=== PATIENT | female | born 1955 | race Caucasian/White ===

== ENCOUNTER → 2017-03-16 | Outpatient (CLI) | payer BC, OTHER ==
[~2017-03-16] MED LIST: ASPCH81 PO; BENADRYL; CALCTAB5 PO; CITRACEL; CLBCR15 EXT; CRG625 PO; EFFSR150 PO; ENOX40IN SQ; ESTCR PV; GLC500 PO; HMLI SC; HYDC25 PO; INSDGI SC; LISI40TA PO; MRLP17 PO; MULT-506 PO; NRN600 PO; NTRGSL/4 UT; OXYC-57 PO; OXYSR10 PO; PRLSR20 PO; SITA100T3 PO; STLS PO; SYN100 PO
== END | disposition home or self-care (01) ==
LOC: C.RDSM 14:37
PROVIDERS: ATTEND Physical Medicine & Rehabilitation Sports Medicine
DX: M70.72 Other bursitis of hip, left hip (principal)

== ENCOUNTER → 2017-03-30 | Outpatient (CLI) | payer OTHER ==
--- NOTE | 2017-03-31 13:20 | MAMMOGRAPHY REPORT ---
BILATERAL DIGITAL SCREENING MAMMOGRAM 3D/2D WITH CAD: 03/30/2017 CLINICAL HISTORY: Routine screening. Patient has no complaints. TECHNIQUE: Breast tomosynthesis in addition to standard 2D mammography was performed. Current study was also evaluated with a Computer Aided Detection (CAD) system. COMPARISON: Comparison is made to exams dated: 03/26/2015 mammogram, 03/23/2014 mammogram, 03/28/2016 m ammogram, 03/21/2013 mammogram, 03/18/2012 mammogram, and 03/17/2011 mammogram - [facility]. BREAST COMPOSITION: There are scattered areas of fibroglandular density in both breasts. FINDINGS: There is a stable safia-shaped metallic biopsy marker in the left upper outer quadrant. Scat tered benign-appearing punctate microcalcifications in the breasts. No new suspicious mass, architec tural distortion or cluster of microcalcifications is seen. ACR BI-RADS CATEGORY 1: NEGATIVE There is no mammographic evidence of malignancy. A 1 year screening mammogram is recommended. The pa tient will receive written notification of the results. Approximately 10% of breast cancers are not detected with mammography. A negative mammographic report should not delay biopsy if a clinically suggestive mass is present. Annie Tejeda M.D. ay/:03/30/2017 16:18:38 Operations And Maintenance Supervisor: Monserrat ENCARNACION(Danelle)(M), [facility] letter sent: Normal 1/2 BI-RADS Code: ACR BI-RADS Category 1: Negative
== END | disposition home or self-care (01) ==
LOC: C.MAMM 11:25
PROVIDERS: ATTEND Internal Medicine
DX: Z12.31 Encounter for screening mammogram for malignant neoplasm of breast (principal)

== ENCOUNTER → 2017-09-03 | Outpatient (CLI) | payer OTHER ==
[~2017-09-03] MED LIST changes: +GADAVIST IV PRN
--- NOTE | 2017-09-03 13:09 | DIAGNOSTIC IMAGING REPORT ---
MRI OF THE BRAIN WITHOUT AND WITH IV CONTRAST CLINICAL HISTORY: VERTIGO,HEADACHES COMPARISON STUDY: Noncontrast head CT dated 03/18/2010 TECHNIQUE: MRI of the brain was performed from the vertex to the skull base utilizing various T1 and T2 weighted sequences. Following the IV administration of 7.4 mL of Gadavist contrast, additional enhanced images were obtained. FINDINGS: Sagittal T1, axial diffusion, proton density and T2 weighted axial, coronal FLAIR, and pre and post axial T1-weighted images were acquired. These were supplemented with post gadolinium coronal T1 weighted images. No intra or extra-axial mass lesions are visualized. Axial diffusion-weighted images reveal no evidence of acute or subacute infarction. There is no evidence of ventricular dilatation. Proton density T2-weighted and FLAIR images reveal scattered foci of increased T2 signal within the white matter, likely on a small vessel basis. There are no abnormal flow voids. There is no evidence of pathologic enhancement. IMPRESSION: 1. No acute intracranial findings 2. No evidence of intracranial mass 3. No evidence of acute or subacute infarction Electronically signed by: [place] M.D. 09/03/2017 1:07 PM Dictated Date/Time: 09/03/2017 1:06 PM
== END | disposition home or self-care (01) ==
LOC: C.MRIBC 11:54
PROVIDERS: ATTEND Nurse Practitioner
DX: R51 Headache (principal)

== ENCOUNTER 2018-12-25 11:22 | Inpatient (IN) ==
--- OUTSIDE RECORDS SUMMARY | 2018-12-25 11:26 | External Medical Summary | Continuity of Care Document ---
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 Refills: 0 Venlafaxine HCl ER 75 MG Oral Tablet Ext ended Release 24 Hour; Take 1 tablet twice daily , M.D. Refills: 0 Synthroid 88 MCG Oral Tablet; TAKE 1 TABLET DAILY. , M.D. Refills: 0 Gabapentin 600 MG Oral Tablet , M.D. Refills: 0 traMADol HCl - 50 MG Oral Tablet; TAKE 1 TABLET 3 TIMES FINN Y NEEDED. , M.D. Refills: 0 Perphenazine-Amitriptyline 2-25 MG Oral Tablet; TAKE 2 TABLE T , M.D. Refills: 0 raNITIdine HCl - 150 MG Oral Tablet , M.D. Refills: 0 Clobetasol Propionate 0.05 % External Cream , M.D. Refills: 0 Estrace 0.1 MG/GM Vaginal Cream; USE DIRECTED. , M.D. Refills: 0 metFORMIN HCl - 500 MG Oral Tablet; TAKE 1 TABLET DAILY WITH FOOD. , M.D. Start: 14-Jun-2015 Refills: 0 Procedures Procedures not documented Immunizations Immunizations not documented Family History Mother Family history of diabetes mellitus (V18.0) (Z83.3) Status: Active Family history of hypertension (V17.49) (Z82.49) Status: Act joe Family history of Parkinson's disease (V17.2) (Z82.0) Status : Active Father Family history of diabetes mellitus (V18.0) (Z83.3) Status: Active Family history of hypertension (V17.49) (Z82.49) Status: Act joe Family history of prostate cancer (V16.42) (Z80.42) Status: Active Social History - Smoking Status Former smoker Plan of Treatment Planned Observations Planned Goals not documented Results No Known Results Results not documented
--- NOTE | 2018-12-25 12:15 | Emergency Department Note ---
Entered by Fina Lucas acting as a scribe for Greg Pfeiffer DO History of Present Illness General Chief complaint: Hyperglycemia Stated complaint: NO RESPONDING, HYPERGLYCEMIA +400 Source: patient History of Present Illness Onset (ago): day(s) 1 Location: head (Hyperglycemia) Severity: similar to prior episodes Pain Consistency: + intermittent Quality: + other (Hyperglycemia) Relieved By: not by medication (Insulin) Associated symptoms: no chest pain, no fever/chills, no headaches and no shortness of breath Treatments prior to arrival: other (Increase of insulin dosage) The patient is a 63-year-old female who presented to the emergency department for altered mental status. The patient presented to the emergency department with her significant other. The significant other gives most of the history. The patient has a history of cirrhosis caused by diabetes. The patient has had a TIPS procedure in the past. She is been on no new medications. She has had no falls. She has noticed intermittent epistaxis but the patient and her significant other did not know her current platelet count. The patient has also been noticing elevation in her blood sugar. She is been experiencing worsening hyperglycemia despite her primary care physician increasing her insulin. The patient denies having any chest pain or shortness of breath. She does complain of lower extremity edema but no abdominal pain or abdominal distention according to her or her significant other. She has not had any fevers. She has no headaches. She has had no dark or black stools. She has not seen her primary care physician for this complaint and her significant other feels that this started yesterday. Home Medications Home Medications Medication Instructions Recorded Confirmed Type Systane Ultra 4 drp OPB DAILY PRN 07/11/18 12/25/18 History calcium carbonate-vitamin D3 2 tab PO BID 07/11/18 12/25/18 History [Calcium 600 + D(3)] diphenhydramine HCl [Benadryl] 25 - 50 mg PO QID PRN 07/11/18 12/25/18 History levothyroxine 100 mcg PO QAM 07/11/18 12/25/18 History pantoprazole 40 mg PO QAM 07/11/18 12/25/18 History spironolactone 25 mg PO QAM 07/11/18 12/25/18 History ursodiol 500 mg PO BID 07/11/18 12/25/18 History venlafaxine 75 mg PO BIDM 07/11/18 12/25/18 History Magic Swizzle 30 ml PO QID 11/02/18 12/25/18 History acetaminophen [Tylenol Extra 500 mg PO Q4H PRN 11/02/18 12/25/18 History Strength] pedi multivitamin no.79-iron 1 tab PO BID 11/02/18 12/25/18 History [Flintstones with Iron] polyethylene glycol 3350 [Miralax] 17 g PO QAM 11/02/18 12/25/18 History potassium chloride 10 meq PO BID 11/02/18 12/25/18 History zinc sulfate [Zinc-220] 220 mg PO BID 11/02/18 12/25/18 History furosemide 40 mg PO PM 12/25/18 12/25/18 History furosemide 80 mg PO QAM 12/25/18 12/25/18 History insulin glargine [Lantus Solostar 19 unit SUBCUT QAM 12/25/18 12/25/18 History U-100 Insulin] lactulose 60 ml PO Q4H 12/25/18 12/25/18 History magnesium oxide 400 mg PO QAM 12/25/18 12/25/18 History sitagliptin [Januvia] 100 mg PO QAM 12/25/18 12/25/18 History vitamin K93-lilep acid 1 tab PO QAM 12/25/18 12/25/18 History Allergies Allergy/AdvReac Type Severity Reaction Status Date / Time Sulfa (Sulfonamide Allergy Mild RED RASH Verified 12/25/18 12:36 Antibiotics) adhesive Allergy Unknown RASH AND Verified 12/25/18 12:36 BRUISING Estrogens Allergy Unknown SORE AND Verified 12/25/18 12:36 ITCHY repaglinide Allergy Unknown RASH Verified 12/25/18 12:36 NSAIDS (Non-Steroidal AdvReac Unknown STRICTLY Verified 12/25/18 12:36 Anti-Inflamma NO NSAIDS FOR ADMISSION OF 03/18/[address] GIVENS Past Med/Surg History Medical History Depression (Chronic) Diabetes mellitus, type II (Chronic) Hypothyroidism (Chronic) Factor V Leiden (Chronic) SAMANTHA (obstructive sleep apnea) (Chronic) Portal hypertension (Chronic) Esophageal varices (Chronic) Liver cirrhosis secondary to MARIA (Chronic) Thrombocytopenia (Chronic) Hepatic encephalopathy (Resolved) Hyperammonemia (Resolved) Acute UTI (urinary tract infection) (Resolved) Cirrhosis (Chronic) Hyperammonemia (Chronic) Surgical History S/P gastric bypass (Chronic) S/P TIPS (transjugular intrahepatic portosystemic shunt) (Chronic) Family History Other Cancer Diabetes Factor V Leiden Social History Preferred Language: Croatian Communication Ability: Effective [employer] Required: No Beliefs That Will Affect Care: None Current Living Situation: Spouse Other Information That Helps Us Care for You: No Feels Safe at Home: Yes Safety Concerns: Feels Safe At This Time Smoking Status: Never smoker Do You Dip or Chew Tobacco: No Second Hand Exposure: No Tobacco Cessation Education Requested by Patient: No Hx Alcohol Use: No Hx Substance Use: No Review of Systems See HPI for pertinent positives & negatives. and A total of 10 systems reviewed and were otherwise negative Physical Exam Vital Signs Vital Signs - 24 hr 12/25/18 11:28 12/25/18 11:47 12/25/18 12:18 Temperature 36.5 C Temperature Source Oral Sepsis Recent Fever Within 48 Hours No Sepsis New/Unexplained Change in Mental Status No Sepsis Action Taken by Nursing No Action Required Pulse Rate 101 H 94 H Pulse Rate [Right Finger] 92 H 97 H Pulse Rhythm [Right Finger] Regular Pulse Strength [Right Finger] Normal Respiratory Rate 18 22 16 Respiratory Effort / Characteristics Non-Labored Spontaneous Non-Labored Spontaneous Non-Labored Respiratory Depth Normal Normal Respiratory Pattern Regular Regular Regular Blood Pressure 163/76 H Blood Pressure [Left Arm] 168/77 H 170/79 H Blood Pressure Mean 105 Blood Pressure Mean [Left Arm] 107 109 Blood Pressure Position Sitting Blood Pressure Position [Left Arm] Lying Lying Pulse Oximetry 100 99 99 Oxygen Delivery Method Room Air Room Air Room Air 12/25/18 13:45 Temperature Temperature Source Sepsis Recent Fever Within 48 Hours Sepsis New/Unexplained Change in Mental Status Sepsis Action Taken by Nursing Pulse Rate Pulse Rate [Right Finger] 99 H Pulse Rhythm [Right Finger] Regular Pulse Strength [Right Finger] Respiratory Rate 16 Respiratory Effort / Characteristics Non-Labored Respiratory Depth Normal Respiratory Pattern Blood Pressure Blood Pressure [Left Arm] 164/80 H Blood Pressure Mean Blood Pressure Mean [Left Arm] 108 Blood Pressure Position Blood Pressure Position [Left Arm] Lying Pulse Oximetry 98 Oxygen Delivery Method Room Air GENERAL: The patient is listless but responds to verbal commands. She is slow to respond but responds appropriately. EYES: The conjunctivae are clear. The pupils are round and reactive. EARS, NOSE, MOUTH AND THROAT: The nose is without any evidence of any deformity. Mucous membranes are dry. There was clotted blood in both nares. NECK: The neck is nontender and supple. RESPIRATORY: Normal respiratory effort is noted there is no evidence of wheezing rhonchi or rales CARDIOVASCULAR: Tachycardic rate with regular rhythm was noted. There is no definite murmur. GASTROINTESTINAL: The abdomen is soft. Bowel sounds are present in all quadrants. Abdomen is nontender MUSCULOSKELETAL/EXTREMITIES: There is no evidence of gross deformity full range of motion is noted in the hips and shoulders SKIN: There is no obvious evidence of any rash. Pedal edema was noted bilaterally. NEUROLOGIC: Patient is awake to verbal commands. She is oriented to person place and situation. Strength was diminished but symmetric. Patient is tremulous in both upper and lower extremities. Course 1145: The patient was evaluated in room A11B, and a complete history and physical examination were performed. 1315: I discussed the patients case with Radha Jang PA-C. Dr. Kris Smith hospitalist will evaluate the patient for further management. Consultations Consultation #1: I discussed the patients case with Radha Jang PA-C. Dr. Kris Smith hospitalist will evaluate the patient for further management. Time: 13:15 Administered Medications Insulin Human Regular 250 (units/ Sodium Chloride) 250 mls @ 2.7 mls/hr IV .Q24H [facility]; Protocol Stop: 01/24/19 17:44 Last Titration: 12/25/18 20:31 Dose: 2.7 units/hr, 2.7 mls/hr Documented by: [id number] Cosigned by: [id number] Admin: 12/25/18 19:22 Dose: 1.9 units/hr, 1.9 mls/hr Documented by: [id number] Cosigned by: [id number] Titration: 12/25/18 19:22 Dose: 1.6 units/hr, 1.6 mls/hr Documented by: [id number] Cosigned by: [id number] Admin: 12/25/18 18:12 Dose: 1.6 units/hr, 1.6 mls/hr Documented by: [id number] Cosigned by: [id number] Sodium Chloride (Nss 1000ml) 1,000 mls @ 125 mls/hr IV .Q8H [facility] Stop: 01/24/19 17:01 Last Admin: 12/25/18 17:50 Dose: 125 mls/hr Documented by: [id number] Insulin Aspart (Novolog Flexpen) 0 units SC [facility] Stop: 01/24/19 17:59 Last Admin: 12/25/18 20:31 Dose: Not Given Documented by: [id number] Cosigned by: [id number] Admin: 12/25/18 18:10 Dose: 1 units Documented by: [id number] Cosigned by: [id number] Ioversol (Optiray 320 100ml) 94 ml IV ONCE PRN PRN Reason: Interaction Checking Stop: 12/29/18 15:36 Last Admin: 12/25/18 15:37 Dose: 94 ml Documented by: [id number] Lactulose (Chronulac) 30 gm PO QID [facility] Stop: 01/24/19 17:01 Last Admin: 12/25/18 20:30 Dose: 30 gm Documented by: [id number] Admin: 12/25/18 18:02 Dose: 30 gm Documented by: [id number] Rifaximin (Xifaxan) 550 mg PO BID [facility] Stop: 01/24/19 17:29 Last Admin: 12/25/18 18:02 Dose: 550 mg Documented by: [id number] Discontinued Medications Sodium Chloride (Nss 1000ml) 1,000 mls @ 999 mls/hr IV .Q1H1M ONE Stop: 12/25/18 13:26 Last Infusion: 12/25/18 15:33 Dose: 0 mls/hr Documented by: [id number] Admin: 12/25/18 12:46 Dose: 999 mls/hr Documented by: [id number] Sodium Chloride (Nss 1000ml) 1,000 mls @ 999 mls/hr IV .Q1H1M ONE Stop: 12/25/18 14:11 Last Admin: 12/25/18 16:45 Dose: Not Given Documented by: [id number] Insulin Human Regular (Novolin R U-100 Per Unit) 6 units IV NOW STA Stop: 12/25/18 13:12 Last Admin: 12/25/18 13:48 Dose: 6 units Documented by: [id number] Cosigned by: [id number] Lactulose (Chronulac) 30 gm PO NOW STA Stop: 12/25/18 13:12 Last Admin: 12/25/18 13:49 Dose: 30 gm Documented by: [id number] Miscellaneous (Insulin Protocol Moderate Stress Level) 1 ea N/A ONE ONE Stop: 12/25/18 17:03 Last Admin: 12/25/18 18:00 Dose: 1 ea Documented by: [id number] Medical Decision Making Differential Diagnosis Etiologies such as metabolic, infection, hypo/hyperglycemia, electrolyte abnormalities, cardiac sources, intracerebral event, toxicologic, neurologic, as well as others were entertained. Medical Records Attestation: I reviewed the patient's medical records. Home Medications Current Medication List: was personally reviewed by me Laboratory Data Attestation: I reviewed the patient's lab results. Result diagrams: 12/25/18 12:04 12/25/18 17:16 Lab Results 12/25/18 12/25/18 12/25/18 Range/Units 11:33 12:04 12:04 WBC 4.68 L (4.8-10.8) K/uL RBC 3.73 L (4.2-5.4) M/uL Hgb 12.2 (12.0-16.0) g/dL Hct 34.0 L (37-47) % MCV 91.2 (80-100) fL MCH 32.7 (25-34) pg MCHC 35.9 (32-36) g/dL RDW Std Deviation 56.9 H (36.4-46.3) fL RDW Coeff of Loco 17.0 H (11.5-14.5) % Plt Count 174 (130-400) K/uL MPV 10.7 H (7.4-10.4) fL Immature Gran % (Auto) 0.2 % Neut % (Auto) 63.9 % Lymph % (Auto) 19.0 % Garland % (Auto) 14.3 % Eos % (Auto) 0.9 % Baso % (Auto) 1.7 % Immature Gran # (Auto) 0.01 (0.00-0.02) K/uL Neut # (Auto) 2.99 (1.4-6.5) K/uL Lymph # (Auto) 0.89 L (1.2-3.4) K/uL Garland # (Auto) 0.67 H (0.11-0.59) K/uL Eos # (Auto) 0.04 (0-0.5) K/uL Baso # (Auto) 0.08 (0-0.2) K/uL ESR (0-21) mm/hr PT 12.5 H (9.0-12.0) Seconds INR 1.2 H (0.9-1.1) APTT 30.2 (21.0-31.0) Seconds PTT Ratio 1.1 VBG pH (7.36-7.41) VBG pCO2 (38-50) mmHg VBG pO2 mmHg VBG HCO3 mmol/L VBG O2 Saturation % VBG Base Excess mEq/L Barometric Pressure mm/Hg Sodium (136-145) mmol/L Potassium (3.5-5.1) mmol/L Chloride (98-107) mmol/L Carbon Dioxide (21-32) mmol/L Anion Gap (3-11) BUN (7-18) mg/dl Creatinine (0.6-1.2) mg/dl Est Cr Clr Drug Dosing ml/min Est GFR ( Amer) Est GFR (Non-Af Amer) BUN/Creatinine Ratio (10-20) Glucose (70-99) mg/dl POC Glucose 367 H* (70-99) Lactate (0.4-2.0) mmol/L Calcium (8.5-10.1) mg/dl Phosphorus (2.5-4.9) mg/dl Magnesium (1.8-2.4) mg/dl Total Bilirubin (0.2-1) mg/dl Direct Bilirubin (0-0.2) mg/dl AST (15-37) U/L ALT (12-78) U/L Alkaline Phosphatase (45-117) U/L Ammonia (11-32) umol/L Troponin I (0-0.045) ng/ml C-Reactive Protein (0-0.29) mg/dl Total Protein (6.4-8.2) gm/dl Albumin (3.4-5.0) gm/dl Globulin (2.5-4.0) gm/dl Albumin/Globulin Ratio (0.9-2) Beta-Hydroxybutyric Acd (0.2-2.81) mg/dl Procalcitonin (0-0.5) ng/ml TSH (0.300-4.500) uIu/ml Free T4 (0.8-1.6) ng/dl 12/25/18 12/25/18 12/25/18 Range/Units 12:04 12:04 12:04 WBC (4.8-10.8) K/uL RBC (4.2-5.4) M/uL Hgb (12.0-16.0) g/dL Hct (37-47) % MCV (80-100) fL MCH (25-34) pg MCHC (32-36) g/dL RDW Std Deviation (36.4-46.3) fL RDW Coeff of Loco (11.5-14.5) % Plt Count (130-400) K/uL MPV (7.4-10.4) fL Immature Gran % (Auto) % Neut % (Auto) % Lymph % (Auto) % Garland % (Auto) % Eos % (Auto) % Baso % (Auto) % Immature Gran # (Auto) (0.00-0.02) K/uL Neut # (Auto) (1.4-6.5) K/uL Lymph # (Auto) (1.2-3.4) K/uL Garland # (Auto) (0.11-0.59) K/uL Eos # (Auto) (0-0.5) K/uL Baso # (Auto) (0-0.2) K/uL ESR (0-21) mm/hr PT (9.0-12.0) Seconds INR (0.9-1.1) APTT (21.0-31.0) Seconds PTT Ratio VBG pH (7.36-7.41) VBG pCO2 (38-50) mmHg VBG pO2 mmHg VBG HCO3 mmol/L VBG O2 Saturation % VBG Base Excess mEq/L Barometric Pressure mm/Hg Sodium 134 L (136-145) mmol/L Potassium 3.8 (3.5-5.1) mmol/L Chloride 97 L (98-107) mmol/L Carbon Dioxide 33 H (21-32) mmol/L Anion Gap 4.0 (3-11) BUN 8 (7-18) mg/dl Creatinine 0.87 (0.6-1.2) mg/dl Est Cr Clr Drug Dosing 58.0 ml/min Est GFR ( Amer) 81.0 Est GFR (Non-Af Amer) 69.9 BUN/Creatinine Ratio 9.4 L (10-20) Glucose 347 H* (70-99) mg/dl POC Glucose (70-99) Lactate (0.4-2.0) mmol/L Calcium 8.8 (8.5-10.1) mg/dl Phosphorus 3.3 (2.5-4.9) mg/dl Magnesium 1.8 (1.8-2.4) mg/dl Total Bilirubin 2.8 H (0.2-1) mg/dl Direct Bilirubin 1.7 H (0-0.2) mg/dl AST 78 H (15-37) U/L ALT 43 (12-78) U/L Alkaline Phosphatase 266 H (45-117) U/L Ammonia (11-32) umol/L Troponin I 0.016 (0-0.045) ng/ml C-Reactive Protein 0.57 H (0-0.29) mg/dl Total Protein 6.8 (6.4-8.2) gm/dl Albumin 2.3 L (3.4-5.0) gm/dl Globulin 4.5 H (2.5-4.0) gm/dl Albumin/Globulin Ratio 0.5 L (0.9-2) Beta-Hydroxybutyric Acd 2.45 (0.2-2.81) mg/dl Procalcitonin 0.05 (0-0.5) ng/ml TSH 12.000 H (0.300-4.500) uIu/ml Free T4 1.72 H (0.8-1.6) ng/dl 12/25/18 12/25/18 12/25/18 Range/Units 12:04 12:06 12:06 WBC (4.8-10.8) K/uL RBC (4.2-5.4) M/uL Hgb (12.0-16.0) g/dL Hct (37-47) % MCV (80-100) fL MCH (25-34) pg MCHC (32-36) g/dL RDW Std Deviation (36.4-46.3) fL RDW Coeff of Loco (11.5-14.5) % Plt Count (130-400) K/uL MPV (7.4-10.4) fL Immature Gran % (Auto) % Neut % (Auto) % Lymph % (Auto) % Garland % (Auto) % Eos % (Auto) % Baso % (Auto) % Immature Gran # (Auto) (0.00-0.02) K/uL Neut # (Auto) (1.4-6.5) K/uL Lymph # (Auto) (1.2-3.4) K/uL Garland # (Auto) (0.11-0.59) K/uL Eos # (Auto) (0-0.5) K/uL Baso # (Auto) (0-0.2) K/uL ESR 51 H (0-21) mm/hr PT (9.0-12.0) Seconds INR (0.9-1.1) APTT (21.0-31.0) Seconds PTT Ratio VBG pH (7.36-7.41) VBG pCO2 (38-50) mmHg VBG pO2 mmHg VBG HCO3 mmol/L VBG O2 Saturation % VBG Base Excess mEq/L Barometric Pressure mm/Hg Sodium (136-145) mmol/L Potassium (3.5-5.1) mmol/L Chloride (98-107) mmol/L Carbon Dioxide (21-32) mmol/L Anion Gap (3-11) BUN (7-18) mg/dl Creatinine (0.6-1.2) mg/dl Est Cr Clr Drug Dosing ml/min Est GFR ( Amer) Est GFR (Non-Af Amer) BUN/Creatinine Ratio (10-20) Glucose (70-99) mg/dl POC Glucose (70-99) Lactate 2.8 H* (0.4-2.0) mmol/L Calcium (8.5-10.1) mg/dl Phosphorus (2.5-4.9) mg/dl Magnesium (1.8-2.4) mg/dl Total Bilirubin (0.2-1) mg/dl Direct Bilirubin (0-0.2) mg/dl AST (15-37) U/L ALT (12-78) U/L Alkaline Phosphatase (45-117) U/L Ammonia (11-32) umol/L Troponin I (0-0.045) ng/ml C-Reactive Protein (0-0.29) mg/dl Total Protein (6.4-8.2) gm/dl Albumin (3.4-5.0) gm/dl Globulin (2.5-4.0) gm/dl Albumin/Globulin Ratio (0.9-2) Beta-Hydroxybutyric Acd (0.2-2.81) mg/dl Procalcitonin (0-0.5) ng/ml TSH Cancelled (0.300-4.500) uIu/ml Free T4 (0.8-1.6) ng/dl 12/25/18 12/25/18 Range/Units 12:06 12:06 WBC (4.8-10.8) K/uL RBC (4.2-5.4) M/uL Hgb (12.0-16.0) g/dL Hct (37-47) % MCV (80-100) fL MCH (25-34) pg MCHC (32-36) g/dL RDW Std Deviation (36.4-46.3) fL RDW Coeff of Lcoo (11.5-14.5) % Plt Count (130-400) K/uL MPV (7.4-10.4) fL Immature Gran % (Auto) % Neut % (Auto) % Lymph % (Auto) % Garland % (Auto) % Eos % (Auto) % Baso % (Auto) % Immature Gran # (Auto) (0.00-0.02) K/uL Neut # (Auto) (1.4-6.5) K/uL Lymph # (Auto) (1.2-3.4) K/uL Garland # (Auto) (0.11-0.59) K/uL Eos # (Auto) (0-0.5) K/uL Baso # (Auto) (0-0.2) K/uL ESR (0-21) mm/hr PT (9.0-12.0) Seconds INR (0.9-1.1) APTT (21.0-31.0) Seconds PTT Ratio VBG pH 7.45 H (7.36-7.41) VBG pCO2 41 (38-50) mmHg VBG pO2 51 mmHg VBG HCO3 28 mmol/L VBG O2 Saturation 86.5 % VBG Base Excess 3.9 mEq/L Barometric Pressure 734.6 mm/Hg Sodium (136-145) mmol/L Potassium (3.5-5.1) mmol/L Chloride (98-107) mmol/L Carbon Dioxide (21-32) mmol/L Anion Gap (3-11) BUN (7-18) mg/dl Creatinine (0.6-1.2) mg/dl Est Cr Clr Drug Dosing ml/min Est GFR ( Amer) Est GFR (Non-Af Amer) BUN/Creatinine Ratio (10-20) Glucose (70-99) mg/dl POC Glucose (70-99) Lactate (0.4-2.0) mmol/L Calcium (8.5-10.1) mg/dl Phosphorus (2.5-4.9) mg/dl Magnesium (1.8-2.4) mg/dl Total Bilirubin (0.2-1) mg/dl Direct Bilirubin (0-0.2) mg/dl AST (15-37) U/L ALT (12-78) U/L Alkaline Phosphatase (45-117) U/L Ammonia 68.0 H (11-32) umol/L Troponin I (0-0.045) ng/ml C-Reactive Protein (0-0.29) mg/dl Total Protein (6.4-8.2) gm/dl Albumin (3.4-5.0) gm/dl Globulin (2.5-4.0) gm/dl Albumin/Globulin Ratio (0.9-2) Beta-Hydroxybutyric Acd (0.2-2.81) mg/dl Procalcitonin (0-0.5) ng/ml TSH (0.300-4.500) uIu/ml Free T4 (0.8-1.6) ng/dl Imaging Data Radiologist's Impression: Radiology results as stated below per my review and the radiologist's interpretation: CT head/brain wo con CT DOSE: 537.48 mGy.cm HISTORY: Mental status change altered TECHNIQUE: Multiaxial CT images of the head were performed without the use of intravenous contrast. A dose lowering technique was utilized adhering to the principles of ALARA. Comparison: None. Findings: The paranasal sinuses and mastoid air cells are clear. The calvarium and skull base are intact. The ventricles and sulci are within normal limits. There is no mass, hematoma, midline shift, or acute infarct. Impression: No acute intracranial abnormality. The above report was generated using voice recognition software. It may contain grammatical, syntax or spelling errors. Electronically signed by: William Mariscal M.D. 12/25/2018 12:14 PM XR chest 1V portable CLINICAL HISTORY: Sepsis dyspnea COMPARISON STUDY: 11/02/2018 FINDINGS: The bones soft tissues and hemidiaphragms are normal. The cardiomediastinal silhouette is normal. The lungs are clear. The pulmonary vascu lature is normal. IMPRESSION: Negative chest. The above report was generated using voice recognition software. It may contain grammatical, syntax or spelling errors. Electronically signed by: William Mariscal M.D. 12/25/2018 1:07 PM ECG Data Attestation: I personally reviewed and interpreted this ECG as follows: Indication: altered mental status Rate (beats per minute): 84 Rhythm: normal sinus Findings: no ST depression, no ST elevation and no ectopy Comparison ECG Date: from (07/11/18) Change: no significant change Blood Pressure Blood Pressure Findings: Elevated blood pressure Blood Pressure Disposition: further management by hospitalist MDM Narrative The patient is a 63-year-old female who presented to the emergency department with her significant other for an evaluation of altered mental status. The patient does have a history of hepatic encephalopathy. She had a TIPS procedure done. The patient has had a problem with elevated ammonia in the past. Her significant other states that she has been compliant with her medications. The patient was listless. She does appear to have a physical exam consistent with an encephalopathy. I discussed the patient's laboratory and radiographic studies with her and her significant other. I also discussed this case with the on-call [facility] hospitalist group. They have agreed to evaluate patient in the emergency department for further management and disposition. Impression & Plan Hepatic encephalopathy, Hyperglycemia, Altered mental status Discharge Plan Visit Data *Final* Discharge Date/Time: 12/25/18 15:29 Chief Complaint: Hyperglycemia Stated Complaint: NO RESPONDING, HYPERGLYCEMIA +400 ED Provider: Greg Pfeiffer Discharge Problem: Hepatic encephalopathy, Hyperglycemia, Altered mental status Patient Disposition: Admitted As Inpatient Discharge Instructions Interventions: ED Discharge Assessment Last Done: 12/25/18 15:29 Discharge Problem: Altered mental status Qualifiers: Altered mental status type: unspecified Qualified Code(s): R41.82 - Altered mental status, unspecified The scribe's documentation has been prepared under my direction and personally reviewed by me in its entirety. I confirm that the note above accurately reflec ts all work, treatment, procedures, and medical decision making performed by me.
[2018-12-25 12:16] LABS: Basophils # (auto) 0.08 K/uL (0-0.2); Basophils % (auto) 1.7 %; Eosinophils # (auto) 0.04 K/uL (0-0.5); Eosinophils % (auto) 0.9 %; Hemoglobin 12.2 g/dL (12.0-16.0); Immature Granulocytes # (auto) 0.01 K/uL (0.00-0.02); Immature Granulocytes % (auto) 0.2 %; Lymphocytes # (auto) 0.89 K/uL (1.2-3.4); Mean Corpuscular Hgb Conc 35.9 g/dL (32-36); Mean Corpuscular Volume 91.2 fL (80-100); Mean Platelet Volume 10.7 fL (7.4-10.4); Monocytes # (auto) 0.67 K/uL (0.11-0.59); Monocytes % (auto) 14.3 %; Neutrophils # (auto) 2.99 K/uL (1.4-6.5); Neutrophils % (auto) 63.9 %; Platelet Count 174 K/uL (130-400); RDW Standard Deviation 56.9 fL (36.4-46.3); Red Blood Count 3.73 M/uL (4.2-5.4); White Blood Count 4.68 K/uL (4.8-10.8)
[2018-12-25 12:20] LABS: Base Excess VBG 3.9 mEq/L; Oxygen Saturation VBG 86.5 %; pH VBG 7.45 (7.36-7.41)
[2018-12-25] MEDS ORDERED: SODIUM CHLORIDE 0.9% 1000ML 1,000 ML IV ONE ×2 (12:26→13:11)
[2018-12-25 12:30] LABS: INR 1.2 (0.9-1.1); Partial Thromboplastin Ratio 1.1; Partial Thromboplastin Time 30.2 Seconds (21.0-31.0); Prothrombin Time 12.5 Seconds (9.0-12.0)
[2018-12-25 12:43] LABS: Albumin Globulin Ratio 0.5 (0.9-2); Albumin Level 2.3 gm/dl (3.4-5.0); BUN Creatinine Ratio 9.4 (10-20); Bilirubin,Total 2.8 mg/dl (0.2-1); C Reactive Protein 0.57 mg/dl (0-0.29); Calcium 8.8 mg/dl (8.5-10.1); Est GFR (Non-African American) 69.9; Globulin 4.5 gm/dl (2.5-4.0); Magnesium 1.8 mg/dl (1.8-2.4); Phosphorus 3.3 mg/dl (2.5-4.9); Potassium 3.8 mmol/L (3.5-5.1); Total Protein 6.8 gm/dl (6.4-8.2); Troponin I 0.016 ng/ml (0-0.045)
--- NOTE | 2018-12-25 13:08 | XRay Report ---
XR chest 1V portable CLINICAL HISTORY: Sepsis dyspnea COMPARISON STUDY: 11/02/2018 FINDINGS: The bones soft tissues and hemidiaphragms are normal. The cardiomediastinal silhouette is n ormal. The lungs are clear. The pulmonary vasculature is normal. IMPRESSION: Negative chest. The above report was generated using voice recognition software. It may contain grammatical, syntax or spelling errors. Electronically signed by: William Mariscal M.D. 12/25/2018 1:07 PM
[2018-12-25] MEDS ORDERED: LACTULOSE SYRUP 20 GM/30 ML UDC PO STA (13:11)
[2018-12-25] MEDS ORDERED: NovoLIN-R INSULIN PER UNIT CHARGE IV STA (13:11)
[2018-12-25] MEDS ORDERED: INSULIN REGULAR 250 UNITS in SODIUM CHLORIDE 0.9% 247.5 ML IV SCH (14:00)
--- NOTE | 2018-12-25 14:32 | History & Physical Report ---
Date of Service December 25, 2018 Assessment & Plan (1) Metabolic encephalopathy: (2) Altered mental status: Pt presented with increased lethargy and confusion since 12/24/18. In ER pt afebrile, P: 101, R: 18, BP: 163/76, 100% on RA. WBC: 4.68, H/H: 12/34, Plt: 174, INR: 1.2 (baseline: 1.4), Total bili: 2.8 (baseline ~3.3), Direct bili: 1.7, AST: 78 (baseline 69-99), ALT: 43 (baseline 34-56), Alk Phos: 266 (baseline 190-220), Ammonia: 68 (baseline 36). DDX: hepatic encephalopathy, hyperglycemia, R/O UTI -pending UA -obtain CT abd/pelvis and US portal vein to assess TIPS catheter -continue lactulose, add rifaxamine -monitor labs (3) Elevated lactic acid level: Afebrile. P: 101, R: 18, BP: 163/76 Lactic acid: 2.8 No signs of sepsis -Repeat lactic acid -IVF for dehydration (4) Liver cirrhosis secondary to ANDREWS: Hx esophageal varices, portal HTN. S/P [place] [facility] [place] abd/pelvis and US portal vein to assess TIPS catheter -continue lactulose -add rifaximin -lasix, spironolactone on hold currently as appears dry with hyperglycemia, monitor volume status closely -consider GI consult if no improvement or worsening (5) Hyperglycemia: (6) Diabetes mellitus, type II: A1c: 6.0 on 11/16/18 BSGs have been 300's-500 at home over past month and has been gradually increasing Lantus In ER BS. normal beta hydroxybutyric acid, no anion gap. -In ER pt given Insulin R 6units IV -IVF -Glycemic pharmacy consult to assist in glycemic management (7) Hypothyroidism: -obtain TSH -continue levothyroxine (8) SAMANTHA (obstructive sleep apnea): -CPAP HS per home settings (9) Factor V Leiden: Not on anticoagulation (10) Depression: -continue venlafaxine DVT Prophylaxis -SCDs DNR/DNI as per discussion with pt and pt's Follows with Dr Crockett for routine care Pt was seen with Dr Ponce. See addendum for further assessment and plan. History of Present Illness Chief Complaint: Pt is 63 y/o F with PMH Andrews cirrhosis, esophageal varices, portal hypertension s/p TIPS 08/2017, and obesity s/p bypass, hypothyroidism presented to ER with c/o increased fatigue and confusion started yesterday. Most of the history obtained from secondary to patient's fatigue, however pt is able to participate and answer questions appropriately. reports patient typically sleeps in recliner with her CPAP however last night she laid on the floor because she was too fatigued to get up. Patient is taking lactulose 4 times a day. states that she had one BM yesterday and today has not had any BMs yet despite taking lactulose. Reports increased lower extremity edema the past 2 days. Has not noticed any increased abdominal girth. Has not been weighing self past couple days. Reports blood sugars have been running high for over a month. Has been following with outpatient glycemic pharmacist for assistance with control and patient was started on Lantus daily. Patient has been increasing Lantus by 1 unit every 2 days for fasting blood sugars greater than 200. Patient is currently up to 19 units. brings home BSG readings which have ranged from 300s to 500s. She with history of hospitalizations at [facility] and [facility] [place] in [place] for hepatic encephalopathy. states since July patient has been doing well and has been able to participate in ADLs. Reports daily epistaxis that resolves on its own after a few minutes, last episode was yesterday. Denies fever/chills, diaphoresis, N/V/D, melena, hematochezia, BOYD, dizziness, syncope, vision changes, neck pain, CP, SOB, orthopnea, palpitations, cough, sore throat, choking, otalgia, rhinorrhea, abdominal pain, paresthesias, rashes, urinary symptoms. Primary Care Provider: Jong Crockett, Allergies Allergy/AdvReac Type Severity Reaction Status Date / Time Sulfa (Sulfonamide Allergy Mild RED RASH Verified 12/25/18 12:36 Antibiotics) adhesive Allergy Unknown RASH AND Verified 12/25/18 12:36 BRUISING Estrogens Allergy Unknown SORE AND Verified 12/25/18 12:36 ITCHY repaglinide Allergy Unknown RASH Verified 12/25/18 12:36 NSAIDS (Non-Steroidal AdvReac Unknown STRICTLY Verified 12/25/18 12:36 Anti-Inflamma NO NSAIDS FOR ADMISSION OF 03/18/[address] GIVENS Home Medications Home Medications Medication Instructions Recorded Confirmed Type Systane Ultra 4 drp OPB DAILY PRN 07/11/18 12/25/18 History calcium carbonate-vitamin D3 2 tab PO BID 07/11/18 12/25/18 History [Calcium 600 + D(3)] diphenhydramine HCl [Benadryl] 25 - 50 mg PO QID PRN 07/11/18 12/25/18 History levothyroxine 100 mcg PO QAM 07/11/18 12/25/18 History pantoprazole 40 mg PO QAM 07/11/18 12/25/18 History spironolactone 25 mg PO QAM 07/11/18 12/25/18 History ursodiol 500 mg PO BID 07/11/18 12/25/18 History venlafaxine 75 mg PO BIDM 07/11/18 12/25/18 History Magic Swizzle 30 ml PO QID 11/02/18 12/25/18 History acetaminophen [Tylenol Extra 500 mg PO Q4H PRN 11/02/18 12/25/18 History Strength] pedi multivitamin no.79-iron 1 tab PO BID 11/02/18 12/25/18 History [Flintstones with Iron] polyethylene glycol 3350 [Miralax] 17 g PO QAM 11/02/18 12/25/18 History potassium chloride 10 meq PO BID 11/02/18 12/25/18 History zinc sulfate [Zinc-220] 220 mg PO BID 11/02/18 12/25/18 History furosemide 40 mg PO PM 12/25/18 12/25/18 History furosemide 80 mg PO QAM 12/25/18 12/25/18 History insulin glargine [Lantus Solostar 19 unit SUBCUT QAM 12/25/18 12/25/18 History U-100 Insulin] lactulose 60 ml PO Q4H 12/25/18 12/25/18 History magnesium oxide 400 mg PO QAM 12/25/18 12/25/18 History sitagliptin [Januvia] 100 mg PO QAM 12/25/18 12/25/18 History vitamin X95-lcred acid 1 tab PO QAM 12/25/18 12/25/18 History Past Med/Surg History Medical History Depression (Chronic) Diabetes mellitus, type II (Chronic) Hypothyroidism (Chronic) Factor V Leiden (Chronic) SAMANTHA (obstructive sleep apnea) (Chronic) Portal hypertension (Chronic) Esophageal varices (Chronic) Liver cirrhosis secondary to ANDREWS (Chronic) Thrombocytopenia (Chronic) Hepatic encephalopathy (Resolved) Hyperammonemia (Resolved) Acute UTI (urinary tract infection) (Resolved) Cirrhosis (Chronic) Hyperammonemia (Chronic) Surgical History S/P gastric bypass (Chronic) S/P TIPS (transjugular intrahepatic portosystemic shunt) (Chronic) Family History Other Cancer Diabetes Factor V Leiden Social History Preferred Language: Sinhala Communication Ability: Effective [employer] Machine Operator Required: No Beliefs That Will Affect Care: None Current Living Situation: Spouse Other Information That Helps Us Care for You: No Feels Safe at Home: Yes Safety Concerns: Feels Safe At This Time Smoking Status: Never smoker Do You Dip or Chew Tobacco: No Second Hand Exposure: No Tobacco Cessation Education Requested by Patient: No Hx Alcohol Use: No Hx Substance Use: No Review of Systems Review of Systems: All systems reviewed & are unremarkable except as noted in HPI & below Physical Exam Physical Exam: General: Chronic ill appearing, lethargic appearing, WDWN Head: normocephalic, atraumatic Eyes: PERRL, EOM's intact, conjunctiva non-injected, anicteric ENT: normal inspection external ears, nares with dried blood bilaterally, mucous membranes dry Neck: supple, trachea midline Lungs: clear, no respiratory distress, no wheezing/rhonchi/rales CV: RRR, systolic murmur, no JVD, 2+ pretibial edema Abd: normal BS, no significant distension, soft, non-tender Ext: no cyanosis, no calf tenderness Neuro: lethargic but arouses with voice. oriented to person, place, month and year, no focal deficits noted, normal affect Skin: warm, dry Results & Data Vital Signs (Past 12 Hours) Vital Signs Temp Pulse Pulse Resp BP BP Pulse Ox 12/25/18 13:45 99 H 16 164/80 H 98 12/25/18 12:18 97 H 16 170/79 H 99 12/25/18 11:47 94 H 92 H 22 168/77 H 99 12/25/18 11:28 36.5 C 101 H 18 163/76 H 100 Laboratory Results Short CBC 12/25/18 Range/Units 12:04 WBC 4.68 L (4.8-10.8) K/uL Hgb 12.2 (12.0-16.0) g/dL Hct 34.0 L (37-47) % Plt Count 174 (130-400) K/uL BMP 12/25/18 12:04 Sodium 134 L Potassium 3.8 Chloride 97 L Carbon Dioxide 33 H BUN 8 Creatinine 0.87 Glucose 347 H* Calcium 8.8 Cardiac Enzymes 12/25/18 Range/Units 12:04 Troponin I 0.016 (0-0.045) ng/ml Liver Function 12/25/18 12/25/18 Range/Units 12:04 12:04 Total Bilirubin 2.8 H (0.2-1) mg/dl Direct Bilirubin 1.7 H (0-0.2) mg/dl AST 78 H (15-37) U/L ALT 43 (12-78) U/L Alkaline Phosphatase 266 H (45-117) U/L Albumin 2.3 L (3.4-5.0) gm/dl Diagnostic Findings CT HEAD: Impression: No acute intracranial abnormality CXR: IMPRESSION: Negative chest. Supervising Physician Co-Signing Physician Notes Attending Addendum: Patient seen and examined, care coordinated with Tri Santos PA-C This is 63-year-old female with history of Andrews cirrhosis status post TIPS procedure Presents with worsening of confusion, blood sugar elevated more than 400, without any anion gap or metabolic acidosis Most of the information obtained from her present at bedside, as patient was too lethargic to answer questions Per , patient was tired and weak for the past few days, this morning was hard to wake up more confused, lethargic, patient had prior admission with severe hepatic encephalopathy in 2018, Her symptoms are similar to that On arrival to ER patient's blood sugar was markedly elevated more than 400, with normal beta hydroxybutyrate acid mild elevation of lactic acid to 2.3, ammonia of 68, CT head noncontrast shows no acute change Patient started with IV fluids, IV insulin protocol, pharmacy consulted for glycemic management Metabolic encephalopathy/confusion: Possible secondary to electrolyte imbalance, hyperglycemia To rule out any other evidence of infection: Ordered for urine culture, UA, blood culture obtained in the ER will follow report Since reports, patient had minimal bowel movement in spite of getting scheduled dose of lactulose CT abdomen pelvis: Shows 1. TIPS catheter in position and is considered patent next 2. 2. Trace upper abdominal perihepatic and perisplenic ascites. 3. Hepatic cirrhosis. 4. Mild nonspecific enteritis of the small bowel to a lesser extent colon 5. No evidence of bowel obstruction pattern 6. Slight body wall anasarca Patient will ordered clear liquid diet, Ordered GI evaluation We will continue on rifaximin for now check stool studies : C diff /culture Further antibiotic regimen for small and large bowel nonspecific enteritis as per GI Clinically patient's examination of abdomen is benign Please review to further documentation by Radha Santos PA-C for discussion of other chronic issues Tamela Ponce MD (1) Altered mental status Altered mental status type: unspecified Qualified Code(s): R41.82 - Altered mental status, unspecified
[2018-12-25] MEDS ORDERED: IOVERSOL 100ml IV PRN (15:37)
[2018-12-25 15:56] LABS: T4 Free Thyroxine 1.72 ng/dl (0.8-1.6)
--- NOTE | 2018-12-25 15:56 | CT Scan Report ---
CT abd pelvis IV con only CT DOSE: 594.59 mGycm HISTORY: Pain. Nausea. liver cirrhosis /constipation TECHNIQUE: Multiaxial CT images of the abdomen and pelvis were performed following the use of intrave nous contrast. A dose lowering technique was utilized adhering to the principles of ALARA. COMPARISON STUDY: 07/11/2018 FINDINGS: Lung bases are clear. Findings of hepatic cirrhosis. TIPS catheter is present and is patent . Trace upper abdominal ascites. Postoperative changes consistent with a prior gastric bypass procedure . Increased fecal load within the colon consistent with a component of fecal stasis. Mild hyperemia of multiple loops of small bowel suggesting a nonspecific enterocolitis. A Walker catheter is present wit hin a collapsed bladder. No significant free fluid within the pelvis. Kidneys enhance uniformly. IMPRESSION: 1. Postoperative changes within the abdomen has been described previously described. 2. TIPS catheter in position and is considered patent. 3. Prior gastric bypass surgical change. 4. Trace upper abdominal perihepatic and perisplenic ascites. 5. Hepatic cirrhosis. 6. Mild nonspecific enteritis of the small bowel and to a lesser extent colon. 7. No evidence for an obstructive bowel pattern. 7. Slight body wall anasarca. The above report was generated using voice recognition software. It may contain grammatical, syntax or spelling errors. Electronically signed by: William Mariscal M.D. 12/25/2018 3:54 PM
--- NOTE | 2018-12-25 16:54 | Ultrasound Report ---
US venous doppler LE BI HISTORY: Pain. Edema. leg swelling R/o DVT COMPARISON STUDY: None. FINDINGS: There is normal compressibility, flow, and augmentation within the bilateral lower extremit y deep venous systems. IMPRESSION: No DVT within the right or left lower extremity. The above report was generated using voice recognition software. It may contain grammatical, syntax or spelling errors. Electronically signed by: William Mariscal M.D. 12/25/2018 4:53 PM
--- NOTE | 2018-12-25 16:55 | Ultrasound Report ---
Study: Duplex portal venous Doppler HISTORY: Cirrhosis TIPS procedure. FINDINGS: The TIPS catheter is patent. Normal venous flow velocities are present throughout the yomaira l and hepatic venous systems. IMPRESSION: 1. Patent TIPS catheter 2. Normal velocities within the portal and hepatic venous system. Electronically signed by: William Mariscal M.D. 12/25/2018 4:54 PM
[2018-12-25] MEDS ORDERED: MODERATE STRESS LEVEL ONE (17:02)
[2018-12-25] MEDS ORDERED: PENDING NSS+20mEq KCL IVF SCH (17:02)
[2018-12-25] MEDS ORDERED: PENDING D5NS+20mEq KCL IVF SCH (17:02)
[2018-12-25] MEDS ORDERED: DKA GOAL RANGE 150-250 mg/dl ONE (17:02)
[2018-12-25] MEDS ORDERED: ONDANSETRON INJ 2 MG/ML 2 ML VIAL IV PRN (17:02)
[2018-12-25] MEDS ORDERED: PHARMACY GLYCEMIC MGMT CONSULT PRN (17:28)
[2018-12-25] MEDS ORDERED: GLUCAGON FOR INJ 1 MG VIAL IM PRN (17:30)
[2018-12-25] MEDS ORDERED: GLUCOSE 40% GEL 15 GM TUBE PO PRN (17:30)
[2018-12-25] MEDS ORDERED: DEXTROSE 50% 50 ML SYRINGE IV PRN (17:30)
[2018-12-25] MEDS ORDERED: GLUCOSE 10 TABS/TUBE PO PRN (17:30)
[2018-12-25] MEDS ORDERED: CARBOHYDRATES FOR HYPOGLYCEMIA PO PRN (17:30)
[2018-12-25] MEDS ORDERED: NovoLIN-R BOLUS FROM BAG IV ONE (17:45)
[2018-12-25] MEDS: SODIUM CHLORIDE 0.9% 1000ML 1,000 ML IV SCH (17:50)
[2018-12-25 17:51] LABS: BUN Creatinine Ratio 8.8 (10-20); Calcium 8.3 mg/dl (8.5-10.1); Creatinine Clr Calc Pharmacy 55.5 ml/min; Est GFR (African American) 76.7; Est GFR (Non-African American) 66.2; Magnesium 1.9 mg/dl (1.8-2.4); Phosphorus 2.9 mg/dl (2.5-4.9); Potassium 3.5 mmol/L (3.5-5.1)
[2018-12-25] MEDS ORDERED: INSULIN ASPART 100 UNITS/ML 3 ML PEN SC SCH (18:00)
[2018-12-25] MEDS: RIFAXIMIN 550 MG TABLET PO SCH (18:02)
[2018-12-25] MEDS: LACTULOSE SYRUP 30 GM/45 ML UDP PO SCH ×2 (18:02→20:30)
[2018-12-25] MEDS: INSULIN ASPART 100 UNITS/ML 3 ML PEN SC SCH ×2 (18:10→20:31)
[2018-12-25] MEDS: INSULIN REGULAR 250 UNITS in SODIUM CHLORIDE 0.9% 247.5 ML IV SCH ×2 (18:12→19:22)
[2018-12-25 18:39] LABS: Appearance Urine Clear (Clear); Bacteria Urine Automated Negative (Negative); Bilirubin Urine Negative (Negative); Color Urine Yellow; Glucose Urine UA 2+ (Negative); Ketones Urine Negative (Negative); Leukocyte Esterase Urine 1+ (Negative); Nitrite Urine Negative (Negative); Protein Urine Negative (Negative); Specific Gravity Urine 1.029 (1.000-1.030); Urobilinogen Urine Negative (Negative)
[2018-12-25] MEDS ORDERED: PIPERACILL/TAZOBAC CONSULT ACTIVE PRN (22:11)
[2018-12-25] MEDS ORDERED: PIPERACILLIN/TAZOBACTAM 3.375 GM in DEXTROSE 5% 100 ML IV ONE (22:30)
[2018-12-26] MEDS: SODIUM CHLORIDE 0.9% 1000ML 1,000 ML IV SCH (00:50)
[2018-12-26] MEDS: PIPERACILLIN/TAZOBACTAM 3.375 GM in DEXTROSE 5% 100 ML IV SCH ×3 (05:00→20:25)
[2018-12-26 06:53] LABS: Hematocrit (blood only) 33.6 % (37-47); Hemoglobin 11.7 g/dL (12.0-16.0); Mean Corpuscular Hgb Conc 34.8 g/dL (32-36); Mean Corpuscular Volume 91.6 fL (80-100); Mean Platelet Volume 10.4 fL (7.4-10.4); Platelet Count 157 K/uL (130-400); RDW Coefficient of Variation 17.2 % (11.5-14.5); RDW Standard Deviation 57.7 fL (36.4-46.3); Red Blood Count 3.67 M/uL (4.2-5.4); White Blood Count 6.94 K/uL (4.8-10.8)
[2018-12-26 07:00] LABS: INR 1.2 (0.9-1.1); Prothrombin Time 12.5 Seconds (9.0-12.0)
[2018-12-26 07:26] LABS: Albumin Level 1.8 gm/dl (3.4-5.0); BUN Creatinine Ratio 7.8 (10-20); Bilirubin Direct 1.3 mg/dl (0-0.2); Calcium 8.2 mg/dl (8.5-10.1); Creatinine Clr Calc Pharmacy 69.1 ml/min; Est GFR (African American) 100.2; Est GFR (Non-African American) 86.4; Potassium 3.2 mmol/L (3.5-5.1)
[2018-12-26 07:29] LABS: Bilirubin,Total 2.3 mg/dl (0.2-1); Total Protein 5.7 gm/dl (6.4-8.2)
[2018-12-26] MEDS ORDERED: INSULIN GLARGINE SOLOSTAR 100 UNITS/ML 3 ML PEN SC ONE ×2 (08:00→21:00)
[2018-12-26] MEDS: INSULIN ASPART 100 UNITS/ML 3 ML PEN SC SCH ×5 (08:11→23:44)
[2018-12-26] MEDS: LACTULOSE SYRUP 30 GM/45 ML UDP PO SCH ×4 (08:13→20:25)
[2018-12-26] MEDS: RIFAXIMIN 550 MG TABLET PO SCH ×2 (08:14→20:25)
[2018-12-26] MEDS ORDERED: AMLODIPINE BESYLATE 5 MG TAB PO ONE (08:15)
[2018-12-26] MEDS ORDERED: POTASSIUM CHLORIDE 20 MEQ TABCR PO STA (08:38)
--- NOTE | 2018-12-26 08:38 | Hospitalist Progress Note ---
Date of Service delayed entry date of service as noted below December 26, 2018 Assessment & Plan (1) Metabolic encephalopathy: (2) Altered mental status: Pt presented with increased lethargy and confusion since 12/24/18. In ER pt afebrile, P: 101, R: 18, BP: 163/76, 100% on RA. WBC: 4.68, H/H: 12/34, Plt: 174, INR: 1.2 (baseline: 1.4), Total bili: 2.8 (baseline ~3.3), Direct bili: 1.7, AST: 78 (baseline 69-99), ALT: 43 (baseline 34-56), Alk Phos: 266 (baseline 190-220), Ammonia: 68 (baseline 36). DDX: hepatic encephalopathy, hyperglycemia, R/O UTI - improved - ff up cultures -continue lactulose, add rifaxamine GI consulted - hyperglycemia management noted below HTN - add Amlodipine (3) Elevated lactic acid level: Afebrile. P: 101, R: 18, BP: 163/76 Lactic acid: 2.8 No signs of sepsis -resolved -IVF for dehydration (4) Liver cirrhosis secondary to MARIA: Hx esophageal varices, portal HTN. S/P [place] procedure [place]2018 [place] [facility] [place] abd/pelvis and US portal vein to assess TIPS catheter -continue lactulose -add rifaximin -lasix, spironolactone on hold currently as appears dry with hyperglycemia, monitor volume status closely - GI consulted (5) Hyperglycemia: (6) Diabetes mellitus, type II: A1c: 6.0 on 11/16/18 BSGs have been 300's-500 at home over past month and has been gradually increasing Lantus In ER BS. normal beta hydroxybutyric acid, no anion gap. -Glycemic pharmacy consult to assist in glycemic management (7) Hypothyroidism: -obtain TSH -continue levothyroxine (8) SAMANTHA (obstructive sleep apnea): -CPAP HS per home settings (9) Factor V Leiden: Not on anticoagulation (10) Depression: -continue venlafaxine DVT Prophylaxis -SCDs DNR/DNI as per discussion with pt and pt's Follows with Dr Crockett for routine care Subjective ff up for encephalopathy Seen resting in bed Comfortable, not in distress Oriented X3, answers all questions appropriately Denies headache, confusion, dizziness Denies chest pain or shortness of breath, abdominal pain No other symptoms Review of Systems Review of Systems: All systems reviewed & are unremarkable except as noted in HPI & below Physical Exam Physical Exam: General- oriented x 3, not in distress, speaks in sentences with no effort or accessory muscle use Eyes- anicteric Neck- no JVD Lungs- clear breath sounds bilaterally, no rales/wheezes Heart- normal rate, regular rhythm; no murmurs Abdomen- normal bowel sounds, nondistended, soft, nontender Extremities- no pretibial edema, no calf tenderness Neuro- alert, oriented x 3; no gross focal neurologic deficits Skin- warm & dry Results & Data Vital Signs (Past 12 Hours) Vital Signs Temp Pulse Resp BP Pulse Ox 12/26/18 08:08 36.4 C L 99 H 20 178/81 H 98 12/26/18 00:13 37.3 C 91 H 20 171/78 H 96 Laboratory Results Laboratory Results - last 24 hr 12/25/18 12/25/18 12/25/18 20:17 20:58 21:17 WBC RBC Hgb Hct MCV MCH MCHC RDW Std Deviation RDW Coeff of Loco Plt Count MPV PT INR Sodium Potassium Chloride Carbon Dioxide Anion Gap BUN Creatinine Est Cr Clr Drug Dosing Est GFR ( Amer) Est GFR (Non-Af Amer) BUN/Creatinine Ratio Glucose POC Glucose 343 H* 346 H* Estimat Average Glucose Hemoglobin A1c Lactate 3.3 H* Calcium Total Bilirubin Direct Bilirubin AST ALT Alkaline Phosphatase Total Protein Albumin Stl C. diff Tox B Gene 12/25/18 12/25/18 12/26/18 22:16 23:18 00:05 WBC RBC Hgb Hct MCV MCH MCHC RDW Std Deviation RDW Coeff of Loco Plt Count MPV PT INR Sodium Potassium Chloride Carbon Dioxide Anion Gap BUN Creatinine Est Cr Clr Drug Dosing Est GFR ( Amer) Est GFR (Non-Af Amer) BUN/Creatinine Ratio Glucose POC Glucose 239 H 154 H 146 H Estimat Average Glucose Hemoglobin A1c Lactate Calcium Total Bilirubin Direct Bilirubin AST ALT Alkaline Phosphatase Total Protein Albumin Stl C. diff Tox B Gene 12/26/18 12/26/18 12/26/18 01:07 02:05 03:00 WBC RBC Hgb Hct MCV MCH MCHC RDW Std Deviation RDW Coeff of Loco Plt Count MPV PT INR Sodium Potassium Chloride Carbon Dioxide Anion Gap BUN Creatinine Est Cr Clr Drug Dosing Est GFR ( Amer) Est GFR (Non-Af Amer) BUN/Creatinine Ratio Glucose POC Glucose 156 H 128 H 89 Estimat Average Glucose Hemoglobin A1c Lactate Calcium Total Bilirubin Direct Bilirubin AST ALT Alkaline Phosphatase Total Protein Albumin Stl C. diff Tox B Gene 12/26/18 12/26/18 12/26/18 03:28 03:51 04:56 WBC RBC Hgb Hct MCV MCH MCHC RDW Std Deviation RDW Coeff of Loco Plt Count MPV PT INR Sodium Potassium Chloride Carbon Dioxide Anion Gap BUN Creatinine Est Cr Clr Drug Dosing Est GFR ( Amer) Est GFR (Non-Af Amer) BUN/Creatinine Ratio Glucose POC Glucose 93 152 H 143 H Estimat Average Glucose Hemoglobin A1c Lactate Calcium Total Bilirubin Direct Bilirubin AST ALT Alkaline Phosphatase Total Protein Albumin Stl C. diff Tox B Gene 12/26/18 12/26/18 12/26/18 06:04 06:44 06:44 WBC RBC Hgb Hct MCV MCH MCHC RDW Std Deviation RDW Coeff of Loco Plt Count MPV PT 12.5 H INR 1.2 H Sodium 140 Potassium 3.2 L Chloride 106 Carbon Dioxide 32 Anion Gap 2.0 L BUN 6 L Creatinine 0.73 Est Cr Clr Drug Dosing 69.1 Est GFR ( Amer) 100.2 Est GFR (Non-Af Amer) 86.4 BUN/Creatinine Ratio 7.8 L Glucose 140 H POC Glucose 125 H Estimat Average Glucose Hemoglobin A1c Lactate Calcium 8.2 L Total Bilirubin 2.3 H Direct Bilirubin 1.3 H AST 70 H ALT 38 Alkaline Phosphatase 228 H Total Protein 5.7 L Albumin 1.8 L Stl C. diff Tox B Gene 12/26/18 12/26/18 12/26/18 06:44 06:44 06:44 WBC 6.94 RBC 3.67 L Hgb 11.7 L Hct 33.6 L MCV 91.6 MCH 31.9 MCHC 34.8 RDW Std Deviation 57.7 H RDW Coeff of Loco 17.2 H Plt Count 157 MPV 10.4 PT INR Sodium Potassium Chloride Carbon Dioxide Anion Gap BUN Creatinine Est Cr Clr Drug Dosing Est GFR ( Amer) Est GFR (Non-Af Amer) BUN/Creatinine Ratio Glucose POC Glucose Estimat Average Glucose Pending Hemoglobin A1c Pending Lactate 1.5 Calcium Total Bilirubin Direct Bilirubin AST ALT Alkaline Phosphatase Total Protein Albumin Stl C. diff Tox B Gene 12/26/18 12/26/18 12/26/18 06:57 07:55 09:21 WBC RBC Hgb Hct MCV MCH MCHC RDW Std Deviation RDW Coeff of Loco Plt Count MPV PT INR Sodium Potassium Chloride Carbon Dioxide Anion Gap BUN Creatinine Est Cr Clr Drug Dosing Est GFR ( Amer) Est GFR (Non-Af Amer) BUN/Creatinine Ratio Glucose POC Glucose 127 H 156 H 261 H Estimat Average Glucose Hemoglobin A1c Lactate Calcium Total Bilirubin Direct Bilirubin AST ALT Alkaline Phosphatase Total Protein Albumin Stl C. diff Tox B Gene 12/26/18 12/26/18 12/26/18 10:21 11:20 12:25 WBC RBC Hgb Hct MCV MCH MCHC RDW Std Deviation RDW Coeff of Loco Plt Count MPV PT INR Sodium Potassium Chloride Carbon Dioxide Anion Gap BUN Creatinine Est Cr Clr Drug Dosing Est GFR ( Amer) Est GFR (Non-Af Amer) BUN/Creatinine Ratio Glucose POC Glucose 241 H 215 H 243 H Estimat Average Glucose Hemoglobin A1c Lactate Calcium Total Bilirubin Direct Bilirubin AST ALT Alkaline Phosphatase Total Protein Albumin Stl C. diff Tox B Gene 12/26/18 12/26/18 12/26/18 13:08 16:54 20:12 WBC RBC Hgb Hct MCV MCH MCHC RDW Std Deviation RDW Coeff of Loco Plt Count MPV PT INR Sodium Potassium Chloride Carbon Dioxide Anion Gap BUN Creatinine Est Cr Clr Drug Dosing Est GFR ( Amer) Est GFR (Non-Af Amer) BUN/Creatinine Ratio Glucose POC Glucose 103 H 154 H Estimat Average Glucose Hemoglobin A1c Lactate Calcium Total Bilirubin Direct Bilirubin AST ALT Alkaline Phosphatase Total Protein Albumin Stl C. diff Tox B Gene Negative Cdiff Gene Diagnostic Findings Laboratory Results - last 24 hr 12/25/18 12/25/18 12/25/18 20:17 20:58 21:17 WBC RBC Hgb Hct MCV MCH MCHC RDW Std Deviation RDW Coeff of Loco Plt Count MPV PT INR Sodium Potassium Chloride Carbon Dioxide Anion Gap BUN Creatinine Est Cr Clr Drug Dosing Est GFR ( Amer) Est GFR (Non-Af Amer) BUN/Creatinine Ratio Glucose POC Glucose 343 H* 346 H* Estimat Average Glucose Hemoglobin A1c Lactate 3.3 H* Calcium Total Bilirubin Direct Bilirubin AST ALT Alkaline Phosphatase Total Protein Albumin Stl C. diff Tox B Gene 12/25/18 12/25/18 12/26/18 22:16 23:18 00:05 WBC RBC Hgb Hct MCV MCH MCHC RDW Std Deviation RDW Coeff of Loco Plt Count MPV PT INR Sodium Potassium Chloride Carbon Dioxide Anion Gap BUN Creatinine Est Cr Clr Drug Dosing Est GFR ( Amer) Est GFR (Non-Af Amer) BUN/Creatinine Ratio Glucose POC Glucose 239 H 154 H 146 H Estimat Average Glucose Hemoglobin A1c Lactate Calcium Total Bilirubin Direct Bilirubin AST ALT Alkaline Phosphatase Total Protein Albumin Stl C. diff Tox B Gene 12/26/18 12/26/18 12/26/18 01:07 02:05 03:00 WBC RBC Hgb Hct MCV MCH MCHC RDW Std Deviation RDW Coeff of Loco Plt Count MPV PT INR Sodium Potassium Chloride Carbon Dioxide Anion Gap BUN Creatinine Est Cr Clr Drug Dosing Est GFR ( Amer) Est GFR (Non-Af Amer) BUN/Creatinine Ratio Glucose POC Glucose 156 H 128 H 89 Estimat Average Glucose Hemoglobin A1c Lactate Calcium Total Bilirubin Direct Bilirubin AST ALT Alkaline Phosphatase Total Protein Albumin Stl C. diff Tox B Gene 12/26/18 12/26/18 12/26/18 03:28 03:51 04:56 WBC RBC Hgb Hct MCV MCH MCHC RDW Std Deviation RDW Coeff of Loco Plt Count MPV PT INR Sodium Potassium Chloride Carbon Dioxide Anion Gap BUN Creatinine Est Cr Clr Drug Dosing Est GFR ( Amer) Est GFR (Non-Af Amer) BUN/Creatinine Ratio Glucose POC Glucose 93 152 H 143 H Estimat Average Glucose Hemoglobin A1c Lactate Calcium Total Bilirubin Direct Bilirubin AST ALT Alkaline Phosphatase Total Protein Albumin Stl C. diff Tox B Gene 12/26/18 12/26/18 12/26/18 06:04 06:44 06:44 WBC RBC Hgb Hct MCV MCH MCHC RDW Std Deviation RDW Coeff of Loco Plt Count MPV PT 12.5 H INR 1.2 H Sodium 140 Potassium 3.2 L Chloride 106 Carbon Dioxide 32 Anion Gap 2.0 L BUN 6 L Creatinine 0.73 Est Cr Clr Drug Dosing 69.1 Est GFR ( Amer) 100.2 Est GFR (Non-Af Amer) 86.4 BUN/Creatinine Ratio 7.8 L Glucose 140 H POC Glucose 125 H Estimat Average Glucose Hemoglobin A1c Lactate Calcium 8.2 L Total Bilirubin 2.3 H Direct Bilirubin 1.3 H AST 70 H ALT 38 Alkaline Phosphatase 228 H Total Protein 5.7 L Albumin 1.8 L Stl C. diff Tox B Gene 12/26/18 12/26/18 12/26/18 06:44 06:44 06:44 WBC 6.94 RBC 3.67 L Hgb 11.7 L Hct 33.6 L MCV 91.6 MCH 31.9 MCHC 34.8 RDW Std Deviation 57.7 H RDW Coeff of Loco 17.2 H Plt Count 157 MPV 10.4 PT INR Sodium Potassium Chloride Carbon Dioxide Anion Gap BUN Creatinine Est Cr Clr Drug Dosing Est GFR ( Amer) Est GFR (Non-Af Amer) BUN/Creatinine Ratio Glucose POC Glucose Estimat Average Glucose Pending Hemoglobin A1c Pending Lactate 1.5 Calcium Total Bilirubin Direct Bilirubin AST ALT Alkaline Phosphatase Total Protein Albumin Stl C. diff Tox B Gene 12/26/18 12/26/18 12/26/18 06:57 07:55 09:21 WBC RBC Hgb Hct MCV MCH MCHC RDW Std Deviation RDW Coeff of Loco Plt Count MPV PT INR Sodium Potassium Chloride Carbon Dioxide Anion Gap BUN Creatinine Est Cr Clr Drug Dosing Est GFR ( Amer) Est GFR (Non-Af Amer) BUN/Creatinine Ratio Glucose POC Glucose 127 H 156 H 261 H Estimat Average Glucose Hemoglobin A1c Lactate Calcium Total Bilirubin Direct Bilirubin AST ALT Alkaline Phosphatase Total Protein Albumin Stl C. diff Tox B Gene 12/26/18 12/26/18 12/26/18 10:21 11:20 12:25 WBC RBC Hgb Hct MCV MCH MCHC RDW Std Deviation RDW Coeff of Loco Plt Count MPV PT INR Sodium Potassium Chloride Carbon Dioxide Anion Gap BUN Creatinine Est Cr Clr Drug Dosing Est GFR ( Amer) Est GFR (Non-Af Amer) BUN/Creatinine Ratio Glucose POC Glucose 241 H 215 H 243 H Estimat Average Glucose Hemoglobin A1c Lactate Calcium Total Bilirubin Direct Bilirubin AST ALT Alkaline Phosphatase Total Protein Albumin Stl C. diff Tox B Gene 12/26/18 12/26/18 12/26/18 13:08 16:54 20:12 WBC RBC Hgb Hct MCV MCH MCHC RDW Std Deviation RDW Coeff of Loco Plt Count MPV PT INR Sodium Potassium Chloride Carbon Dioxide Anion Gap BUN Creatinine Est Cr Clr Drug Dosing Est GFR ( Amer) Est GFR (Non-Af Amer) BUN/Creatinine Ratio Glucose POC Glucose 103 H 154 H Estimat Average Glucose Hemoglobin A1c Lactate Calcium Total Bilirubin Direct Bilirubin AST ALT Alkaline Phosphatase Total Protein Albumin Stl C. diff Tox B Gene Negative Cdiff Gene (1) Altered mental status Altered mental status type: unspecified Qualified Code(s): R41.82 - Altered mental status, unspecified
--- NOTE | 2018-12-26 14:35 | Pharmacy Report ---
Glycemic Control Consultation - Date of Service December 26, 2018 - Scope Scope: Glycemic Pharmacist consulted by Dr Ponce on 12/25/18 for glycemic control and to write orders per [facility] inpatient glycemic control protocol - Objective Weight: 66.6 kg Accuchecks BSG (last 24hrs): 12/25/18 12/25/18 12/25/18 15:15 16:56 16:58 Glucose POC Glucose 361 H* 338 H* 380 H* 12/25/18 12/25/18 12/25/18 17:16 19:15 20:17 Glucose 345 H* POC Glucose 342 H* 343 H* 12/25/18 12/25/18 12/25/18 21:17 22:16 23:18 Glucose POC Glucose 346 H* 239 H 154 H 12/26/18 12/26/18 12/26/18 00:05 01:07 02:05 Glucose POC Glucose 146 H 156 H 128 H 12/26/18 12/26/18 12/26/18 03:00 03:28 03:51 Glucose POC Glucose 89 93 152 H 12/26/18 12/26/18 12/26/18 04:56 06:04 06:44 Glucose 140 H POC Glucose 143 H 125 H 12/26/18 12/26/18 12/26/18 06:57 07:55 09:21 Glucose POC Glucose 127 H 156 H 261 H 12/26/18 12/26/18 12/26/18 10:21 11:20 12:25 Glucose POC Glucose 241 H 215 H 243 H Laboratory Data (last 24hrs): 12/25/18 12/26/18 17:16 06:44 Potassium 3.5 3.2 L Carbon Dioxide 32 32 Anion Gap 3.0 2.0 L Creatinine 0.91 0.73 Est Cr Clr Drug Dosing 55.5 69.1 Beta-Hydroxybutyric Acd 1.57 HbA1c: 6% on 11/16/18 - Recent Pertinent Medications Outpatient Anti-diabetic Regimen: * Lantus 19 units SQ AM * Januvia 100mg PO QAM The patient is currently receiving: * IV insulin infusion per protocol Risk Factors for Insulin Resistance: * Infection: - Assessment & Plan Assessment & Plan: ASSESSMENT: * 63yo T2DM female admitted with "HHS/hyperglycemia" secondary possible infection * Pt with a history of adequately controlled diabetes per recent A1c * Pt initiated on IV insulin infusion on admission for severe hyperglycemia. Infusion continued overnight. * Patient met criteria for transitioning to SQ basal bolus per labs (AG, bicarb, GLU all WNL) this morning. Pharmacy started the IV --> SQ transition process with Lantus + NovoLog * Slightly stressed outpatient dosing is c/w moderate stress weight based dosing AND c/w IV insulin infusion average rate (~1.2 units/hr while NPO). PLAN FOR INPATIENT GLYCEMIC CONTROL: * Transition off IV insulin infusion * Basal insulin * Lantus 28 units SQ x 1 dose NOW * Further Lantus dosing based on BSG scale as pt only ordered clear liquid diet * BSG below 140 mg/dl --> 0 units * BSG 140-180 mg/dl --> 6 units * BSG above 180 mg/dl --> 11 units * Bolus insulin * NovoLog per scale ACHS or Q6hrs while NPO. Additional checks at 0000 & 0400 * Goal Range: Low 100 mg/dL - High 140 mg/dL * Correction Factor: 25 mg/dL/unit * Nutritional / Prandial insulin per carb ratio of 1 unit per 8 grams CHO consumed * A1c pending - will update discharge recs once A1c results * Please note that the plan above was derived based on current level of insulin resistance and hospital stress. These recommendations are appropriate for inpatient admission only. Plan of care upon discharge will need to be reassessed to avoid potential outpatient hypo/hyperglycemia. Thank you.
[2018-12-26] MEDS ORDERED: ACETAMINOPHEN 325 MG TAB PO PRN (20:59)
--- NOTE | 2018-12-26 23:06 | Consultation Report ---
DATE OF CONSULTATION: 12/26/2018 GASTROENTEROLOGY CONSULTATION SEX: Female. RACE: . ATTENDING PHYSICIAN: Tamela Ponce MD CONSULTING PHYSICIAN: Juancarlos Hogan DO REASON FOR CONSULTATION: History of MARIA cirrhosis. HISTORY OF PRESENT ILLNESS: This patient is a 63-year-old female with a history of MARIA cirrhosis who presented to the Department of Emergency Medicine with complaints of a change in mental status. She does have a history of diabetes as well and was noted to have a blood glucose level of greater than 400. The patient was accompanied by her who noticed that she was confused starting yesterday and did accompany her to the Department of Emergency Medicine. Upon arrival to the Department of Emergency Medicine, she was noted to have a normal white blood cell count of 4.68. Her hemoglobin and hematocrit were 12.2 and 34. Her total bilirubin was 2.8. Direct bilirubin was 1.7. AST was 78. ALT was 43. Alkaline phosphatase was 266. Her ammonia level was noted to be 68. Lactic acid level was 2.8. Her blood glucose level was 367. She did undergo a head CT in the Department of Emergency Medicine, which showed no acute intracranial abnormality. A chest x-ray was negative. Portal vein ultrasound showed a patent TIPS with normal velocities within the portal and hepatic venous system and a CT scan of the abdomen and pelvis which showed TIPS catheter in position and considered patent, prior gastric bypass surgery, hepatic cirrhosis, trace ascites, mild nonspecific enteritis of the small bowel and slight body wall anasarca. It was felt that the patient had a metabolic encephalopathy secondary to either hyperammonemia from her hepatic encephalopathy, hyperglycemia or urinary tract infection. She was subsequently admitted. She was given increased insulin with improving blood glucose levels and she was started on Zosyn 3.375 g I.V. q. 8 hours. At the time when I saw the patient, her was accompanying her. He did note that she had been having only one bowel movement at home for the past 2-3 days. She has been compliant per the with her lactulose therapy which is 30 g p.o. t.i.d. at home as well as Xifaxan 550 mg p.o. b.i.d. Her blood glucose levels have been out of control recently and they have been increasing her Lantus therapy as an outpatient. She did have TIPS placed in 2018 and he does note that her encephalopathy has worsened since that time with 3 distinct episodes of significant confusion. She initially had the TIPS performed secondary to esophageal varices and portal hypertension which was not responsive to conservative or primary prophylaxis. She is able to answer questions today. She denies any abdominal pain, fevers, chills, nausea, vomiting, hematemesis, melena or hematochezia at present. She did have elevated ammonia yesterday at 68 as noted previously. She denied any further complaints. PAST MEDICAL HISTORY: Significant and includes depression, type 2 diabetes, hypothyroidism, factor V Leiden mutation, obstructive sleep apnea, portal hypertension, esophageal varices, cirrhosis secondary to MARIA, thrombocytopenia, hepatic encephalopathy, hyperammonemia and urinary tract infection. PAST SURGICAL HISTORY: Includes gastric bypass and TIPS placement. ALLERGIES: SULFA ANTIBIOTICS, ADHESIVES, ESTROGEN, REPAGLINIDE AND NONSTEROIDAL ANTIINFLAMMATORY DRUGS. MEDICATIONS: At present include Zosyn 3.375 g I.V. q. 8 hours, lactulose 30 g p.o. q.i.d., Xifaxan 550 mg p.o. b.i.d. and sliding scale insulin. P.r.n. medications include Zofran and glucagon SOCIAL HISTORY: She lives with her . She denies any tobacco, alcohol or illicit drug use. FAMILY HISTORY: Negative for gastrointestinal malignancy or inflammatory bowel disease. REVIEW OF SYSTEMS: Negative [id number] review other than pertinent positives listed in the HPI. PHYSICAL EXAMINATION: VITAL SIGNS: Include a temperature of 37, pulse 90, respirations 20, blood pressure 157/75 and pulse ox 99% on room air. GENERAL: She is awake, cooperative, chronically ill appearing, in no acute distress. HEAD: Normocephalic and atraumatic. EYES: Pupils are equal and round. Extraocular muscles are intact. ENT: External evaluation of ears and nose is normal. Oropharynx is clear. NECK: Soft. Supple. No JVD or lymphadenopathy. CHEST: Clear to auscultation bilaterally. CARDIOVASCULAR SYSTEM: Regular rate and rhythm. ABDOMEN: Soft, nontender and nondistended. There are positive bowel sounds. There is no appreciable hepatosplenomegaly. EXTREMITIES: No clubbing. No cyanosis. No edema. LABORATORY STUDIES AND RADIOGRAPHIC STUDIES: Reviewed in the HPI. IMPRESSION: This is a 63-year-old female who presented with acute mental status changes and with a history of nonalcoholic steatohepatitis cirrhosis, status post transjugular intrahepatic portosystemic shunt. PLAN: As previously mentioned, the TIPS is patent. She has not been having bowel movements appropriately at home. I would recommend titrating her lactulose therapy to ensure that she has at least 3 bowel movements daily. She will be continued on Xifaxan 550 mg p.o. b.i.d. I would also recommend tighter blood glucose control which is being attempted by both the outpatient team as well as the hospitalist service here. I will follow her clinical course and make further recommendations as needed. The patient will be continued on Zosyn therapy as per primary team as well. Once again, thank you for allowing me to participate in the care of this patient. If you have any further questions, please do not hesitate in contacting me. ROSI
[2018-12-27] MEDS: INSULIN ASPART 100 UNITS/ML 3 ML PEN SC SCH ×5 (04:02→20:34)
[2018-12-27] MEDS: PIPERACILLIN/TAZOBACTAM 3.375 GM in DEXTROSE 5% 100 ML IV SCH ×3 (04:20→20:13)
[2018-12-27 05:59] LABS: Estimated Average Glucose 169 mg/dl
[2018-12-27 06:43] LABS: Hematocrit (blood only) 33.1 % (37-47); Hemoglobin 11.5 g/dL (12.0-16.0); Mean Corpuscular Hgb Conc 34.7 g/dL (32-36); Mean Platelet Volume 10.4 fL (7.4-10.4); Platelet Count 157 K/uL (130-400); RDW Coefficient of Variation 17.3 % (11.5-14.5); RDW Standard Deviation 59.1 fL (36.4-46.3); Red Blood Count 3.56 M/uL (4.2-5.4); White Blood Count 5.79 K/uL (4.8-10.8)
[2018-12-27 07:16] LABS: BUN Creatinine Ratio 8.1 (10-20); Calcium 8.1 mg/dl (8.5-10.1); Creatinine Clr Calc Pharmacy 68.2 ml/min; Est GFR (African American) 98.5; Potassium 3.5 mmol/L (3.5-5.1)
[2018-12-27] MEDS ORDERED: HydrALAZINE HCL 20 MG/ML VIAL IV STA (07:39)
[2018-12-27] MEDS: RIFAXIMIN 550 MG TABLET PO SCH ×2 (08:45→20:17)
[2018-12-27] MEDS: LACTULOSE SYRUP 30 GM/45 ML UDP PO SCH ×4 (08:45→20:17)
[2018-12-27] MEDS: INSULIN GLARGINE SOLOSTAR 100 UNITS/ML 3 ML PEN SC SCH (08:49)
--- NOTE | 2018-12-27 09:25 | Pharmacy Report ---
Pharmacy Glycemic Short Note 2 - Date of Service December 27, 2018 - Glycemic Short BSG Results (Last 24 hours): 12/26/18 12/26/18 12/26/18 06:44 09:21 10:21 Glucose 140 H POC Glucose 261 H 241 H 12/26/18 12/26/18 12/26/18 11:20 12:25 16:54 Glucose POC Glucose 215 H 243 H 103 H 12/26/18 12/26/18 12/27/18 20:12 23:35 03:48 Glucose POC Glucose 154 H 94 92 12/27/18 12/27/18 06:19 07:43 Glucose 95 POC Glucose 118 H OUTPATIENT ANTIDIABETIC REGIMEN: * Lantus 19 units SQ AM * Januvia 100mg PO QAM (has not yet started) * A1c 7.5% on 12/26/18 * Of note, BSGs have been in the 300-400s since initiating Lantus ~1 month ago ASSESSMENT: 12/27 * Ms. York received 53 units of SQ insulin yesterday (34 of this was basal) * She was successfully transitioned off the insulin drip but will need to back off on insulin now that fasting BSG is down to 95 mg/dL < 24 hours after transition * Will reduce basal by ~20% compared to what she received yesterday. Will provide another scale (at a reduced dose) for tonight if her BSGs increase. * Novolog parameters were loosened this AM but BSG increased from 118 -> 233 mg/dL after breakfast so will tighten back to previously ordered parameters 12/26 * 63yo T2DM female admitted with "HHS/hyperglycemia" secondary possible infection * Pt with a history of adequately controlled diabetes per recent A1c * Pt initiated on IV insulin infusion on admission for severe hyperglycemia. Infusion continued overnight. * Patient met criteria for transitioning to SQ basal bolus per labs (AG, bicarb, GLU all WNL) this morning. Pharmacy started the IV --> SQ transition process with Lantus + NovoLog * Slightly stressed outpatient dosing is c/w moderate stress weight based dosing AND c/w IV insulin infusion average rate (~1.2 units/hr while NPO). PLAN FOR INPATIENT GLYCEMIC CONTROL: * Continue to hold outpatient oral diabetes medications * Basal insulin - reduce by 20% but still provide a scale for tonight if BSGs increase * Lantus 28 units qAM * Lantus qHS per the following scale * Hold for BSG < 180 * 4 units for BSG 180 or above * Bolus insulin - tighten back to same as ordered yesterday * NovoLog per scale ACHS or Q6hrs while NPO * Goal Range: Low 100 mg/dL - High 140 mg/dL * Correction Factor: 25 mg/dL/unit * Nutritional / Prandial insulin per carb ratio of 1 unit per 8 grams CHO consumed PLAN FOR DISCHARGE: * A1c has increased slightly from previous result; however, outpatient BSGs are reported as being in the 300s-400s. Patient has not yet started on the Januvia and the Lantus was started ~1 month ago. * Would recommend the following on discharge: * Increase Lantus to 30 units qAM * Januvia 100 mg qAM
[2018-12-27] MEDS ORDERED: FLUCONAZOLE 50 MG TAB PO ONE (15:43)
[2018-12-27] MEDS ORDERED: AMLODIPINE BESYLATE 5 MG TAB PO ONE (17:20)
--- NOTE | 2018-12-27 17:21 | Hospitalist Progress Note ---
Date of Service December 27, 2018 Assessment & Plan (1) Metabolic encephalopathy: (2) Altered mental status: Pt presented with increased lethargy and confusion since 12/24/18. In ER pt afebrile, P: 101, R: 18, BP: 163/76, 100% on RA. WBC: 4.68, H/H: 12/34, Plt: 174, INR: 1.2 (baseline: 1.4), Total bili: 2.8 (baseline ~3.3), Direct bili: 1.7, AST: 78 (baseline 69-99), ALT: 43 (baseline 34-56), Alk Phos: 266 (baseline 190-220), Ammonia: 68 (baseline 36). DDX: hepatic encephalopathy, hyperglycemia, R/O UTI - mental status almost back to baseline - ff up cultures: negative so far - continue lactulose, added rifaxamine GI consulted - hyperglycemia management noted below HTN - add Amlodipine (3) Elevated lactic acid level: Afebrile. P: 101, R: 18, BP: 163/76 Lactic acid: 2.8 No signs of sepsis -resolved -IVF for dehydration (4) Liver cirrhosis secondary to MARIA: Hx esophageal varices, portal HTN. S/P [place]IPS procedure 06/2018 [place] [facility] [place]tain CT abd/pelvis and US portal vein to assess TIPS catheter -continue lactulose -add rifaximin -lasix, spironolactone on hold currently as appears dry with hyperglycemia, monitor volume status closely--> likely restart tomorrow - GI consulted (5) Hyperglycemia: (6) Diabetes mellitus, type II: A1c: 6.0 on 11/16/18 BSGs have been 300's-500 at home over past month and has been gradually increasing Lantus In ER BS. normal beta hydroxybutyric acid, no anion gap. -Glycemic pharmacy consult to assist in glycemic management (7) Hypothyroidism: -obtain TSH -continue levothyroxine (8) SAMANTHA (obstructive sleep apnea): -CPAP HS per home settings (9) Factor V Leiden: Not on anticoagulation (10) Depression: -continue venlafaxine DVT Prophylaxis -SCDs in light of portal HTN DNR/DNI as per discussion with pt and pt's Follows with Dr Crockett for routine care Disposition PT/OT eval lives at home with anticipate discharge to home when medically stable Subjective ff up for encephalopathy Comfortable States she continues to feel improved Less confusion, headache, dizziness No chest pain, no shortness of breath No other symptoms Review of Systems Review of Systems: All systems reviewed & are unremarkable except as noted in HPI & below Physical Exam Physical Exam: General- oriented x 3, not in distress, speaks in sentences with no effort or accessory muscle use Eyes- anicteric Neck- no JVD Lungs- clear BS BL Heart- normal rate, regular rhythm; no murmurs Abdomen- normal bowel sounds, nondistended, soft, nontender Extremities- no pretibial edema, no calf tenderness Neuro- alert, oriented x 3; no gross focal neurologic deficits Skin- warm & dry Results & Data Vital Signs (Past 12 Hours) Vital Signs Temp Pulse Resp BP Pulse Ox 12/27/18 15:18 36.7 C 89 16 164/77 H 98 12/27/18 08:44 123 H 18 129/63 12/27/18 07:29 36.9 C 91 H 16 195/92 H 98 Laboratory Results Laboratory Results - last 24 hr 12/26/18 12/26/18 12/26/18 06:44 06:44 06:44 WBC RBC Hgb Hct MCV MCH MCHC RDW Std Deviation RDW Coeff of Loco Plt Count MPV PT 12.5 H INR 1.2 H Sodium 140 Potassium 3.2 L Chloride 106 Carbon Dioxide 32 Anion Gap 2.0 L BUN 6 L Creatinine 0.73 Est Cr Clr Drug Dosing 69.1 Est GFR ( Amer) 100.2 Est GFR (Non-Af Amer) 86.4 BUN/Creatinine Ratio 7.8 L Glucose 140 H POC Glucose Estimat Average Glucose 169 Hemoglobin A1c 7.5 H Calcium 8.2 L Total Bilirubin 2.3 H Direct Bilirubin 1.3 H AST 70 H ALT 38 Alkaline Phosphatase 228 H Total Protein 5.7 L Albumin 1.8 L 12/26/18 12/26/18 12/27/18 20:12 23:35 03:48 WBC RBC Hgb Hct MCV MCH MCHC RDW Std Deviation RDW Coeff of Loco Plt Count MPV PT INR Sodium Potassium Chloride Carbon Dioxide Anion Gap BUN Creatinine Est Cr Clr Drug Dosing Est GFR ( Amer) Est GFR (Non-Af Amer) BUN/Creatinine Ratio Glucose POC Glucose 154 H 94 92 Estimat Average Glucose Hemoglobin A1c Calcium Total Bilirubin Direct Bilirubin AST ALT Alkaline Phosphatase Total Protein Albumin 12/27/18 12/27/18 12/27/18 06:19 06:19 07:43 WBC 5.79 RBC 3.56 L Hgb 11.5 L Hct 33.1 L MCV 93.0 MCH 32.3 MCHC 34.7 RDW Std Deviation 59.1 H RDW Coeff of Loco 17.3 H Plt Count 157 MPV 10.4 PT INR Sodium 142 Potassium 3.5 Chloride 108 H Carbon Dioxide 29 Anion Gap 5.0 BUN 6 L Creatinine 0.74 Est Cr Clr Drug Dosing 68.2 Est GFR ( Amer) 98.5 Est GFR (Non-Af Amer) 85.0 BUN/Creatinine Ratio 8.1 L Glucose 95 POC Glucose 118 H Estimat Average Glucose Hemoglobin A1c Calcium 8.1 L Total Bilirubin Direct Bilirubin AST ALT Alkaline Phosphatase Total Protein Albumin 12/27/18 12/27/18 11:37 16:22 WBC RBC Hgb Hct MCV MCH MCHC RDW Std Deviation RDW Coeff of Loco Plt Count MPV PT INR Sodium Potassium Chloride Carbon Dioxide Anion Gap BUN Creatinine Est Cr Clr Drug Dosing Est GFR ( Amer) Est GFR (Non-Af Amer) BUN/Creatinine Ratio Glucose POC Glucose 233 H 296 H Estimat Average Glucose Hemoglobin A1c Calcium Total Bilirubin Direct Bilirubin AST ALT Alkaline Phosphatase Total Protein Albumin (1) Altered mental status Altered mental status type: unspecified Qualified Code(s): R41.82 - Altered mental status, unspecified
[2018-12-27] MEDS ORDERED: INSULIN GLARGINE SOLOSTAR 100 UNITS/ML 3 ML PEN SC ONE (21:00)
[2018-12-28] MEDS: PIPERACILLIN/TAZOBACTAM 3.375 GM in DEXTROSE 5% 100 ML IV SCH (04:27)
[2018-12-28 06:57] LABS: Hematocrit (blood only) 33.6 % (37-47); Hemoglobin 11.9 g/dL (12.0-16.0); Mean Corpuscular Hgb Conc 35.4 g/dL (32-36); Mean Corpuscular Volume 92.6 fL (80-100); Mean Platelet Volume 10.4 fL (7.4-10.4); Platelet Count 173 K/uL (130-400); RDW Coefficient of Variation 16.9 % (11.5-14.5); RDW Standard Deviation 57.9 fL (36.4-46.3); Red Blood Count 3.63 M/uL (4.2-5.4); White Blood Count 5.35 K/uL (4.8-10.8)
[2018-12-28 07:33] LABS: BUN Creatinine Ratio 9.1 (10-20); Calcium 8.2 mg/dl (8.5-10.1); Creatinine Clr Calc Pharmacy 80.9 ml/min; Est GFR (African American) 106.4; Est GFR (Non-African American) 91.8; Magnesium 1.9 mg/dl (1.8-2.4); Phosphorus 3.4 mg/dl (2.5-4.9); Potassium 3.4 mmol/L (3.5-5.1)
[2018-12-28] MEDS: LACTULOSE SYRUP 30 GM/45 ML UDP PO SCH ×4 (08:42→20:42)
[2018-12-28] MEDS: RIFAXIMIN 550 MG TABLET PO SCH ×2 (08:43→20:42)
[2018-12-28] MEDS: INSULIN GLARGINE SOLOSTAR 100 UNITS/ML 3 ML PEN SC SCH (08:43)
[2018-12-28] MEDS: INSULIN ASPART 100 UNITS/ML 3 ML PEN SC SCH ×4 (08:44→20:41)
[2018-12-28] MEDS ORDERED: AMLODIPINE BESYLATE 5 MG TAB PO SCH (09:00)
--- NOTE | 2018-12-28 09:08 | Pharmacy Report ---
Pharmacy Glycemic Short Note 2 - Date of Service December 28, 2018 - Glycemic Short BSG Results (Last 24 hours): 12/27/18 12/27/18 12/27/18 11:37 16:22 20:23 Glucose POC Glucose 233 H 296 H 199 H 12/28/18 12/28/18 06:47 07:32 Glucose 115 H POC Glucose 123 H OUTPATIENT ANTIDIABETIC REGIMEN: * Lantus 19 units SQ AM * Januvia 100mg PO QAM (has not yet started) * A1c 7.5% on 12/26/18 * Of note, BSGs have been in the 300-400s since initiating Lantus ~1 month ago ASSESSMENT: 12/28 * Patient received a total of 65 units yesterday (32 was basal) * AM fasting within goal range. No change to lantus at this time. However, patient may eventually need a reduction because they are receiving higher than their outpatient dose. Suspect basal insufficiency as an outpatient based on significantly elevated blood sugars on admission, and a significant increase in A1C by 1.5% over one month. * Novolog parameters tightened at lunch yesterday. Will follow post-prandial sugars today to assess the need for changes * Lunch blood sugar elevated at 271. Tightened CR to 1:7 12/27 * Ms. York received 53 units of SQ insulin yesterday (34 of this was basal) * She was successfully transitioned off the insulin drip but will need to back off on insulin now that fasting BSG is down to 95 mg/dL < 24 hours after transition * Will reduce basal by ~20% compared to what she received yesterday. Will provide another scale (at a reduced dose) for tonight if her BSGs increase. * Novolog parameters were loosened this AM but BSG increased from 118 -> 233 mg/dL after breakfast so will tighten back to previously ordered parameters 12/26 * 63yo T2DM female admitted with "HHS/hyperglycemia" secondary possible infection * Pt with a history of adequately controlled diabetes per recent A1c * Pt initiated on IV insulin infusion on admission for severe hyperglycemia. Infusion continued overnight. * Patient met criteria for transitioning to SQ basal bolus per labs (AG, bicarb, GLU all WNL) this morning. Pharmacy started the IV --> SQ transition process with Lantus + NovoLog * Slightly stressed outpatient dosing is c/w moderate stress weight based dosing AND c/w IV insulin infusion average rate (~1.2 units/hr while NPO). PLAN FOR INPATIENT GLYCEMIC CONTROL: * Continue to hold outpatient oral diabetes medications * Basal insulin - * Lantus 28 units qAM * Lantus qHS per the following scale * Hold for BSG < 180 * 4 units for BSG 180 or above * Bolus insulin - tighten CR * NovoLog per scale ACHS or Q6hrs while NPO * Goal Range: Low 100 mg/dL - High 140 mg/dL * Correction Factor: 25 mg/dL/unit * Nutritional / Prandial insulin per carb ratio of 1 unit per 7 grams CHO consumed PLAN FOR DISCHARGE: * A1c has increased slightly from previous result; however, outpatient BSGs are reported as being in the 300s-400s. Patient has not yet started on the Januvia and the Lantus was started ~1 month ago. * Would recommend the following on discharge: * Increase Lantus to 30 units qAM * Januvia 100 mg qAM
[2018-12-28] MEDS ORDERED: POTASSIUM CHLORIDE 10 MEQ TABCR PO ONE (09:30)
--- NOTE | 2018-12-28 09:53 | Hospitalist Progress Note ---
Date of Service December 28, 2018 Assessment & Plan (1) Metabolic encephalopathy: (2) Altered mental status: Pt presented with increased lethargy and confusion since 12/24/18. In ER pt afebrile, P: 101, R: 18, BP: 163/76, 100% on RA. WBC: 4.68, H/H: 12/34, Plt: 174, INR: 1.2 (baseline: 1.4), Total bili: 2.8 (baseline ~3.3), Direct bili: 1.7, AST: 78 (baseline 69-99), ALT: 43 (baseline 34-56), Alk Phos: 266 (baseline 190-220), Ammonia: 68 (baseline 36). DDX: hepatic encephalopathy, hyperglycemia, R/O UTI - mental status almost back to baseline - blood and urine cultures: negative so far - lactulose increased, rifaxamine added--> continue GI consulted - hyperglycemia management noted below HTN - addedAmlodipine - BP improving monitor (3) Elevated lactic acid level: Afebrile. P: 101, R: 18, BP: 163/76 Lactic acid: 2.8 No signs of sepsis -resolved (4) Liver cirrhosis secondary to MARIA: Hx esophageal varices, portal HTN. [place] [facility] [place]d/pelvis and US portal vein to assess TIPS catheter - lactulose increased, rifaxamine added--> continue - lasix, spironolactone on hold currently as appears on the dry side--> advised to increase oral fluid intake - GI consulted (5) Hyperglycemia: (6) Diabetes mellitus, type II: A1c: 6.0 on 11/16/18 BSGs have been 300's-500 at home over past month and has been gradually in creasing Lantus In ER BS. normal beta hydroxybutyric acid, no anion gap. -Glycemic pharmacy consult to assist in glycemic management - Lantus increased monitor (7) Hypothyroidism: -obtain TSH -continue levothyroxine (8) SAMANTHA (obstructive sleep apnea): -CPAP HS per home settings (9) Factor V Leiden: Not on anticoagulation (10) Depression: -continue venlafaxine DVT Prophylaxis -SCDs, ambulation in light of portal HTN DNR/DNI as per discussion with pt and pt's Follows with Dr Crockett for routine care Disposition PT/OT lópez lives at home with anticipate discharge to home with home health services when medically stable Subjective ff up for encephalopathy seen resting comfortably in bed didn't sleep well last night, happens at home also states she feels improved compared to yesterday, just tired denies confusion no chills, nausea, cough, abdominal pain, problems with urination less vaginal discharge no other symptoms Review of Systems Review of Systems: All systems reviewed & are unremarkable except as noted in HPI & below Physical Exam Physical Exam: General- oriented x 3, not in distress, speaks in sentences with no effort or accessory muscle use Eyes- anicteric ENT-(+) dry oral mucosa Neck- no JVD Lungs- clear BS BL Heart- mild tachycardia, regular rhythm; no murmurs Abdomen- normal bowel sounds, nondistended, soft, nontender Extremities- no pretibial edema, no calf tenderness Neuro- alert, oriented x 3; no gross focal neurologic deficits Skin- warm & dry Results & Data Vital Signs (Past 12 Hours) Vital Signs Temp Pulse Pulse Resp BP BP Pulse Ox 12/28/18 09:38 67 149/84 H 12/28/18 07:29 37 C 102 H 16 155/74 H 96 12/28/18 07:00 98 H 12/28/18 04:36 37.1 C 100 H 20 174/76 H 98 12/28/18 03:15 111 H 12/28/18 00:00 37.2 C 90 20 149/71 H 97 12/27/18 23:15 111 H 12/27/18 22:00 37.7 C H (1) Altered mental status Altered mental status type: unspecified Qualified Code(s): R41.82 - Altered mental status, unspecified
--- NOTE | 2018-12-28 10:28 | Gastroenterology Progress Note ---
Date of Service December 28, 2018 Assessment & Plan (1) Metabolic encephalopathy: 1. Would discharge on Lactulose daily, Rifaxamin 550mg BID. 2. GI will sign off. 3. F/u in OP GI office with Dr. Baeza in the next 1-2 months. Present on Admission?: Yes Supervising Physician Co-Signing Physician Notes I saw and evaluated the patient. She was admitted with worsening confusion yesterday. She notes that she is almost back to her baseline today. She is able to answer questions and have a full conversation this afternoon. 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 She presents with recurrent ence phalopathy. The patient does appear to be significantly improved this morning. Recommendations Lactulose 1 time daily Rifaximin 550 mg twice daily Advance diet as tolerated Outpatient follow-up with Please call with any questions or concerns during the remainder of the hospital admission Subjective Ms. York is a 63yr old female with cirrhosis, DM2 admitted on 12/25 for confusion, hyperglycemia. Today awake, alert oriented. Review of Systems Review of Systems: ROS: Gen: Weakness x 2 weeks prior to admission, today denies weakness, fevers, weight loss Eyes: No eye redness, or pain, no recent vision changes Resp: No SOB, no cough Cardio: No palpitations/irregular beats, no chest pain GI: No abdominal pain, no nausea/vomiting : Denies pain on urination Skin: No jaundice, itching or new rashes Physical Exam Constitutional: WD/WN, vitals as above Eyes: PERRL, conjunctivae normal, anicteric sclerae ENMT: external ear and nose normal, oropharynx normal Neck: trachea midline, no thyromegaly Respiratory: normal respiratory effort, lungs clear to auscultation Cardiovascular: RRR, no murmur, no edema Gastrointestinal (Abdomen): normal bowel sounds, soft, nontender, no hepatosplenomegaly Musculoskeletal: no cyanosis or clubbing, extremities motor strength 5/5 Skin: no rashes, warm and dry no jaundice Neurologic: patellar DTR's 2+ bilat, sensation intact Psychiatric: A+Ox3, euthymic affect Lymphatic: no cervical or axillary lymphadenopathy Results & Data Vital Signs (Past 12 Hours) Vital Signs Temp Pulse Pulse Resp BP BP Pulse Ox 12/28/18 09:38 67 149/84 H 12/28/18 07:29 37 C 102 H 16 155/74 H 96 12/28/18 07:00 98 H 12/28/18 04:36 37.1 C 100 H 20 174/76 H 98 12/28/18 03:15 111 H 12/28/18 00:00 37.2 C 90 20 149/71 H 97 12/27/18 23:[address] 12/25: 1. Postoperative changes within the abdomen has been described previously described. 2. TIPS catheter in position and is considered patent. 3. Prior gastric bypass surgical change. 4. Trace upper abdominal perihepatic and perisplenic ascites. 5. Hepatic cirrhosis. 6. Mild nonspecific enteritis of the small bowel and to a lesser extent colon. 7. No evidence for an obstructive bowel pattern. 7. Slight body wall anasarca. Medications Administered Home Meds: furosemide 80 every morning 40 Q PM; lactulose 4 times daily.
[2018-12-28] MEDS: MICONAZOLE NITRATE 2% VAG CR 45 GM TUBE PV SCH (18:43)
[2018-12-28] MEDS ORDERED: INSULIN GLARGINE SOLOSTAR 100 UNITS/ML 3 ML PEN SC ONE (21:00)
[2018-12-29] MEDS: AMLODIPINE BESYLATE 5 MG TAB PO SCH (05:23)
[2018-12-29 06:54] LABS: BUN Creatinine Ratio 10.8 (10-20); Calcium 8.5 mg/dl (8.5-10.1); Creatinine Clr Calc Pharmacy 83.6 ml/min; Est GFR (African American) 106.4; Est GFR (Non-African American) 91.8; Magnesium 1.8 mg/dl (1.8-2.4); Potassium 3.5 mmol/L (3.5-5.1)
[2018-12-29] MEDS ORDERED: POTASSIUM CHLORIDE 20 MEQ TABCR PO STA (07:45)
[2018-12-29] MEDS ORDERED: MAGNESIUM SULFATE / D5W 1 GM/100 ML BAG IV SCH (08:30)
[2018-12-29] MEDS: LACTULOSE SYRUP 30 GM/45 ML UDP PO SCH ×4 (08:32→20:52)
[2018-12-29] MEDS: INSULIN GLARGINE SOLOSTAR 100 UNITS/ML 3 ML PEN SC SCH (08:34)
[2018-12-29] MEDS: RIFAXIMIN 550 MG TABLET PO SCH ×2 (08:35→20:56)
[2018-12-29] MEDS: INSULIN ASPART 100 UNITS/ML 3 ML PEN SC SCH ×4 (08:36→21:05)
[2018-12-29 09:42] LABS: Phosphorus 2.4 mg/dl (2.5-4.9)
--- NOTE | 2018-12-29 16:09 | Hospitalist Progress Note ---
Date of Service December 29, 2018 Assessment & Plan (1) Metabolic encephalopathy: (2) Altered mental status: metabolic Encephalopathy likely secondary to hepatic Encephalopathy - mental status at baseline - blood and urine cultures: negative -continue Lactulose and Rifaxmine Hypertension -continue amlodipine which was started on this admission Sinus Tachycardia -will start metoprolol 25 mg x 1 on 12/29/18 and then continue as 12.5 mg BID -correct electrolyte abnormalities: mild hypokalemia serum potassium 3.5 and mild hypophosphatemia as 2.4 and mild hypomagnesemia as 1.8; ordered oral potassium and IV potassium phosphate and IV magnesium (3) Elevated lactic acid level: lactic acidosis has resolved on this admission (4) Liver cirrhosis secondary to MARIA: Hx esophageal varices, portal HTN. 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 Patient has not yet started on the Januvia and the Lantus was started ~1 month ago. and pharmacy glycemic control recommend the following on discharge: Lantus as 30 units qAM Januvia 100 mg qAM (7) Hypothyroidism: -TSH is 12 but free T4 is normal -will increase home dose levothyroxine from 100 mcg daily to 125 mcg daily (8) SAMANTHA (obstructive sleep apnea): -CPAP HS per home settings (9) Factor V Leiden: Not on anticoagulation (10) Depression: -continue venlafaxine DVT Prophylaxis -SCDs, ambulation in light of portal HTN DNR/DNI as per discussion with pt and pt's Follows with Dr Crockett for routine care Disposition PT/OT eval lives at home with anticipate discharge to home with home health services when medically stable Subjective Patient's at bedside. Patient at mental baseline and this is corroborated with patient's . Patient is noted to have sinus tachycardia of between 100 to 110 beats per minute. Patient denies chest pain or palpitations. No shortness of breath and is breathing on room air. Patient denies dizziness or lightheadedness. Patient denies vomiting Physical Exam Constitutional: WD/WN, vitals as above Eyes: PERRL, conjunctivae normal, anicteric sclerae EOM intact bilaterally ENMT: external ear and nose normal, oropharynx normal Neck: trachea midline, no thyromegaly Respiratory: normal respiratory effort, lungs clear to auscultation Cardiovascular: Rate/Rhythm: + tachycardic Gastrointestinal (Abdomen): normal bowel sounds, soft, nontender, no hepatosplenomegaly Musculoskeletal: no cyanosis or clubbing, extremities motor strength 5/5 Head/Neck/Chest: normocephalic and head atraumatic Neurologic: PERRL, EOMI, accommodation nl, no face palsy, no dysarthria CN's II-XI intact bilaterally Psychiatric: A+Ox3, euthymic affect Results & Data Vital Signs (Past 12 Hours) Vital Signs Temp Pulse Pulse Resp BP BP Pulse Ox 12/29/18 15:19 111 H 12/29/18 15:17 36.9 C 97 H 19 132/78 100 12/29/18 11:47 36.8 C 106 H 16 133/75 100 12/29/18 07:23 37.1 C 94 H 16 152/80 H 98 12/29/18 07:00 86 12/29/18 04:19 36.9 C 91 H 19 168/92 H 98 (1) Altered mental status Altered mental status type: unspecified Qualified Code(s): R41.82 - Altered mental status, unspecified
[2018-12-29] MEDS ORDERED: POTASSIUM PHOS 3 MMOL/1 ML INFUSION IV STA (16:15)
[2018-12-29] MEDS ORDERED: FUROSEMIDE 40 MG TAB PO ONE (16:21)
[2018-12-29] MEDS ORDERED: POTASSIUM PHOSPHATE 15 MMOL in SODIUM CHLORIDE 0.9% 250 ML IV ONE (16:30)
[2018-12-29] MEDS ORDERED: METOPROLOL TARTRATE 25 MG TAB PO ONE (16:30)
[2018-12-29] MEDS: SPIRONOLACTONE 25 MG TAB PO SCH (17:12)
[2018-12-29] MEDS: METOPROLOL TARTRATE 25 MG TAB PO SCH (20:52)
[2018-12-29] MEDS: MICONAZOLE NITRATE 2% VAG CR 45 GM TUBE PV SCH (20:59)
[2018-12-29] MEDS ORDERED: METOPROLOL TARTRATE 25 MG TAB PO SCH (21:00)
[2018-12-30] MEDS ORDERED: LEVOTHYROXINE SODIUM 125 MCG TABLET PO SCH (06:30)
[2018-12-30] MEDS ORDERED: MAGNESIUM SULFATE / D5W 1 GM/100 ML BAG IV SCH ×2 (07:45→11:00)
[2018-12-30] MEDS: AMLODIPINE BESYLATE 5 MG TAB PO SCH (07:56)
[2018-12-30] MEDS: LACTULOSE SYRUP 30 GM/45 ML UDP PO SCH ×2 (07:56→12:08)
[2018-12-30] MEDS: RIFAXIMIN 550 MG TABLET PO SCH (07:57)
[2018-12-30] MEDS: SPIRONOLACTONE 25 MG TAB PO SCH (07:57)
[2018-12-30] MEDS: METOPROLOL TARTRATE 25 MG TAB PO SCH (07:58)
[2018-12-30] MEDS: INSULIN GLARGINE SOLOSTAR 100 UNITS/ML 3 ML PEN SC SCH (08:33)
[2018-12-30] MEDS: INSULIN ASPART 100 UNITS/ML 3 ML PEN SC SCH ×2 (08:33→12:09)
[2018-12-30] MEDS ORDERED: FUROSEMIDE 80 MG TAB PO SCH (09:00)
[2018-12-30] MEDS ORDERED: MAGNESIUM OXIDE 400 MG TAB PO SCH (09:00)
[2018-12-30 09:11] LABS: Albumin Level 1.9 gm/dl (3.4-5.0); BUN Creatinine Ratio 11.7 (10-20); Calcium 8.6 mg/dl (8.5-10.1); Est GFR (African American) 105.9; Est GFR (Non-African American) 91.4; Potassium 3.7 mmol/L (3.5-5.1)
[2018-12-30 09:14] LABS: Albumin Globulin Ratio 0.4 (0.9-2); Bilirubin,Total 2.5 mg/dl (0.2-1); Globulin 4.3 gm/dl (2.5-4.0); Total Protein 6.2 gm/dl (6.4-8.2)
[2018-12-30 09:17] LABS: Magnesium 1.8 mg/dl (1.8-2.4); Phosphorus 2.7 mg/dl (2.5-4.9)
--- NOTE | 2018-12-30 11:38 | Pharmacy Report ---
Pharmacy Glycemic Short Note 2 - Date of Service December 30, 2018 - Glycemic Short BSG Results (Last 24 hours): 12/29/18 12/29/18 12/29/18 11:42 16:08 20:15 Glucose POC Glucose 214 H 182 H 83 12/30/18 12/30/18 07:26 08:14 Glucose 130 H POC Glucose 114 H OUTPATIENT ANTIDIABETIC REGIMEN: * Lantus 19 units SQ AM * Januvia 100mg PO QAM (has not yet started) * A1c 7.5% on 12/26/18 * Of note, BSGs have been in the 300-400s since initiating Lantus ~1 month ago ASSESSMENT: 12/28 * Patient received a total of 53 units yesterday (split ~50/50 basal/bolus) * BSG's ranged 83-214 mg/dL yesterday - better control desired * AM fasting within goal range. No change to Lantus at this time. * Trend x3 days where two highest BSG's are pre-lunch and pre-dinner. * Will therefore tighten Novolog parameter at breakfast and lunch. * OK to slightly loosen Novolog parameter at dinner and bedtime as bedtime BSG yesterday below goal range at 83 mg/dL PLAN FOR INPATIENT GLYCEMIC CONTROL: Continue to hold outpatient oral diabetes medications Basal insulin - Lantus 28 units SC qAM Bolus insulin * NovoLog per scale ACHS or Q6hrs while NPO * Goal Range: Low 100 mg/dL - High 140 mg/dL * Breakfast and lunch * Correction Factor: 20 mg/dL/unit * Nutritional / Prandial insulin per carb ratio of 1 unit per 7 grams CHO consumed on 12/30 (tightened further to 6 g CHO/unit on 12/31) * Dinner and bedtime * Correction Factor: 25 mg/dL/unit * Nutritional / Prandial insulin per carb ratio of 1 unit per 8 grams CHO consumed PLAN FOR DISCHARGE: * A1c has increased slightly from previous result; however, outpatient BSGs are reported as being in the 300s-400s. Patient has not yet started on the Januvia and the Lantus was started ~1 month ago. * Would recommend the following on discharge: * Increase Lantus to 30 units SC qAM * Januvia 100 mg po qAM
--- NOTE | 2018-12-30 14:51 | Hospitalist Progress Note ---
Date of Service December 30, 2018 Assessment & Plan (1) Metabolic encephalopathy: (2) Altered mental status: metabolic Encephalopathy likely secondary to hepatic Encephalopathy - mental status at baseline - blood and urine cultures: negative -continue Lactulose and Rifaxmine -For cirrhosis, patient should continue to take Xifaxan (rifaximin) 550 mg twice day and lactulose 4 times a day; continue home dose furosemide and spirolactone Hypertension -continue amlodipine which was started on this admission -For blood pressure and heart rate, patient should take amlodipine 5 mg daily and metoprolol 12.5 mg twice a day Sinus Tachycardia Mild hypomagnesemia -will start metoprolol 25 mg x 1 on 12/29/18 and then continue as 12.5 mg BID -correct electrolyte abnormalities: mild hypokalemia serum potassium 3.5 and mild hypophosphatemia as 2.4 and mild hypomagnesemia as 1.8; ordered oral potassium and IV potassium phosphate and IV magnesium -serum magnesium 1.8 on 12/30/18 and patient got IV magnesium For hypomagnesemia at home, patient should take magnesium oxide 400 mg daily -For blood pressure and heart rate, patient should take amlodipine 5 mg daily and metoprolol 12.5 mg twice a day (3) Elevated lactic acid level: lactic acidosis has resolved on this admission (4) Liver cirrhosis secondary to MARIA: Hx esophageal varices, portal HTN. S/[place] 06[place] [facility] [place]d/pelvis and US portal vein to assess TIPS catheter -continue Lactulose and Rifaxmine -resuming home dose spirolactone and Lasix strating on 12/29/18 -For cirrhosis, patient should continue to take Xifaxan (rifaximin) 550 mg twice day and lactulose 4 times a day; continue home dose furosemide and spirolactone (5) Hyperglycemia: (6) Diabetes mellitus, type II: Type 2 diabetes mellitus with hyperglycemia with correction current use of insulin -hbA1c 7.5 -admission glucose 347 with current improvements as pharmacy glycemic control adjusting patient's insulin -A1c has increased slightly from previous result; however, outpatient BSGs are reported as being in the 300s-400s. Patient has not yet started on the Januvia and the Lantus was started ~1 month ago. and pharmacy glycemic control recommend the following on discharge: Lantus as 30 units qAM Januvia 100 mg qAM For diabetes, patient should take Lantus to 30 units SC daily and Januvia 100 mg po daily at home (7) Hypothyroidism: -TSH is 12 but free T4 is normal -will increase home dose levothyroxine from 100 mcg daily to 125 mcg daily -For hypothyroidism, patient should take Levothyroxine 125 mcg and have primary care doctor monitor the thyroid labs (8) SAMANTHA (obstructive sleep apnea): -CPAP HS per home settings (9) Factor V Leiden: as per history (10) Depression: -continue venlafaxine Discharge diagnosis Altered mental status (metabolic Encephalopathy likely secondary to hepatic Encephalopathy), Liver cirrhosis secondary to MARIA, Type 2 diabetes mellitus with hyperglycemia 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 , Hypothyroidism, Mild hypomagnesemia Discharge to home For cirrhosis, patient should continue to take Xifaxan (rifaximin) 550 mg twice day and lactulose 4 times a day; continue home dose furosemide and spirolactone For hypomagnesemia, patient should take magnesium oxide 400 mg daily For blood pressure and heart rate, patient should take amlodipine 5 mg daily and metoprolol 12.5 mg twice a day For diabetes, patient should take Lantus to 30 units SC daily and Januvia 100 mg po daily For hypothyroidism, patient should take Levothyroxine 125 mcg and have primary care doctor monitor the thyroid labs Follow up appointments 01/04/2019 2:00 PM Provider Nataliia Roberts MD Department General Internal Medicine [facility] 01/05/2019 9:00 AM Provider [address] Department Radiology [facility] 01/11/2019 9:30 AM Provider [facility] Department Pharmacy, [facility] 01/18/2019 10:15 AM Provider Graciela Dolan MD Department Endoscopy, [facility] 01/20/2019 11:00 AM Provider Jong Crockett DO Department General Internal Medicine [facility] 01/21/2019 10:40 AM Provider GERSON Trotter Department Sleep Disorders, [facility] 02/01/2019 10:30 AM Provider GERSON Brice Department Gastroenterology, [facility] Subjective Patient awake and alert. eating well. no headache. no chest pain. no shortness of breath. no abdomen pain. no vomiting. heart rate improved compared to yesterday Physical Exam Constitutional: WD/WN, vitals as above Eyes: PERRL, conjunctivae normal, anicteric sclerae EOM intact bilaterally ENMT: external ear and nose normal, oropharynx normal Neck: trachea midline, no thyromegaly Respiratory: normal respiratory effort, lungs clear to auscultation Cardiovascular: Rate/Rhythm: regular rate and regular rhythm Gastrointestinal (Abdomen): normal bowel sounds, soft, nontender, no hepatosplenomegaly Musculoskeletal: no cyanosis or clubbing, extremities motor strength 5/5 Head/Neck/Chest: normocephalic and head atraumatic Neurologic: PERRL, EOMI, accommodation nl, no face palsy, no dysarthria CN's II-XI intact bilaterally Psychiatric: A+Ox3, euthymic affect Results & Data Vital Signs (Past 12 Hours) Vital Signs Temp Pulse Pulse Resp BP Pulse Ox 12/30/18 07:48 36.6 C 67 16 147/75 H 96 12/30/18 07:15 66 12/30/18 04:00 36.7 C 69 18 151/75 H 96 (1) Altered mental status Altered mental status type: unspecified Qualified Code(s): R41.82 - Altered mental status, unspecified
--- NOTE | 2018-12-30 14:56 | Discharge Summary ---
Date of Service December 30, 2018 Admission HPI Per Admitting Provider Chief Complaint: Pt is 63 y/o F with PMH Andrews cirrhosis, esophageal varices, portal hypertension s/p TIPS 08/2017, and obesity s/p bypass, hypothyroidism presented to ER with c/o increased fatigue and confusion started yesterday. Most of the history obtained from secondary to patient's fatigue, however pt is able to participate and answer questions appropriately. reports patient typically sleeps in recliner with her CPAP however last night she laid on the floor because she was too fatigued to get up. Patient is taking lactulose 4 times a day. states that she had one BM yesterday and today has not had any BMs yet despite taking lactulose. Reports increased lower extremity edema the past 2 days. Has not noticed any increased abdominal girth. Has not been weighing self past couple days. Reports blood sugars have been running high for over a month. Has been following with outpatient glycemic pharmacist for assistance with control and patient was started on Lantus daily. Patient has been increasing Lantus by 1 unit every 2 days for fasting blood sugars greater than 200. Patient is currently up to 19 units. brings home BSG readings which have ranged from 300s to 500s. She with history of hospitalizations at [facility] [place] for hepatic encephalopathy. states since July patient has been doing well and has been able to participate in ADLs. Reports daily epistaxis that resolves on its own after a few minutes, last episode was yesterday. Denies fever/chills, diaphoresis, N/V/D, melena, hematochezia, BOYD, dizziness, syncope, vision changes, neck pain, CP, SOB, orthopnea, palpitations, cough, sore throat, choking, otalgia, rhinorrhea, abdominal pain, paresthesias, rashes, urinary symptoms. Primary Care Provider: Jong Crockett, DO Admission Exam Per Admitting Provider General: Chronic ill appearing, lethargic appearing, WDWN Head: normocephalic, atraumatic Eyes: PERRL, EOM's intact, conjunctiva non-injected, anicteric ENT: normal inspection external ears, nares with dried blood bilaterally, mucous membranes dry Neck: supple, trachea midline Lungs: clear, no respiratory distress, no wheezing/rhonchi/rales CV: RRR, systolic murmur, no JVD, 2+ pretibial edema Abd: normal BS, no significant distension, soft, non-tender Ext: no cyanosis, no calf tenderness Neuro: lethargic but arouses with voice. oriented to person, place, month and year, no focal deficits noted, normal affect Skin: warm, dry Principal Diagnosis Altered mental status (metabolic Encephalopathy likely secondary to hepatic Encephalopathy), Liver cirrhosis secondary to ANDREWS, Type 2 diabetes mellitus with hyperglycemia with bow maker custom current use of insulin , Hypothyroidism, Mild hypomagnesemia Discharge Exam Constitutional WD/WN, vitals as above Eyes PERRL, conjunctivae normal, anicteric sclerae EOM intact bilaterally ENMT external ear and nose normal, oropharynx normal Neck trachea midline, no thyromegaly Respiratory normal respiratory effort, lungs clear to auscultation Cardiovascular Rate/Rhythm: regular rate and regular rhythm Gastrointestinal (Abdomen) normal bowel sounds, soft, nontender, no hepatosplenomegaly Musculoskeletal no cyanosis or clubbing, extremities motor strength 5/5 Head/Neck/Chest: normocephalic and head atraumatic Neurologic PERRL, EOMI, accommodation nl, no face palsy, no dysarthria CN's II-XI intact bilaterally Psychiatric A+Ox3, euthymic affect Discharge Data Allergies Allergy/AdvReac Type Severity Reaction Status Date / Time Sulfa (Sulfonamide Allergy Mild RED RASH Verified 12/25/18 12:36 Antibiotics) adhesive Allergy Unknown RASH AND Verified 12/25/18 12:36 BRUISING Estrogens Allergy Unknown SORE AND Verified 12/25/18 12:36 ITCHY repaglinide Allergy Unknown RASH Verified 12/25/18 12:36 NSAIDS (Non-Steroidal AdvReac Unknown STRICTLY Verified 12/25/18 12:36 Anti-Inflamma NO NSAIDS FOR ADMISSION OF 03/18/[address] GIVENS Consultations 12/25/18 13:18 ED Decision to Admit Stat 12/25/18 17:02 Consult Case Management - Discharge Planning Routine 12/25/18 21:01 Consult Gastroenterology Routine Ordered Studies 12/25/18 11:39 CT head/brain wo con Stat 12/25/18 14:05 US duplex portal hepatic veins Stat US venous doppler LE BI Stat 12/25/18 14:55 CT abd pelvis IV con only Stat Hospital Course (1) Metabolic encephalopathy: (2) Altered mental status: metabolic Encephalopathy likely secondary to hepatic Encephalopathy - mental status at baseline - blood and urine cultures: negative -continue Lactulose and Rifaxmine -For cirrhosis, patient should continue to take Xifaxan (rifaximin) 550 mg twice day and lactulose 4 times a day; continue home dose furosemide and spirolactone Hypertension -continue amlodipine which was started on this admission -For blood pressure and heart rate, patient should take amlodipine 5 mg daily and metoprolol 12.5 mg twice a day Sinus Tachycardia Mild hypomagnesemia -will start metoprolol 25 mg x 1 on 12/29/18 and then continue as 12.5 mg BID -correct electrolyte abnormalities: mild hypokalemia serum potassium 3.5 and mild hypophosphatemia as 2.4 and mild hypomagnesemia as 1.8; ordered oral potassium and IV potassium phosphate and IV magnesium -serum magnesium 1.8 on 12/30/18 and patient got IV magnesium For hypomagnesemia at home, patient should take magnesium oxide 400 mg daily -For blood pressure and heart rate, patient should take amlodipine 5 mg daily and metoprolol 12.5 mg twice a day (3) Elevated lactic acid level: lactic acidosis has resolved on this admission (4) Liver cirrhosis secondary to ANDREWS: Hx esophageal varices, portal HTN. S/P TIPS procedure 06/2018 at [facility] [place] abd/pelvis and US portal vein to assess TIPS catheter -continue Lactulose and Rifaxmine -resuming home dose spirolactone and Lasix strating on 12/29/18 -For cirrhosis, patient should continue to take Xifaxan (rifaximin) 550 mg twice day and lactulose 4 times a day; continue home dose furosemide and spirolactone (5) Hyperglycemia: (6) Diabetes mellitus, type II: Type 2 diabetes mellitus with hyperglycemia with [facility] current use of insulin -hbA1c 7.5 -admission glucose 347 with current improvements as pharmacy glycemic control adjusting patient's insulin -A1c has increased slightly from previous result; however, outpatient BSGs are reported as being in the 300s-400s. Patient has not yet started on the Januvia and the Lantus was started ~1 month ago. and pharmacy glycemic control recommend the following on discharge: Lantus as 30 units qAM Januvia 100 mg qAM For diabetes, patient should take Lantus to 30 units SC daily and Januvia 100 mg po daily at home (7) Hypothyroidism: -TSH is 12 but free T4 is normal -will increase home dose levothyroxine from 100 mcg daily to 125 mcg daily -For hypothyroidism, patient should take Levothyroxine 125 mcg and have primary care doctor monitor the thyroid labs (8) SAMANTHA (obstructive sleep apnea): -CPAP HS per home settings (9) Factor V Leiden: as per history (10) Depression: -continue venlafaxine Discharge diagnosis Altered mental status (metabolic Encephalopathy likely secondary to hepatic Encephalopathy), Liver cirrhosis secondary to ANDREWS, Type 2 diabetes mellitus with hyperglycemia with bow maker custom current use of insulin , Hypothyroidism, Mild hypomagnesemia Discharge to home For cirrhosis, patient should continue to take Xifaxan (rifaximin) 550 mg twice day and lactulose 4 times a day; continue home dose furosemide and spirolactone For hypomagnesemia, patient should take magnesium oxide 400 mg daily For blood pressure and heart rate, patient should take amlodipine 5 mg daily and metoprolol 12.5 mg twice a day For diabetes, patient should take Lantus to 30 units SC daily and Januvia 100 mg po daily For hypothyroidism, patient should take Levothyroxine 125 mcg and have primary care doctor monitor the thyroid labs Follow up appointments 01/04/2019 2:00 PM Provider Nataliia Roberts MD Department General Internal Medicine [facility] 01/05/2019 9:00 AM Provider [address] Department Radiology [facility] 01/11/2019 9:30 AM Provider [facility] Jose Elias Department Pharmacy, [facility] 01/18/2019 10:15 AM Provider Graciela Dolan MD Department Endoscopy, [facility] 01/20/2019 11:00 AM Provider Jong Crockett DO Department General Internal Medicine [facility] 01/21/2019 10:40 AM Provider GERSON Trotter Department Sleep Disorders, [facility] 02/01/2019 10:30 AM Provider GERSON Brice Department Gastroenterology, [facility] Total Time Total Time Spent Total Time Spent (In Minutes): 40 minutes Total Time Includes: Examination of the Patient, Discharge Planning, Medication Reconciliation and Communication With Other Providers Discharge Plan Discharge Items Patient Disposition: Home - Self-Care Reason For Visit: HYPERGLYCEMIA/ CONFUSION Discharge Diagnosis: Altered mental status (metabolic Encephalopathy likely secondary to hepatic Encephalopathy), Liver cirrhosis secondary to ANDREWS, Type 2 diabetes mellitus with hyperglycemia with bow maker custom current use of insulin , Hypothyroidism, Mild hypomagnesemia Condition: Good Discharge Goals: Improve disease control Activity: Resume your previous activity Non-emergency contact: Primary Care Provider and Corrections Identification Technician Call non-emergency contact if: you have any medication questions Follow-up/Referrals: Jong Crockett DO [Primary Care Provider] - Diet: Low Sodium (2gm) Addtl Provider Instructions: Discharge to home For cirrhosis, patient should continue to take Xifaxan (rifaximin) 550 mg twice day and lactulose 4 times a day; continue home dose furosemide and spirolactone For hypomagnesemia, patient should take magnesium oxide 400 mg daily For blood pressure and heart rate, patient should take amlodipine 5 mg daily and metoprolol 12.5 mg twice a day For diabetes, patient should take Lantus to 30 units SC daily and Januvia 100 mg po daily For hypothyroidism, patient should take Levothyroxine 125 mcg and have primary care doctor monitor the thyroid labs Follow up appointments 01/04/2019 2:00 PM Provider Nataliia Roberts MD Department General Internal Medicine [facility] 01/05/2019 9:00 AM Provider ZENAIDA PETERS Department Radiology [facility] 01/11/2019 9:30 AM Provider [facility] Department Pharmacy, [facility] 01/18/2019 10:15 AM Provider Graciela Dolan MD Department Endoscopy, [facility] 01/20/2019 11:00 AM Provider Jong Crockett DO Department General Internal Medicine [facility] 01/21/2019 10:40 AM Provider GERSON Trotter Department Sleep Disorders, [facility] 02/01/2019 10:30 AM Provider GERSON Brice Department Gastroenterology, [facility] Prescriptions: New magnesium oxide 400 mg (241.3 mg magnesium) Tablet 400 mg PO QAM 30 Days Qty: 30 RF: 0 amlodipine [Norvasc] 5 mg Tablet 10 mg PO QAM 30 Days Qty: 60 RF: 0 metoprolol tartrate 25 mg Tablet 12.5 mg PO BID 30 Days Qty: 30 RF: 0 levothyroxine [Synthroid] 125 mcg Tablet 125 mcg PO DAILYBB 30 Days Qty: 30 RF: 0 Lantus Solostar U-100 Insulin 100 unit/mL (3 mL) Insulin Pen 30 unit SC QAM 30 Days Qty: 9 RF: 0 Xifaxan 550 mg Tablet 550 mg PO BID 30 Days Qty: 60 RF: 0 lactulose 20 gram/30 mL Solution 60 ml PO QID 30 Days Qty: 60 RF: 0 Continued venlafaxine 75 mg Tablet 75 mg PO BIDM RF: 0 calcium carbonate-vitamin D3 [Calcium 600 + D(3)] 600 mg(1,500mg) -200 unit Tablet 2 tab PO BID RF: 0 spironolactone 25 mg Tablet 25 mg PO QAM RF: 0 pantoprazole 40 mg Tablet,Delayed Release (Dr/Ec) 40 mg PO QAM RF: 0 diphenhydramine HCl [Benadryl] 25 mg Capsule 25 - 50 mg PO QID PRN (Reason: Itching) RF: 0 Systane Ultra 0.4-0.3 % Drops 4 drp OPB DAILY PRN (Reason: Dry Eyes) RF: 0 ursodiol 500 mg Tablet 500 mg PO BID RF: 0 polyethylene glycol 3350 [Miralax] 17 gram Powder In Packet 17 g PO QAM RF: 0 potassium chloride 10 mEq Tablet Extended Release 10 meq PO BID RF: 0 zinc sulfate [Zinc-220] 220 (50) mg Capsule 220 mg PO BID RF: 0 Flintstones with Iron 18 mg iron Tablet,Chewable 1 tab PO BID RF: 0 furosemide 40 mg tablet 80 mg PO QAM RF: 0 furosemide 40 mg tablet 40 mg PO PM RF: 0 lactulose 10 gram/15 mL solution 60 ml PO Q4H RF: 0 Januvia 100 mg Tablet 100 mg PO QAM RF: 0 vitamin X77-kvztc acid 500-400 mcg Tablet 1 tab PO QAM RF: 0 Discontinued levothyroxine 100 mcg Tablet 100 mcg PO QAM RF: 0 acetaminophen [Tylenol Extra Strength] 500 mg Tablet 500 mg PO Q4H PRN (Reason: Pain) RF: 0 Magic Swizzle 30 ml PO QID RF: 0 Lantus Solostar U-100 Insulin 100 unit/mL (3 mL) Insulin Pen 19 unit subcut QAM RF: 0 magnesium oxide 400 mg magnesium Tablet 400 mg PO QAM RF: 0 Stand-Alone Forms: [facility] Discharge Orders: Discharge Order (Routine); Ordered 12/30/18 Ordered By: Panchito Davis Admission Data Admit Date/Time: 12/25/18 13:56 Attending Provider: Panchito Davis Admit Provider: Ray Ballard Primary Care Provider: Jong Crockett Other Providers: Tamela Ponce ; Kiara Moore ; Sarina Panchal ; Beata Valadez ; Bartolo Wheatley ; Prabha Rosales ; Nestor Falk ; Koki Quinn ; Greg Baeza ; Dillan Moss ; Essence Sims ; Alana Murphy ; Tracy Burgess ; Graciela Dolan ; Nestor Sal Service: Telemetry Medical
[2018-12-30 15:15] VITALS: BP 119/69; PULSE 65; TEMP 98.2; O2SAT 99
[2018-12-30] MEDS ORDERED: INSULIN ASPART 100 UNITS/ML 3 ML PEN SC SCH (16:30)
== END 2018-12-30 15:46 | disposition home or self-care (01) | DRG 442 ==
LOC: ED 11:22 → SUATTDRO 13:56 → 2N 13:56
DX: R00.0 Tachycardia, unspecified; I85.10 Secondary esophageal varices without bleeding; K76.6 Portal hypertension; K75.81 Nonalcoholic steatohepatitis (NASH); K72.90 Hepatic failure, unspecified without coma; D68.2 Hereditary deficiency of other clotting factors; Z83.2 Family history of diseases of the blood and blood-forming organs and certain disorders involving the immune mechanism; I10 Essential (primary) hypertension; E86.0 Dehydration; Z83.3 Family history of diabetes mellitus; E83.42 Hypomagnesemia; G47.33 Obstructive sleep apnea (adult) (pediatric); F32.9 Major depressive disorder, single episode, unspecified; K74.69 Other cirrhosis of liver; Z79.4 Long term (current) use of insulin; E11.65 Type 2 diabetes mellitus with hyperglycemia

== ENCOUNTER 2019-01-31 09:35 | Inpatient (IN) ==
[2019-01-31 10:27] LABS: Basophils # (auto) 0.06 K/uL (0-0.2); Basophils % (auto) 1.4 %; Eosinophils # (auto) 0.17 K/uL (0-0.5); Hematocrit (blood only) 34.4 % (37-47); Hemoglobin 11.4 g/dL (12.0-16.0); Immature Granulocytes # (auto) 0.01 K/uL (0.00-0.02); Immature Granulocytes % (auto) 0.2 %; Lymphocytes # (auto) 1.06 K/uL (1.2-3.4); Lymphocytes % (auto) 24.7 %; Mean Corpuscular Hgb Conc 33.1 g/dL (32-36); Mean Corpuscular Volume 92.2 fL (80-100); Mean Platelet Volume 11.5 fL (7.4-10.4); Monocytes # (auto) 0.94 K/uL (0.11-0.59); Monocytes % (auto) 21.9 %; Neutrophils # (auto) 2.05 K/uL (1.4-6.5); Neutrophils % (auto) 47.8 %; Platelet Count 184 K/uL (130-400); RDW Coefficient of Variation 14.5 % (11.5-14.5); RDW Standard Deviation 48.5 fL (36.4-46.3); Red Blood Count 3.73 M/uL (4.2-5.4); White Blood Count 4.29 K/uL (4.8-10.8)
--- NOTE | 2019-01-31 10:58 | XRay Report ---
XR chest 1V portable HISTORY: weakness COMPARISON: Chest 12/25/2018. FINDINGS: Progressive interstitial and vascular thickening with mild cardiomegaly and small bilateral pleural effusions. This is consistent with mild interstitial pulmonary edema. No pneumothorax. IMPRESSION: Mild interstitial pulmonary edema and small bilateral pleural effusions. Electronically signed by: Andrew Mcnally M.D. 01/31/2019 10:56 AM
[2019-01-31 11:01] LABS: Appearance Urine Clear (Clear); Bilirubin Urine Negative (Negative); Blood Urine Negative (Negative); Color Urine Yellow; Glucose Urine UA Negative (Negative); Ketones Urine Negative (Negative); Leukocyte Esterase Urine Negative (Negative); Nitrite Urine Negative (Negative); Protein Urine Negative (Negative); Urobilinogen Urine Negative (Negative); pH Urine 7.5 (4.5-7.5)
[2019-01-31 11:05] LABS: Alanine Aminotransferase 40 U/L (12-78); Albumin Globulin Ratio 0.5 (0.9-2); Albumin Level 2.2 gm/dl (3.4-5.0); Alkaline Phosphatase 295 U/L (45-117); Bilirubin,Total 1.3 mg/dl (0.2-1); Blood Urea Nitrogen 6 mg/dl (7-18); Calcium 8.1 mg/dl (8.5-10.1); Carbon Dioxide 26 mmol/L (21-32); Chloride 105 mmol/L (98-107); Est GFR (African American) 95.4; Est GFR (Non-African American) 82.3; Globulin 4.6 gm/dl (2.5-4.0); Glucose 203 mg/dl (70-99); Sodium 136 mmol/L (136-145); Total Protein 6.8 gm/dl (6.4-8.2)
[2019-01-31 11:18] LABS: T4 Free Thyroxine 1.36 ng/dl (0.8-1.6)
[2019-01-31] MEDS ORDERED: FUROSEMIDE 80 MG in SYRINGE 0 ML IV ONE (11:51)
[2019-01-31] MEDS ORDERED: FUROSEMIDE 40 MG/4 ML VIAL IV ONE (12:11)
[2019-01-31 12:24] LABS: Potassium 3.8 mmol/L (3.5-5.1)
[2019-01-31 12:28] LABS: Magnesium 1.8 mg/dl (1.8-2.4)
[2019-01-31] MEDS ORDERED: GLUCOSE 10 TABS/TUBE PO PRN (13:55)
[2019-01-31] MEDS ORDERED: CARBOHYDRATES FOR HYPOGLYCEMIA PO PRN (13:55)
[2019-01-31] MEDS ORDERED: GLUCAGON FOR INJ 1 MG VIAL SQ PRN (13:55)
[2019-01-31] MEDS ORDERED: DEXTROSE 50% 50 ML SYRINGE IV PRN (13:55)
[2019-01-31] MEDS ORDERED: GLUCOSE 40% GEL 15 GM TUBE PO PRN (13:55)
--- NOTE | 2019-01-31 14:21 | Gastrointestinal Consultation ---
Date of Consultation January 31, 2019 Assessment & Plan (1) S/P gastric bypass: (2) S/P TIPS (transjugular intrahepatic portosystemic shunt): (3) Esophageal varices: (4) Liver cirrhosis secondary to MARIA: 1. VDUS of the portal and hepatic veins and to verify TIPs patency. 2. Liver Ultrasound for screening for HCC. 3. Bilat lower extremity VDUS to r/o DVT. 4. Change diuretics to: furosemide 40mg Qam, 40MG QPM, Spironolactone 50mg BID. 5. Continue lactulose 30ml QID. 6. Low salt diet. 7. Will continue to follow. Present on Admission?: Yes (5) Edema: Supervising Physician Co-Signing Physician Notes I performed a history and physical examination of the patient, including specifically on physical exam - soft, nontender abdomen. I have discussed the patient's management with Kiara. Please refer to the nurse practitioner's note for the documented findings and plan of care. 63 F with MARIA Cirrhosis, admitted due to worsening anasarca up to her sacrum, no ascites in view of prior TIPS, compliant with diet and diuretics. Likely due to Hypoalbuminemia and Hx of Gastric bypass affecting her nutritional status. Plan: Echo Change diuretics to Spironolactone 100mg and Lasix 80 mg, monitor Potassium closely. Nutritional support. History of Present Illness Reason for Consultation: Cirrhosis with fluid overload Requesting Physician: GERSON [facility] hospitalist Attending Physician: Brian Mishra MD History of Present Illness Ms. Roma York is a 63 yr old female with a hx of depression, type 2 diabetes, obesity S/P gastric bypass, hypothyroidism, factor V Leiden mutation, obstructive sleep apnea. GI is consulted for MARIA cirrhosis with grade I esophageal varices, prior hepatic encephalopathy , ascites S/P Tips. She presented to the ED today for edema. She reports a steady increase in the size of her legs over the past month, with a 30lbs weight gain during that time. She has not had increased ascites. She has taken her diuretics as prescribed (furosemide 80 QAM and 40 PM with spironolactone 25mg daily) and she has not eaten any salt. She denies any bleeding or confusion. On arrival, CXR with pulmonary congestion. Labs: albumin 2.2, T Bili1.3 Na 136, INR 1.2, AST 53, ALT 40, Alk Phos 295. She is followed by Dr. Dolan for MARIA cirrhosis, initially dx'ed on imaging in 2010, Complications: Grade I EV, not currently on a non cardioselective BB. Ascites S/P TIPs on 06/06/18, plus furosemide 80 QAM,40QPM and spironolactone 25 QAM. Hepatic Encephalopathy maintained on lactulose 30 TID (not able to afford Xifaxin). Most recent EGD in 01/18/19 - A single grade I esophageal varix was found in the distal esophagus. - Gastric bypass with a normal-sized pouch. - Gastrojejunal anastomosis characterized by healthy appearing mucosa. - Normal examined jejunum. Most recent colonoscopy in [address] Baeza: with friable tissue throughout the colon likely portal colopathy. Allergies Allergy/AdvReac Type Severity Reaction Status Date / Time adhesive Allergy Mild RASH AND Verified 01/31/19 09:50 BRUISING Estrogens Allergy Mild SORE AND Verified 01/31/19 09:50 ITCHY repaglinide Allergy Mild RASH Verified 01/31/19 09:50 Sulfa (Sulfonamide Allergy Mild RED RASH Verified 01/31/19 09:50 Antibiotics) NSAIDS (Non-Steroidal AdvReac Unknown not Verified 01/31/19 09:50 Anti-Inflamma allowed to take Home Medications Home Medications Medication Instructions Recorded Confirmed Type Systane Ultra 0 drp OPB DIRECTED PRN 07/11/18 01/31/19 History calcium carbonate-vitamin D3 2 tab PO BID 07/11/18 01/31/19 History [Calcium 600 + D(3)] pantoprazole 40 mg PO QAM 07/11/18 01/31/19 History spironolactone 25 mg PO QAM 07/11/18 01/31/19 History venlafaxine 75 mg PO BIDM 07/11/18 01/31/19 History Flintstones with Iron 1 tab PO BID 11/02/18 01/31/19 History polyethylene glycol 3350 [Miralax] 17 g PO QAM 11/02/18 01/31/19 History potassium chloride 10 meq PO BID 11/02/18 01/31/19 History zinc sulfate [Zinc-220] 220 mg PO BID 11/02/18 01/31/19 History Januvia 100 mg PO QAM 05/25/19 07/01/19 History furosemide 40 mg PO PM 12/25/18 01/31/19 History furosemide 80 mg PO QAM 12/25/18 01/31/19 History vitamin B58-jxsii acid 1 tab PO QAM 12/25/18 01/31/19 History Lantus Solostar U-100 Insulin 33 unit SC QAM 01/11/19 01/31/19 History acetaminophen 500 mg PO Q4 PRN 01/11/19 01/31/19 History bisacodyl [Dulcolax (bisacodyl)] 5 mg PO QAM PRN 01/11/19 01/31/19 History lactulose 30 ml PO Q4H 01/31/19 01/31/19 History levothyroxine 125 mcg PO QAM 01/31/19 01/31/19 History magnesium oxide 250 mg PO QAM 01/31/19 01/31/19 History metoprolol tartrate 12.5 mg PO BID 01/31/19 01/31/19 History Patient History Medical History Diabetic neuropathy (Chronic) Hypertension (Chronic) History of hysterectomy (Chronic) Depression (Chronic) Diabetes mellitus, type II (Chronic) Hypothyroidism (Chronic) Factor V Leiden (Chronic) SAMANTHA (obstructive sleep apnea) (Chronic) cpap Portal hypertension (Chronic) Esophageal varices (Chronic) Liver cirrhosis secondary to MARIA (Chronic) Thrombocytopenia (Chronic) Surgical History History of appendectomy (Chronic) H/O oophorectomy (Chronic) S/P repair of paraesophageal hernia (Chronic) Hx laparoscopic cholecystectomy (Chronic) S/P left knee arthroscopy (Chronic) History of total right knee replacement (Chronic) S/P gastric bypass (Chronic) with hiatal hernia repair S/P TIPS (transjugular intrahepatic portosystemic shunt) (Chronic) Family History Mother Family history of diabetes mellitus Father Family history of diabetes mellitus Brother Family history of diabetes mellitus 2 Social History Preferred Language: Croatian Communication Ability: Effective Beliefs That Will Affect Care: None Current Living Situation: Spouse Other Information That Helps Us Care for You: No Feels Safe at Home: Yes Safety Concerns: Feels Safe At This Time Smoking Status: Former smoker Second Hand Exposure: Yes ( smoked/sons smoked) Hx Alcohol Use: No Hx Substance Use: No Review of Systems Review of Systems: ROS: Gen: Denies weakness, fevers, weight loss Eyes: No eye redness, or pain, no recent vision changes Resp: No SOB, no cough Cardio: No palpitations/irregular beats, no chest pain GI: No abdominal pain, no nausea/vomiting : Denies pain on urination Skin: No jaundice, itching or new rashes Ext: + bilat lower leg edema Physical Exam Constitutional: WD/WN, vitals as above well developed and well nourished; no acute distress Eyes: PERRL, conjunctivae normal, anicteric sclerae ENMT: external ear and nose normal, oropharynx normal Neck: trachea midline, no thyromegaly Respiratory: normal respiratory effort, lungs clear to auscultation Cardiovascular: Rate/Rhythm: regular rate and regular rhythm Heart Sounds: no murmur Extremities: + pedal edema and + edema (to knees bilaterally) Gastrointestinal (Abdomen): normal bowel sounds, soft, nontender, no hepatosplenomegaly Skin: no rashes, warm and dry no jaundice Neurologic: PERRL, EOMI, accommodation nl, no face palsy, no dysarthria Psychiatric: A+Ox3, euthymic affect Orientation: alert and oriented x 3 Results & Data Vital Signs (Past 12 Hours) Vital Signs Temp Pulse Pulse Resp BP BP Pulse Ox 01/31/19 13:34 36.6 C 82 18 163/77 H 95 01/31/19 12:18 82 20 157/88 H 95 01/31/19 11:36 90 16 158/74 H 98 01/31/19 10:22 96 01/31/19 09:44 36.7 C 70 20 131/72 97 Diagnostic Findings CXR 01/31/19: Mild interstitial pulmonary edema and small bilateral pleural effusions.
[2019-01-31 14:30] LABS: INR 1.2 (0.9-1.1); Prothrombin Time 12.3 Seconds (9.0-12.0)
--- NOTE | 2019-01-31 14:38 | History & Physical Report ---
Date of Service January 31, 2019 Assessment & Plan (1) Decompensated hepatic cirrhosis: (2) ANDREWS (nonalcoholic steatohepatitis): (3) Anasarca: -Admit to [facility] -Patient presenting from home with reports of increasing lower extremity edema weight gain over the past 1 month -History of ANDREWS cirrhosis s/p TIPS procedure 06/2018 -Managed at home on Lasix 80 mg a.m./40 mg p.m., spironolactone 25 mg daily, lactulose; unable to afford Xifaxan -S/P Lasix 80 mg IV in the ED, will continue with 40 mg IV every 8 hours; continue home dose of spironolactone -Strict I's and O's, daily standing weight, low Na+ diet -Abdominal ultrasound pending; consider duplex to evaluate patency of TIPS - defer to GI -Does not appear to be encephalopathic, continue home dose of lactulose -GI consult, case discussed with GERSON Lam -will check echo to evaluate for possible cardiac cause of edema (4) Esophageal varices: -EGD 01/18/2019 showed a single grade 1 esophageal varices -No signs of bleeding -Nadolol discontinued by GI at [facility] 07/2018 (5) Hypertension: -BP elevated, likely secondary to significant volume overload -Continue home dose of metoprolol, aggressive diuresis should improve BP (6) Diabetes mellitus, type II: -Hgb A1c 7.5 12/2018 -Hold Januvia, utilize Lantus and NovoLog per protocol while hospitalized (7) Hypothyroidism: -Continue levothyroxine -TSH noted to be elevated however with normal T4 (8) SAMANTHA (obstructive sleep apnea): -CPAP as per home settings (9) Depression: -Continue venlafaxine (10) DVT prophylaxis: -SQ heparin History of Present Illness Chief Complaint: Lower extremity edema, weight gain Primary Care Provider: Jong Crockett DO 63-year-old female who was sent to the ED by referral of PCP for evaluation of lower extremity edema and weight gain. Patient has history of ANDREWS cirrhosis. Currently taking Lasix 120 mg daily and spironolactone 25 mg daily. Patient reports increasing lower extremity edema over the past 1 month. She reports a total of a 30 pound weight gain. Patient was seen by her PCP a few weeks ago who had her take an additional 40 mg of Lasix for 3 days. Patient reports no improvement in her symptoms by doing this. Patient denies chest pain or shortness of breath however reports that she has been having difficulty completing her regular ADLs secondary to the severity of lower extremity edema. No lightheadedness, dizziness, diaphoresis, syncopal events. She denies abdominal pain, nausea, vomiting. Patient is on lactulose and has about 3 bowel movements per day. No other recent illnesses, fevers, chills. She denies any urinary symptoms. In the ED, labs are unremarkable/at baseline.CXR shows small bilateral pleural effusions and mild pulmonary edema. Patient is hemodynamically stable and saturating well on room air. She was given Lasix 80 mg IV. Allergies Allergy/AdvReac Type Severity Reaction Status Date / Time adhesive Allergy Mild RASH AND Verified 01/31/19 09:50 BRUISING Estrogens Allergy Mild SORE AND Verified 01/31/19 09:50 ITCHY repaglinide Allergy Mild RASH Verified 01/31/19 09:50 Sulfa (Sulfonamide Allergy Mild RED RASH Verified 01/31/19 09:50 Antibiotics) NSAIDS (Non-Steroidal AdvReac Unknown not Verified 01/31/19 09:50 Anti-Inflamma allowed to take Home Medications Home Medications Medication Instructions Recorded Confirmed Type Systane Ultra 0 drp OPB DIRECTED PRN 07/11/18 01/31/19 History calcium carbonate-vitamin D3 2 tab PO BID 07/11/18 01/31/19 History [Calcium 600 + D(3)] pantoprazole 40 mg PO QAM 07/11/18 01/31/19 History spironolactone 25 mg PO QAM 07/11/18 01/31/19 History venlafaxine 75 mg PO BIDM 07/11/18 01/31/19 History Flintstones with Iron 1 tab PO BID 11/02/18 01/31/19 History polyethylene glycol 3350 [Miralax] 17 g PO QAM 11/02/18 01/31/19 History potassium chloride 10 meq PO BID 11/02/18 01/31/19 History zinc sulfate [Zinc-220] 220 mg PO BID 11/02/18 01/31/19 History Januvia 100 mg PO QAM 12/25/18 01/31/19 History furosemide 40 mg PO PM 12/25/18 01/31/19 History furosemide 80 mg PO QAM 12/25/18 01/31/19 History vitamin [id number]-[id number] acid 1 tab PO QAM 12/25/18 01/31/19 History Lantus Solostar U-100 Insulin 33 unit SC QAM 01/11/19 01/31/19 History acetaminophen 500 mg PO Q4 PRN 01/11/19 01/31/19 History bisacodyl [Dulcolax (bisacodyl)] 5 mg PO QAM PRN 01/11/19 01/31/19 History lactulose 30 ml PO Q4H 01/31/19 01/31/19 History levothyroxine 125 mcg PO QAM 01/31/19 01/31/19 History magnesium oxide 250 mg PO QAM 01/31/19 01/31/19 History metoprolol tartrate 12.5 mg PO BID 01/31/19 01/31/19 History Past Med/Surg History Medical History Diabetic neuropathy (Chronic) Hypertension (Chronic) History of hysterectomy (Chronic) Depression (Chronic) Diabetes mellitus, type II (Chronic) Hypothyroidism (Chronic) Factor V Leiden (Chronic) SAMANTHA (obstructive sleep apnea) (Chronic) cpap Portal hypertension (Chronic) Esophageal varices (Chronic) Liver cirrhosis secondary to ANDREWS (Chronic) Thrombocytopenia (Chronic) Surgical History History of appendectomy (Chronic) H/O oophorectomy (Chronic) S/P repair of paraesophageal hernia (Chronic) Hx laparoscopic cholecystectomy (Chronic) S/P left knee arthroscopy (Chronic) History of total right knee replacement (Chronic) S/P gastric bypass (Chronic) with hiatal hernia repair S/P TIPS (transjugular intrahepatic portosystemic shunt) (Chronic) Family History Mother Family history of diabetes mellitus Father Family history of diabetes mellitus Brother Family history of diabetes mellitus 2 Social History Preferred Language: Uruguayan Communication Ability: Effective Beliefs That Will Affect Care: None Current Living Situation: Spouse Other Information That Helps Us Care for You: No Feels Safe at Home: Yes Safety Concerns: Feels Safe At This Time Smoking Status: Former smoker Second Hand Exposure: Yes ( smoked/sons smoked) Hx Alcohol Use: No Hx Substance Use: No Review of Systems Review of Systems: ROS per HPI, all other systems reviewed and negative Physical Exam Constitutional: WD/WN, vitals as above Eyes: PERRL, conjunctivae normal, anicteric sclerae ENMT: external ear and nose normal, oropharynx normal Respiratory: normal respiratory effort; no respiratory distress Auscultation: + diminished lung sounds (Bilateral bases); no crackles and no wheezes Cardiovascular: Rate/Rhythm: regular rate and regular rhythm Vessels: normal peripheral pulses Extremities: + edema (+3-4 pitting edema extending from the feet up to the hips/low back) Gastrointestinal (Abdomen): normal bowel sounds, soft, nontender, no hepatosplenomegaly Musculoskeletal: no cyanosis or clubbing, extremities motor strength 5/5 Skin: + rash (Mild dermatitis noted to right anterior jiang) and + excoriations (Right abdominal fold) Skin warm and dry Neurologic: PERRL, EOMI, accommodation nl, no face palsy, no dysarthria Psychiatric: A+Ox3, euthymic affect Results & Data Vital Signs (Past 12 Hours) Vital Signs Temp Pulse Pulse Resp BP BP Pulse Ox 01/31/19 13:34 36.6 C 82 18 163/77 H 95 01/31/19 12:18 82 20 157/88 H 95 01/31/19 11:36 90 16 158/74 H 98 01/31/19 10:22 96 01/31/19 09:44 36.7 C 70 20 131/72 97 Laboratory Results Short CBC 01/31/19 Range/Units 10:17 WBC 4.29 L (4.8-10.8) K/uL Hgb 11.4 L (12.0-16.0) g/dL Hct 34.4 L (37-47) % Plt Count 184 (130-400) K/uL BMP 01/31/19 01/31/19 10:17 12:00 Sodium 136 Potassium 3.8 Chloride 105 Carbon Dioxide 26 BUN 6 L Creatinine 0.76 Glucose 203 H Calcium 8.1 L Liver Function 01/31/19 01/31/19 Range/Units 10:17 12:00 Total Bilirubin 1.3 H (0.2-1) mg/dl AST 53 H (15-37) U/L ALT 40 (12-78) U/L Alkaline Phosphatase 295 H (45-117) U/L Albumin 2.2 L (3.4-5.0) gm/dl Urine 01/31/19 Range/Units 10:50 Urine Color Yellow Urine Appearance Clear (Clear) Urine pH 7.5 (4.5-7.5) Ur Specific [place] 1.010 (1.000-1.030) Urine Protein Negative (Negative) Urine Glucose (UA) Negative (Negative) Diagnostic Findings CXR IMPRESSION: Mild interstitial pulmonary edema and small bilateral pleural effusions. Code Status & VTE Plan Code Status Patient is a full code as per my discussion with her. VTE Prophylaxis Plan VTE Prophylaxis will be ordered: Yes Supervising Physician Co-Signing Physician Notes Attending addendum: She is a 63-year old female with significant past medical history of Andrews cirrhosis status post TIPS procedure, portal hypertension with esophageal varices, SAMANTHA on CPAP, factor V Leiden, diabetes and hypothyroidism was admitted with bilateral leg swelling and 30 pounds with weight gain associated with exertional shortness of breath. 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 Generally weak Admission labs and imaging studies reviewed Has bilateral leg edema with history of cirrhosis without any evidence of encephalopathy History rule out right-sided heart failure GI consulted and appreciate input And agree with assessment and plan as outlined above by Clary Mishra
[2019-01-31] MEDS ORDERED: PROMETHAZINE HCL 25 MG in SODIUM CHLORIDE 0.9% 50 ML IV PRN (14:44)
--- NOTE | 2019-01-31 15:17 | Ultrasound Report ---
Study: Limited survey abdominal ultrasound HISTORY: Ascites. FINDINGS: No evidence for ascites. There is a TIPS catheter in position which appears patent. IMPRESSION: No evidence for ascites. The TIPS catheter is patent. Electronically signed by: William Mariscal M.D. 01/31/2019 3:16 PM
--- NOTE | 2019-01-31 15:30 | Emergency Department Note ---
Entered by Latoya Tan acting as a scribe for History of Present Illness General Chief complaint: Referred by Doctor Stated complaint: ACCESSIVE WEIGHT - FLUID Source: patient Mode of arrival: ambulatory Limitations: no limitations History of Present Illness Provider complaint: leg swelling Onset (ago): month(s) 1 Location: lower extremity Radiation: abdomen Pain Consistency: + other (worsening) Quality: + other (swelling) Relieved By: not by medication Associated symptoms: + other (abd pain, abd swelling, pelvic pain and swelling); no shortness of breath The patient is a 63 year old female who presents to the ER with complaints of worsening bilateral leg swelling that began about a month ago. The patient reports that she has been following up with her PCP about this and that she was referred here after her visit this morning. She states that she was told that she has had a 30 pound weight gain for the past month. She notes that she has a history of cirrhosis but denies any kidney issues. She explains that she had blood work done 2 weeks ago and was within normal limits. She also reports that this past month she has had several changes in her medications but that it has not been alleviating her symptoms. She states that she is also swollen in her pelvis and abdomen and does have an associated pain. She denies any shortness of breath or history of blood clots. She denies being on any blood thinners. She notes that she has been having difficulty ambulating secondary to her symptoms. Home Medications Home Medications Medication Instructions Recorded Confirmed Type Systane Ultra 0 drp OPB DIRECTED PRN 07/11/18 01/31/19 History calcium carbonate-vitamin D3 2 tab PO BID 07/11/18 01/31/19 History [Calcium 600 + D(3)] pantoprazole 40 mg PO QAM 07/11/18 01/31/19 History venlafaxine 75 mg PO BIDM 07/11/18 01/31/19 History Flintstones with Iron 1 tab PO BID 11/02/18 01/31/19 History polyethylene glycol 3350 [Miralax] 17 g PO QAM 11/02/18 01/31/19 History potassium chloride 10 meq PO BID 11/02/18 01/31/19 History zinc sulfate [Zinc-220] 220 mg PO BID 11/02/18 01/31/19 History Januvia 100 mg PO QAM 12/25/18 01/31/19 History furosemide 40 mg PO PM 12/25/18 01/31/19 History vitamin Z00-ajxud acid 1 tab PO QAM 12/25/18 01/31/19 History Lantus Solostar U-100 Insulin 33 unit SC QAM 01/11/19 01/31/19 History acetaminophen 500 mg PO Q4 PRN 01/11/19 01/31/19 History bisacodyl [Dulcolax (bisacodyl)] 5 mg PO QAM PRN 01/11/19 01/31/19 History levothyroxine 125 mcg PO QAM 01/31/19 01/31/19 History magnesium oxide 250 mg PO QAM 01/31/19 01/31/19 History metoprolol tartrate 12.5 mg PO BID 01/31/19 01/31/19 History furosemide 40 mg PO QAM #0 tab 02/01/19 01/31/19 Rx lactulose 30 ml PO QID #0 ml 02/01/19 01/31/19 Rx spironolactone 50 mg PO BID #0 tab 02/01/19 01/31/19 Rx spironolactone 50 mg PO BID #60 tab 02/01/19 Rx Allergies Allergy/AdvReac Type Severity Reaction Status Date / Time adhesive Allergy Mild RASH AND Verified 01/31/19 09:50 BRUISING Estrogens Allergy Mild SORE AND Verified 01/31/19 09:50 ITCHY repaglinide Allergy Mild RASH Verified 01/31/19 09:50 Sulfa (Sulfonamide Allergy Mild RED RASH Verified 01/31/19 09:50 Antibiotics) NSAIDS (Non-Steroidal AdvReac Unknown not Verified 01/31/19 09:50 Anti-Inflamma allowed to take Past Med/Surg History Medical History Diabetic neuropathy (Chronic) Hypertension (Chronic) History of hysterectomy (Chronic) Depression (Chronic) Diabetes mellitus, type II (Chronic) Hypothyroidism (Chronic) Factor V Leiden (Chronic) SAMANTHA (obstructive sleep apnea) (Chronic) cpap Portal hypertension (Chronic) Esophageal varices (Chronic) Liver cirrhosis secondary to MARIA (Chronic) Thrombocytopenia (Chronic) Surgical History History of appendectomy (Chronic) H/O oophorectomy (Chronic) S/P repair of paraesophageal hernia (Chronic) Hx laparoscopic cholecystectomy (Chronic) S/P left knee arthroscopy (Chronic) History of total right knee replacement (Chronic) S/P gastric bypass (Chronic) with hiatal hernia repair S/P TIPS (transjugular intrahepatic portosystemic shunt) (Chronic) Family History Mother Family history of diabetes mellitus Father Family history of diabetes mellitus Brother Family history of diabetes mellitus 2 Social History Preferred Language: Albanian Communication Ability: Effective Beliefs That Will Affect Care: None Current Living Situation: Spouse Other Information That Helps Us Care for You: No Feels Safe at Home: Yes Safety Concerns: Feels Safe At This Time Smoking Status: Former smoker Second Hand Exposure: Yes ( smoked/sons smoked) Hx Alcohol Use: No Hx Substance Use: No Review of Systems See HPI for pertinent positives & negatives. and A total of 10 systems reviewed and were otherwise negative Physical Exam Vital Signs Vital Signs - 24 hr 01/31/19 09:44 01/31/19 10:22 01/31/19 11:36 Temperature 36.7 C Temperature Source Oral Sepsis Recent Fever Within 48 Hours No Sepsis Action Taken by Nursing No Action Required Pulse Rate 70 Pulse Rate [Apical] 90 Respiratory Rate 20 16 Respiratory Effort / Characteristics Non-Labored Respiratory Depth Normal Respiratory Pattern Blood Pressure 131/72 Blood Pressure [Right Arm] 158/74 H Blood Pressure Mean 91 Blood Pressure Mean [Right Arm] 102 Pulse Oximetry 97 96 98 Oxygen Delivery Method Room Air Room Air Room Air 01/31/19 12:18 Temperature Temperature Source Sepsis Recent Fever Within 48 Hours Sepsis Action Taken by Nursing Pulse Rate Pulse Rate [Apical] 82 Respiratory Rate 20 Respiratory Effort / Characteristics Non-Labored Spontaneous Respiratory Depth Normal Respiratory Pattern Regular Blood Pressure Blood Pressure [Right Arm] 157/88 H Blood Pressure Mean Blood Pressure Mean [Right Arm] 111 Pulse Oximetry 95 Oxygen Delivery Method Room Air Vital signs reviewed. General: Chronically ill-appearing elderly, in no significant distress. HEENT: No scleral icterus, PERRLA, neck supple. Atraumatic. Cardiovascular: Regular rate and rhythm, no extra sounds. Pulmonary: Clear to auscultation bilaterally, normal work of breathing. Abdomen: Soft, nontender, nondistended, positive bowel sounds. Musculoskeletal: Atraumatic. Tense pitting edema to the lower extremities up through the lower abdomen. Neurologic: Patient awake alert and oriented x 3 Skin: Warm, dry, no rash Course 1001: Past medical records reviewed. The patient was evaluated in room A2. A complete history and physical examination was performed. 1154: I discussed the patient's [facility] will evaluate the patient for further management. Administered Medications Heparin Sodium (Porcine) (Heparin Sodium (Porcine)) 5,000 units SQ Q8 JOEY Stop: 03/02/19 21:59 Last Admin: 02/01/19 05:46 Dose: 5,000 units Documented by: [id number] Cosigned by: [id number] Admin: 01/31/19 21:40 Dose: 5,000 units Documented by: [id number] Cosigned by: [id number] Furosemide 40 mg/ Syringe 4 mls @ 4 mls/min IV Q8H JOEY Stop: 03/02/19 18:59 Last Admin: 02/01/19 03:08 Dose: 4 mls/min Documented by: [id number] Admin: 01/31/19 18:55 Dose: 4 mls/min Documented by: [id number] Insulin Aspart (Novolog Flexpen) 0 units SC ACHS [facility] Stop: 03/02/19 16:29 Last Admin: 01/31/19 21:36 Dose: 3 units Documented by: [id number] Cosigned by: [id number] Admin: 01/31/19 17:32 Dose: 7 units Documented by: [id number] Cosigned by: [id number] Insulin Glargine (Lantus Solostar Pen) 15 units SC BID [facility] Stop: 03/02/19 20:59 Last Admin: 01/31/19 21:35 Dose: 15 units Documented by: [id number] Cosigned by: [id number] Lactulose (Chronulac) 20 gm PO Q4H JOEY Stop: 03/02/19 15:59 Last Admin: 02/01/19 03:07 Dose: Not Given Documented by: [id number] Admin: 01/31/19 23:31 Dose: 20 gm Documented by: [id number] Admin: 01/31/19 19:40 Dose: 20 gm Documented by: [id number] Admin: 01/31/19 15:31 Dose: 20 gm Documented by: [id number] Levothyroxine Sodium (Synthroid) 125 mcg PO DAILYBB [facility] Stop: 03/03/19 06:29 Last Admin: 02/01/19 05:46 Dose: 125 mcg Documented by: [id number] Metoprolol Tartrate (Lopressor) 12.5 mg PO BID [facility] Stop: 03/02/19 20:59 Last Admin: 01/31/19 21:38 Dose: 12.5 mg Documented by: [id number] Multivitamins/Folic Acid/Vitamin C (Flintstones Complete Chew Tab) 1 tab PO BID [facility] Stop: 03/02/19 20:59 Last Admin: 01/31/19 21:39 Dose: 1 tab Documented by: [id number] Multivitamins/Minerals (Caltrate Plus) 2 tab PO BID [facility] Stop: 03/02/19 20:59 Last Admin: 01/31/19 21:37 Dose: 2 tab Documented by: [id number] Nystatin (Mycostatin) 1 appln EXT BID [facility] Stop: 03/02/19 20:59 Last Admin: 01/31/19 21:41 Dose: 1 appln Documented by: [id number] Potassium Chloride (Klor-Con M10) 10 meq PO BID [facility] Stop: 03/02/19 20:59 Last Admin: 01/31/19 21:37 Dose: 10 meq Documented by: [id number] Venlafaxine HCl (Effexor) 75 mg PO BIDM [facility] Stop: 03/02/19 16:59 Last Admin: 01/31/19 17:11 Dose: 75 mg Documented by: [id number] Zinc Sulfate (Zinc Sulfate) 220 mg PO BID [facility] Stop: 03/02/19 20:59 Last Admin: 01/31/19 21:40 Dose: 220 mg Documented by: [id number] Discontinued Medications Furosemide (Lasix) Confirm Administered Dose 80 mg IV .STK-MED ONE Stop: 01/31/19 12:12 Last Admin: 01/31/19 12:13 Dose: 80 mg Documented by: [id number] Furosemide 80 mg/ Syringe 8 mls @ 4 mls/min IV ONE ONE Stop: 01/31/19 11:52 Last Admin: 01/31/19 12:13 Dose: Not Given Documented by: [id number] Medical Decision Making Differential Diagnosis Differential diagnosis: DVT, musculoskeletal, infection, joint effusion, trauma, lymphedema, idiopathic, CHF, as well as others were entertained. Medical Records Attestation: I reviewed the patient's medical records. Home Medications Current Medication List: was personally reviewed by me Laboratory Data Attestation: I reviewed the patient's lab results. Result diagrams: 01/31/19 10:17 02/01/19 05:15 Lab Results 01/31/19 01/31/19 01/31/19 Range/Units 10:17 10:17 10:50 WBC 4.29 L (4.8-10.8) K/uL RBC 3.73 L (4.2-5.4) M/uL Hgb 11.4 L (12.0-16.0) g/dL Hct 34.4 L (37-47) % MCV 92.2 (80-100) fL MCH 30.6 (25-34) pg MCHC 33.1 (32-36) g/dL RDW Std Deviation 48.5 H (36.4-46.3) fL RDW Coeff of Loco 14.5 (11.5-14.5) % Plt Count 184 (130-400) K/uL MPV 11.5 H (7.4-10.4) fL Immature Gran % (Auto) 0.2 % Neut % (Auto) 47.8 % Lymph % (Auto) 24.7 % [place] % (Auto) 21.9 % Eos % (Auto) 4.0 % Baso % (Auto) 1.4 % Immature Gran # (Auto) 0.01 (0.00-0.02) K/uL Neut # (Auto) 2.05 (1.4-6.5) K/uL Lymph # (Auto) 1.06 L (1.2-3.4) K/uL [place] # (Auto) 0.94 H (0.11-0.59) K/uL Eos # (Auto) 0.17 (0-0.5) K/uL Baso # (Auto) 0.06 (0-0.2) K/uL PT (9.0-12.0) Seconds INR (0.9-1.1) Sodium 136 (136-145) mmol/L Potassium (3.5-5.1) mmol/L Chloride 105 (98-107) mmol/L Carbon Dioxide 26 (21-32) mmol/L Anion Gap 5.0 (3-11) BUN 6 L (7-18) mg/dl Creatinine 0.76 (0.6-1.2) mg/dl Est Cr Clr Drug Dosing Not Reportable Est GFR ( Amer) 95.4 Est GFR (Non-Af Amer) 82.3 BUN/Creatinine Ratio 8.0 L (10-20) Glucose 203 H (70-99) mg/dl Calcium 8.1 L (8.5-10.1) mg/dl Magnesium (1.8-2.4) mg/dl Total Bilirubin 1.3 H (0.2-1) mg/dl AST (15-37) U/L ALT 40 (12-78) U/L Alkaline Phosphatase 295 H (45-117) U/L Total Protein 6.8 (6.4-8.2) gm/dl Albumin 2.2 L (3.4-5.0) gm/dl Globulin 4.6 H (2.5-4.0) gm/dl Albumin/Globulin Ratio 0.5 L (0.9-2) TSH 12.900 H (0.300-4.500) uIu/ml Free T4 1.36 (0.8-1.6) ng/dl Urine Color Yellow Urine Appearance Clear (Clear) Urine pH 7.5 (4.5-7.5) Ur Specific [place] 1.010 (1.000-1.030) Urine Protein Negative (Negative) Urine Glucose (UA) Negative (Negative) Urine Ketones Negative (Negative) Urine Blood Negative (Negative) Urine Nitrite Negative (Negative) Urine Bilirubin Negative (Negative) Urine Urobilinogen Negative (Negative) Ur Leukocyte Esterase Negative (Negative) 01/31/19 01/31/19 Range/Units 12:00 12:01 WBC (4.8-10.8) K/uL RBC (4.2-5.4) M/uL Hgb (12.0-16.0) g/dL Hct (37-47) % MCV (80-100) fL MCH (25-34) pg MCHC (32-36) g/dL RDW Std Deviation (36.4-46.3) fL RDW Coeff of Loco (11.5-14.5) % Plt Count (130-400) K/uL MPV (7.4-10.4) fL Immature Gran % (Auto) % Neut % (Auto) % Lymph % (Auto) % [place] % (Auto) % Eos % (Auto) % Baso % (Auto) % Immature Gran # (Auto) (0.00-0.02) K/uL Neut # (Auto) (1.4-6.5) K/uL Lymph # (Auto) (1.2-3.4) K/uL [place] # (Auto) (0.11-0.59) K/uL Eos # (Auto) (0-0.5) K/uL Baso # (Auto) (0-0.2) K/uL PT 12.3 H (9.0-12.0) Seconds INR 1.2 H (0.9-1.1) Sodium (136-145) mmol/L Potassium 3.8 (3.5-5.1) mmol/L Chloride (98-107) mmol/L Carbon Dioxide (21-32) mmol/L Anion Gap (3-11) BUN (7-18) mg/dl Creatinine (0.6-1.2) mg/dl Est Cr Clr Drug Dosing Est GFR ( Amer) Est GFR (Non-Af Amer) BUN/Creatinine Ratio (10-20) Glucose (70-99) mg/dl Calcium (8.5-10.1) mg/dl Magnesium 1.8 (1.8-2.4) mg/dl Total Bilirubin (0.2-1) mg/dl AST 53 H (15-37) U/L ALT (12-78) U/L Alkaline Phosphatase (45-117) U/L Total Protein (6.4-8.2) gm/dl Albumin (3.4-5.0) gm/dl Globulin (2.5-4.0) gm/dl Albumin/Globulin Ratio (0.9-2) TSH (0.300-4.500) uIu/ml Free T4 (0.8-1.6) ng/dl Urine Color Urine Appearance (Clear) Urine pH (4.5-7.5) Ur Specific [place] (1.000-1.030) Urine Protein (Negative) Urine Glucose (UA) (Negative) Urine Ketones (Negative) Urine Blood (Negative) Urine Nitrite (Negative) Urine Bilirubin (Negative) Urine Urobilinogen (Negative) Ur Leukocyte Esterase (Negative) Imaging Data Radiologist's Impression: Radiology results as stated below per my review and the radiologist's interpretation: XR chest 1V portable HISTORY: weakness COMPARISON: Chest 12/25/2018. FINDINGS: Progressive interstitial and vascular thickening with mild cardiomegaly and small bilateral pleural effusions. This is consistent with mild interstitial pulmonary edema. No pneumothorax. IMPRESSION: Mild interstitial pulmonary edema and small bilateral pleural effusions. Electronically signed by: Andrew Mcnally M.D. 01/31/2019 10:56 AM ECG Data Attestation: I personally reviewed and interpreted this ECG as follows: Indication: weakness Rate (beats per minute): 69 Rhythm: normal sinus Findings: + other (rightward axis, QTC is 441) Blood Pressure Blood Pressure Findings: Normal blood pressure Blood Pressure Disposition: did not require urgent referral MDM Narrative This patient was evaluated and appeared to be in no significant distress. IV access was obtained and laboratory work was drawn. The patient was placed on the groundwater monitoring technician and found to be in a normal sinus rhythm. Patient's vital signs are stable. She has a apparently had approximately 25 pound weight gain over the last month despite oral Lasix. IV Lasix was administered. Laboratory work is fairly reassuring. Ultrasound of the right upper quadrant was ordered to evaluate the previous TIPS procedure, vessels appear to be patent. Chest x- ray was performed and reveals congestive changes and small bilateral pleural effusion as above. Patient's case was discussed with the hospitalist service to evaluate the patient for further management. Patient is aware of the plan and agrees. Impression & Plan Liver cirrhosis secondary to MARIA, Body fluid retention Discharge Plan Visit Data *Final* Discharge Date/Time: 01/31/19 13:00 Chief Complaint: Referred by Doctor Stated Complaint: ACCESSIVE WEIGHT - FLUID ED Provider: Alaina Escalante Discharge Problem: Liver cirrhosis secondary to MARIA, Body fluid retention Patient Disposition: Admitted As Inpatient Condition: Good Discharge Instructions Interventions: ED Discharge Assessment Last Done: 01/31/19 13:00 The scribe's documentation has been prepared under my direction and personally reviewed by me in its entirety. I confirm that the note above accurately reflects all work, treatment, procedures, and medical decision making performed by me.
[2019-01-31] MEDS: LACTULOSE SYRUP 20 GM/30 ML UDC PO SCH ×3 (15:31→23:31)
[2019-01-31] MEDS ORDERED: VENLAFAXINE HCL 75 MG TAB PO SCH (17:00)
[2019-01-31] MEDS: VENLAFAXINE HCL 50 MG TAB PO SCH (17:11)
[2019-01-31] MEDS: INSULIN ASPART 100 UNITS/ML 3 ML PEN SC SCH ×2 (17:32→21:36)
[2019-01-31] MEDS: FUROSEMIDE 40 MG in SYRINGE 0 ML IV SCH (18:55)
--- NOTE | 2019-01-31 21:26 | Ultrasound Report ---
BILATERAL LOWER EXTREMITY VENOUS DOPPLER CLINICAL HISTORY: edema, r/o DVT COMPARISON STUDY: Bilateral lower extremity venous Doppler Dec 25 2018. TECHNIQUE: Sonography of the deep venous system of the bilateral lower extremities was performed. Co mpression and augmentation were evaluated. FINDINGS: This exam was compromised by suboptimal penetration. The bilateral common femoral, superfic ial femoral and popliteal veins were compressible. Augmentation was normal. Flow was shown within the deep calf vessels. Lower extremity edema was noted. IMPRESSION: Study compromised by suboptimal penetration but no evidence of deep venous thrombus withi n the bilateral lower extremities. Electronically signed by: Ze Gillis M.D. 01/31/2019 9:25 PM
--- NOTE | 2019-01-31 21:28 | Ultrasound Report ---
US duplex portal hepatic veins CLINICAL HISTORY: cirrhosis, r/o PVT, check TIPs patency. COMPARISON STUDY: Doppler ultrasound of the right upper quadrant Dec 25 2018. TECHNIQUE: Color and duplex Doppler sonography of the major hepatic vessels including the TIPS was pe rformed. FINDINGS: The major hepatic vessels are patent with appropriately directed flow. The TIPS is patent. Velocities within the TIPS range up to 156 cm/s which is within normal limits. The liver is cirrhotic . A small amount of perihepatic ascites is noted. IMPRESSION: 1. Patent TIPS. Patent major hepatic vessels. 2. Cirrhosis with ascites. Electronically signed by: Ze Gillis M.D. 01/31/2019 9:27 PM
[2019-01-31] MEDS: INSULIN GLARGINE SOLOSTAR 100 UNITS/ML 3 ML PEN SC SCH (21:35)
[2019-01-31] MEDS: CALCIUM 600MG + VIT D 400 IU TAB PO SCH (21:37)
[2019-01-31] MEDS: POTASSIUM CHLORIDE 10 MEQ TABCR PO SCH (21:37)
[2019-01-31] MEDS: METOPROLOL TARTRATE 25 MG TAB PO SCH (21:38)
[2019-01-31] MEDS: FLINTSTONES COMPLETE CHEWABLE TAB PO SCH (21:39)
[2019-01-31] MEDS: HEPARIN SOD 5,000 UNIT/0.5 ML VIAL SQ SCH (21:40)
[2019-01-31] MEDS: ZINC SULFATE 220 MG CAPSULE PO SCH (21:40)
[2019-01-31] MEDS: NYSTATIN POWDER 15GM BTL EXT SCH (21:41)
[2019-02-01] MEDS: LACTULOSE SYRUP 20 GM/30 ML UDC PO SCH ×3 (03:07→12:34)
[2019-02-01] MEDS: FUROSEMIDE 40 MG in SYRINGE 0 ML IV SCH ×2 (03:08→12:33)
[2019-02-01] MEDS: HEPARIN SOD 5,000 UNIT/0.5 ML VIAL SQ SCH ×2 (05:46→13:44)
[2019-02-01 06:05] LABS: Albumin Level 1.9 gm/dl (3.4-5.0); BUN Creatinine Ratio 11.7 (10-20); Calcium 7.5 mg/dl (8.5-10.1); Creatinine Clr Calc Pharmacy 78.6 ml/min; Est GFR (African American) 100.2; Est GFR (Non-African American) 86.4; Magnesium 1.7 mg/dl (1.8-2.4); Potassium 3.4 mmol/L (3.5-5.1)
[2019-02-01 06:13] LABS: Albumin Globulin Ratio 0.5 (0.9-2); Bilirubin,Total 1.3 mg/dl (0.2-1); Globulin 3.6 gm/dl (2.5-4.0); Total Protein 5.5 gm/dl (6.4-8.2)
[2019-02-01] MEDS ORDERED: LEVOTHYROXINE SODIUM 125 MCG TABLET PO SCH (06:30)
[2019-02-01] MEDS: VENLAFAXINE HCL 50 MG TAB PO SCH (07:42)
[2019-02-01] MEDS ORDERED: POTASSIUM CHLORIDE 20 MEQ TABCR PO STA (08:19)
[2019-02-01] MEDS: INSULIN ASPART 100 UNITS/ML 3 ML PEN SC SCH ×2 (08:23→12:35)
[2019-02-01] MEDS: ZINC SULFATE 220 MG CAPSULE PO SCH (08:25)
[2019-02-01] MEDS: INSULIN GLARGINE SOLOSTAR 100 UNITS/ML 3 ML PEN SC SCH (08:26)
[2019-02-01] MEDS: POTASSIUM CHLORIDE 10 MEQ TABCR PO SCH (08:26)
[2019-02-01] MEDS: CALCIUM 600MG + VIT D 400 IU TAB PO SCH (08:27)
[2019-02-01] MEDS: METOPROLOL TARTRATE 25 MG TAB PO SCH (08:28)
[2019-02-01] MEDS: NYSTATIN POWDER 15GM BTL EXT SCH (08:28)
[2019-02-01] MEDS ORDERED: FOLIC ACID 400 MCG TAB PO SCH (09:00)
[2019-02-01] MEDS ORDERED: PANTOprazole 40 MG TAB PO SCH (09:00)
[2019-02-01] MEDS ORDERED: CYANOCOBALAMIN 500 MCG TABLET (VITAMIN B-12) PO SCH (09:00)
[2019-02-01] MEDS ORDERED: MAGNESIUM OXIDE 400 MG TAB PO SCH (09:00)
[2019-02-01] MEDS ORDERED: POLYETHYLENE (MIRALAX) 17 GM PACK PO SCH (09:00)
[2019-02-01] MEDS ORDERED: SPIRONOLACTONE 25 MG TAB PO SCH (09:00)
--- NOTE | 2019-02-01 10:36 | Gastroenterology Progress Note ---
Date of Service February 01, 2019 Assessment & Plan (1) S/P gastric bypass: (2) S/P TIPS (transjugular intrahepatic portosystemic shunt): (3) Esophageal varices: (4) Liver cirrhosis secondary to MARIA: 1. OK for DC from a GI perspective. 2. Change diuretics to: furosemide 40mg QAM, 40MG QPM, Spironolactone 50mg BID. 3. Continue lactulose 30ml QID. 4. Low salt diet. 5. Continue OP GI f/u for cirrhosis. (5) Edema: Supervising Physician Co-Signing Physician Notes I have discussed the patient's management with Kiara. Please refer to the nurse practitioner's note for the documented findings and plan of care. Management of Liver cirrhosis as OP. BMP in one week. Review of Systems Review of Systems: ROS: Gen: Denies weakness, fevers, weight loss Eyes: No eye redness, or pain, no recent vision changes Resp: No SOB, no cough Cardio: No palpitations/irregular beats, no chest pain GI: No abdominal pain, no nausea/vomiting : Denies pain on urination Skin: No jaundice, itching or new rashes Ext: + bilat lower leg edema - slightly improved today. Physical Exam Constitutional: WD/WN, vitals as above well developed and well nourished; no acute distress Eyes: PERRL, conjunctivae normal, anicteric sclerae ENMT: external ear and nose normal, oropharynx normal Neck: trachea midline, no thyromegaly Respiratory: normal respiratory effort, lungs clear to auscultation Cardiovascular: Rate/Rhythm: regular rate and regular rhythm Heart Sounds: no murmur Extremities: + pedal edema (1+, improved compared to yesterday) Gastrointestinal (Abdomen): normal bowel sounds, soft, nontender, no hepatosplenomegaly Skin: no rashes, warm and dry no jaundice Neurologic: PERRL, EOMI, accommodation nl, no face palsy, no dysarthria Psychiatric: A+Ox3, euthymic affect Orientation: alert and oriented x 3 Results & Data Vital Signs (Past 12 Hours) Vital Signs Temp Pulse Resp BP BP Pulse Ox 02/01/19 08:00 37.1 C 83 18 128/72 92 02/01/19 03:06 113/66 02/01/19 02:43 37.4 C 82 16 115/61 96 02/01/19 00:00 37.1 C 84 16 108/61 94 Laboratory Results Sodium 137, potassium 3.4, BUN 9, creatinine 0.73, glucose 162. Diagnostic Findings Liver US 02/01/19: No evidence for ascites. There is a TIPS catheter in position which appears patent. IMPRESSION: No evidence for ascites. The TIPS catheter is patent. Dopplers 02/01/19: Portal Vein and TIPs: 1. Patent TIPS. Patent major hepatic vessels. 2. Cirrhosis with ascites. Extremities:study compromised by suboptimal penetration but no evidence of deep venous thrombus within the bilateral lower extremities.
--- NOTE | 2019-02-01 10:45 | Hospitalist Progress Note ---
Date of Service February 01, 2019 Assessment & Plan (1) Decompensated hepatic cirrhosis: Presented with bilateral leg swelling No ascites clinically and no encephalopathy Status post tips procedure in 06/2018 (2) MARIA (nonalcoholic steatohepatitis): (3) Anasarca: -Patient presenting from home with reports of increasing lower extremity edema weight gain over the past 1 month -History of MARIA cirrhosis s/p TIPS procedure 06/2018 -No ascites clinically and abdomen is soft without distention -S/P Lasix 80 mg IV in the ED, will continue with 40 mg IV every 8 hours; continue home dose of spironolactone -Strict I's and O's, daily standing weight, low Na+ diet -Abdominal ultrasound pending-no ascites; consider duplex to evaluate patency of TIPS -patent TIPS -GI consulted-appreciate input and recommendation -Echo showed normal EF, grade 2 diastolic dysfunction and normal right ventricular function. No significant valvular heart disease -Bilateral leg edema is thought to be secondary to hypoalbuminemia due to cirrhosis -Continue current dose of diuretics. No renal impairment -She will be discharged home this afternoon (4) Esophageal varices: -EGD 01/18/2019 showed a single grade 1 esophageal varices -No signs of bleeding -Nadolol discontinued by GI at [facility] 07/2018 (5) Hypertension: -BP elevated, likely secondary to significant volume overload -Continue home dose of metoprolol, aggressive diuresis should improve BP -Blood pressure is controlled (6) Diabetes mellitus, type II: -Hgb A1c 7.5 12/2018 -Hold Januvia, utilize Lantus and NovoLog per protocol while hospitalized (7) Hypothyroidism: -Continue levothyroxine -TSH noted to be elevated however with normal T4 (8) SAMANTHA (obstructive sleep apnea): -CPAP as per home settings (9) Depression: -Continue venlafaxine (10) DVT prophylaxis: -SQ heparin She has been feeling a lot better this morning The disease process explained to her in detail She will continue her current dose of diuretics and will be discharged home this afternoon Subjective 02/01 The patient was seen and examined in medical floor She is a 63-year old female with significant past medical history of Maria cirrhosis status post TIPS procedure, portal hypertension with esophageal varices, SAMANTHA on CPAP, factor V Leiden, diabetes and hypothyroidism was admitted with bilateral leg swelling and 30 pounds with weight gain associated with exertional shortness of breath. Her legs swelling are much better today without any discomfort She denies any other symptoms Review of Systems Review of Systems: All systems reviewed and are unremarkable except as noted below Respiratory: no dyspnea Cardiovascular: + edema (Has 1+ bilateral leg edema-improved); no chest pain and no palpitations Musculoskeletal: No acute arthritis in any joint Neurologic: Alert, awake and oriented x3 Physical Exam Physical Exam: No apparent distress at rest,lying in bed comfortably Constitutional: well developed, well nourished and + obese; no acute distress and not ill appearing Eyes: PERRL, conjunctivae normal, anicteric sclerae ENMT: external ear and nose normal, oropharynx normal Neck: trachea midline, no thyromegaly Respiratory: normal respiratory effort Auscultation: lungs clear to auscultation bilaterally Cardiovascular: Rate/Rhythm: regular rate and regular rhythm Heart Sounds: + murmur (2/6 ejection systolic murmur over precordium) Gastrointestinal (Abdomen): Inspection/Auscultation: abdomen normal to inspection and normal bowel sounds; abdomen not distended Percussion/Pal pation: abdomen soft; abdomen nontender Musculoskeletal: No acute arthritis in any joint, has bilateral lower extremities edema about 1+ Neurologic: Alert, awake and oriented x3 Lymphatic: no cervical or axillary lymphadenopathy Results & Data Vital Signs (Past 12 Hours) Vital Signs Temp Pulse Resp BP BP Pulse Ox 02/01/19 08:00 37.1 C 83 18 128/72 92 02/01/19 03:06 113/66 02/01/19 02:43 37.4 C 82 16 115/61 96 02/01/19 00:00 37.1 C 84 16 108/61 94 Laboratory Results [facility] 01/31/19 01/31/19 02/01/19 10:17 12:00 05:15 Sodium 136 137 Potassium 3.8 3.4 L Chloride 105 104 Carbon Dioxide 26 29 BUN 6 L 9 Creatinine 0.76 0.73 Glucose 203 H 162 H Calcium 8.1 L 7.5 L Liver Function 01/31/19 01/31/19 02/01/19 Range/Units 10:17 12:00 05:15 Total Bilirubin 1.3 H 1.3 H (0.2-1) mg/dl AST 53 H 51 H (15-37) U/L ALT 40 30 (12-78) U/L Alkaline Phosphatase 295 H 250 H (45-117) U/L Albumin 2.2 L 1.9 L (3.4-5.0) gm/dl Urine 01/31/19 Range/Units 10:50 Urine Color Yellow Urine Appearance Clear (Clear) Urine pH 7.5 (4.5-7.5) Ur Specific Caruthers 1.010 (1.000-1.030) Urine Protein Negative (Negative) Urine Glucose (UA) Negative (Negative) Medications Administered Current Inpatient Medications Cyanocobalamin (Vitamin B-12) 1 mcg PO QAM [facility] Stop: 03/03/19 08:59 Last Admin: 02/01/19 08:29 Dose: 1 mcg Documented by: Dextrose (Dextrose 50%) 25 - 50 ml IV UD PRN; Protocol PRN Reason: Hypoglycemia Protocol Stop: 03/02/19 13:54 Folic Acid (Folvite) [facility]: 03/03/19 08:59 Last Admin: 02/01/19 08:24 Dose: 400 mcg Documented by: Glucagon (Glucagen) 1 mg SQ UD PRN; Protocol PRN Reason: Hypoglycemia Protocol Stop: 03/02/19 13:54 Glucose (Dex4 Glucose) 4 - 8 tabs PO UD PRN; Protocol PRN Reason: Hypoglycemia Protocol Stop: 03/02/19 13:54 Glucose (Glucose 40%) 15 - 30 gm PO UD PRN; Protocol PRN Reason: Hypoglycemia Protocol Stop: 03/02/19 13:54 Heparin Sodium (Porcine) (Heparin Sodium (Porcine)) 5,000 units SQ Q8 [facility] Stop: 03/02/19 21:59 Last Admin: 02/01/19 05:46 Dose: 5,000 units Documented by: Furosemide 40 mg/ Syringe 4 mls @ 4 mls/min IV Q8H [facility] Stop: 03/02/19 18:59 Last Admin: 02/01/19 03:08 Dose: 4 mls/min Documented by: Promethazine HCl 25 mg/ Sodium (Chloride) 51 mls @ 204 mls/hr IV Q6H PRN PRN Reason: Nausea And Vomiting Stop: 03/02/19 14:43 Insulin Aspart (Novolog Flexpen) 0 units SC ACHS [facility] Stop: 03/02/19 16:29 Last Admin: 02/01/19 08:23 Dose: 5 units Documented by: Insulin Glargine (Lantus Solostar Pen) 15 units SC BID [facility] Stop: 03/02/19 20:59 Last Admin: 02/01/19 08:26 Dose: 15 units Documented by: Lactulose (Chronulac) 20 gm PO Q4H [facility] Stop: 03/02/19 15:59 Last Admin: 02/01/19 07:42 Dose: 20 gm Documented by: Levothyroxine Sodium (Synthroid) 125 mcg PO DAILYBB [facility] Stop: 03/03/19 06:29 Last Admin: 02/01/19 05:46 Dose: 125 mcg Documented by: Magnesium Oxide (Mag-Ox) 200 mg PO QAM [facility] Stop: 03/03/19 08:59 Last Admin: 02/01/19 08:25 Dose: 200 mg Documented by: Metoprolol Tartrate (Lopressor) 12.5 mg PO BID [facility] Stop: 03/02/19 20:59 Last Admin: 02/01/19 08:28 Dose: 12.5 mg Documented by: Miscellaneous (Carbohydrates For Hypoglycemia) 15 - 30 gm PO UD PRN PRN Reason: Hypoglycemia Treatment Stop: 03/02/19 13:54 Multivitamins/Folic Acid/Vitamin C (Flintstones Complete Chew Tab) 1 tab PO BID [facility] Stop: 03/02/19 20:59 Last Admin: 01/31/19 21:39 Dose: 1 tab Documented by: Multivitamins/Minerals (Caltrate Plus) 2 tab PO BID [facility] Stop: 03/02/19 20:59 Last Admin: 02/01/19 08:27 Dose: 2 tab Documented by: Nystatin (Mycostatin) 1 appln EXT BID [facility] Stop: 03/02/19 20:59 Last Admin: 02/01/19 08:28 Dose: 1 appln Documented by: Pantoprazole Sodium (Protonix) 40 mg PO QAM [facility] Stop: 03/03/19 08:59 Last Admin: 02/01/19 08:25 Dose: 40 mg Documented by: Polyethylene Glycol (Miralax Powder Packet) 17 gm PO QAM [facility] Stop: 03/03/19 08:59 Last Admin: 02/01/19 08:27 Dose: 17 gm Documented by: Potassium Chloride (Klor-Con M10) 10 meq PO BID [facility] Stop: 03/02/19 20:59 Last Admin: 02/01/19 08:26 Dose: 10 meq Documented by: Spironolactone (Aldactone) 25 mg PO QAM [facility] Stop: 03/03/19 08:59 Last Admin: 02/01/19 08:24 Dose: 25 mg Documented by: Venlafaxine HCl (Effexor) 75 mg PO BIDM [facility] Stop: 03/02/19 16:59 Last Admin: 02/01/19 07:42 Dose: 75 mg Documented by: Zinc Sulfate (Zinc Sulfate) 220 mg PO BID [facility] Stop: 03/02/19 20:59 Last Admin: 02/01/19 08:25 Dose: 220 mg Documented by:
[2019-02-01] MEDS: FLINTSTONES COMPLETE CHEWABLE TAB PO SCH (13:43)
--- NOTE | 2019-02-01 15:13 | Discharge Summary ---
Date of Service February 01, 2019 Admission HPI Per Admitting Provider 63-year-old female who was sent to the ED by referral of PCP for evaluation of lower extremity edema and weight gain. Patient has history of MARIA cirrhosis. Currently taking Lasix 120 mg daily and spironolactone 25 mg daily. Patient reports increasing lower extremity edema over the past 1 month. She reports a total of a 30 pound weight gain. Patient was seen by her PCP a few weeks ago who had her take an additional 40 mg of Lasix for 3 days. Patient reports no improvement in her symptoms by doing this. Patient denies chest pain or shortness of breath however reports that she has been having difficulty compl eting her regular ADLs secondary to the severity of lower extremity edema. No lightheadedness, dizziness, diaphoresis, syncopal events. She denies abdominal pain, nausea, vomiting. Patient is on lactulose and has about 3 bowel movements per day. No other recent illnesses, fevers, chills. She denies any urinary symptoms. In the ED, labs are unremarkable/at baseline.CXR shows small bilateral pleural effusions and mild pulmonary edema. Patient is hemodynamically stable and saturating well on room air. She was given Lasix 80 mg IV. Admission Exam Per Admitting Provider Constitutional: WD/WN, vitals as above Eyes: PERRL, conjunctivae normal, anicteric sclerae ENMT: external ear and nose normal, oropharynx normal Respiratory: normal respiratory effort; no respiratory distress Auscultation: + diminished lung sounds (Bilateral bases); no crackles and no wheezes Cardiovascular: Rate/Rhythm: regular rate and regular rhythm Vessels: normal peripheral pulses Extremities: + edema (+3-4 pitting edema extending from the feet up to the hips/low back) Gastrointestinal (Abdomen): normal bowel sounds, soft, nontender, no hepatosplenomegaly Musculoskeletal: no cyanosis or clubbing, extremities motor strength 5/5 Skin: + rash (Mild dermatitis noted to right anterior jiang) and + excoriations (Right abdominal fold) Skin warm and dry Neurologic: PERRL, EOMI, accommodation nl, no face palsy, no dysarthria Psychiatric: A+Ox3, euthymic affect Principal Diagnosis Anasarca secondary to cirrhosis, bilateral legs swelling, hypertension, type 2 diabetes Discharge Exam Constitutional well developed, well nourished and + obese; no acute distress and not ill appearing Eyes PERRL, conjunctivae normal, anicteric sclerae ENMT external ear and nose normal, oropharynx normal Neck trachea midline, no thyromegaly Respiratory normal respiratory effort Auscultation: lungs clear to auscultation bilaterally Cardiovascular Rate/Rhythm: regular rate and regular rhythm Heart Sounds: + murmur (2/6 ejection systolic murmur over precordium) Gastrointestinal (Abdomen) Inspection/Auscultation: abdomen normal to inspection and normal bowel sounds; abdomen not distended Percussion/Palpation: abdomen soft; abdomen nontender Lymphatic no cervical or axillary lymphadenopathy Discharge Data Allergies Allergy/AdvReac Type Severity Reaction Status Date / Time adhesive Allergy Mild RASH AND Verified 01/31/19 09:50 BRUISING Estrogens Allergy Mild SORE AND Verified 01/31/19 09:50 ITCHY repaglinide Allergy Mild RASH Verified 01/31/19 09:50 Sulfa (Sulfonamide Allergy Mild RED RASH Verified 01/31/19 09:50 Antibiotics) NSAIDS (Non-Steroidal AdvReac Unknown not Verified 01/31/19 09:50 Anti-Inflamma allowed to take Consultations 01/31/19 12:36 ED Decision to Admit Stat 01/31/19 13:55 Consult Case Management - Discharge Planning Routine Consult Gastroenterology Routine Ordered Studies 01/31/19 12:12 US abdomen ltd ascites Stat 01/31/19 16:50 US duplex portal hepatic veins Routine 01/31/19 16:53 US venous doppler LE Routine Hospital Course (1) Decompensated hepatic cirrhosis: Presented with bilateral leg swelling No ascites clinically and no encephalopathy Status post tips procedure in 06/2018 (2) MARIA (nonalcoholic steatohepatitis): (3) Anasarca: -Patient presenting from home with reports of increasing lower extremity edema weight gain over the past 1 month -History of MARIA cirrhosis s/p TIPS procedure 06/2018 -No ascites clinically and abdomen is soft without distention -S/P Lasix 80 mg IV in the ED, will continue with 40 mg IV every 8 hours; continue home dose of spironolactone -Strict I's and O's, daily standing weight, low Na+ diet -Abdominal ultrasound pending-no ascites; consider duplex to evaluate patency of TIPS -patent TIPS -GI consulted-appreciate input and recommendation -Echo showed normal EF, grade 2 diastolic dysfunction and normal right ventricular function. No significant valvular heart disease -Bilateral leg edema is thought to be secondary to hypoalbuminemia due to cirrhosis -Continue current dose of diuretics. No renal impairment -She will be discharged home this afternoon (4) Esophageal varices: -EGD 01/18/2019 showed a single grade 1 esophageal varices -No signs of bleeding -Nadolol discontinued by GI at [facility] 07/2018 (5) Hypertension: -BP elevated, likely secondary to significant volume overload -Continue home dose of metoprolol, aggressive diuresis should improve BP -Blood pressure is controlled (6) Diabetes mellitus, type II: -Hgb A1c 7.5 12/2018 -Hold Januvia, utilize Lantus and NovoLog per protocol while hospitalized (7) Hypothyroidism: -Continue levothyroxine -TSH noted to be elevated however with normal T4 (8) SAMANTHA (obstructive sleep apnea): -CPAP as per home settings (9) Depression: -Continue venlafaxine (10) DVT prophylaxis: -SQ heparin She has been feeling a lot better this morning The disease process explained to her in detail She will continue her current dose of diuretics and will be discharged home this afternoon Total Time Total Time Spent Total Time Spent (In Minutes): 35 minutes Total Time Includes: Examination of the Patient, Discharge Planning, Medication Reconciliation and Communication With Other Providers Discharge Plan Discharge Items Patient Disposition: Home - Self-Care Reason For Visit: VOLUME OVERLOAD Discharge Diagnosis: Anasarca secondary to cirrhosis, bilateral legs swelling, hypertension, type 2 diabetes Condition: Good Discharge Goals: Decrease discomfort, Improve function and Increase independence Activity: Resume your previous activity Non-emergency contact: Primary Care Provider Call non-emergency contact if: you have any medication questions and your symptoms worsen Follow-up/Referrals: Jong Crockett, [Primary Care Provider] - (Your doctor's office will call with appointment. Please keep regular appointment with the sausage canner) Diet: Carb Consistent or DM2 and Low Sodium (2gm) Fluids: 1500ml (6 cups) Addtl Provider Instructions: Try to keep your legs elevated over a pillow while sleeping. Take precaution to avoid fall. Continue low-sodium diet with fluid restriction as advised. Prescriptions: New spironolactone 50 mg tablet 50 mg PO BID Qty: 60 RF: 0 Continued venlafaxine 75 mg Tablet 75 mg PO BIDM RF: 0 calcium carbonate-vitamin D3 [Calcium 600 + D(3)] 600 mg(1,500mg) -200 unit Tablet 2 tab PO BID RF: 0 pantoprazole 40 mg Tablet,Delayed Release (Dr/Ec) 40 mg PO QAM RF: 0 Systane Ultra 0.4-0.3 % Drops OPB DIRECTED PRN (Reason: Dry Eyes) RF: 0 polyethylene glycol 3350 [Miralax] 17 gram Powder In Packet 17 g PO QAM RF: 0 potassium chloride 10 mEq Tablet Extended Release 10 meq PO BID RF: 0 zinc sulfate [Zinc-220] 220 (50) mg Capsule 220 mg PO BID RF: 0 Flintstones with Iron 18 mg iron Tablet,Chewable 1 tab PO BID RF: 0 furosemide 40 mg tablet 40 mg PO PM RF: 0 Januvia 100 mg Tablet 100 mg PO QAM RF: 0 vitamin V45-hluht acid 500-400 mcg Tablet 1 tab PO QAM RF: 0 acetaminophen 500 mg Tablet 500 mg PO Q4 PRN (Reason: Pain) RF: 0 bisacodyl [Dulcolax (bisacodyl)] 5 mg Tablet,Delayed Release (Dr/Ec) 5 mg PO QAM PRN (Reason: Constipation) RF: 0 Lantus Solostar U-100 Insulin 100 unit/mL (3 mL) insulin pen 33 unit SC QAM RF: 0 levothyroxine 125 mcg tablet 125 mcg PO QAM RF: 0 magnesium oxide 250 mg magnesium Tablet 250 mg PO QAM RF: 0 metoprolol tartrate 25 mg tablet 12.5 mg PO BID RF: 0 Changed furosemide 40 mg tablet 40 mg PO QAM Qty: 0 RF: 0 spironolactone 25 mg Tablet 50 mg PO BID Qty: 0 RF: 0 lactulose 10 gram/15 mL solution 30 ml PO QID Qty: 0 RF: 0 Stand-Alone Forms: [facility] Discharge Orders: Discharge Order (Routine); Ordered 02/01/19 Ordered By: Brian Mishra Admission Data Admit Date/Time: 01/31/19 12:35 Attending Provider: Brian Mishra Admit Provider: Brian Mishra Primary Care Provider: Jong Crockett Other Providers: Brian Mishra ; Nestor Sal Service: Medical Other Interventions: Discharge Summary Assessment (RN) Last Done: 02/01/19 14:01 DC Date/Time DO NOT enter until pt leaves facility: 02/01/19 15:00
== END 2019-02-01 15:00 | disposition home or self-care (01) | DRG 442 ==
LOC: ED 09:35 → 2N 12:35

== ENCOUNTER 2019-02-06 08:58 | Inpatient (IN) ==
[2019-02-06] MEDS ORDERED: SODIUM CHLORIDE 0.9% 1000ML 1,000 ML IV SCH (09:30)
[2019-02-06 09:36] LABS: Basophils # (auto) 0.08 K/uL (0-0.2); Basophils % (auto) 2.5 %; Eosinophils # (auto) 0.05 K/uL (0-0.5); Eosinophils % (auto) 1.6 %; Hematocrit (blood only) 37.3 % (37-47); Hemoglobin 12.6 g/dL (12.0-16.0); Immature Granulocytes # (auto) 0.01 K/uL (0.00-0.02); Immature Granulocytes % (auto) 0.3 %; Lymphocytes % (auto) 34.5 %; Mean Corpuscular Hgb Conc 33.8 g/dL (32-36); Mean Corpuscular Volume 89.7 fL (80-100); Mean Platelet Volume 11.5 fL (7.4-10.4); Monocytes # (auto) 0.58 K/uL (0.11-0.59); Monocytes % (auto) 18.2 %; Neutrophils # (auto) 1.37 K/uL (1.4-6.5); Neutrophils % (auto) 42.9 %; Nucleated RBC # (auto) 0.03 K/uL (0-0); Nucleated RBC % (auto) 0.8 %; Platelet Count 197 K/uL (130-400); RDW Coefficient of Variation 14.2 % (11.5-14.5); RDW Standard Deviation 46.8 fL (36.4-46.3); Red Blood Count 4.16 M/uL (4.2-5.4); White Blood Count 3.19 K/uL (4.8-10.8)
[2019-02-06 09:38] LABS: Appearance Urine Clear (Clear); Bilirubin Urine Negative (Negative); Blood Urine Negative (Negative); Color Urine Yellow; Glucose Urine UA Negative (Negative); Ketones Urine Negative (Negative); Leukocyte Esterase Urine Negative (Negative); Nitrite Urine Negative (Negative); Protein Urine Negative (Negative); Specific Gravity Urine 1.012 (1.000-1.030); Urobilinogen Urine Negative (Negative); pH Urine 8.5 (4.5-7.5)
--- NOTE | 2019-02-06 09:54 | XRay Report ---
XR chest 1V portable HISTORY: 63 years-old Female weakness acute weakness COMPARISON: Chest radiograph 01/31/2019 TECHNIQUE: Portable AP view of the chest FINDINGS: Cardiac silhouette is enlarged, unchanged. Calcification of the thoracic aortic arch. Pulmonary vascu lar congestion with mild interstitial coarsening. Trace pleural effusions with right basilar opacitie s. No pneumothorax. Degenerative changes of the shoulders and spine. Vascular graft noted about the a bdominal right upper quadrant. IMPRESSION: 1. Cardiomegaly with mild pulmonary edema. 2. Small pleural effusions with bibasilar opacities. The above report was generated using voice recognition software. It may contain grammatical, syntax o r spelling errors. Electronically signed by: Buster Dominguez M.D. 02/06/2019 9:52 AM
[2019-02-06 09:55] LABS: Alanine Aminotransferase 31 U/L (12-78); Albumin Level 2.5 gm/dl (3.4-5.0); Aspartate Aminotransferase 47 U/L (15-37); BUN Creatinine Ratio 12.6 (10-20); Blood Urea Nitrogen 10 mg/dl (7-18); Carbon Dioxide 24 mmol/L (21-32); Chloride 107 mmol/L (98-107); Est GFR (African American) 92.5; Est GFR (Non-African American) 79.8; Glucose 163 mg/dl (70-99); Potassium 4.5 mmol/L (3.5-5.1); Sodium 139 mmol/L (136-145)
[2019-02-06 10:05] LABS: Albumin Globulin Ratio 0.5 (0.9-2); Alkaline Phosphatase 297 U/L (45-117); Bilirubin,Total 1.8 mg/dl (0.2-1); Creatine Kinase 37 U/L (26-192); Globulin 4.6 gm/dl (2.5-4.0); Total Protein 7.1 gm/dl (6.4-8.2)
--- NOTE | 2019-02-06 10:06 | CT Scan Report ---
CT head/brain wo con CLINICAL HISTORY: 63 years-old Female with ams. Acutely altered mental status TECHNIQUE: Multiple axial CT images of the head were obtained without contrast. A dose lowering tech nique was utilized adhering to the principles of ALARA. CT DOSE: 537.48 mGy.cm COMPARISON: Head CT 12/25/2018. FINDINGS: No acute intracranial hemorrhage, midline shift, intracranial mass, hydrocephalus, territorial ischem ia or abnormal extra-axial collection. Mild age-related involutional changes. Mild patchy white matte r hypodensities suggest chronic microvascular ischemic disease. Ill-defined hypodensity of the centru m [place] right frontal lobe on image 21 series 2 with intact hu-white or face was not definitive ly seen on prior however is also suggestive of probable chronic microvascular ischemic changes. The calvarium is intact. Metopic suture. The paranasal sinuses, mastoid air cells, and middle ear cav ities are clear. IMPRESSION: No acute intracranial abnormality identified. The above report was generated using voice recognition software. It may contain grammatical, syntax o r spelling errors. Electronically signed by: Buster Dominguez M.D. 02/06/2019 10:05 AM
[2019-02-06 10:16] LABS: INR 1.3 (0.9-1.1); Prothrombin Time 12.7 Seconds (9.0-12.0)
[2019-02-06 10:34] LABS: Allen Test Pos (Pos); HCO3 ABG 22 mmol/L (19-24); Oxygen Saturation ABG 96.6 % (90-95); PCO2 ABG 33 mmHg (35-46); PO2 ABG 81 mm/Hg (80-95); pH ABG 7.45 (7.35-7.45)
--- NOTE | 2019-02-06 11:00 | Emergency Department Note ---
Entered by Alana Merrill acting as a scribe for Lamonte Lee DO History of Present Illness General Chief complaint: Altered Mental Status Stated complaint: ALTERED MENTAL STATUS Time Seen by Provider: 02/06/19 09:03 Source: family () History of Present Illness Onset (ago): hour(s) (last night) Location: head Pain Consistency: + other (episode) Quality: + other (altered mental status) Associated symptoms: + other (lethargic, "zombie-like" behavior, unable to follow commands, urinary incontinence) The patient is a 63 year old female that is presenting to the Emergency Room with complaints of an episode of altered mental status that started around 2400 last night. The patients reports that the patient started acting lethargic and like a zombie around this time. Her notes that the patient is not able to follow commands currently but states that she is able to at her baseline. Her states that the patient is incontinent in her urine currently. Her states that the patient had a stent placed in her liver due to cirrhosis. Her notes that the patient has a history of elevated ammonia levels and that her current symptoms are similar to past episodes. Her reports that the patient was in the Emergency Room for similar symptoms a short while ago, but he does not state the exact date. The patients states that the patient takes lactulose at home. Her states that the patient did not take her medications this morning due to her altered mental status. Her notes that the patient has a history of diabetes. Home Medications Home Medications Medication Instructions Recorded Confirmed Type Systane Ultra 0 drp OPB DIRECTED PRN 07/11/18 02/06/19 History calcium carbonate-vitamin D3 2 tab PO BID 07/11/18 02/06/19 History [Calcium 600 + D(3)] pantoprazole 40 mg PO QAM 07/11/18 02/06/19 History venlafaxine 75 mg PO BIDM 07/11/18 02/06/19 History Flintstones with Iron 1 tab PO BID 11/02/18 02/06/19 History polyethylene glycol 3350 [Miralax] 17 g PO QAM 11/02/18 02/06/19 History potassium chloride 10 meq PO BID 11/02/18 02/06/19 History zinc sulfate [Zinc-220] 220 mg PO BID 11/02/18 02/06/19 History Januvia 100 mg PO QAM 12/25/18 02/06/19 History furosemide 40 mg PO BID 12/25/18 02/06/19 History Lantus Solostar U-100 Insulin 33 unit SC QAM 01/11/19 02/06/19 History acetaminophen 500 mg PO Q4 PRN 01/11/19 02/06/19 History bisacodyl [Dulcolax (bisacodyl)] 5 mg PO QAM PRN 01/11/19 02/06/19 History levothyroxine 125 mcg PO QAM 01/31/19 02/06/19 History metoprolol tartrate 12.5 mg PO BID 01/31/19 02/06/19 History amlodipine 10 mg PO QAM 02/06/19 02/06/19 History lactulose 60 ml PO QID 02/06/19 02/06/19 History magnesium oxide 400 mg PO QAM 02/06/19 02/06/19 History peg 400-propylene glycol [Systane 4 drp OPB DAILY PRN 02/06/19 02/06/19 History Ultra] spironolactone 50 mg PO BID 02/06/19 02/06/19 History vitamin T29-ekivp acid 1 tab PO QAM 02/06/19 02/06/19 History Allergies Allergy/AdvReac Type Severity Reaction Status Date / Time adhesive Allergy Mild RASH AND Verified 01/31/19 09:50 BRUISING Estrogens Allergy Mild SORE AND Verified 01/31/19 09:50 ITCHY repaglinide Allergy Mild RASH Verified 01/31/19 09:50 Sulfa (Sulfonamide Allergy Mild RED RASH Verified 01/31/19 09:50 Antibiotics) NSAIDS (Non-Steroidal AdvReac Unknown not Verified 01/31/19 09:50 Anti-Inflamma allowed to take Past Med/Surg History Medical History Diabetic neuropathy (Chronic) Hypertension (Chronic) History of hysterectomy (Chronic) Depression (Chronic) Diabetes mellitus, type II (Chronic) Hypothyroidism (Chronic) Factor V Leiden (Chronic) SAMANTHA (obstructive sleep apnea) (Chronic) cpap Portal hypertension (Chronic) Esophageal varices (Chronic) Liver cirrhosis secondary to MARIA (Chronic) Thrombocytopenia (Chronic) Surgical History History of appendectomy (Chronic) H/O oophorectomy (Chronic) S/P repair of paraesophageal hernia (Chronic) Hx laparoscopic cholecystectomy (Chronic) S/P left knee arthroscopy (Chronic) History of total right knee replacement (Chronic) S/P gastric bypass (Chronic) with hiatal hernia repair 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 and A total of 10 systems reviewed and were otherwise negative Physical Exam Vital Signs Vital Signs - 24 hr 02/06/19 08:58 02/06/19 09:13 02/06/19 09:30 Temperature 36.9 C Temperature Source Oral Sepsis Recent Fever Within 48 Hours No Sepsis New/Unexplained Change in Mental Status No Sepsis Action Taken by Nursing No Action Required Pulse Rate 89 Pulse Rate [Finger] 78 Pulse Rhythm [Finger] Regular Respiratory Rate 18 16 Respiratory Effort / Characteristics Non-Labored Spontaneous Respiratory Depth Normal Respiratory Pattern Regular Blood Pressure 170/81 H Blood Pressure [Right Arm] 146/63 H Blood Pressure Mean 110 Blood Pressure Mean [Right Arm] 90 Blood Pressure Position Sitting Pulse Oximetry 99 97 97 Oxygen Delivery Method Room Air Room Air Room Air 02/06/19 09:31 02/06/19 10:09 02/06/19 10:31 Temperature Temperature Source Sepsis Recent Fever Within 48 Hours Sepsis New/Unexplained Change in Mental Status Sepsis Action Taken by Nursing Pulse Rate Pulse Rate [Finger] 88 80 Pulse Rhythm [Finger] Respiratory Rate 18 16 Respiratory Effort / Characteristics Respiratory Depth Respiratory Pattern Blood Pressure Blood Pressure [Right Arm] 157/79 H 140/65 Blood Pressure Mean Blood Pressure Mean [Right Arm] 105 90 Blood Pressure Position Pulse Oximetry 97 97 98 Oxygen Delivery Method Room Air Room Air Room Air CONSTITUTIONAL/VITAL SIGNS: Reviewed / noted above. GENERAL: Non-toxic in appearance. Decreased alertness. Not following commands. INTEGUMENTARY: Warm, dry, and [place]. HEAD: Normocephalic. EYES: without scleral icterus or trauma. ENT/OROPHARYNX: clear and moist. LYMPHADENOPATHY/NECK: Is supple without lymphadenopathy or meningismus. RESPIRATORY: Lungs clear and equal. CARDIOVASCULAR: Regular rate and rhythm. GI/ABDOMEN: Soft and nontender. No organomegaly or pulsatile mass. No rebound or guarding. Normal bowel sounds. EXTREMITIES: Warm and well perfused. BACK: No CVA tenderness. NEUROLOGICAL: Intact without focal deficits. PSYCHIATRIC: normal affect. MUSCULOSKELETAL: Normally developed with good muscle tone. Course 0905:The patient was evaluated in room B09. A complete history and physical examination was performed. 1047: I discussed the patient's case with GERSON Clinton, who will evaluate the patient for further management and care [facility] the [facility]. 1100: Upon reevaluation, the patient is resting comfortably. I discussed laboratory and radiographic results with the patient and her . They verbalized agreement of the treatment plan. The patient will be evaluated for further management and care. Consultations Consultation #1: I discussed the patient's case with GERSON Clinton , who will evaluate the patient for further management and care with Dr. Rodriguez[facility]. Time: 10:47 Administered Medications Discontinued Medications Sodium Chloride (Nss 1000ml) 1,000 mls @ 999 mls/hr IV .Q1H1M JOEY Stop: 02/06/19 10:30 Last Infusion: 02/06/19 10:35 Dose: 0 mls/hr Documented by: [id number] Admin: 02/06/19 09:33 Dose: 999 mls/hr Documented by: [id number] Medical Decision Making Differential Diagnosis Differential diagnosis: Etiologies such as metabolic, infection, hypoglycemia, electrolyte abnormalities, cardiac sources, intracerebral event, toxicologic, neurologic, as well as others were entertained. Medical Records Attestation: I reviewed the patient's medical records. Home Medications Current Medication List: was personally reviewed by me Laboratory Data Attestation: I reviewed the patient's lab results. Result diagrams: 02/06/19 09:21 02/06/19 09:21 Lab Results 02/06/19 02/06/19 02/06/19 Range/Units 08:21 09:11 09:21 WBC (4.8-10.8) K/uL RBC (4.2-5.4) M/uL Hgb (12.0-16.0) g/dL Hct (37-47) % MCV (80-100) fL MCH (25-34) pg MCHC (32-36) g/dL RDW Std Deviation (36.4-46.3) fL RDW Coeff of Loco (11.5-14.5) % Plt Count (130-400) K/uL MPV (7.4-10.4) fL Immature Gran % (Auto) % Neut % (Auto) % Lymph % (Auto) % [place]iss % (Auto) % Eos % (Auto) % Baso % (Auto) % Immature Gran # (Auto) (0.00-0.02) K/uL Neut # (Auto) (1.4-6.5) K/uL Lymph # (Auto) (1.2-3.4) K/uL Prentiss # (Auto) (0.11-0.59) K/uL Eos # (Auto) (0-0.5) K/uL Baso # (Auto) (0-0.2) K/uL Absolute Nucleated RBC (0-0) K/uL Nucleated RBC % (auto) % PT 12.7 H (9.0-12.0) Seconds INR 1.3 H (0.9-1.1) ABG pH (7.35-7.45) ABG pCO2 (35-46) mmHg ABG pO2 (80-95) mm/Hg ABG HCO3 (19-24) mmol/L ABG O2 Saturation (90-95) % ABG Base Excess (-9-1.8) mEq/L Shadi Test (Pos) Barometric Pressure mm/Hg Oxygen Given Sodium (136-145) mmol/L Potassium (3.5-5.1) mmol/L Chloride (98-107) mmol/L Carbon Dioxide (21-32) mmol/L Anion Gap (3-11) BUN (7-18) mg/dl Creatinine (0.6-1.2) mg/dl Est Cr Clr Drug Dosing Est GFR ( Amer) Est GFR (Non-Af Amer) BUN/Creatinine Ratio (10-20) Glucose (70-99) mg/dl POC Glucose 130 H (70-99) Calcium (8.5-10.1) mg/dl Magnesium Total Bilirubin (0.2-1) mg/dl AST (15-37) U/L ALT (12-78) U/L Alkaline Phosphatase (45-117) U/L Ammonia (11-32) umol/L Total Creatine Kinase Total Protein (6.4-8.2) gm/dl Albumin (3.4-5.0) gm/dl Globulin (2.5-4.0) gm/dl Albumin/Globulin Ratio (0.9-2) TSH (0.300-4.500) uIu/ml Free T4 (0.8-1.6) ng/dl Urine Color Yellow Urine Appearance Clear (Clear) Urine pH 8.5 H (4.5-7.5) Ur Specific [place] 1.012 (1.000-1.030) Urine Protein Negative (Negative) Urine Glucose (UA) Negative (Negative) Urine Ketones Negative (Negative) Urine Blood Negative (Negative) Urine Nitrite Negative (Negative) Urine Bilirubin Negative (Negative) Urine Urobilinogen Negative (Negative) Ur Leukocyte Esterase Negative (Negative) 02/06/19 02/06/19 02/06/19 Range/Units 09:21 09:21 09:21 WBC 3.19 L (4.8-10.8) K/uL RBC 4.16 L (4.2-5.4) M/uL Hgb 12.6 (12.0-16.0) g/dL Hct 37.3 (37-47) % MCV 89.7 (80-100) fL MCH 30.3 (25-34) pg MCHC 33.8 (32-36) g/dL RDW Std Deviation 46.8 H (36.4-46.3) fL RDW Coeff of Loco 14.2 (11.5-14.5) % Plt Count 197 (130-400) K/uL MPV 11.5 H (7.4-10.4) fL Immature Gran % (Auto) 0.3 % Neut % (Auto) 42.9 % Lymph % (Auto) 34.5 % [place] % (Auto) 18.2 % Eos % (Auto) 1.6 % Baso % (Auto) 2.5 % Immature Gran # (Auto) 0.01 (0.00-0.02) K/uL Neut # (Auto) 1.37 L (1.4-6.5) K/uL Lymph # (Auto) 1.10 L (1.2-3.4) K/uL Prentiss # (Auto) 0.58 (0.11-0.59) K/uL Eos # (Auto) 0.05 (0-0.5) K/uL Baso # (Auto) 0.08 (0-0.2) K/uL Absolute Nucleated RBC 0.03 H (0-0) K/uL Nucleated RBC % (auto) 0.8 % PT (9.0-12.0) Seconds INR (0.9-1.1) ABG pH (7.35-7.45) ABG pCO2 (35-46) mmHg ABG pO2 (80-95) mm/Hg ABG HCO3 (19-24) mmol/L ABG O2 Saturation (90-95) % ABG Base Excess (-9-1.8) mEq/L Shadi Test (Pos) Barometric Pressure mm/Hg Oxygen Given Sodium 139 (136-145) mmol/L Potassium 4.5 (3.5-5.1) mmol/L Chloride 107 (98-107) mmol/L Carbon Dioxide 24 (21-32) mmol/L Anion Gap 8.0 (3-11) BUN 10 (7-18) mg/dl Creatinine 0.78 (0.6-1.2) mg/dl Est Cr Clr Drug Dosing Not Reportable Est GFR ( Amer) 92.5 Est GFR (Non-Af Amer) 79.8 BUN/Creatinine Ratio 12.6 (10-20) Glucose 163 H (70-99) mg/dl POC Glucose (70-99) Calcium 9.0 (8.5-10.1) mg/dl Magnesium Cancelled 2.0 Total Bilirubin 1.8 H (0.2-1) mg/dl AST 47 H (15-37) U/L ALT 31 (12-78) U/L Alkaline Phosphatase 297 H (45-117) U/L Ammonia (11-32) umol/L Total Creatine Kinase Cancelled 37 Total Protein 7.1 (6.4-8.2) gm/dl Albumin 2.5 L (3.4-5.0) gm/dl Globulin 4.6 H (2.5-4.0) gm/dl Albumin/Globulin Ratio 0.5 L (0.9-2) TSH 5.540 H (0.300-4.500) uIu/ml Free T4 1.60 (0.8-1.6) ng/dl Urine Color Urine Appearance (Clear) Urine pH (4.5-7.5) Ur Specific [place] (1.000-1.030) Urine Protein (Negative) Urine Glucose (UA) (Negative) Urine Ketones (Negative) Urine Blood (Negative) Urine Nitrite (Negative) Urine Bilirubin (Negative) Urine Urobilinogen (Negative) Ur Leukocyte Esterase (Negative) 02/06/19 02/06/19 Range/Units 10:21 10:21 WBC (4.8-10.8) K/uL RBC (4.2-5.4) M/uL Hgb (12.0-16.0) g/dL Hct (37-47) % MCV (80-100) fL MCH (25-34) pg MCHC (32-36) g/dL RDW Std Deviation (36.4-46.3) fL RDW Coeff of Loco (11.5-14.5) % Plt Count (130-400) K/uL MPV (7.4-10.4) fL Immature Gran % (Auto) % Neut % (Auto) % Lymph % (Auto) % [place] % (Auto) % Eos % (Auto) % Baso % (Auto) % Immature Gran # (Auto) (0.00-0.02) K/uL Neut # (Auto) (1.4-6.5) K/uL Lymph # (Auto) (1.2-3.4) K/uL [place]iss # (Auto) (0.11-0.59) K/uL Eos # (Auto) (0-0.5) K/uL Baso # (Auto) (0-0.2) K/uL Absolute Nucleated RBC (0-0) K/uL Nucleated RBC % (auto) % PT (9.0-12.0) Seconds INR (0.9-1.1) ABG pH 7.45 (7.35-7.45) ABG pCO2 33 L (35-46) mmHg ABG pO2 81 (80-95) mm/Hg ABG HCO3 22 (19-24) mmol/L ABG O2 Saturation 96.6 H (90-95) % ABG Base Excess -1.0 (-9-1.8) mEq/L Shadi Test Pos (Pos) Barometric Pressure 731.0 mm/Hg Oxygen Given ROOM AIR Sodium (136-145) mmol/L Potassium (3.5-5.1) mmol/L Chloride (98-107) mmol/L Carbon Dioxide (21-32) mmol/L Anion Gap (3-11) BUN (7-18) mg/dl Creatinine (0.6-1.2) mg/dl Est Cr Clr Drug Dosing Est GFR ( Amer) Est GFR (Non-Af Amer) BUN/Creatinine Ratio (10-20) Glucose (70-99) mg/dl POC Glucose (70-99) Calcium (8.5-10.1) mg/dl Magnesium Total Bilirubin (0.2-1) mg/dl AST (15-37) U/L ALT (12-78) U/L Alkaline Phosphatase (45-117) U/L Ammonia 221.2 H (11-32) umol/L Total Creatine Kinase Total Protein (6.4-8.2) gm/dl Albumin (3.4-5.0) gm/dl Globulin (2.5-4.0) gm/dl Albumin/Globulin Ratio (0.9-2) TSH (0.300-4.500) uIu/ml Free T4 (0.8-1.6) ng/dl Urine Color Urine Appearance (Clear) Urine pH (4.5-7.5) Ur Specific [place] (1.000-1.030) Urine Protein (Negative) Urine Glucose (UA) (Negative) Urine Ketones (Negative) Urine Blood (Negative) Urine Nitrite (Negative) Urine Bilirubin (Negative) Urine Urobilinogen (Negative) Ur Leukocyte Esterase (Negative) Imaging Data Radiologist's Impression: Radiology results as stated below per my review and the radiologist's interpretation: XR chest 1V portable HISTORY: 63 years-old Female weakness acute weakness COMPARISON: Chest radiograph 01/31/2019 TECHNIQUE: Portable AP view of the chest FINDINGS: Cardiac silhouette is enlarged, unchanged. Calcification of the thoracic aortic arch. Pulmonary vascular congestion with mild interstitial coarsening. Trace pleural effusions with right basilar opacities. No pneumothorax. Degenerative changes of the shoulders and spine. Vascular graft noted about the abdominal right upper quadrant. IMPRESSION: 1. Cardiomegaly with mild pulmonary edema. 2. Small pleural effusions with bibasilar opacities. The above report was generated using voice recognition software. It may contain grammatical, syntax or spelling errors. Electronically signed by: Buster Dominguez M.D. 02/06/2019 9:[address] head/brain wo con CLINICAL HISTORY: 63 years-old Female with ams. Acutely altered mental status TECHNIQUE: Multiple axial CT images of the head were obtained without contrast. A dose lowering technique was utilized adhering to the principles of ALARA. CT DOSE: 537.48 mGy.cm COMPARISON: Head CT 12/25/2018. FINDINGS: No acute intracranial hemorrhage, midline shift, intracranial mass, hydrocephalus, territorial ischemia or abnormal extra-axial collection. Mild age-related involutional changes. Mild patchy white matter hypodensities suggest chronic microvascular ischemic disease. Ill-defined hypodensity of the centrum [place] right frontal lobe on image 21 series 2 with intact hu-white or face was not definitively seen on prior however is also suggestive of probable chronic microvascular ischemic changes. The calvarium is intact. Metopic suture. The paranasal sinuses, mastoid air cells, and middle ear cavities are clear. IMPRESSION: No acute intracranial abnormality identified. The above report was generated using voice recognition software. It may contain grammatical, syntax or spelling errors. Electronically signed by: Buster Dominguez M.D. 02/06/2019 10:05 AM ECG Data Attestation: I personally reviewed and interpreted this ECG as follows: Indication: altered mental status Rate (beats per minute): 96 Rhythm: sinus rhythm Findings: + PVC; no PAC and no ST elevation Blood Pressure Blood Pressure Findings: Elevated blood pressure Blood Pressure Disposition: elevated BP felt to be situational MDM Narrative Is a 63-year-old female who presents to the ED with a chief complaint of altered mental status. The patient was brought in by EMS and the came in. The patient has a history of cirrhosis of the liver. She has had problems with her elevated ammonia levels in the past. She is taking lactulose. The patient is unable to provide any additional information as she is nonverbal at this time. She does not respond to painful stimuli but appears to be breathing comfortably. The patient's exam was otherwise unremarkable. An ABG shows a normal acid-base status. Normal oxygenation and ventilation. She appears to be handling her secretions adequately. CBC and chemistry panel was unremarkable. Chest x-ray did not show any obvious pneumonias. Ammonia level is elevated at 220. The patient was treated with rectal lactulose here. She was given IV fluids as well. She will be seen by the hospitalist for further inpatient evaluation and care. Impression & Plan Hepatic encephalopathy The scribe's documentation has been prepared under my direction and personally reviewed by me in its entirety. I confirm that the note above accurately reflects all work, treatment, procedures, and medical decision making performed by me.
[2019-02-06] MEDS ORDERED: LACTULOSE 200 GM, WATER, STERILE IRRIG 700 ML, BARCODE IDENTIFIER 0 EA PR SCH (12:00)
[2019-02-06] MEDS ORDERED: CARBOHYDRATES FOR HYPOGLYCEMIA PO PRN (12:56)
[2019-02-06] MEDS ORDERED: GLUCAGON FOR INJ 1 MG VIAL SQ PRN (12:56)
[2019-02-06] MEDS ORDERED: DEXTROSE 50% 50 ML SYRINGE IV PRN (12:56)
[2019-02-06] MEDS ORDERED: GLUCOSE 10 TABS/TUBE PO PRN (12:56)
[2019-02-06] MEDS ORDERED: GLUCOSE 40% GEL 15 GM TUBE PO PRN (12:56)
[2019-02-06] MEDS: SODIUM CHLORIDE 0.9% 1000ML 1,000 ML IV SCH (13:00)
--- NOTE | 2019-02-06 13:28 | History & Physical Report ---
Date of Service February 06, 2019 Assessment & Plan (1) Hepatic encephalopathy: (2) ANDREWS (nonalcoholic steatohepatitis): -Admit to telemetry -Patient presenting from home with altered mental status -History of liver cirrhosis secondary to ANDREWS, S/P TIPS procedure 06/2018 -Recent admission to [facility] 01/31 through 02/01 volume overload -spironolactone was increased and Lasix adjusted and patient has been diuresing well -In the ED, patient is found to be obtunded with ammonia level of 221 -Hemodynamically stable, airway is protected - reports compliance with all medications and patient has been having 3-4 bowel movements per day -No signs of infection at this time (no ascites on exam, UA does not suggest infection, head CT negative, afebrile, no leukocytosis); blood cultures obtained -will start lactulose enemas -Patient is to be on Xifaxan however is unable to afford the medication at this time -Hold diuretics for now will giving gentle IVF for mild lactic acidosis -GI consult, case discussed with Dr. Wheatley (3) Elevated lactic acid level: -Lactic acid 2.8 -As above, no signs of infection -Gentle IVF, trend lactic acid levels (4) Esophageal varices: -EGD 01/18/2019 showed a single grade 1 esophageal varices -No signs of bleeding -Nadolol was discontinued by GI at [facility] 07/2018 (5) Hypertension: -BP intermittently mildly elevated -Continue home dose of metoprolol (when patient is able to take p.o.), making adjustments as needed (6) Diabetes mellitus, type II: -Hgb A1c 7.5 12/2018 -Hold Januvia, place patient on NovoLog per protocol; hold Lantus for now secondary to n.p.o. status and glucose currently 130 (7) Depression: -Continue venlafaxine when taking p.o. (8) SAMANTHA (obstructive sleep apnea): -CPAP as per home settings (9) Hypothyroidism: -Continue levothyroxine when taking p.o. (10) DVT prophylaxis: -SQ heparin History of Present Illness Chief Complaint: Altered mental status Primary Care Provider: Jong Crockett DO 63-year-old female who presents to the ED with altered mental status. Patient was recently admitted to [facility] 01/31 through 02/01 for volume overload secondary to ANDREWS cirrhosis. Patient spironolactone was increased to 50 mg twice daily and Lasix was adjusted to 40 mg twice daily. Patient diuresed well and was evaluated at her PCP office on 02/04 for hospital follow-up and was doing well at that time. is the bedside who provides history. He reports that yesterday morning, patient was more tired than normal and slept most of the day. She was able to get most of her medications and with the exception of her nighttime medication. He reports compliance with all medications. She has been taking her lactulose regularly and having 3-4 bowel movements per day. Patient is to be on Xifaxan however she cannot afford this medication. No fevers chills or other symptoms are reported by the . In the ED, patient is obtunded however hemodynamic Mk stable and saturating well on room air. Labs show an ammonia level of 221. No source of infection have been identified. Head CT is negative for acute findings. She was given IVF. Allergies Allergy/AdvReac Type Severity Reaction Status Date / Time adhesive Allergy Mild RASH AND Verified 01/31/19 09:50 BRUISING Estrogens Allergy Mild SORE AND Verified 01/31/19 09:50 ITCHY repaglinide Allergy Mild RASH Verified 01/31/19 09:50 Sulfa (Sulfonamide Allergy Mild RED RASH Verified 01/31/19 09:50 Antibiotics) NSAIDS (Non-Steroidal AdvReac Unknown not Verified 01/31/19 09:50 Anti-Inflamma allowed to take Home Medications Home Medications Medication Instructions Recorded Confirmed Type calcium carbonate-vitamin D3 2 tab PO BID 07/11/18 02/06/19 History [Calcium 600 + D(3)] pantoprazole 40 mg PO QAM 07/11/18 02/06/19 History venlafaxine 75 mg PO BIDM 07/11/18 02/06/19 History Flintstones with Iron 1 tab PO BID 11/02/18 02/06/19 History polyethylene glycol 3350 [Miralax] 17 g PO QAM 11/02/18 02/06/19 History potassium chloride 10 meq PO BID 11/02/18 02/06/19 History zinc sulfate [Zinc-220] 220 mg PO BID 11/02/18 02/06/19 History Januvia 100 mg PO QAM 12/25/18 02/06/19 History furosemide 40 mg PO BID 12/25/18 02/06/19 History Lantus Solostar U-100 Insulin 33 unit SC QAM 01/11/19 02/06/19 History acetaminophen 500 mg PO Q4 PRN 01/11/19 02/06/19 History bisacodyl [Dulcolax (bisacodyl)] 5 mg PO QAM PRN 01/11/19 02/06/19 History levothyroxine 125 mcg PO QAM 01/31/19 02/06/19 History metoprolol tartrate 12.5 mg PO BID 01/31/19 02/06/19 History lactulose 30 ml PO QID 02/06/19 02/06/19 History magnesium oxide 400 mg PO QAM 02/06/19 02/06/19 History peg 400-propylene glycol [Systane 4 drp OPB DAILY PRN 02/06/19 02/06/19 History Ultra] spironolactone 50 mg PO BID 02/06/19 02/06/19 History vitamin [id number] acid 1 tab PO QAM 02/06/19 02/06/19 History Past Med/Surg History Medical History Liver cirrhosis secondary to ANDREWS (Chronic) ANDREWS (nonalcoholic steatohepatitis) (Chronic) Diabetic neuropathy (Chronic) Hypertension (Chronic) History of hysterectomy (Chronic) Depression (Chronic) Diabetes mellitus, type II (Chronic) Hypothyroidism (Chronic) Factor V Leiden (Chronic) SAMANTHA (obstructive sleep apnea) (Chronic) cpap Portal hypertension (Chronic) Esophageal varices (Chronic) Thrombocytopenia (Chronic) Surgical History History of appendectomy (Chronic) H/O oophorectomy (Chronic) S/P repair of paraesophageal hernia (Chronic) Hx laparoscopic cholecystectomy (Chronic) S/P left knee arthroscopy (Chronic) History of total right knee replacement (Chronic) S/P gastric bypass (Chronic) with hiatal hernia repair S/P TIPS (transjugular intrahepatic portosystemic shunt) (Chronic) Family History Mother Family history of diabetes mellitus Father Family history of diabetes mellitus Brother Family history of diabetes mellitus 2 Social History Preferred Language: [place] Communication Ability: Unable [employer] Cuisine Required: No Beliefs That Will Affect Care: None marital status: Current Living Situation: Spouse Other Information That Helps Us Care for You: No Feels Safe at Home: Yes Safety Concerns: Feels Safe At This Time Smoking Status: Former smoker Do You Dip or Chew Tobacco: No Second Hand Exposure: No Tobacco Cessation Education Requested by Patient: No Hx Alcohol Use: No Hx Substance Use: No Review of Systems Review of Systems: Unobtainable due to reduced consciousness Physical Exam Constitutional: WD/WN, vitals as above Eyes: PERRL, conjunctivae normal, anicteric sclerae ENMT: external ear and nose normal, oropharynx normal Respiratory: normal respiratory effort, lungs clear to auscultation Cardiovascular: Rate/Rhythm: regular rate and regular rhythm Vessels: normal peripheral pulses Extremities: + edema (+2 pitting edema BLE) Gastrointestinal (Abdomen): normal bowel sounds, soft, nontender, no hepatosplenomegaly Musculoskeletal: Extremities: no cyanosis and no clubbing Unable to assess strength secondary to reduced consciousness Skin: no rashes, warm and dry Neurologic: Obtunded, does not follow commands Psychiatric: Orientation: + not alert Results & Data Vital Signs (Past 12 Hours) Vital Signs Temp Pulse Pulse Resp BP BP Pulse Ox 02/06/19 12:50 36.5 C 85 18 168/74 H 93 02/06/19 12:00 86 21 146/66 H 95 02/06/19 11:45 83 23 139/66 94 02/06/19 11:30 98 H 24 153/81 H 96 02/06/19 11:15 93 H 24 150/77 H 95 02/06/19 11:00 96 H 23 139/73 97 02/06/19 10:31 80 16 140/65 98 02/06/19 10:09 88 18 157/79 H 97 02/06/19 09:31 97 02/06/19 09:30 78 16 146/63 H 97 02/06/19 09:13 97 02/06/19 08:58 36.9 C 89 18 170/81 H 99 Laboratory Results Short CBC 02/06/19 Range/Units 09:21 WBC 3.19 L (4.8-10.8) K/uL Hgb 12.6 (12.0-16.0) g/dL Hct 37.3 (37-47) % Plt Count 197 (130-400) K/uL BMP 02/06/19 09:21 Sodium 139 Potassium 4.5 Chloride 107 Carbon Dioxide 24 BUN 10 Creatinine 0.78 Glucose 163 H Calcium 9.0 Cardiac Enzymes 02/06/19 02/06/19 Range/Units 09:21 09:21 Total Creatine Kinase Cancelled 37 Liver Function 02/06/19 Range/Units 09:21 Total Bilirubin 1.8 H (0.2-1) mg/dl AST 47 H (15-37) U/L ALT 31 (12-78) U/L Alkaline Phosphatase 297 H (45-117) U/L Albumin 2.5 L (3.4-5.0) gm/dl Urine 02/06/19 Range/Units 08:21 Urine Color Yellow Urine Appearance Clear (Clear) Urine pH 8.5 H (4.5-7.5) Ur Specific Webster 1.012 (1.000-1.030) Urine Protein Negative (Negative) Urine Glucose (UA) Negative (Negative) Diagnostic Findings HEAD CT IMPRESSION: No acute intracranial abnormality identified. CXR IMPRESSION: 1. Cardiomegaly with mild pulmonary edema. 2. Small pleural effusions with bibasilar opacities. Code Status & VTE Plan VTE Prophylaxis Plan VTE Prophylaxis will be ordered: Yes Supervising Physician Co-Signing Physician Notes Patient is a 63-year-old female with history of Andrews cirrhosis, esophageal varices, hypertension, diabetes, obstructive sleep apnea on CPAP and other problems presents with history of altered mental status. History is limited secondary to patient's decreased mental consciousness. Patient was recently discharged from [facility] to [facility] after being treated for decompensated hepatic cirrhosis, anasarca. Patient diuretics were's adjusted by her digital media associate as outpatient. Patient's spouse states that she has been regularly taking her lactulose and diuretics as advised. She has been sleeping most of the day and has been very lethargic and so was brought to the hospital for evaluation. Patient admits that she took a few doses of Tylenol at home for neuropathic pain. Her ammonia is elevated at 221. CT head showed no acute intracranial findings. Patient is very drowsy and lethargic currently in unable to provide any history. Please review HPI for complete details of presentation. On exam patient is moderately built and nourished, drowsy, normocephalic atraumatic, lungs are clear to auscultation, S1-S2, no murmur, abdomen soft nontender, complete neurological exam could not be performed, 2+ bilateral lower extremity edema noted. Patient is admitted for management of hepatic encephalopathy secondary to Andrews cirrhosis. Patient had TIPS in June 2018 and it was patent on imaging noted on prior admission. Case was discussed with digital media associate Dr. wheatley gambling monitor. Plan to give lactulose enemas as per GI. Consider starting on rifaximin medication. GI is consulted. Lactic acidosis likely secondary to hepatic failure. Lactic acid levels improved with gentle IV fluids. Will request neuro checks. Plan to resume oral lactulose when more alert awake. Fall and aspiration precautions. Continue CPAP at bedtime for obstructive sleep apnea. Avoid hepatotoxic agents as able. Monitor volume status closely and resume p.o. diuretics as able. Plan to keep her n.p.o. for now. I personally reviewed the record. Patient is interviewed and examined at bedside. Patient's care is coordinated with Clary Eaton TOLL TEST[employer]ARD WORKER. Please refer to the documentation above for details of patient's presentation and for discussion of other issues.
[2019-02-06] MEDS ORDERED: Nursing to Pharmacy Communication ONE (14:01)
[2019-02-06] MEDS: LACTULOSE 200 GM, WATER, STERILE IRRIG 700 ML, BARCODE IDENTIFIER 1 EA PR SCH ×3 (14:30→17:57)
[2019-02-06] MEDS: HEPARIN SOD 5,000 UNIT/0.5 ML VIAL SQ SCH ×2 (14:30→21:11)
[2019-02-06] MEDS: INSULIN ASPART 100 UNITS/ML 3 ML PEN SC SCH ×3 (14:50→22:54)
[2019-02-06] MEDS: VENLAFAXINE HCL 37.5 MG TAB PO SCH (15:42)
[2019-02-06] MEDS ORDERED: INSULIN ASPART 100 UNITS/ML 3 ML PEN SC SCH (16:30)
[2019-02-06] MEDS ORDERED: METOPROLOL TARTRATE 1 MG/ML VIAL IV STA (20:35)
[2019-02-06] MEDS: METOPROLOL TARTRATE 25 MG TAB PO SCH (21:10)
[2019-02-06] MEDS: CALCIUM 600MG + VIT D 400 IU TAB PO SCH (21:10)
[2019-02-06] MEDS: ZINC SULFATE 220 MG CAPSULE PO SCH (21:10)
[2019-02-06] MEDS: MULTIVITAMIN TAB PO SCH (21:10)
[2019-02-07] MEDS: SODIUM CHLORIDE 0.9% 1000ML 1,000 ML IV SCH (05:46)
[2019-02-07] MEDS: HEPARIN SOD 5,000 UNIT/0.5 ML VIAL SQ SCH ×2 (05:46→12:58)
[2019-02-07] MEDS: LEVOTHYROXINE SODIUM 125 MCG TABLET PO SCH (05:47)
[2019-02-07] MEDS: INSULIN ASPART 100 UNITS/ML 3 ML PEN SC SCH ×3 (05:47→20:33)
[2019-02-07 06:52] LABS: Albumin Level 2.2 gm/dl (3.4-5.0); BUN Creatinine Ratio 17.9 (10-20); Calcium 8.3 mg/dl (8.5-10.1); Creatinine Clr Calc Pharmacy 82.6 ml/min; Est GFR (African American) 107.4; Est GFR (Non-African American) 92.7; Potassium 3.4 mmol/L (3.5-5.1)
[2019-02-07 06:57] LABS: Albumin Globulin Ratio 0.6 (0.9-2); Bilirubin,Total 1.8 mg/dl (0.2-1); Globulin 3.6 gm/dl (2.5-4.0); Total Protein 5.8 gm/dl (6.4-8.2)
[2019-02-07] MEDS: PANTOprazole 40 MG TAB PO SCH (09:29)
[2019-02-07] MEDS: POLYETHYLENE (MIRALAX) 17 GM PACK PO SCH (09:29)
[2019-02-07] MEDS: MULTIVITAMIN TAB PO SCH ×2 (09:29→20:59)
[2019-02-07] MEDS: CALCIUM 600MG + VIT D 400 IU TAB PO SCH ×2 (09:30→21:00)
[2019-02-07] MEDS: VITAMIN B COMPLEX TAB PO SCH (09:30)
[2019-02-07] MEDS: VENLAFAXINE HCL 37.5 MG TAB PO SCH ×2 (09:30→17:50)
[2019-02-07] MEDS: MAGNESIUM OXIDE 400 MG TAB PO SCH (09:30)
[2019-02-07] MEDS: METOPROLOL TARTRATE 25 MG TAB PO SCH ×2 (09:30→21:00)
[2019-02-07] MEDS: ZINC SULFATE 220 MG CAPSULE PO SCH ×2 (09:30→21:00)
--- NOTE | 2019-02-07 12:37 | Gastrointestinal Consultation ---
Date of Consultation February 07, 2019 Assessment & Plan (1) Liver cirrhosis secondary to MARIA: (2) Hepatic encephalopathy: Pt is a 63 y/o female w MARIA cirrhosis s/p TIPS who was recently admitted for volume overload 1 week ago, returned w confusion. Labs showed elevated ammonia, infectious workup so far negative, blood cx pending, CT head unremarkable. She was on Lactulose 30g QID, and admitted to not be having regular BMs. She was unable to afford Xifaxan. Was given Lactulose enema overni ght, w results of multiple BMs. This AM ammonia level decreased and she's AAOx3, though still w mild asterixis and slightly slow answers. MELD 12 - F/U blood cx. - Limited u/s abd to check for residual ascites (if present, can consider obtaining diagnostic paracentesis to r/o SBP) - Increase Lactulose to 45g TID, add Xifaxan 550mg BID. Case management to assist w obtaining patient assistance for Xifaxan. - May restart diuretics, 2g Na diet. - F/U w primary plastic finisher upon DC Supervising Physician Co-Signing Physician Notes Attending attestation I have seen, examined this patient, and agree with the findings and above by our mid-level provider Ms.Leonie Burgess, with the following additions Patient much clear today, with only mild mental slowing, taking oral. Was utilizing lactulose at home however was not having adequate bowel movements. History of Present Illness Reason for Consultation: Hepatic encephalopathy Requesting Physician: Dr. Ray Ballard Attending Physician: Dr. Bartolo Wheatley History of Present Illness Pt is a 63 y/o female w MARIA cirrhosis who was just recently discharged 1 week ago for volume overload, readmitted for confusion. Labs showed elevated Ammonia 221, UA w/o signs of infection, Head CT and CXR unremarkable, blood cx pending. She is s/p TIPS w/o signs of ascites. Overnight was started on Lactulose enemas w results of multiple BMs. This AM ammonia level down to 52. She cannot remember the events prior to her admission yesterday. However today was up in bed, alert oriented x 3. She was on Lactulose 30g QID, unable to afford Xifaxan. She reports not really having BMs Allergies Allergy/AdvReac Type Severity Reaction Status Date / Time adhesive Allergy Mild RASH AND Verified 01/31/19 09:50 BRUISING Estrogens Allergy Mild SORE AND Verified 01/31/19 09:50 ITCHY repaglinide Allergy Mild RASH Verified 01/31/19 09:50 Sulfa (Sulfonamide Allergy Mild RED RASH Verified 01/31/19 09:50 Antibiotics) NSAIDS (Non-Steroidal AdvReac Unknown not Verified 01/31/19 09:50 Anti-Inflamma allowed to take Home Medications Home Medications Medication Instructions Recorded Confirmed Type calcium carbonate-vitamin D3 2 tab PO BID 07/11/18 02/06/19 History [Calcium 600 + D(3)] pantoprazole 40 mg PO QAM 07/11/18 02/06/19 History venlafaxine 75 mg PO BIDM 07/11/18 02/06/19 History Flintstones with Iron 1 tab PO BID 11/02/18 02/06/19 History polyethylene glycol 3350 [Miralax] 17 g PO QAM 11/02/18 02/06/19 History potassium chloride 10 meq PO BID 11/02/18 02/06/19 History zinc sulfate [Zinc-220] 220 mg PO BID 11/02/18 02/06/19 History Januvia 100 mg PO QAM 12/25/18 02/06/19 History furosemide 40 mg PO BID 12/25/18 02/06/19 History Lantus Solostar U-100 Insulin 33 unit SC QAM 01/11/19 02/06/19 History acetaminophen 500 mg PO Q4 PRN 01/11/19 02/06/19 History bisacodyl [Dulcolax (bisacodyl)] 5 mg PO QAM PRN 01/11/19 02/06/19 History levothyroxine 125 mcg PO QAM 01/31/19 02/06/19 History metoprolol tartrate 12.5 mg PO BID 01/31/19 02/06/19 History lactulose 30 ml PO QID 02/06/19 02/06/19 History magnesium oxide 400 mg PO QAM 02/06/19 02/06/19 History peg 400-propylene glycol [Systane 4 drp OPB DAILY PRN 02/06/19 02/06/19 History Ultra] spironolactone 50 mg PO BID 02/06/19 02/06/19 History vitamin [id number] acid 1 tab PO QAM 02/06/19 02/06/19 History Patient History Medical History Liver cirrhosis secondary to MARIA (Chronic) MARIA (nonalcoholic steatohepatitis) (Chronic) Diabetic neuropathy (Chronic) Hypertension (Chronic) History of hysterectomy (Chronic) Depression (Chronic) Diabetes mellitus, type II (Chronic) Hypothyroidism (Chronic) Factor V Leiden (Chronic) SAMANTHA (obstructive sleep apnea) (Chronic) cpap Portal hypertension (Chronic) Esophageal varices (Chronic) Thrombocytopenia (Chronic) Surgical History History of appendectomy (Chronic) H/O oophorectomy (Chronic) S/P repair of paraesophageal hernia (Chronic) Hx laparoscopic cholecystectomy (Chronic) S/P left knee arthroscopy (Chronic) History of total right knee replacement (Chronic) S/P gastric bypass (Chronic) with hiatal hernia repair S/P TIPS (transjugular intrahepatic portosystemic shunt) (Chronic) Family History Mother Family history of diabetes mellitus Father Family history of diabetes mellitus Brother Family history of diabetes mellitus 2 Social History Preferred Language: Dominican Communication Ability: Unable Sweatband Maker Required: No Beliefs That Will Affect Care: None marital status: Current Living Situation: Spouse Other Information That Helps Us Care for You: No Feels Safe at Home: Yes Safety Concerns: Feels Safe At This Time Smoking Status: Former smoker Do You Dip or Chew Tobacco: No Second Hand Exposure: No Tobacco Cessation Education Requested by Patient: No Hx Alcohol Use: No Hx Substance Use: No Review of Systems Review of Systems: All systems reviewed & are unremarkable except as noted in HPI & below Physical Exam Constitutional: WD/WN, vitals as above well groomed, cooperative and comfortable Eyes: PERRL, conjunctivae normal, anicteric sclerae ENMT: external ear and nose normal, oropharynx normal Respiratory: normal respiratory effort, lungs clear to auscultation Cardiovascular: RRR, no murmur, no edema Gastrointestinal (Abdomen): normal bowel sounds, soft, nontender, no hepatosplenomegaly Skin: no rashes, warm and dry no jaundice Neurologic: Motor/Sensory: + asterixis (mild ) Psychiatric: A+Ox3, euthymic affect Lymphatic: no lymphedema Results & Data Vital Signs (Past 12 Hours) Vital Signs Temp Pulse Pulse Resp BP BP Pulse Ox 02/07/19 07:50 37.3 C 98 H 18 165/76 H 99 02/07/19 05:37 91 H 16 100 02/07/19 05:27 37.1 C 93 H 17 168/78 H 100 02/07/19 02:20 94 H 14 96 02/07/19 00:00 37.0 C 88 18 171/85 H 99 02/06/19 23:21 89 20 96 02/06/19 21:10 87 178/87 H Laboratory Results Laboratory Results - last 72 hr 02/06/19 02/06/19 02/06/19 08:21 09:11 09:21 WBC RBC Hgb Hct MCV MCH MCHC RDW Std Deviation RDW Coeff of Loco Plt Count MPV Immature Gran % (Auto) Neut % (Auto) Lymph % (Auto) [place] % (Auto) Eos % (Auto) Baso % (Auto) Immature Gran # (Auto) Neut # (Auto) Lymph # (Auto) [place] # (Auto) Eos # (Auto) Baso # (Auto) Absolute Nucleated RBC Nucleated RBC % (auto) PT 12.7 H INR 1.3 H ABG pH ABG pCO2 ABG pO2 ABG HCO3 ABG O2 Saturation ABG Base Excess Shadi Test Barometric Pressure Oxygen Given Sodium Potassium Chloride Carbon Dioxide Anion Gap BUN Creatinine Est Cr Clr Drug Dosing Est GFR ( Amer) Est GFR (Non-Af Amer) BUN/Creatinine Ratio Glucose POC Glucose 130 H Lactate Calcium Magnesium Total Bilirubin AST ALT Alkaline Phosphatase Ammonia Total Creatine Kinase Total Protein Albumin Globulin Albumin/Globulin Ratio TSH Free T4 Urine Color Yellow Urine Appearance Clear Urine pH 8.5 H Ur Specific [place] 1.012 Urine Protein Negative Urine Glucose (UA) Negative Urine Ketones Negative Urine Blood Negative Urine Nitrite Negative Urine Bilirubin Negative Urine Urobilinogen Negative Ur Leukocyte Esterase Negative 02/06/19 02/06/19 02/06/19 09:21 09:21 09:21 WBC 3.19 L RBC 4.16 L Hgb 12.6 Hct 37.3 MCV 89.7 MCH 30.3 MCHC 33.8 RDW Std Deviation 46.8 H RDW Coeff of Loco 14.2 Plt Count 197 MPV 11.5 H Immature Gran % (Auto) 0.3 Neut % (Auto) 42.9 Lymph % (Auto) 34.5 [place] % (Auto) 18.2 Eos % (Auto) 1.6 Baso % (Auto) 2.5 Immature Gran # (Auto) 0.01 Neut # (Auto) 1.37 L Lymph # (Auto) 1.10 L [place] # (Auto) 0.58 Eos # (Auto) 0.05 Baso # (Auto) 0.08 Absolute Nucleated RBC 0.03 H Nucleated RBC % (auto) 0.8 PT INR ABG pH ABG pCO2 ABG pO2 ABG HCO3 ABG O2 Saturation ABG Base Excess Shadi Test Barometric Pressure Oxygen Given Sodium 139 Potassium 4.5 Chloride 107 Carbon Dioxide 24 Anion Gap 8.0 BUN 10 Creatinine 0.78 Est Cr Clr Drug Dosing Not Reportable Est GFR ( Amer) 92.5 Est GFR (Non-Af Amer) 79.8 BUN/Creatinine Ratio 12.6 Glucose 163 H POC Glucose Lactate Calcium 9.0 Magnesium Cancelled 2.0 Total Bilirubin 1.8 H AST 47 H ALT 31 Alkaline Phosphatase 297 H Ammonia Total Creatine Kinase Cancelled 37 Total Protein 7.1 Albumin 2.5 L Globulin 4.6 H Albumin/Globulin Ratio 0.5 L TSH 5.540 H Free T4 1.60 Urine Color Urine Appearance Urine pH Ur Specific [place] Urine Protein Urine Glucose (UA) Urine Ketones Urine Blood Urine Nitrite Urine Bilirubin Urine Urobilinogen Ur Leukocyte Esterase 02/06/19 02/06/19 02/06/19 10:21 10:21 10:21 WBC RBC Hgb Hct MCV MCH MCHC RDW Std Deviation RDW Coeff of Loco Plt Count MPV Immature Gran % (Auto) Neut % (Auto) Lymph % (Auto) [place] % (Auto) Eos % (Auto) Baso % (Auto) Immature Gran # (Auto) Neut # (Auto) Lymph # (Auto) [place] # (Auto) Eos # (Auto) Baso # (Auto) Absolute Nucleated RBC Nucleated RBC % (auto) PT INR ABG pH 7.45 ABG pCO2 33 L ABG pO2 81 ABG HCO3 22 ABG O2 Saturation 96.6 H ABG Base Excess -1.0 Shadi Test Pos Barometric Pressure 731.0 Oxygen Given ROOM AIR Sodium Potassium Chloride Carbon Dioxide Anion Gap BUN Creatinine Est Cr Clr Drug Dosing Est GFR ( Amer) Est GFR (Non-Af Amer) BUN/Creatinine Ratio Glucose POC Glucose Lactate 2.8 H* Calcium Magnesium Total Bilirubin AST ALT Alkaline Phosphatase Ammonia 221.2 H Total Creatine Kinase Total Protein Albumin Globulin Albumin/Globulin Ratio TSH Free T4 Urine Color Urine Appearance Urine pH Ur Specific [place] Urine Protein Urine Glucose (UA) Urine Ketones Urine Blood Urine Nitrite Urine Bilirubin Urine Urobilinogen Ur Leukocyte Esterase 02/06/19 02/06/19 02/06/19 14:01 17:53 22:51 WBC RBC Hgb Hct MCV MCH MCHC RDW Std Deviation RDW Coeff of Loco Plt Count MPV Immature Gran % (Auto) Neut % (Auto) Lymph % (Auto) [place] % (Auto) Eos % (Auto) Baso % (Auto) Immature Gran # (Auto) Neut # (Auto) Lymph # (Auto) [place] # (Auto) Eos # (Auto) Baso # (Auto) Absolute Nucleated RBC Nucleated RBC % (auto) PT INR ABG pH ABG pCO2 ABG pO2 ABG HCO3 ABG O2 Saturation ABG Base Excess Shadi Test Barometric Pressure Oxygen Given Sodium Potassium Chloride Carbon Dioxide Anion Gap BUN Creatinine Est Cr Clr Drug Dosing Est GFR ( Amer) Est GFR (Non-Af Amer) BUN/Creatinine Ratio Glucose POC Glucose 196 H 160 H Lactate 2.0 Calcium Magnesium Total Bilirubin AST ALT Alkaline Phosphatase Ammonia Total Creatine Kinase Total Protein Albumin Globulin Albumin/Globulin Ratio TSH Free T4 Urine Color Urine Appearance Urine pH Ur Specific [place] Urine Protein Urine Glucose (UA) Urine Ketones Urine Blood Urine Nitrite Urine Bilirubin Urine Urobilinogen Ur Leukocyte Esterase 02/07/19 02/07/19 02/07/19 05:44 05:57 05:57 WBC RBC Hgb Hct MCV MCH MCHC RDW Std Deviation RDW Coeff of Loco Plt Count MPV Immature Gran % (Auto) Neut % (Auto) Lymph % (Auto) [place] % (Auto) Eos % (Auto) Baso % (Auto) Immature Gran # (Auto) Neut # (Auto) Lymph # (Auto) [place] # (Auto) Eos # (Auto) Baso # (Auto) Absolute Nucleated RBC Nucleated RBC % (auto) PT INR ABG pH ABG pCO2 ABG pO2 ABG HCO3 ABG O2 Saturation ABG Base Excess Shadi Test Barometric Pressure Oxygen Given Sodium 146 H D Potassium 3.4 L D Chloride 114 H Carbon Dioxide 23 Anion Gap 9.0 BUN 12 Creatinine 0.66 Est Cr Clr Drug Dosing 82.6 Est GFR ( Amer) 107.4 Est GFR (Non-Af Amer) 92.7 BUN/Creatinine Ratio 17.9 Glucose 161 H POC Glucose 149 H Lactate Calcium 8.3 L Magnesium Total Bilirubin 1.8 H AST 42 H ALT 27 Alkaline Phosphatase 247 H Ammonia 52.2 H Total Creatine Kinase Total Protein 5.8 L Albumin 2.2 L Globulin 3.6 Albumin/Globulin Ratio 0.6 L TSH Free T4 Urine Color Urine Appearance Urine pH Ur Specific [place] Urine Protein Urine Glucose (UA) Urine Ketones Urine Blood Urine Nitrite Urine Bilirubin Urine Urobilinogen Ur Leukocyte Esterase 02/07/19 11:41 WBC RBC Hgb Hct MCV MCH MCHC RDW Std Deviation RDW Coeff of Loco Plt Count MPV Immature Gran % (Auto) Neut % (Auto) Lymph % (Auto) [place] % (Auto) Eos % (Auto) Baso % (Auto) Immature Gran # (Auto) Neut # (Auto) Lymph # (Auto) [place] # (Auto) Eos # (Auto) Baso # (Auto) Absolute Nucleated RBC Nucleated RBC % (auto) PT INR ABG pH ABG pCO2 ABG pO2 ABG HCO3 ABG O2 Saturation ABG Base Excess Shadi Test Barometric Pressure Oxygen Given Sodium Potassium Chloride Carbon Dioxide Anion Gap BUN Creatinine Est Cr Clr Drug Dosing Est GFR ( Amer) Est GFR (Non-Af Amer) BUN/Creatinine Ratio Glucose POC Glucose 165 H Lactate Calcium Magnesium Total Bilirubin AST ALT Alkaline Phosphatase Ammonia Total Creatine Kinase Total Protein Albumin Globulin Albumin/Globulin Ratio TSH Free T4 Urine Color Urine Appearance Urine pH Ur Specific [place] Urine Protein Urine Glucose (UA) Urine Ketones Urine Blood Urine Nitrite Urine Bilirubin Urine Urobilinogen Ur Leukocyte Esterase
[2019-02-07] MEDS: LACTULOSE SYRUP 10 GM/15 ML BTL 473 ML PO SCH ×2 (12:58→20:59)
[2019-02-07] MEDS: RIFAXIMIN 550 MG TABLET PO SCH ×2 (12:58→21:00)
--- NOTE | 2019-02-07 14:27 | Ultrasound Report ---
US abdomen ltd ascites CLINICAL HISTORY: check for ascites; s/p TIPS placement COMPARISON STUDY: Abdomen and pelvis CT 12/25/2018. FINDINGS: Real-time sonographic imaging of the abdomen was performed with fulfillment representative images submi tted. No ascites identified. Patient is status post a TIPS which appears patent. IMPRESSION: No ascites. Electronically signed by: Andrew Mcnally M.D. 02/07/2019 2:26 PM
[2019-02-07] MEDS ORDERED: Nursing to Pharmacy Communication ONE (17:31)
[2019-02-07] MEDS: INSULIN GLARGINE SOLOSTAR 100 UNITS/ML 3 ML PEN SC SCH (17:51)
--- NOTE | 2019-02-07 18:44 | Hospitalist Progress Note ---
Date of Service February 07, 2019 Assessment & Plan (1) Hepatic encephalopathy: (2) MARIA (nonalcoholic steatohepatitis): Per admitting service: -Admit to telemetry -Patient presenting from home with altered mental status -History of liver cirrhosis secondary to MARIA, S/P TIPS procedure 06/2018 -Recent admission to [facility] 01/31 through 02/01 volume overload -spironolactone was increased and Lasix adjusted and patient has been diuresing well -In the ED, patient is found to be obtunded with ammonia level of 221 -Hemodynamically stable, airway is protected - reports compliance with all medications and patient has been having 3-4 bowel movements per day -No signs of infection at this time (no ascites on exam, UA does not suggest infection, head CT negative, afebrile, no leukocytosis); blood cultures obtained -will start lactulose enemas -Patient is to be on Xifaxan however is unable to afford the medication at this time -Hold diuretics for now will giving gentle IVF for mild lactic acidosis -GI consult, case discussed with Dr. Wheatley -Positive loose BMs through the night, with improvement in mental status GI consulted Lactulose increased, rifaximin resumed Abdominal ultrasound obtained: No ascites We will resume diuretics including Lasix and spironolactone Continue to monitor Case management on board, will assist on obtaining rifaximin for patient (3) Elevated lactic acid level: -Lactic acid 2.8 -As above, no signs of infection -Gentle IVF was given Lactic acid improved, today 2.0 DC IV fluids (4) Esophageal varices: -EGD 01/18/2019 showed a single grade 1 esophageal varices -No signs of bleeding -Nadolol was discontinued by GI at [facility] 07/2018 (5) Hypertension: -BP intermittently mildly elevated -Continue home dose of metoprolol (when patient is able to take p.o.), making adjustments as needed (6) Diabetes mellitus, type II: -Hgb A1c 7.5 12/2018 -Hold Januvia, place patient on NovoLog per protocol Diet resumed Continue Lantus insulin sliding scale (7) Depression: -Continue venlafaxine when taking p.o. (8) SAMANTHA (obstructive sleep apnea): -CPAP as per home settings (9) Hypothyroidism: -Continue levothyroxine when taking p.o. (10) DVT prophylaxis: SCDs only in light of history of esophageal varices Encourage early ambulation Disposition PT OT evaluation Lives with family at home Anticipate discharge home medically stable Subjective Follow-up for hepatic encephalopathy Seen resting in bed, sleeping but easily awakened by verbal stimuli Oriented x3, answers all questions appropriately Poor recollection of events yesterday Denies confusion today Denies chest pain, shortness of breath, dizziness, headache, nausea vomiting, fevers or chills, abdominal pain Denies any symptoms Review of Systems Review of Systems: All systems reviewed & are unremarkable except as noted in HPI & below Physical Exam Physical Exam: General- oriented x 3, not in distress, speaks in sentences with no effort or accessory muscle use Head- atraumatic Eyes- PERRL, EOMI, anicteric ENT- oropharynx clear Neck- supple, no JVD, no adenopathy, no thyromegaly; carotids +2/2, no bruits appreciated Lungs- clear to auscultation bilaterally, no rales/wheezes Heart- normal rate, regular rhythm; no murmur, no gallop, no rub appreciated Abdomen- normal bowel sounds, nondistended, soft, nontender, no masses or hepatosplenomegaly Extremities- no pretibial edema, no calf tenderness; peripheral pulses intact Neuro- alert, oriented x 3; CN 2-12 grossly intact; motor 5/5 bilaterally;sensation 100% on all extremities; no other gross focal neurologic deficits Skin- warm & dry Results & Data Vital Signs (Past 12 Hours) Vital Signs Temp Pulse Pulse Resp BP BP Pulse Ox 02/07/19 17:09 74 02/07/19 15:21 36.9 C 74 18 148/71 H 100 02/07/19 11:41 37.8 C H 82 20 134/59 L 98 02/07/19 08:00 102 H 02/07/19 07:50 37.3 C 98 H 18 165/76 H 99 Laboratory Results Laboratory Results - last 24 hr 02/06/19 02/07/19 02/07/19 22:51 05:44 05:57 Sodium 146 H D Potassium 3.4 L D Chloride 114 H Carbon Dioxide 23 Anion Gap 9.0 BUN 12 Creatinine 0.66 Est Cr Clr Drug Dosing 82.6 Est GFR ( Amer) 107.4 Est GFR (Non-Af Amer) 92.7 BUN/Creatinine Ratio 17.9 Glucose 161 H POC Glucose 160 H 149 H Calcium 8.3 L Total Bilirubin 1.8 H AST 42 H ALT 27 Alkaline Phosphatase 247 H Ammonia Total Protein 5.8 L Albumin 2.2 L Globulin 3.6 Albumin/Globulin Ratio 0.6 L 02/07/19 02/07/19 02/07/19 05:57 11:41 15:58 Sodium Potassium Chloride Carbon Dioxide Anion Gap BUN Creatinine Est Cr Clr Drug Dosing Est GFR ( Amer) Est GFR (Non-Af Amer) BUN/Creatinine Ratio Glucose POC Glucose 165 H 240 H Calcium Total Bilirubin AST ALT Alkaline Phosphatase Ammonia 52.2 H Total Protein Albumin Globulin Albumin/Globulin Ratio
[2019-02-07] MEDS: SPIRONOLACTONE 25 MG TAB PO SCH (20:58)
[2019-02-07] MEDS: FUROSEMIDE 40 MG TAB PO SCH (20:58)
[2019-02-07] MEDS ORDERED: INSULIN ASPART 100 UNITS/ML 3 ML PEN SC SCH (21:00)
[2019-02-08] MEDS: LEVOTHYROXINE SODIUM 125 MCG TABLET PO SCH (06:21)
[2019-02-08 08:58] LABS: Basophils # (auto) 0.05 K/uL (0-0.2); Basophils % (auto) 1.4 %; Eosinophils # (auto) 0.13 K/uL (0-0.5); Eosinophils % (auto) 3.6 %; Hematocrit (blood only) 31.5 % (37-47); Hemoglobin 10.3 g/dL (12.0-16.0); Lymphocytes # (auto) 1.46 K/uL (1.2-3.4); Mean Corpuscular Hgb Conc 32.7 g/dL (32-36); Mean Corpuscular Volume 92.6 fL (80-100); Mean Platelet Volume 11.4 fL (7.4-10.4); Monocytes # (auto) 0.69 K/uL (0.11-0.59); Monocytes % (auto) 18.9 %; Neutrophils # (auto) 1.32 K/uL (1.4-6.5); Neutrophils % (auto) 36.1 %; Platelet Count 145 K/uL (130-400); RDW Coefficient of Variation 14.5 % (11.5-14.5); RDW Standard Deviation 48.7 fL (36.4-46.3); White Blood Count 3.65 K/uL (4.8-10.8)
[2019-02-08 09:23] LABS: Albumin Level 1.9 gm/dl (3.4-5.0); BUN Creatinine Ratio 9.8 (10-20); Calcium 7.9 mg/dl (8.5-10.1); Creatinine Clr Calc Pharmacy 66.5 ml/min; Est GFR (Non-African American) 75.1; Potassium 3.4 mmol/L (3.5-5.1)
[2019-02-08 09:26] LABS: Albumin Globulin Ratio 0.5 (0.9-2); Bilirubin,Total 1.4 mg/dl (0.2-1); Globulin 3.5 gm/dl (2.5-4.0); Total Protein 5.4 gm/dl (6.4-8.2)
[2019-02-08] MEDS: METOPROLOL TARTRATE 25 MG TAB PO SCH ×2 (09:36→20:44)
[2019-02-08] MEDS: INSULIN ASPART 100 UNITS/ML 3 ML PEN SC SCH ×4 (09:36→20:46)
[2019-02-08] MEDS: MAGNESIUM OXIDE 400 MG TAB PO SCH (09:37)
[2019-02-08] MEDS: PANTOprazole 40 MG TAB PO SCH (09:37)
[2019-02-08] MEDS: ZINC SULFATE 220 MG CAPSULE PO SCH ×2 (09:38→20:45)
[2019-02-08] MEDS: LACTULOSE SYRUP 10 GM/15 ML BTL 473 ML PO SCH ×3 (09:38→20:44)
[2019-02-08] MEDS: MULTIVITAMIN TAB PO SCH ×2 (09:38→20:45)
[2019-02-08] MEDS: RIFAXIMIN 550 MG TABLET PO SCH ×2 (09:38→20:45)
[2019-02-08] MEDS: VENLAFAXINE HCL 37.5 MG TAB PO SCH ×2 (09:38→18:03)
[2019-02-08] MEDS: FUROSEMIDE 40 MG TAB PO SCH ×2 (09:38→18:02)
[2019-02-08] MEDS: SPIRONOLACTONE 25 MG TAB PO SCH ×2 (09:38→18:03)
[2019-02-08] MEDS: CALCIUM 600MG + VIT D 400 IU TAB PO SCH ×2 (09:38→20:44)
[2019-02-08] MEDS: VITAMIN B COMPLEX TAB PO SCH (09:38)
[2019-02-08] MEDS: POLYETHYLENE (MIRALAX) 17 GM PACK PO SCH (09:39)
[2019-02-08] MEDS ORDERED: POTASSIUM CHLORIDE 10 MEQ TABCR PO STA (10:42)
--- NOTE | 2019-02-08 11:56 | Hospitalist Progress Note ---
Date of Service February 08, 2019 Assessment & Plan (1) Hepatic encephalopathy: (2) MARIA (nonalcoholic steatohepatitis): Per admitting service: -Admit to telemetry -Patient presenting from home with altered mental status -History of liver cirrhosis secondary to MARIA, S/P TIPS procedure 06/2018 -Recent admission to [facility] 01/31 through 02/01 volume overload -spironolactone was increased and Lasix adjusted and patient has been diuresing well -In the ED, patient is found to be obtunded with ammonia level of 221 -Hemodynamically stable, airway is protected - reports compliance with all medications and patient has been having 3-4 bowel movements per day -No signs of infection at this time (no ascites on exam, UA does not suggest infection, head CT negative, afebrile, no leukocytosis); blood cultures obtained -will start lactulose enemas -Patient is to be on Xifaxan however is unable to afford the medication at this time -Hold diuretics for now will giving gentle IVF for mild lactic acidosis -GI consult, case discussed with Dr. Wheatley GI consulted Lactulose increased, rifaximin resumed Abdominal ultrasound obtained: No ascites Positive loose bowel movements, no fevers or chills Mental status continues to improve Resumed diuretics including Lasix and spironolactone Continue to monitor Case management on board, will assist on obtaining rifaximin for patient PT OT evaluation (3) Elevated lactic acid level: -Lactic acid 2.8 -As above, no signs of infection -Gentle IVF was given Lactic acid improved, today 2.0 DC IV fluids (4) Esophageal varices: -EGD 01/18/2019 showed a single grade 1 esophageal varices -No signs of bleeding -Nadolol was discontinued by GI at [facility] 07/2018 (5) Hypertension: -BP intermittently mildly elevated -Continue home dose of metoprolol (when patient is able to take p.o.), making adjustments as needed (6) Diabetes mellitus, type II: -Hgb A1c 7.5 12/2018 -Hold Januvia, place patient on NovoLog per protocol Diet resumed Continue Lantus insulin sliding scale (7) Depression: -Continue venlafaxine when taking p.o. (8) SAMANTHA (obstructive sleep apnea): -CPAP as per home settings (9) Hypothyroidism: -Continue levothyroxine when taking p.o. (10) DVT prophylaxis: SCDs only in light of history of esophageal varices Encourage early ambulation Disposition PT OT evaluation Lives with family at home Anticipate discharge home medically stable Has to ensure that patient has assistance with obtaining rifaximin Subjective Follow-up for hepatic encephalopathy Seen resting in bed, watching TV Alert, answers questions some slowly, answers all questions appropriately Denies confusion, mental fog Noted to be tremors seen by staff scientist this morning seen alert with me Denies headache, dizziness, chest pain, shortness of breath, palpitations, abdominal pain, nausea vomiting, fevers chills Denies any symptoms Review of Systems Review of Systems: All systems reviewed & are unremarkable except as noted in HPI & below Physical Exam Physical Exam: General- oriented x 3, not in distress, speaks in sentences with no effort or accessory muscle use Eyes- anicteric Neck- no JVD Lungs- clear BS, no crackles, wheezing bilaterally Heart- normal rate, regular rhythm; no murmurs Abdomen- normal bowel sounds, nondistended, soft, nontender Extremities- no pretibial edema, no calf tenderness Neuro- alert, oriented x 3; no gross focal neurologic deficits Skin- warm & dry Results & Data Vital Signs (Past 12 Hours) Vital Signs Temp Pulse Pulse Resp BP Pulse Ox 02/08/19 11:17 37.4 C 69 18 144/72 H 96 02/08/19 08:00 73 02/08/19 07:26 36.7 C 76 15 143/69 H 98 02/08/19 03:35 37.0 C 67 17 123/57 L 100 02/08/19 01:40 73 Laboratory Results Laboratory Results - last 24 hr 02/07/19 02/07/19 02/08/19 15:58 20:29 07:25 WBC RBC Hgb Hct MCV MCH MCHC RDW Std Deviation RDW Coeff of Loco Plt Count MPV Immature Gran % (Auto) Neut % (Auto) Lymph % (Auto) [place] % (Auto) Eos % (Auto) Baso % (Auto) Immature Gran # (Auto) Neut # (Auto) Lymph # (Auto) [place] # (Auto) Eos # (Auto) Baso # (Auto) Sodium Potassium Chloride Carbon Dioxide Anion Gap BUN Creatinine Est Cr Clr Drug Dosing Est GFR ( Amer) Est GFR (Non-Af Amer) BUN/Creatinine Ratio Glucose POC Glucose 240 H 115 H 107 H Calcium Total Bilirubin AST ALT Alkaline Phosphatase Total Protein Albumin Globulin Albumin/Globulin Ratio 02/08/19 02/08/19 02/08/19 08:43 08:43 11:30 WBC 3.65 L RBC 3.40 L Hgb 10.3 L Hct 31.5 L MCV 92.6 MCH 30.3 MCHC 32.7 RDW Std Deviation 48.7 H RDW Coeff of Loco 14.5 Plt Count 145 MPV 11.4 H Immature Gran % (Auto) 0.0 Neut % (Auto) 36.1 Lymph % (Auto) 40.0 [place] % (Auto) 18.9 Eos % (Auto) 3.6 Baso % (Auto) 1.4 Immature Gran # (Auto) 0.00 Neut # (Auto) 1.32 L Lymph # (Auto) 1.46 [place] # (Auto) 0.69 H Eos # (Auto) 0.13 Baso # (Auto) 0.05 Sodium 141 Potassium 3.4 L Chloride 109 H Carbon Dioxide 23 Anion Gap 8.0 BUN 8 Creatinine 0.82 Est Cr Clr Drug Dosing 66.5 Est GFR ( Amer) 87.0 Est GFR (Non-Af Amer) 75.1 BUN/Creatinine Ratio 9.8 L Glucose 246 H POC Glucose 152 H Calcium 7.9 L Total Bilirubin 1.4 H AST 42 H ALT 28 Alkaline Phosphatase 220 H Total Protein 5.4 L Albumin 1.9 L Globulin 3.5 Albumin/Globulin Ratio 0.5 L
[2019-02-08] MEDS: INSULIN GLARGINE SOLOSTAR 100 UNITS/ML 3 ML PEN SC SCH (11:58)
--- NOTE | 2019-02-08 12:21 | Gastroenterology Progress Note ---
Date of Service February 08, 2019 Assessment & Plan (1) Liver cirrhosis secondary to MARIA: (2) Hepatic encephalopathy: Pt is a 63 y/o female w MARIA cirrhosis s/p TIPS who was recently admitted for volume overload 1 week ago, returned w confusion. Labs showed elevated ammonia, infectious workup so far negative, blood cx negative, CT head unremarkable. She was on Lactulose 30g QID, and admitted to not be having regular BMs. She was unable to afford Xifaxan. Was given Lactulose enema overnight, w results of multiple BMs. This AM ammonia level decreased and she's AAOx3, though still w mild asterixis and slightly slow answers. MELD 12 - Limited u/s abd to check for residual ascites (if present, can consider obtaining diagnostic paracentesis to r/o SBP) - Increased Lactulose to 45g TID, add Xifaxan 550mg BID. Case management to assist w obtaining patient assistance for Xifaxan. - Continue diuretics, 2g Na diet. - Will re-eval this afternoon - if she is more alert and not confused no contraindication for DC home from our standpoint to F/U w primary corporate director of human resources upon DC Supervising Physician Co-Signing Physician Notes Attending attestation I have seen, examined this patient, and agree with the findings and above by our mid-level provider Ms.Leonie Burgess, with the following additions -Very clear -explore patient assistance with Xifaxin -Recall GI if any questions Subjective Pt denies any abd pain, n/v. Had charted 4 BMs yesterday. Review of Systems Review of Systems: All systems reviewed & are unremarkable except as noted in HPI & below Physical Exam Constitutional: WD/WN, vitals as above well groomed, cooperative and comfortable Eyes: PERRL, conjunctivae normal, anicteric sclerae ENMT: external ear and nose normal, oropharynx normal Respiratory: normal respiratory effort, lungs clear to auscultation Cardiovascular: RRR, no murmur, no edema Gastrointestinal (Abdomen): normal bowel sounds, soft, nontender, no hepatosplenomegaly Skin: no rashes, warm and dry no jaundice Neurologic: Motor/Sensory: no asterixis (mild ) Psychiatric: Orientation: oriented x 3 Though oriented x 3 she does appear a bit more drowsy today and slower thought process Lymphatic: no lymphedema Results & Data Vital Signs (Past 12 Hours) Vital Signs Temp Pulse Pulse Resp BP Pulse Ox 02/08/19 11:17 37.4 C 69 18 144/72 H 96 02/08/19 08:00 73 02/08/19 07:26 36.7 C 76 15 143/69 H 98 02/08/19 03:35 37.0 C 67 17 123/57 L 100 02/08/19 01:40 73
[2019-02-09] MEDS: LEVOTHYROXINE SODIUM 125 MCG TABLET PO SCH (06:04)
[2019-02-09] MEDS: METOPROLOL TARTRATE 25 MG TAB PO SCH (07:40)
[2019-02-09] MEDS: CALCIUM 600MG + VIT D 400 IU TAB PO SCH (07:40)
[2019-02-09] MEDS: PANTOprazole 40 MG TAB PO SCH (07:40)
[2019-02-09] MEDS: ZINC SULFATE 220 MG CAPSULE PO SCH (07:40)
[2019-02-09] MEDS: FUROSEMIDE 40 MG TAB PO SCH (07:41)
[2019-02-09] MEDS: VITAMIN B COMPLEX TAB PO SCH (07:41)
[2019-02-09] MEDS: RIFAXIMIN 550 MG TABLET PO SCH (07:41)
[2019-02-09] MEDS: POLYETHYLENE (MIRALAX) 17 GM PACK PO SCH (07:41)
[2019-02-09] MEDS: LACTULOSE SYRUP 10 GM/15 ML BTL 473 ML PO SCH ×2 (07:41→12:58)
[2019-02-09] MEDS: MULTIVITAMIN TAB PO SCH (07:41)
[2019-02-09] MEDS: SPIRONOLACTONE 25 MG TAB PO SCH (07:41)
[2019-02-09] MEDS: MAGNESIUM OXIDE 400 MG TAB PO SCH (07:41)
[2019-02-09] MEDS: VENLAFAXINE HCL 37.5 MG TAB PO SCH (07:41)
[2019-02-09 08:50] LABS: Albumin Level 2.2 gm/dl (3.4-5.0); BUN Creatinine Ratio 10.8 (10-20); Calcium 8.3 mg/dl (8.5-10.1); Creatinine Clr Calc Pharmacy 82.6 ml/min; Est GFR (African American) 107.4; Est GFR (Non-African American) 92.7; Magnesium 1.9 mg/dl (1.8-2.4); Potassium 3.8 mmol/L (3.5-5.1)
[2019-02-09 08:53] LABS: Albumin Globulin Ratio 0.6 (0.9-2); Bilirubin,Total 1.6 mg/dl (0.2-1); Globulin 3.8 gm/dl (2.5-4.0)
[2019-02-09 09:00] LABS: Hematocrit (blood only) 34.5 % (37-47); Hemoglobin 11.5 g/dL (12.0-16.0); Mean Corpuscular Hgb Conc 33.3 g/dL (32-36); Mean Corpuscular Volume 89.8 fL (80-100); Mean Platelet Volume 11.7 fL (7.4-10.4); Nucleated RBC # (auto) 0.02 K/uL (0-0); Nucleated RBC % (auto) 0.8 %; Platelet Count 133 K/uL (130-400); RDW Coefficient of Variation 14.5 % (11.5-14.5); RDW Standard Deviation 47.1 fL (36.4-46.3); Red Blood Count 3.84 M/uL (4.2-5.4); White Blood Count 3.16 K/uL (4.8-10.8)
[2019-02-09] MEDS: INSULIN ASPART 100 UNITS/ML 3 ML PEN SC SCH ×2 (09:06→12:58)
[2019-02-09] MEDS: INSULIN GLARGINE SOLOSTAR 100 UNITS/ML 3 ML PEN SC SCH (09:06)
[2019-02-09 09:39] LABS: Basophils # (manual) 0.06 K/uL (0-0.2); Echinocytes 2+; Eosinophils # (manual) 0.13 K/uL (0-0.5); Monocytes # (manual) 0.35 K/uL (0.11-0.59)
--- NOTE | 2019-02-09 15:23 | Hospitalist Progress Note ---
Date of Service February 09, 2019 Assessment & Plan (1) Hepatic encephalopathy: (2) MARIA (nonalcoholic steatohepatitis): -History of liver cirrhosis secondary to MARIA, S/P TIPS procedure 06/2018; Recent admission to [facility] 01/31 through 02/01 volume overload -spironolactone was increased and Lasix adjusted and patient has been diuresing well -Patient presenting from home with altered mental status on this admission; In the ED, patient is found to be obtunded with ammonia level of 221 -during this hospital stay patient's mental status improved and ammonia levels dropped as patient on combination of Rifaximin and lactulose; ammonia level has downtrended to the 70s and patient is at mental baseline -as per discussions with spring encaser patient is not able to obtain Rifaxmin in an affordable way through the insurance company -Patient should take 40 grams of Lactulose three times a day (If the Lactulose is in concentrations of 20 ml/30 grams this means take 60 ml three times a day) - Patient may take this increased dosing up to 5 times a day. Continue home dose Lasix and Spirolactone Close follow ups 02/14/2019 1:00 PM Provider Sandra Bain DO Department General Internal Medicine [facility] 02/21/2019 11:20 AM Provider Jong Crockett DO Department General Internal Medicine [facility] 02/22/2019 8:40 AM Provider Greg Baeza MD Department Gastroenterology, [facility] (3) Elevated lactic acid level: -Lactic acid 2.8 on admission and resolved after IV fluids on 02/06/19 (4) Esophageal varices: -EGD 01/18/2019 showed a single grade 1 esophageal varices -No signs of bleeding -Nadolol was discontinued by GI at [facility] 07/2018 (5) Hypertension: Essential Hypertension -Continue home dose of metoprolol (6) Diabetes mellitus, type II: Type 2 Diabetes Mellitus with correction current use of insulin (with complication of mild hyperglycemia) -Hgb A1c 7.5 12/2018 -during this hospital stay Januvia was held and patient was on reduced home insulin to avoid hypoglycemia -mildly elevated glucose above 200 on 02/09/19 -patient may resume home dose insulin and Januvia on discharge day (7) Depression: -Continue venlafaxine -mood is currently stable (8) SAMANTHA (obstructive sleep apnea): -CPAP as per home settings (9) Hypothyroidism: -Continue levothyroxine (10) DVT prophylaxis: SCDs while in hospital / ambulation Discharge diagnosis Hepatic Encephalopathy, Essential Hypertension, 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 at baseline mental status. able to the finger to nose test. no headache. no dizziness. no vomiting. no abdomen pain. no chest pain. no shortness of breath. able to make bowel movements. able to urinate without the luis. discussed plans on discharge with patient and her Physical Exam Constitutional: WD/WN, vitals as above ENMT: external ear and nose normal, oropharynx normal Neck: trachea midline, no thyromegaly Respiratory: normal respiratory effort, lungs clear to auscultation Cardiovascular: RRR, no murmur, no edema Gastrointestinal (Abdomen): Inspection/Auscultation: normal bowel sounds Percussion/Palpation: abdomen soft Musculoskeletal: no cyanosis or clubbing, extremities motor strength 5/5 Head/Neck/Chest: normocephalic and head atraumatic Neurologic: PERRL, EOMI, accommodation nl, no face palsy, no dysarthria CN's II-XI intact bilaterally Psychiatric: A+Ox3, euthymic affect Results & Data Vital Signs (Past 12 Hours) Vital Signs Temp Pulse Resp BP Pulse Ox 02/09/19 07:12 36.6 C 69 18 139/71 93
--- NOTE | 2019-02-09 15:31 | Discharge Summary ---
Date of Service February 09, 2019 Admission HPI Per Admitting Provider 63-year-old female who presents to the ED with altered mental status. Patient was recently admitted to [facility] 01/31 through 02/01 for volume overload secondary to MARIA cirrhosis. Patient spironolactone was increased to 50 mg twice daily and Lasix was adjusted to 40 mg twice daily. Patient diuresed well and was evaluated at her PCP office on 02/04 for hospital follow-up and was doing well at that time. is the bedside who provides history. He reports that yesterday morning, patient was more tired than normal and slept most of the day. She was able to get most of her medications and with the exception of her n ighttime medication. He reports compliance with all medications. She has been taking her lactulose regularly and having 3-4 bowel movements per day. Patient is to be on Xifaxan however she cannot afford this medication. No fevers chills or other symptoms are reported by the . In the ED, patient is obtunded however hemodynamic Mk stable and saturating well on room air. Labs show an am monia level of 221. No source of infection have been identified. Head CT is negative for acute findings. She was given IVF. Admission Exam Per Admitting Provider Constitutional: WD/WN, vitals as above Eyes: PERRL, conjunctivae normal, anicteric sclerae ENMT: external ear and nose normal, oropharynx normal Respiratory: normal respiratory effort, lungs clear to auscultation Cardiovascular: Rate/Rhythm: regular rate and regular rhythm Vessels: normal peripheral pulses Extremities: + edema (+2 pitting edema BLE) Gastrointestinal (Abdomen): normal bowel sounds, soft, nontender, no hepatosplenomegaly Musculoskeletal: Extremities: no cyanosis and no clubbing Unable to assess strength secondary to reduced consciousness Skin: no rashes, warm and dry Neurologic: Obtunded, does not follow commands Psychiatric: Orientation: + not alert Principal Diagnosis Hepatic Encephalopathy, Essential Hypertension, Type 2 Diabetes Mellitus with terminal clerk current use of insulin (with complication of mild hyperglycemia), Depression history (on venlafaxine) Discharge Exam Constitutional WD/WN, vitals as above ENMT external ear and nose normal, oropharynx normal Neck trachea midline, no thyromegaly Respiratory normal respiratory effort, lungs clear to auscultation Cardiovascular RRR, no murmur, no edema Gastrointestinal (Abdomen) Inspection/Auscultation: normal bowel sounds Percussion/Palpation: abdomen soft Musculoskeletal no cyanosis or clubbing, extremities motor strength 5/5 Head/Neck/Chest: normocephalic and head atraumatic Neurologic PERRL, EOMI, accommodation nl, no face palsy, no dysarthria CN's II-XI intact bilaterally Psychiatric A+Ox3, euthymic affect Discharge Data Allergies Allergy/AdvReac Type Severity Reaction Status Date / Time adhesive Allergy Mild RASH AND Verified 01/31/19 09:50 BRUISING Estrogens Allergy Mild SORE AND Verified 01/31/19 09:50 ITCHY repaglinide Allergy Mild RASH Verified 01/31/19 09:50 Sulfa (Sulfonamide Allergy Mild RED RASH Verified 01/31/19 09:50 Antibiotics) NSAIDS (Non-Steroidal AdvReac Unknown not Verified 01/31/19 09:50 Anti-Inflamma allowed to take Consultations 02/06/19 11:45 ED Decision to Admit Stat 02/06/19 12:56 Consult Case Management - Discharge Planning Routine 02/06/19 13:36 Consult Gastroenterology Routine Ordered Studies 02/06/19 09:27 CT head/brain wo con Stat 02/07/19 12:40 US abdomen ltd ascites Routine Hospital Course (1) Hepatic encephalopathy: (2) MARIA (nonalcoholic steatohepatitis): -History of liver cirrhosis secondary to MARIA, S/P TIPS procedure 06/2018; Recent admission to [facility] 01/31 through 02/01 volume overload -spironolactone was increased and Lasix adjusted and patient has been diuresing well -Patient presenting from home with altered mental status on this admission; In the ED, patient is found to be obtunded with ammonia level of 221 -during this hospital stay patient's mental status improved and ammonia levels dropped as patient on combination of Rifaximin and lactulose; ammonia level has downtrended to the 70s and patient is at mental baseline -as per discussions with telehealth case manager patient is not able to obtain Rifaxmin in an affordable way through the insurance company -Patient should take 40 grams of Lactulose three times a day (If the Lactulose is in concentrations of 20 ml/30 grams this means take 60 ml three times a day) - Patient may take this increased dosing up to 5 times a day. Continue home dose Lasix and Spirolactone Close follow ups 02/14/2019 1:00 PM Provider Sandra Bain DO Department General Internal Medicine [facility] 02/21/2019 11:20 AM Provider Jong Crockett DO Department General Internal Medicine [facility] 02/22/2019 8:40 AM Provider Greg Baeza MD Department Gastroenterology, [facility] (3) Elevated lactic acid level: -Lactic acid 2.8 on admission and resolved after IV fluids on 02/06/19 (4) Esophageal varices: -EGD 01/18/2019 showed a single grade 1 esophageal varices -No signs of bleeding -Nadolol was discontinued by GI at [facility] 07/2018 (5) Hypertension: Essential Hypertension -Continue home dose of metoprolol (6) Diabetes mellitus, type II: Type 2 Diabetes Mellitus with terminal clerk current use of insulin (with complication of mild hyperglycemia) -Hgb A1c 7.5 12/2018 -during this hospital stay Januvia was held and patient was on reduced home insulin to avoid hypoglycemia -mildly elevated glucose above 200 on 02/09/19 -patient may resume home dose insulin and Januvia on discharge day (7) Depression: -Continue venlafaxine -mood is currently stable (8) SAMANTHA (obstructive sleep apnea): -CPAP as per home settings (9) Hypothyroidism: -Continue levothyroxine (10) DVT prophylaxis: SCDs while in hospital / ambulation Discharge diagnosis Hepatic Encephalopathy, Essential Hypertension, Type 2 Diabetes Mellitus with terminal clerk current use of insulin (with complication of mild hyperglycemia), Depression history (on venlafaxine) Total Time Total Time Spent Total Time Spent (In Minutes): 40 minutes Total Time Includes: Examination of the Patient, Discharge Planning, Medication Reconciliation and Communication With Other Providers Discharge Plan Discharge Items Patient Disposition: Home - Self-Care Reason For Visit: HEPATIC ENCEPHALOPATHY Discharge Diagnosis: Hepatic Encephalopathy, Essential Hypertension, Type 2 Diabetes Mellitus with mcc current use of insulin (with complication of mild hyperglycemia), Depression history (on venlafaxine) Condition: Good Discharge Goals: Improve disease control and Improve function Activity: Resume your previous activity Non-emergency contact: Primary Care Provider and Orchard Manager Call non-emergency contact if: you have any medication questions Follow-up/Referrals: Jong Crockett DO [Primary Care Provider] - Diet: Carb Consistent or DM2 and Low Sodium (2gm) Addtl Provider Instructions: Patient should take 40 grams of Lactulose three times a day (If the Lactulose is in concentrations of 20 ml/30 grams this means take 60 ml three times a day) - Patient may take this increased dosing up to 5 times a day. 02/14/2019 1:00 PM Provider Sandra Bain DO Department General Internal Medicine [facility] 02/21/2019 11:20 AM Provider Jong Crockett DO Department General Internal Medicine [facility] 02/22/2019 8:40 AM Provider Greg Baeza MD Department Gastroenterology, [facility] Prescriptions: New lactulose 20 gram/30 mL Solution 60 ml PO TID 30 Days Qty: 5400 RF: 0 Continued venlafaxine 75 mg Tablet 75 mg PO BIDM RF: 0 calcium carbonate-vitamin D3 [Calcium 600 + D(3)] 600 mg(1,500mg) -200 unit Tablet 2 tab PO BID RF: 0 pantoprazole 40 mg Tablet,Delayed Release (Dr/Ec) 40 mg PO QAM RF: 0 polyethylene glycol 3350 [Miralax] 17 gram Powder In Packet 17 g PO QAM RF: 0 potassium chloride 10 mEq Tablet Extended Release 10 meq PO BID RF: 0 zinc sulfate [Zinc-220] 220 (50) mg Capsule 220 mg PO BID RF: 0 Flintstones with Iron 18 mg iron Tablet,Chewable 1 tab PO BID RF: 0 furosemide 40 mg tablet 40 mg PO BID RF: 0 Januvia 100 mg Tablet 100 mg PO QAM RF: 0 acetaminophen 500 mg Tablet 500 mg PO Q4 PRN (Reason: Pain) RF: 0 bisacodyl [Dulcolax (bisacodyl)] 5 mg Tablet,Delayed Release (Dr/Ec) 5 mg PO QAM PRN (Reason: Constipation) RF: 0 Lantus Solostar U-100 Insulin 100 unit/mL (3 mL) insulin pen 33 unit SC QAM RF: 0 levothyroxine 125 mcg tablet 125 mcg PO QAM RF: 0 metoprolol tartrate 25 mg tablet 12.5 mg PO BID RF: 0 spironolactone 50 mg tablet 50 mg PO BID RF: 0 Systane Ultra 0.4-0.3 % Drops 4 drp OPB DAILY PRN (Reason: Dry Eye(S)) RF: 0 vitamin E20-egnla acid 500-400 mcg Tablet 1 tab PO QAM RF: 0 magnesium oxide 400 mg magnesium Tablet 400 mg PO QAM RF: 0 Discontinued lactulose 10 gram/15 mL solution 30 ml PO QID RF: 0 Stand-Alone Forms: [facility] Discharge Orders: Discharge Order (Routine); Ordered 02/09/19 Ordered By: Panchito Davis Admission Data Admit Date/Time: 02/06/19 11:46 Attending Provider: Panchito Davis Admit Provider: Kike Rodriguez Primary Care Provider: Jong Crockett Other Providers: Kike Rodriguez ; Bartolo Wheatley Service: Telemetry
== END 2019-02-09 16:48 | disposition home or self-care (01) | DRG 442 ==
LOC: ED 08:58 → 2E 11:46 → SUATTDRO 11:46 → 2E 12:16 → 4E 02-08 12:48

== ENCOUNTER 2019-03-24 17:58 | Inpatient (IN) ==
[2019-03-24] MEDS ORDERED: SODIUM CHLORIDE 0.9% 500 ML IV SCH (18:30)
--- NOTE | 2019-03-24 19:25 | XRay Report ---
XR chest 1V portable HISTORY: 63 years-old Female Chest Pain acute atypical chest pain COMPARISON: Chest radiograph 02/06/2019 TECHNIQUE: Portable AP view of the chest FINDINGS: Cardiomediastinal and hilar silhouettes are within normal limits. Vascular stent is again noted proje cting over the abdominal right upper quadrant. No pneumothorax, pleural effusion, focal airspace cons olidation or overt pulmonary edema. Bones appear grossly intact. IMPRESSION: No acute process. The above report was generated using voice recognition software. It may contain grammatical, syntax o r spelling errors. Electronically signed by: Buster Dominguez M.D. 03/24/2019 7:24 PM
[2019-03-24 19:28] LABS: Base Excess VBG -1.3 mEq/L; Oxygen Saturation VBG 96.8 %; pH VBG 7.46 (7.36-7.41)
[2019-03-24 19:40] LABS: Alanine Aminotransferase 27 U/L (12-78); Albumin Level 2.6 gm/dl (3.4-5.0); Aspartate Aminotransferase 34 U/L (15-37); BUN Creatinine Ratio 17.8 (10-20); Bilirubin Direct 0.5 mg/dl (0-0.2); Blood Urea Nitrogen 19 mg/dl (7-18); Calcium 8.5 mg/dl (8.5-10.1); Carbon Dioxide 22 mmol/L (21-32); Chloride 105 mmol/L (98-107); Creatinine Clr Calc Pharmacy 54.4 ml/min; Est GFR (African American) 65.3; Est GFR (Non-African American) 56.3; Glucose 183 mg/dl (70-99); Lipase 267 U/L (73-393); Magnesium 1.8 mg/dl (1.8-2.4); Potassium 4.5 mmol/L (3.5-5.1); Sodium 134 mmol/L (136-145)
[2019-03-24 19:42] LABS: INR 1.2 (0.9-1.1); Prothrombin Time 12.3 Seconds (9.0-12.0)
[2019-03-24 19:49] LABS: Albumin Globulin Ratio 0.7 (0.9-2); Alkaline Phosphatase 164 U/L (45-117); Bilirubin,Total 1.2 mg/dl (0.2-1); Globulin 3.7 gm/dl (2.5-4.0); Phosphorus 3.5 mg/dl (2.5-4.9); Thyroid Stimulating Hormone 0.254 uIu/ml (0.300-4.500); Total Protein 6.3 gm/dl (6.4-8.2); Troponin I < 0.015 ng/ml (0-0.045)
[2019-03-24 19:51] LABS: Basophils # (auto) 0.04 K/uL (0-0.2); Echinocytes 1+; Eosinophils # (auto) 0.04 K/uL (0-0.5); Hematocrit (blood only) 31.5 % (37-47); Hemoglobin 10.7 g/dL (12.0-16.0); Immature Granulocytes # (auto) 0.01 K/uL (0.00-0.02); Immature Granulocytes % (auto) 0.3 %; Lymphocytes # (auto) 1.07 K/uL (1.2-3.4); Lymphocytes % (auto) 27.7 %; Mean Corpuscular Hemoglobin 28.9 pg (25-34); Mean Corpuscular Volume 85.1 fL (80-100); Mean Platelet Volume 12.1 fL (7.4-10.4); Monocytes # (auto) 0.56 K/uL (0.11-0.59); Monocytes % (auto) 14.5 %; Neutrophils # (auto) 2.14 K/uL (1.4-6.5); Neutrophils % (auto) 55.5 %; Platelet Count 98 K/uL (130-400); Platelet Estimate Decreased (Normal); RDW Coefficient of Variation 15.2 % (11.5-14.5); RDW Standard Deviation 47.3 fL (36.4-46.3); White Blood Count 3.86 K/uL (4.8-10.8)
[2019-03-24 20:04] LABS: T4 Free Thyroxine 1.81 ng/dl (0.8-1.6)
[2019-03-24] MEDS ORDERED: LACTULOSE SYRUP 20 GM/30 ML UDC PO STA (20:04)
--- NOTE | 2019-03-24 21:20 | Emergency Department Note ---
Entered by Marissa Ortiz acting as a scribe for History of Present Illness General Chief complaint: Altered Mental Status Stated complaint: AMS, POSSIBLE SEPSIS Time Seen by Provider: 03/24/19 18:11 Source: patient and family History of Present Illness Onset (ago): day(s) (today) Location: head Pain Consistency: + other (episode) Quality: + other (altered mental status) Associated symptoms: + denies other symptoms (constipation, being in any pain, diarrhea), + confusion and + other (sleeping all day); no cough, no fever/chills (fever) and no nausea/vomiting The patient is a 63 year old female who presents to the Emergency Room with complaints of an episode of altered mental status starting today. The patients states that she has cirrhosis of the liver, but not from drinking alcohol. He states that she has a stent place in her liver to help it, but occasionally the toxins from her liver get in her blood. He reports that she is on lactulose and has not missed any doses, but it seems like something is wrong. He reports that she has been confused and sleeping all day. He states that he called her PCP and was told to come here. The patients notes that she has been having bowel movements. The patient denies fever, cough, constipation, being in any pain, nausea, vomiting, and diarrhea. Home Medications Home Medications Medication Instructions Recorded Confirmed Type calcium carbonate-vitamin D3 2 tab PO BID 07/11/18 03/24/19 History [Calcium 600 + D(3)] pantoprazole 40 mg PO QAM 07/11/18 03/24/19 History venlafaxine 75 mg PO BIDM 07/11/18 03/24/19 History Flintstones with Iron 1 tab PO BID 11/02/18 03/24/19 History polyethylene glycol 3350 [Miralax] 17 g PO QAM 11/02/18 03/24/19 History potassium chloride 10 meq PO BID 11/02/18 03/24/19 History zinc sulfate [Zinc-220] 220 mg PO BID 11/02/18 03/24/19 History Januvia 100 mg PO QAM 12/25/18 03/24/19 History furosemide 40 mg PO BID 12/25/18 03/24/19 History Lantus Solostar U-100 Insulin 35 unit SC QAM 01/11/19 03/24/19 History acetaminophen 500 mg PO Q4 PRN 01/11/19 03/24/19 History bisacodyl [Dulcolax (bisacodyl)] 5 mg PO QAM PRN 01/11/19 03/24/19 History metoprolol tartrate 12.5 mg PO BID 01/31/19 03/24/19 History Systane Ultra 4 drp OPB DAILY PRN 02/06/19 03/24/19 History magnesium oxide 400 mg PO QAM 02/06/19 03/24/19 History spironolactone 50 mg PO BID 02/06/19 03/24/19 History vitamin [id number] acid 1 tab PO QAM 02/06/19 03/24/19 History furosemide 40 mg PO UD 03/24/19 03/24/19 History lactulose 60 ml PO TID 03/24/19 03/24/19 History levothyroxine 112 mcg PO DAILY 03/24/19 03/24/19 History Allergies Allergy/AdvReac Type Severity Reaction Status Date / Time adhesive Allergy Mild RASH AND Verified 03/24/19 19:14 BRUISING Estrogens Allergy Mild SORE AND Verified 03/24/19 19:14 ITCHY repaglinide Allergy Mild RASH Verified 03/24/19 19:14 Sulfa (Sulfonamide Allergy Mild RED RASH Verified 03/24/19 19:14 Antibiotics) NSAIDS (Non-Steroidal AdvReac Unknown not Verified 03/24/19 19:14 Anti-Inflamma allowed to take Past Med/Surg History Medical History Elevated lactic acid level Hepatic encephalopathy Liver cirrhosis secondary to MARIA (Chronic) MARIA (nonalcoholic steatohepatitis) (Chronic) Diabetic neuropathy (Chronic) Hypertension (Chronic) History of hysterectomy (Chronic) Depression (Chronic) Diabetes mellitus, type II (Chronic) Hypothyroidism (Chronic) Factor V Leiden (Chronic) SAMANTHA (obstructive sleep apnea) (Chronic) cpap Portal hypertension (Chronic) Esophageal varices (Chronic) Thrombocytopenia (Chronic) Surgical History History of appendectomy (Chronic) H/O oophorectomy (Chronic) S/P repair of paraesophageal hernia (Chronic) Hx laparoscopic cholecystectomy (Chronic) S/P left knee arthroscopy (Chronic) History of total right knee replacement (Chronic) S/P gastric bypass (Chronic) with hiatal hernia repair S/P TIPS (transjugular intrahepatic portosystemic shunt) (Chronic) Family History Mother Family history of diabetes mellitus Father Family history of diabetes mellitus Brother Family history of diabetes mellitus 2 Social History Preferred Language: Latvian Communication Ability: Effective Customer Support Advisor Required: No Beliefs That Will Affect Care: None marital status: Current Living Situation: Spouse current occupational status: retired Other Information That Helps Us Care for You: No Feels Safe at Home: Yes Safety Concerns: Feels Safe At This Time Smoking Status: Former smoker Tobacco Type: cigarettes ; Smoking End Date: 1971 ; Second Hand Exposure: No ; Hx Alcohol Use: No Hx Substance Use: No Review of Systems See HPI for pertinent positives & negatives. and A total of 10 systems reviewed and were otherwise negative Physical Exam Vital Signs Vital Signs - 24 hr 03/24/19 18:07 03/24/19 18:17 03/24/19 18:28 Temperature 37.3 C Temperature Source Oral Sepsis Recent Fever Within 48 Hours No Sepsis New/Unexplained Change in Mental Status No Sepsis Action Taken by Nursing No Action Required Pulse Rate 91 H 91 H Pulse Rate [Finger] 97 H Pulse Rhythm Regular Pulse Strength Normal Respiratory Rate 18 25 H 17 Respiratory Effort / Characteristics Non-Labored Spontaneous Respiratory Depth Normal Respiratory Pattern Regular Blood Pressure 155/69 H 144/58 H Blood Pressure [Right Arm] 144/58 H Blood Pressure Mean 97 86 Blood Pressure Mean [Right Arm] 86 Blood Pressure Position Sitting Pulse Oximetry 95 98 Oxygen Delivery Method Room Air Room Air 03/24/19 19:00 03/24/19 19:30 03/24/19 19:31 Temperature Temperature Source Sepsis Recent Fever Within 48 Hours Sepsis New/Unexplained Change in Mental Status Sepsis Action Taken by Nursing Pulse Rate 89 80 84 Pulse Rate [Finger] Pulse Rhythm Pulse Strength Respiratory Rate 27 H 20 18 Respiratory Effort / Characteristics Respiratory Depth Respiratory Pattern Blood Pressure 158/69 H Blood Pressure [Right Arm] Blood Pressure Mean 98 Blood Pressure Mean [Right Arm] Blood Pressure Position Pulse Oximetry Oxygen Delivery Method 03/24/19 19:40 03/24/19 19:50 03/24/19 20:00 Temperature Temperature Source Sepsis Recent Fever Within 48 Hours Sepsis New/Unexplained Change in Mental Status Sepsis Action Taken by Nursing Pulse Rate 81 81 95 H Pulse Rate [Finger] Pulse Rhythm Pulse Strength Respiratory Rate 20 19 18 Respiratory Effort / Characteristics Respiratory Depth Respiratory Pattern Blood Pressure Blood Pressure [Right Arm] Blood Pressure Mean Blood Pressure Mean [Right Arm] Blood Pressure Position Pulse Oximetry Oxygen Delivery Method 03/24/19 20:09 03/24/19 20:10 03/24/19 20:20 Temperature Temperature Source Sepsis Recent Fever Within 48 Hours Sepsis New/Unexplained Change in Mental Status Sepsis Action Taken by Nursing Pulse Rate 87 88 91 H Pulse Rate [Finger] Pulse Rhythm Pulse Strength Respiratory Rate 22 21 18 Respiratory Effort / Characteristics Respiratory Depth Respiratory Pattern Blood Pressure 167/74 H Blood Pressure [Right Arm] Blood Pressure Mean 105 Blood Pressure Mean [Right Arm] Blood Pressure Position Pulse Oximetry Oxygen Delivery Method 03/24/19 20:30 03/24/19 20:40 03/24/19 20:50 Temperature Temperature Source Sepsis Recent Fever Within 48 Hours Sepsis New/Unexplained Change in Mental Status Sepsis Action Taken by Nursing Pulse Rate 84 83 76 Pulse Rate [Finger] Pulse Rhythm Pulse Strength Respiratory Rate 21 22 20 Respiratory Effort / Characteristics Respiratory Depth Respiratory Pattern Blood Pressure Blood Pressure [Right Arm] Blood Pressure Mean Blood Pressure Mean [Right Arm] Blood Pressure Position Pulse Oximetry Oxygen Delivery Method 03/24/19 21:00 Temperature Temperature Source Sepsis Recent Fever Within 48 Hours Sepsis New/Unexplained Change in Mental Status Sepsis Action Taken by Nursing Pulse Rate 81 Pulse Rate [Finger] Pulse Rhythm Pulse Strength Respiratory Rate 20 Respiratory Effort / Characteristics Respiratory Depth Respiratory Pattern Blood Pressure Blood Pressure [Right Arm] Blood Pressure Mean Blood Pressure Mean [Right Arm] Blood Pressure Position Pulse Oximetry Oxygen Delivery Method GENERAL: Awake, alert, fatigued appearing, in no distress HENT: Normocephalic, atraumatic. Oropharynx unremarkable. Mucous membranes dry. EYES: Normal conjunctiva. Sclera non-icteric. NECK: Supple. No nuchal rigidity. FROM. No JVD. RESPIRATORY: Clear to auscultation bilaterally. CARDIAC: Regular rate, normal rhythm. Extremities warm and well perfused. Pulses equal. ABDOMEN: Soft, non-distended. No tenderness to palpation. No rebound or guarding. No masses. RECTAL: Deferred. MUSCULOSKELETAL: Chest examination reveals no tenderness. The back is symmetrical on inspection without obvious abnormality. There is no CVA tenderness to palpation. No joint edema. Scant bilateral upper extremity aterixis. LOWER EXTREMITIES: Calves are equal size bilaterally and non-tender. 1+ bilateral lower extremity edema. No discoloration. NEURO: Normal sensorium. No sensory or motor deficits noted. SKIN: No rash or jaundice noted. Course 1818: Past medical records reviewed. The patient was evaluated in room B3B. A complete history and physical exam was performed. 2028: I reevaluated the patient and her notes that it typically takes a while to come around from one of these episodes. I discussed her test results with him and the treatment plan. They verbally agree and understand. 2040: I discussed the patient's case with Dr. Rashida Franklin. He will evaluate the patient for further management. Consultations Consultation #1: I discussed the patient's case with Dr. Rashida Franklin. He will evaluate the patient for further management. Time: 20:41 Administered Medications Sodium Chloride (Nss 1000ml) 1,000 mls @ 50 mls/hr IV .Q20H JOEY Stop: 04/23/19 22:22 Last Admin: 03/24/19 23:52 Dose: 50 mls/hr Documented by: [id number] Discontinued Medications Sodium Chloride (Nss) 500 mls @ 999 mls/hr IV .Q31M JOEY Stop: 03/24/19 19:00 Last Infusion: 03/24/19 19:43 Dose: 0 mls/hr Documented by: [id number] Admin: 03/24/19 19:11 Dose: 999 mls/hr Documented by: [id number] Lactulose (Chronulac) 30 gm PO NOW STA Stop: 03/24/19 20:05 Last Admin: 03/24/19 20:13 Dose: 30 gm Documented by: [id number] Lactulose (Chronulac) 30 gm PO NOW STA Stop: 03/24/19 22:24 Last Admin: 03/24/19 23:52 Dose: 30 gm Documented by: [id number] Medical Decision Making Differential Diagnosis Differential Diagnosis includes but is not limited to dehydration, stroke, anemia, hypoglycemia, hyponatremia, hypernatremia, urinary tract infection, pneumonia, bronchitis, sepsis, gastroenteritis, additional abdominal pathology, metabolic abnormalities and infections. Medical Records Attestation: I reviewed the patient's medical records. Home Medications Current Medication List: was personally reviewed by ga Laboratory Data Attestation: I reviewed the patient's lab results. Result diagrams: 03/24/19 19:07 03/24/19 19:07 Lab Results 03/24/19 03/24/19 03/24/19 Range/Units 19:07 19:07 19:07 WBC 3.86 L (4.8-10.8) K/uL RBC 3.70 L (4.2-5.4) M/uL Hgb 10.7 L (12.0-16.0) g/dL Hct 31.5 L (37-47) % MCV 85.1 (80-100) fL MCH 28.9 (25-34) pg MCHC 34.0 (32-36) g/dL RDW Std Deviation 47.3 H (36.4-46.3) fL RDW Coeff of Loco 15.2 H (11.5-14.5) % Plt Count 98 L (130-400) K/uL MPV 12.1 H (7.4-10.4) fL Immature Gran % (Auto) 0.3 % Neut % (Auto) 55.5 % Lymph % (Auto) 27.7 % [place] % (Auto) 14.5 % Eos % (Auto) 1.0 % Baso % (Auto) 1.0 % Immature Gran # (Auto) 0.01 (0.00-0.02) K/uL Neut # (Auto) 2.14 (1.4-6.5) K/uL Lymph # (Auto) 1.07 L (1.2-3.4) K/uL [place] # (Auto) 0.56 (0.11-0.59) K/uL Eos # (Auto) 0.04 (0-0.5) K/uL Baso # (Auto) 0.04 (0-0.2) K/uL Platelet Estimate Decreased L (Normal) Echinocytes 1+ PT 12.3 H (9.0-12.0) Seconds INR 1.2 H (0.9-1.1) VBG pH (7.36-7.41) VBG pCO2 (38-50) mmHg VBG pO2 mmHg VBG HCO3 mmol/L VBG O2 Saturation % VBG Base Excess mEq/L Barometric Pressure mm/Hg Sodium 134 L (136-145) mmol/L Potassium 4.5 (3.5-5.1) mmol/L Chloride 105 (98-107) mmol/L Carbon Dioxide 22 (21-32) mmol/L Anion Gap 7.0 (3-11) BUN 19 H (7-18) mg/dl Creatinine 1.04 (0.6-1.2) mg/dl Est Cr Clr Drug Dosing 54.4 ml/min Est GFR ( Amer) 65.3 Est GFR (Non-Af Amer) 56.3 BUN/Creatinine Ratio 17.8 (10-20) Glucose 183 H (70-99) mg/dl Calcium 8.5 (8.5-10.1) mg/dl Phosphorus 3.5 (2.5-4.9) mg/dl Magnesium 1.8 (1.8-2.4) mg/dl Total Bilirubin 1.2 H (0.2-1) mg/dl Direct Bilirubin 0.5 H (0-0.2) mg/dl AST 34 (15-37) U/L ALT 27 (12-78) U/L Alkaline Phosphatase 164 H (45-117) U/L Ammonia (11-32) umol/L Troponin I < 0.015 (0-0.045) ng/ml Total Protein 6.3 L (6.4-8.2) gm/dl Albumin 2.6 L (3.4-5.0) gm/dl Globulin 3.7 (2.5-4.0) gm/dl Albumin/Globulin Ratio 0.7 L (0.9-2) Lipase 267 (73-393) U/L TSH 0.254 L (0.300-4.500) uIu/ml Free T4 1.81 H (0.8-1.6) ng/dl 03/24/19 03/24/19 Range/Units 19:07 19:07 WBC (4.8-10.8) K/uL RBC (4.2-5.4) M/uL Hgb (12.0-16.0) g/dL Hct (37-47) % MCV (80-100) fL MCH (25-34) pg MCHC (32-36) g/dL RDW Std Deviation (36.4-46.3) fL RDW Coeff of Loco (11.5-14.5) % Plt Count (130-400) K/uL MPV (7.4-10.4) fL Immature Gran % (Auto) % Neut % (Auto) % Lymph % (Auto) % [place] % (Auto) % Eos % (Auto) % Baso % (Auto) % Immature Gran # (Auto) (0.00-0.02) K/uL Neut # (Auto) (1.4-6.5) K/uL Lymph # (Auto) (1.2-3.4) K/uL [place] # (Auto) (0.11-0.59) K/uL Eos # (Auto) (0-0.5) K/uL Baso # (Auto) (0-0.2) K/uL Platelet Estimate (Normal) Echinocytes PT (9.0-12.0) Seconds INR (0.9-1.1) VBG pH 7.46 H (7.36-7.41) VBG pCO2 31 L (38-50) mmHg VBG pO2 84 mmHg VBG HCO3 22 mmol/L VBG O2 Saturation 96.8 % VBG Base Excess -1.3 mEq/L Barometric Pressure 730.4 mm/Hg Sodium (136-145) mmol/L Potassium (3.5-5.1) mmol/L Chloride (98-107) mmol/L Carbon Dioxide (21-32) mmol/L Anion Gap (3-11) BUN (7-18) mg/dl Creatinine (0.6-1.2) mg/dl Est Cr Clr Drug Dosing ml/min Est GFR ( Amer) Est GFR (Non-Af Amer) BUN/Creatinine Ratio (10-20) Glucose (70-99) mg/dl Calcium (8.5-10.1) mg/dl Phosphorus (2.5-4.9) mg/dl Magnesium (1.8-2.4) mg/dl Total Bilirubin (0.2-1) mg/dl Direct Bilirubin (0-0.2) mg/dl AST (15-37) U/L ALT (12-78) U/L Alkaline Phosphatase (45-117) U/L Ammonia 112.0 H (11-32) umol/L Troponin I (0-0.045) ng/ml Total Protein (6.4-8.2) gm/dl Albumin (3.4-5.0) gm/dl Globulin (2.5-4.0) gm/dl Albumin/Globulin Ratio (0.9-2) Lipase (73-393) U/L TSH (0.300-4.500) uIu/ml Free T4 (0.8-1.6) ng/dl Imaging Data Radiologist's Impression: Radiology results as stated below per my review and the radiologist's interpretation: XR chest 1V portable HISTORY: 63 years-old Female Chest Pain acute atypical chest pain COMPARISON: Chest radiograph 02/06/2019 TECHNIQUE: Portable AP view of the chest FINDINGS: Cardiomediastinal and hilar silhouettes are within normal limits. Vascular stent is again noted projecting over the abdominal right upper quadrant. No pneumothorax, pleural effusion, focal airspace consolidation or overt pulmonary edema. Bones appear grossly intact. IMPRESSION: No acute process. The above report was generated using voice recognition software. It may contain grammatical, syntax or spelling errors. Electronically signed by: Buster Dominguez M.D. 03/24/2019 7:24 PM ECG Data Attestation: I personally reviewed and interpreted this ECG as follows: Indication: altered mental status Rate (beats per minute): 87 Rhythm: sinus rhythm Findings: + other (normal axis) and + PVC; no ST depression, no ST elevation and no acute ischemic change Blood Pressure Blood Pressure Findings: Elevated blood pressure Blood Pressure Disposition: further management by hospitalist CORNELIA Skaggs The patient is a pleasant 63-year-old woman with a past medical history of MARIA cirrhosis status post TIPS, hepatic encephalopathy, HTN, NIDDM2, depression who presents emergency department with generalized weakness and drowsiness over the past 24 hours per hpi. On arrival the patient is fatigued appearing but no acute distress, afebrile stable vital signs. On exam patient exhibits mild bilateral upper extremity asterixis. WBC 3.8, nonspecific. H/H 10.7/31.5 within prior range of values. Platelets 98 the setting of the patient's cirrhosis and approximate 2 prior range of values. INR 1.2. VBG unremarkable. Chemistry without acidosis. Total bilirubin 1.2 with direct bilirubin 0.5 similar to prior range of values and LFTs otherwise unremarkable. Troponin negative. Ammonia is elevated at 112 which is increased from recent albeit patient has been as high as the 200s. Patient was ordered for dose of lactulos e. The patient is afebrile without otherwise evidence of infection and benign abdomen unlikely to have infectious process at this time. [facility] the [facility] for [facility]. Impression & Plan Hyperammonemia, Thrombocytopenia Discharge Plan Visit Data *Final* Discharge Date/Time: 03/24/19 22:03 Chief Complaint: Altered Mental Status Stated Complaint: AMS, POSSIBLE SEPSIS ED Provider: Oliver Hawley Discharge Problem: Hyperammonemia, Thrombocytopenia Patient Disposition: Admitted As Inpatient Discharge Instructions Interventions: ED Discharge Assessment Last Done: 03/24/19 22:03 The scribe's documentation has been prepared under my direction and personally reviewed by me in its entirety. I confirm that the note above accurately reflects all work, treatment, procedures, and medical decision making performed by me.
[2019-03-24] MEDS ORDERED: ACETAMINOPHEN 500 MG TAB PO PRN (22:23)
[2019-03-24] MEDS ORDERED: ARTIFICIAL TEARS OPB PRN (22:23)
[2019-03-24] MEDS ORDERED: SODIUM CHLORIDE 0.9% 1000ML 1,000 ML IV SCH (22:23)
[2019-03-24] MEDS ORDERED: NITROGLYCERIN SL 0.4 MG/TAB TAB SL PRN (22:23)
[2019-03-24] MEDS ORDERED: LACTULOSE SYRUP 30 GM/45 ML UDP PO STA (22:23)
[2019-03-24] MEDS ORDERED: ONDANSETRON INJ 2 MG/ML 2 ML VIAL IV PRN (22:23)
[2019-03-24] MEDS ORDERED: DEXTROSE 50% 50 ML SYRINGE IV PRN (22:45)
[2019-03-24] MEDS ORDERED: GLUCOSE 10 TABS/TUBE PO PRN (22:45)
[2019-03-24] MEDS ORDERED: CARBOHYDRATES FOR HYPOGLYCEMIA PO PRN (22:45)
[2019-03-24] MEDS ORDERED: GLUCAGON FOR INJ 1 MG VIAL SQ PRN (22:45)
[2019-03-24] MEDS ORDERED: GLUCOSE 40% GEL 15 GM TUBE PO PRN (22:45)
--- NOTE | 2019-03-24 23:38 | History and Physical Report ---
DATE OF ADMISSION: 03/24/2019 CHIEF COMPLAINT: Hepatic encephalopathy. HISTORY OF PRESENT ILLNESS: This is a 63-year-old female with past medical history significant for liver cirrhosis, status post TIPS procedure, history of type 2 diabetes, diabetic polyneuropathy, hypothyroidism, hyperlipidemia, obstructive sleep apnea, history of migraine, history of factor V Leiden mutation, history of depression, history of gastric bypass, who presents with confusion. The patient was monitored in the hospital from 01/31/2019 to 02/01/2019 for volume overload secondary to MARIA cirrhosis. At that time, spironolactone was increased to 50 b.i.d. and Lasix adjusted 40 mg b.i.d. and she was admitted again on 02/09/2019 with hepatic encephalopathy with ammonia level of 221. She was put on Xifaxan and lactulose and she has improved. Ammonia level went to baseline 70s and she could not afford rifaximin as her insurance was not covering it and she was discharged on lactulose 40 grams 3 times a day and on her home diuretics and the patient followed with PCP on 03/22/2019 and her Lasix was increased to 80 mg in the morning and continue 40 mg in the evening for 3 days as she was having lower extremity edema and today as per the patient is sleeping whole day. She seemed confused. She was sitting on her lift chair and she could not find the remote for her lift chair and she was not eating. She just had her breakfast and she could not eat her lunch. She did not take her evening lactulose dose and he got worried and he knows this is how she acts when her ammonia level gets increased. So she was brought into the ER and her ammonia level was 112. She is drowsy, answers simple questions. When asked to open her eyes, she tends to open her eyes. She was given a dose of lactulose in the ER. As per , she moved her bowels 3-4 times today too. There is no fever or chills. Denies any headache, no chest pain, no belly pain, no nausea, no vomiting. No burning micturition. She says she is doing okay. Could not get much history from the patient. All history is from the . She generally ambulates okay at home. No cough. Until today, she was doing okay.Also patient is depressed as there were two deaths in the family this month. ALLERGIES: SULFA ANTIBIOTICS, ADHESIVES, ESTROGEN, NSAIDS, REPAGLINIDE. PAST MEDICAL HISTORY: As mentioned above. PAST SURGICAL HISTORY: Right knee arthroplasty, colonoscopy, cystoscopy, EGDs laparoscopic procedure of the liver, laparoscopic gastric restrictive bypass surgery, laparoscopic cholecystectomy, laparoscopic paraesophageal hernia repair with mesh, bilateral oophorectomy, open cholecystectomy, total abdominal hysterectomy with removal of tubes. MEDICATIONS: Currently the patient is on levothyroxine 112 mcg p.o. daily, lactulose 40 g p.o. t.i.d., spironolactone 50 mg p.o. b.i.d., Lopressor 12.5 mg p.o. b.i.d., Lasix 40 mg p.o. b.i.d.,zinc sulphate 220 mg p.o. b.i.d., Lantus 35 units under skin daily, Dulcolax 5 mg p.o. daily p.r.n., triamcinolone apply to affected area b.i.d., magnesium 400 mg p.o. daily, potassium chloride 10 mEq p.o. b.i.d., Januvia 100 mg p.o. daily, vitamin B complex 1 tablet daily, Effexor 75 mg p.o. b.i.d., MiraLax 17 grams p.o. daily, Tylenol 500 mg p.o. q. 4 hours p.r.n., Protonix 40 mg p.o. daily, calcium 600 plus D 2 tablets p.o. daily, Systane Ultra ophthalmic solution 4 drops in both eyes daily as needed, Flintstones plus iron 1 tablet b.i.d.,benadryl 25 mg q.i.d. p.r.n. FAMILY HISTORY: Significant for father had prostate cancer, diabetes. Mother has mental disorder, heart disorder, diabetes, uterine cancer. Sister has factor V Leiden mutation. Brother has diabetes and heart disorder. SOCIAL HISTORY: , lives with her . Former smoker, quit in 1979, smoked 0.3 packs a day for 2.5 years. No alcohol use, no drug use. REVIEW OF SYSTEMS: As per HPI. Rest of the review of systems could not be obtained as patient is somewhat confused. PHYSICAL EXAMINATION: GENERAL: The patient is drowsy, not in acute distress. VITAL SIGNS: Temperature 37.3, pulse 81, respiratory rate 20, blood pressure 167/74, oxygen 98% on room air. HEENT: No pallor, no icterus. Pupils equal, round, reactive to light. NECK: No JVD, no neck masses, no carotid bruits. CARDIOVASCULAR: S1, S2 heard, regular rate and rhythm, no murmur, no gallop. RESPIRATORY SYSTEM: Normal AP diameter. No accessory muscle use. No wheezing, no crackles. ABDOMEN: Soft, bowel sounds present, nontender. No distention. CENTRAL NERVOUS SYSTEM: Drowsy, answers simple questions, obeys simple commands. EXTREMITIES: +1 pedal edema present. LABORATORY DATA: WBC 3.8, hemoglobin 10.7, hematocrit 31.5, platelets 98. PT 12.3, INR 1.2. Venous blood gases, pH of 7.4, pCO2 of 31, pO2 of 84, bicarbonate 22. Sodium 134, potassium 4.5, chloride 105, bicarbonate 22, BUN 19, creatinine 1.04, serum glucose 183, calcium 8.5, phosphorus 3.5, magnesium 1.8, total bilirubin 1.2, direct bilirubin 0.5, AST 34, ALT 27, alkaline phosphatase 164, ammonia 112. Troponin I less than 0.015. Lipase 267. TSH 0.25, free T4 1.81. IMAGING: Chest x-ray, no acute process seen. EKG: Sinus rhythm at a rate of 87, no acute ST changes seen. ASSESSMENT AND PLAN: This is a 63-year-old female who presents with altered mental status found to have hepatic encephalopathy. 1. Hepatic encephalopathy. Ammonia of 112. The patient has MARIA liver cirrhosis. She is on lactulose 40 g t.i.d. Insurance does not cover Xifaxan, family doctor is working on that. Was dong fine until yesterday. Today she is sleepy and confused. was worried because this is what she does when her ammonia level goes up. Last admission on , her ammonia level was 220. Got a dose of lactulose in the ER. Will give another dose, she is on 40 g t.i.d. at home, we will make that 40 mg q.i.d. for now. Follow the ammonia levels in the a.m. Will check urinalysis. Chest x-ray is unremarkable. On gentle fluids. Holding her diuretics. The patient will be monitored on the tele floor. Consult GI the in a.m. 2. History of MARIA liver cirrhosis, On Lasix 40 b.i.d. and spironolactone 50 b.i.d. and lactulose 40 grams t.i.d., Lasix was increased to 80 in the morning and 40 in the evening for 3 days on 03/22/2019 by PCP as there was lower extremity swelling. We are currently holding the diuretics. Placed on gentle fluids. Will monitor for volume overload. The patient is status post TIPS procedure. Await GI input. 3. Pancytopenia secondary to liver cirrhosis. We will follow the labs. 4. Diabetes. The patient is currently n.p.o. We will continue Lantus at 15 units daily and hold the Januvia. Placed on insulin sliding scale. Follow the blood sugars. 5. Hypothyroidism. TSH is low and free T4 is slightly high. Recently on 03/22/2019, her Synthroid decreased to 112 mcg p.o. daily, which she will continue and follow with primary care physician for further adjusting and further followup of the thyroid profile. 6. Hypertension, Lopressor withholding parameters. 7. Depression, on venlafaxine. 8. Gastroesophageal reflux disease, history of esophageal varices. EGD on 01/18/2019 showed one esophageal varices. As per record nadolol was stopped by GI at [place].. Currently, hemoglobin seems to be stable. We will monitor. 9. Obstructive sleep apnea, on CPAP. 10. Deep venous thrombosis prophylaxis, sequential compression devices for now. DISPOSITION: Admit to tele floor. Expect to discharge home and follow up with family doctor. PT and OT prior to discharge. Social service to help with discharge planning. MTDD
[2019-03-25 02:25] LABS: Appearance Urine Clear (Clear); Bilirubin Urine Negative (Negative); Blood Urine Negative (Negative); Color Urine Yellow; Glucose Urine UA Negative (Negative); Ketones Urine Negative (Negative); Leukocyte Esterase Urine Negative (Negative); Nitrite Urine Negative (Negative); Protein Urine Negative (Negative); Specific Gravity Urine 1.012 (1.000-1.030); Urobilinogen Urine Negative (Negative); pH Urine 6.5 (4.5-7.5)
[2019-03-25] MEDS: LEVOTHYROXINE SODIUM 112 MCG TABLET PO SCH (05:40)
[2019-03-25] MEDS: LACTULOSE SYRUP 10 GM/15 ML BTL 473 ML PO SCH ×3 (05:40→17:08)
[2019-03-25 05:59] LABS: Hematocrit (blood only) 32.3 % (37-47); Hemoglobin 10.9 g/dL (12.0-16.0); Mean Corpuscular Hemoglobin 28.9 pg (25-34); Mean Corpuscular Hgb Conc 33.7 g/dL (32-36); Mean Corpuscular Volume 85.7 fL (80-100); RDW Coefficient of Variation 15.4 % (11.5-14.5); RDW Standard Deviation 48.4 fL (36.4-46.3); Red Blood Count 3.77 M/uL (4.2-5.4); White Blood Count 3.53 K/uL (4.8-10.8)
[2019-03-25 06:00] LABS: Mean Platelet Volume 11.6 fL (7.4-10.4); Platelet Count 93 K/uL (130-400)
[2019-03-25 06:25] LABS: Basophils # (auto) 0.05 K/uL (0-0.2); Basophils % (auto) 1.4 %; Eosinophils # (auto) 0.14 K/uL (0-0.5); Lymphocytes # (auto) 1.26 K/uL (1.2-3.4); Lymphocytes % (auto) 35.7 %; Monocytes # (auto) 0.58 K/uL (0.11-0.59); Monocytes % (auto) 16.4 %; Neutrophils % (auto) 42.5 %; RBC Morphology Unremarkable
[2019-03-25 06:28] LABS: BUN Creatinine Ratio 15.4 (10-20); Calcium 8.5 mg/dl (8.5-10.1); Creatinine Clr Calc Pharmacy 56.6 ml/min; Est GFR (African American) 68.5; Est GFR (Non-African American) 59.1; Magnesium 1.8 mg/dl (1.8-2.4); Potassium 4.3 mmol/L (3.5-5.1)
[2019-03-25 06:29] LABS: Albumin Level 2.5 gm/dl (3.4-5.0); Bilirubin Direct 0.6 mg/dl (0-0.2); Bilirubin,Total 1.3 mg/dl (0.2-1); Total Protein 6.2 gm/dl (6.4-8.2)
[2019-03-25 07:04] LABS: Estimated Average Glucose 148 mg/dl; Hemoglobin A1C 6.8 % (4.5-5.6)
[2019-03-25] MEDS ORDERED: VENLAFAXINE HCL 75 MG TAB PO SCH (08:00)
--- NOTE | 2019-03-25 08:27 | Gastrointestinal Consultation ---
Date of Consultation March 25, 2019 Assessment & Plan (1) Hepatic encephalopathy: No obvious trigger for hepatic encephalopathy but pts who are S/P TIPs are at increased risk. Pt has been compliant with lactulose in the past and her helps with medication administration, so has likely been getting her lactulose at home. No signs of infection or GI bleeding. 1. Lactulose enemas Q 2 hrs while awake. Once awake, alert, responsive and able to take lactulose po, then may DC lactulose enemas. 2. Will confirm no infection with urine and blood cultures; CXR was (-). 3. Doubt there would be sufficient ascites to obtain a diagnostic tap to r/o SBP, so will defer. 4. Has had recent liver imaging - would defer. 5. Cr and BUN/Cr ratio were increased from her baseline on arrival, thus some mild dehydration. Would hold diuretics for now and restart at a lower dose on discharge - consider: furosemide 20mg and spironolactone 50mg daily. Present on Admission?: Yes Supervising Physician Co-Signing Physician Notes I saw and evaluated the patient. She seems to be somewhat improved this afternoon after addition of the lactulose enemas. Given her history of cirrh osis and recurrent encephalopathy I would suggest addition of rifaximin 550 mg twice daily. History of Present Illness Reason for Consultation: Ms. Roma York is a 63 yr old female pt of Dr. Crockett with a hx of obesity S/P gastric bypass, liver cirrhosis complicated by ascites S/P TIPS, Esophageal varices, and prior hepatic encephalopathy. She is followed in GI clinic by Dr. Baeza. She also carries a hx of DM-2, DM neuropathy, hypothyroid, SAMANTHA, Factor V Leiden mutation. She was brought to the ED yesterday for confusion. On arrival, T Bili 1.3, ammonia 112 -> 85 (today), WBC 3, INR I.2, Na 138. CXR without pleural effusions or acute changes. On exam, she was minimally responsive, appearing comfortable, non tender abdomen without evidence of any ascites. Regarding her hx of cirrhosis, she was dx'ed with MARIA in 1997 and cirrhosis in 2010. Her most recent liver imaging was 03/02/19 with patent TIPs, cirrhosis without focal mass or intrahepatic ductal dilatation. She is maintained on lactulose 60ml TID, furosemide 40mg daily and spironolactone 50 BID. Most recent EGD on 01/18/[address] Dolan with one grade 1 varix in the lower third of the esophagus. Most recent colonoscopy 03/26/19 with portal colopathy. Requesting Physician: Dr. Ponce Attending Physician: Tamela Ponce MD Allergies Allergy/AdvReac Type Severity Reaction Status Date / Time adhesive Allergy Mild RASH AND Verified 03/24/19 19:14 BRUISING Estrogens Allergy Mild SORE AND Verified 03/24/19 19:14 ITCHY repaglinide Allergy Mild RASH Verified 03/24/19 19:14 Sulfa (Sulfonamide Allergy Mild RED RASH Verified 03/24/19 19:14 Antibiotics) NSAIDS (Non-Steroidal AdvReac Unknown not Verified 03/24/19 19:14 Anti-Inflamma allowed to take Home Medications Home Medications Medication Instructions Recorded Confirmed Type calcium carbonate-vitamin D3 2 tab PO BID 07/11/18 03/24/19 History [Calcium 600 + D(3)] pantoprazole 40 mg PO QAM 07/11/18 03/24/19 History venlafaxine 75 mg PO BIDM 07/11/18 03/24/19 History Flintstones with Iron 1 tab PO BID 11/02/18 03/24/19 History polyethylene glycol 3350 [Miralax] 17 g PO QAM 11/02/18 03/24/19 History potassium chloride 10 meq PO BID 11/02/18 03/24/19 History zinc sulfate [Zinc-220] 220 mg PO BID 11/02/18 03/24/19 History Januvia 100 mg PO QAM 12/25/18 03/24/19 History furosemide 40 mg PO BID 12/25/18 03/24/19 History Lantus Solostar U-100 Insulin 35 unit SC QAM 01/11/19 03/24/19 History acetaminophen 500 mg PO Q4 PRN 01/11/19 03/24/19 History bisacodyl [Dulcolax (bisacodyl)] 5 mg PO QAM PRN 01/11/19 03/24/19 History metoprolol tartrate 12.5 mg PO BID 01/31/19 03/24/19 History Systane Ultra 4 drp OPB DAILY PRN 02/06/19 03/24/19 History magnesium oxide 400 mg PO QAM 02/06/19 03/24/19 History spironolactone 50 mg PO BID 02/06/19 03/24/19 History vitamin [id number] acid 1 tab PO QAM 02/06/19 03/24/19 History furosemide 40 mg PO UD 03/24/19 03/24/19 History lactulose 60 ml PO TID 03/24/19 03/24/19 History levothyroxine 112 mcg PO DAILY 03/24/19 03/24/19 History Patient History Medical History Elevated lactic acid level Hepatic encephalopathy Liver cirrhosis secondary to MARIA (Chronic) MARIA (nonalcoholic steatohepatitis) (Chronic) Diabetic neuropathy (Chronic) Hypertension (Chronic) History of hysterectomy (Chronic) Depression (Chronic) Diabetes mellitus, type II (Chronic) Hypothyroidism (Chronic) Factor V Leiden (Chronic) SAMANTHA (obstructive sleep apnea) (Chronic) cpap Portal hypertension (Chronic) Esophageal varices (Chronic) Thrombocytopenia (Chronic) Surgical History History of appendectomy (Chronic) H/O oophorectomy (Chronic) S/P repair of paraesophageal hernia (Chronic) Hx laparoscopic cholecystectomy (Chronic) S/P left knee arthroscopy (Chronic) History of total right knee replacement (Chronic) S/P gastric bypass (Chronic) with hiatal hernia repair S/P TIPS (transjugular intrahepatic portosystemic shunt) (Chronic) Family History Mother Family history of diabetes mellitus Father Family history of diabetes mellitus Brother Family history of diabetes mellitus 2 Social History Preferred Language: Swedish Communication Ability: Effective Custodial Engineer Required: No Beliefs That Will Affect Care: None marital status: Current Living Situation: Spouse current occupational status: retired Other Information That Helps Us Care for You: No Feels Safe at Home: Yes Safety Concerns: Feels Safe At This Time Smoking Status: Former smoker Tobacco Type: cigarettes ; Smoking End Date: 1971 ; Second Hand Exposure: No ; Hx Alcohol Use: No Hx Substance Use: No Review of Systems Review of Systems: Unable to obtain ROS from pt and no family members at bedside. Nursing tells me the that she has had periods of responsiveness and has been able to take po lactulose early this morning. Review of ED records show that he stated that she has not had symptoms of infection, has been compliant with medication and has not had any constipation. Physical Exam Constitutional: WD/WN, vitals as above + ill appearing On CPAP, minimal responsive to verbal or tactile Eyes: PERRL, conjunctivae normal, anicteric sclerae ENMT: external ear and nose normal, oropharynx normal Neck: trachea midline, no thyromegaly Respiratory: normal respiratory effort, lungs clear to auscultation Cardiovascular: RRR, no murmur, no edema Gastrointestinal (Abdomen): normal bowel sounds, soft, nontender, no hepatosplenomegaly no ascites on exam Skin: no rashes, warm and dry Neurologic: Laying quietly in bed, no responsive to verbal or tactile stim. Not obtunded. Lymphatic: no cervical or axillary lymphadenopathy Results & Data Vital Signs (Past 12 Hours) Vital Signs Temp Pulse Pulse Resp BP BP Pulse Ox 03/25/19 07:27 37.0 C 98 H 18 173/73 H 100 03/25/19 04:00 36.6 C 85 19 166/77 H 98 03/25/19 00:46 16 96 03/25/19 00:01 36.7 C 94 H 18 162/71 H 100 03/25/19 00:00 81 03/24/19 22:14 36.8 C 91 H 18 162/76 H 100 03/24/19 22:03 77 15 149/67 H 99 03/24/19 21:00 81 20 03/24/19 20:50 76 20 03/24/19 20:40 83 22 03/24/19 20:30 84 21 03/24/19 20:20 91 H 18 Laboratory Results See HPI for pertinent labs Diagnostic Findings CXR w/o acute abnormalities. Medications Administered Lactulose po 40 Gm po Q 6.
[2019-03-25] MEDS: INSULIN ASPART 100 UNITS/ML 3 ML PEN SC SCH ×4 (08:28→21:13)
[2019-03-25] MEDS: VENLAFAXINE HCL 37.5 MG TAB PO SCH ×2 (08:37→17:08)
[2019-03-25] MEDS: FLINTSTONES COMPLETE CHEWABLE TAB PO SCH ×2 (08:37→21:08)
[2019-03-25] MEDS: CALCIUM 600MG + VIT D 400 IU TAB PO SCH ×2 (08:37→21:08)
[2019-03-25] MEDS: METOPROLOL TARTRATE 25 MG TAB PO SCH ×2 (08:38→21:07)
[2019-03-25] MEDS: PANTOprazole 40 MG TAB PO SCH (08:42)
[2019-03-25] MEDS ORDERED: MAGNESIUM OXIDE 400 MG TAB PO SCH (09:00)
[2019-03-25] MEDS ORDERED: POLYETHYLENE (MIRALAX) 17 GM PACK PO SCH (09:00)
[2019-03-25] MEDS: INSULIN GLARGINE SOLOSTAR 100 UNITS/ML 3 ML PEN SC SCH (09:11)
[2019-03-25] MEDS ORDERED: LACTULOSE 200 GM, WATER, STERILE IRRIG 700 ML, BARCODE IDENTIFIER 1 EA PR PRN (10:00)
--- NOTE | 2019-03-25 17:49 | Hospitalist Progress Note ---
Date of Service March 25, 2019 Assessment & Plan (1) Hepatic encephalopathy: Presented with confusion and lethargy obtundation, secondary to hepatic encephalopathy Ammonia level was more than 100 Patient was not able to take lactulose p.o. past few days secondary to lethargy /hypersomnolence History of MARIA cirrhosis High risk for hepatic encephalopathy secondary to high ammonia level due to TIPS procedure Patient follows with [facility] Has not been on rifaximin,: As does not have insurance coverage, [id number] is very expensive Lactulose dose increased, Patient had GI consulted (2) Hyperammonemia: As outlined above (3) Thrombocytopenia: Secondary to chronic liver disease/Maria cirrhosis Follow CBC Avoid antiplatelets, anticoagulation (4) Liver cirrhosis secondary to MARIA: Follows with [facility] Status post Maria cirrhosis Presented with hepatic encephalopathy, hyper ammonemia Given increased dose of lactulose GI consulted, appreciate input (5) Hypertension: Patient presented with signs symptoms of mild dehydration Poor p.o. intake for the past 2 to 3 days for confusion/lethargy Lactulose and Aldactone has been kept on hold Continue to monitor (6) Diabetes mellitus, type II: Continue basal Lantus/insulin sliding scale (7) Hypothyroidism: Mild abnormality of thyroid function noted, Unreliable test results secondary to acute illness Patient will be continued with her home dose of levothyroxine 1 1 2 mcg daily Repeat TSH in clinic in 2-3 weeks (8) S/P TIPS (transjugular intrahepatic portosystemic shunt): (9) Esophageal varices: No evidence of GI bleed Continue PPI, continue to monitor (10) Portal hypertension: CODE STATUS: Full code DVT prophylaxis: SCD and teds Avoid anticoagulation secondary to chronic liver disease, thrombocytopenia Patient is encouraged to ambulate Disposition: PT OT evaluation requested To discharge home when medically stable Patient's updated over phone Subjective Is very lethargic earlier today, woke up around noontime Able to tell her name date of , worried that she is in the hospital Does not have any recollection of past few days Denies of any abdominal pain, no nausea vomiting Patient has been afebrile with stable vitals Review of Systems 2 Review of Systems: All systems reviewed & are unremarkable except as noted in HPI & below Physical Exam Constitutional: no acute distress and not ill appearing Eyes: + anicteric sclerae ENMT: external ear and nose normal, oropharynx normal Dry oral mucosa Neck: trachea midline, no thyromegaly Respiratory: normal respiratory effort, lungs clear to auscultation Cardiovascular: RRR, no murmur, no edema Gastrointestinal (Abdomen): Inspection/Auscultation: + abdomen distended (Mild ascites) and normal bowel sounds Percussion/Palpation: abdomen soft; abdomen nontender Musculoskeletal: no cyanosis or clubbing, extremities motor strength 5/5 Positive asterixis noted on outstretched hands Skin: no rashes, warm and dry no jaundice Neurologic: PERRL, EOMI, accommodation nl, no face palsy, no dysarthria Motor/Sensory: + tremor (Mild asterixis noted) Slow to answer questions, Psychiatric: Orientation: alert Results & Data Vital Signs (Past 12 Hours) Vital Signs Temp Pulse Resp BP Pulse Ox 03/25/19 15:03 36.7 C 75 18 118/61 100 03/25/19 11:14 36.7 C 77 18 122/62 100 03/25/19 07:27 37.0 C 98 H 18 173/73 H 100 (1) Hypertension Hypertension type: unspecified Qualified Code(s): I10 - Essential (primary) hypertension (2) Esophageal varices Esophageal varices type: secondary Esophageal varices bleeding: without bleeding Qualified Code(s): I85.10 - Secondary esophageal varices without bleeding
[2019-03-25] MEDS ORDERED: FUROSEMIDE 40 MG TAB PO SCH (21:00)
[2019-03-25] MEDS ORDERED: POTASSIUM CHLORIDE 10 MEQ TABCR PO SCH (21:00)
[2019-03-25] MEDS ORDERED: SPIRONOLACTONE 25 MG TAB PO SCH (21:00)
[2019-03-25] MEDS: ZINC SULFATE 220 MG CAPSULE PO SCH (21:08)
[2019-03-25] MEDS: RIFAXIMIN 550 MG TABLET PO SCH (21:09)
[2019-03-26] MEDS: LACTULOSE SYRUP 10 GM/15 ML BTL 473 ML PO SCH ×5 (00:38→23:44)
[2019-03-26] MEDS: LEVOTHYROXINE SODIUM 112 MCG TABLET PO SCH (05:36)
[2019-03-26 08:02] LABS: Hematocrit (blood only) 31.3 % (37-47); Hemoglobin 10.5 g/dL (12.0-16.0); Mean Corpuscular Hemoglobin 28.9 pg (25-34); Mean Corpuscular Hgb Conc 33.5 g/dL (32-36); Mean Corpuscular Volume 86.2 fL (80-100); Mean Platelet Volume 12.3 fL (7.4-10.4); Platelet Count 79 K/uL (130-400); RDW Coefficient of Variation 15.2 % (11.5-14.5); RDW Standard Deviation 48.5 fL (36.4-46.3); Red Blood Count 3.63 M/uL (4.2-5.4); White Blood Count 2.74 K/uL (4.8-10.8)
[2019-03-26 08:35] LABS: Albumin Level 2.3 gm/dl (3.4-5.0); BUN Creatinine Ratio 12.2 (10-20); Bilirubin Direct 0.5 mg/dl (0-0.2); Calcium 8.3 mg/dl (8.5-10.1); Creatinine Clr Calc Pharmacy 60.8 ml/min; Est GFR (African American) 74.7; Est GFR (Non-African American) 64.5; Potassium 3.9 mmol/L (3.5-5.1)
[2019-03-26] MEDS: CALCIUM 600MG + VIT D 400 IU TAB PO SCH ×2 (08:37→21:11)
[2019-03-26 08:38] LABS: Albumin Globulin Ratio 0.7 (0.9-2); Bilirubin,Total 1.3 mg/dl (0.2-1); Globulin 3.4 gm/dl (2.5-4.0); Total Protein 5.7 gm/dl (6.4-8.2)
[2019-03-26] MEDS: METOPROLOL TARTRATE 25 MG TAB PO SCH ×2 (08:38→21:10)
[2019-03-26] MEDS: PANTOprazole 40 MG TAB PO SCH (08:38)
[2019-03-26] MEDS: RIFAXIMIN 550 MG TABLET PO SCH ×2 (08:39→21:12)
[2019-03-26] MEDS: FLINTSTONES COMPLETE CHEWABLE TAB PO SCH ×2 (08:39→21:09)
[2019-03-26] MEDS: VENLAFAXINE HCL 37.5 MG TAB PO SCH ×2 (08:39→17:38)
[2019-03-26] MEDS: CYANOCOBALAMIN 500 MCG TABLET (VITAMIN B-12) PO SCH (08:39)
[2019-03-26] MEDS: ZINC SULFATE 220 MG CAPSULE PO SCH ×2 (08:40→21:10)
[2019-03-26] MEDS: INSULIN ASPART 100 UNITS/ML 3 ML PEN SC SCH ×4 (08:43→21:13)
[2019-03-26] MEDS: INSULIN GLARGINE SOLOSTAR 100 UNITS/ML 3 ML PEN SC SCH (08:44)
--- NOTE | 2019-03-26 17:49 | Hospitalist Progress Note ---
Date of Service March 26, 2019 Assessment & Plan (1) Hepatic encephalopathy: Symptom has resolved, and alert awake and oriented today Ammonia level continues to improve after p.o. lactulose Presented with confusion and lethargy obtundation, secondary to hepatic encephalopathy Ammonia level was more than 100 Patient was not able to take lactulose p.o. past few days secondary to lethargy /hypersomnolence History of MARIA cirrhosis High risk for hepatic encephalopathy secondary to high ammonia level due to TIPS procedure Patient follows with [facility] Has not been on rifaximin,: As does not have insurance coverage, [id number] is very expensive Lactulose dose increased, rifaximin resumed [facility] consulted, appreciate input (2) Hyperammonemia: As outlined above (3) Thrombocytopenia: Secondary to chronic liver disease/Maria cirrhosis Follow CBC Avoid antiplatelets, anticoagulation (4) Liver cirrhosis secondary to MARIA: Follows with [facility] Status post Maria cirrhosis Presented with hepatic encephalopathy, hyper ammonemia Given increased dose of lactulose GI consulted, appreciate input (5) Hypertension: Patient presented with signs symptoms of mild dehydration Poor p.o. intake for the past 2 to 3 days for confusion/lethargy Lactulose and Aldactone has been kept on hold Continue to monitor (6) Diabetes mellitus, type II: Continue basal Lantus/insulin sliding scale (7) Hypothyroidism: Mild abnormality of thyroid function noted, Unreliable test results secondary to acute illness Patient will be continued with her home dose of levothyroxine 1 1 2 mcg daily Repeat TSH in clinic in 2-3 weeks (8) S/P TIPS (transjugular intrahepatic portosystemic shunt): (9) Esophageal varices: No evidence of GI bleed Continue PPI, continue to monitor (10) Portal hypertension: CODE STATUS: Full code DVT prophylaxis: SCD and teds Avoid anticoagulation secondary to chronic liver disease, thrombocytopenia Patient is encouraged to ambulate Disposition: PT OT evaluation requested To discharge home when medically stable Patient's updated over phone Subjective Awake and alert, denies of any discomfort no headache no fever or chills Tolerating diet Physical Exam Constitutional: no acute distress and not ill appearing Eyes: + anicteric sclerae ENMT: external ear and nose normal, oropharynx normal Neck: trachea midline, no thyromegaly Respiratory: normal respiratory effort, lungs clear to auscultation Cardiovascular: RRR, no murmur, no edema Gastrointestinal (Abdomen): Inspection/Auscultation: + abdomen distended (Mild ascites) and normal bowel sounds Percussion/Palpation: abdomen soft; abdomen nontender Musculoskeletal: no cyanosis or clubbing, extremities motor strength 5/5 Skin: no rashes, warm and dry no jaundice Neurologic: PERRL, EOMI, accommodation nl, no face palsy, no dysarthria Motor/Sensory: + tremor (Mild asterixis noted) Psychiatric: Orientation: alert Results & Data Vital Signs (Past 12 Hours) Vital Signs Temp Pulse Resp BP Pulse Ox 03/26/19 14:34 37.2 C 67 18 114/58 L 99 03/26/19 07:13 36.9 C 71 18 129/73 100 (1) Hypertension Hypertension type: unspecified Qualified Code(s): I10 - Essential (primary) hypertension (2) Esophageal varices Esophageal varices type: secondary Esophageal varices bleeding: without bleeding Qualified Code(s): I85.10 - Secondary esophageal varices without bleeding
[2019-03-27] MEDS: LEVOTHYROXINE SODIUM 112 MCG TABLET PO SCH (05:08)
[2019-03-27] MEDS: LACTULOSE SYRUP 10 GM/15 ML BTL 473 ML PO SCH ×3 (05:09→18:13)
[2019-03-27 06:45] LABS: Hemoglobin 10.5 g/dL (12.0-16.0); Mean Corpuscular Hemoglobin 29.1 pg (25-34); Mean Corpuscular Hgb Conc 33.9 g/dL (32-36); Mean Corpuscular Volume 85.9 fL (80-100); RDW Coefficient of Variation 15.3 % (11.5-14.5); RDW Standard Deviation 48.4 fL (36.4-46.3); Red Blood Count 3.61 M/uL (4.2-5.4); White Blood Count 2.82 K/uL (4.8-10.8)
[2019-03-27 07:17] LABS: Mean Platelet Volume 11.4 fL (7.4-10.4); Platelet Count 80 K/uL (130-400)
[2019-03-27 07:19] LABS: Platelet Estimate Decreased (Normal)
[2019-03-27 07:22] LABS: Albumin Level 2.3 gm/dl (3.4-5.0); BUN Creatinine Ratio 14.1 (10-20); Bilirubin Direct 0.4 mg/dl (0-0.2); Calcium 8.6 mg/dl (8.5-10.1); Creatinine Clr Calc Pharmacy 59.6 ml/min; Est GFR (African American) 72.8; Est GFR (Non-African American) 62.9; Potassium 4.1 mmol/L (3.5-5.1)
[2019-03-27 07:25] LABS: Albumin Globulin Ratio 0.7 (0.9-2); Globulin 3.4 gm/dl (2.5-4.0); Total Protein 5.7 gm/dl (6.4-8.2)
[2019-03-27] MEDS: PANTOprazole 40 MG TAB PO SCH (09:12)
[2019-03-27] MEDS: RIFAXIMIN 550 MG TABLET PO SCH ×2 (09:12→20:54)
[2019-03-27] MEDS: CALCIUM 600MG + VIT D 400 IU TAB PO SCH ×2 (09:12→20:54)
[2019-03-27] MEDS: METOPROLOL TARTRATE 25 MG TAB PO SCH ×2 (09:12→20:54)
[2019-03-27] MEDS: CYANOCOBALAMIN 500 MCG TABLET (VITAMIN B-12) PO SCH (09:12)
[2019-03-27] MEDS: INSULIN GLARGINE SOLOSTAR 100 UNITS/ML 3 ML PEN SC SCH (09:13)
[2019-03-27] MEDS: INSULIN ASPART 100 UNITS/ML 3 ML PEN SC SCH ×4 (09:14→20:56)
[2019-03-27] MEDS: FLINTSTONES COMPLETE CHEWABLE TAB PO SCH ×2 (09:15→20:54)
[2019-03-27] MEDS: ZINC SULFATE 220 MG CAPSULE PO SCH ×2 (09:15→20:54)
[2019-03-27] MEDS: VENLAFAXINE HCL 37.5 MG TAB PO SCH ×2 (09:15→16:35)
--- NOTE | 2019-03-27 14:45 | Hospitalist Progress Note ---
Date of Service March 27, 2019 Assessment & Plan (1) Hepatic encephalopathy: Symptom has resolved after giving lactulose She is alert awake oriented x3 mental status back to baseline Presented with confusion and lethargy obtundation, secondary to hepatic encephalopathy Ammonia level was more than 100 Patient was not able to take lactulose p.o. past few days secondary to lethargy /hypersomnolence History of MARIA cirrhosis High risk for hepatic encephalopathy secondary to high ammonia level due to TIPS procedure Patient follows with [facility] Has not been on rifaximin,: As does not have insurance coverage, [id number] is very expensive Lactulose dose increased, rifaximin resumed [facility] consulted, appreciate input Continue to discussed with GI team for arrangements of outpatient rifaximin, for SBP prophylaxis (2) Hyperammonemia: As outlined above Continue on lactulose Patient is clinically improved with resolution of hepatic encephalopathy Daily ammonia level check not indicated (3) Thrombocytopenia: Secondary to chronic liver disease/Maria cirrhosis Follow CBC Avoid antiplatelets, anticoagulation (4) Liver cirrhosis secondary to MARIA: Follows with [facility] Status post Maria cirrhosis Presented with hepatic encephalopathy, hyper ammonemia Given increased dose of lactulose GI consulted, appreciate input (5) Hypertension: Resume Aldactone and Lasix Continue to monitor (6) Diabetes mellitus, type II: Continue basal Lantus/insulin sliding scale (7) Hypothyroidism: Mild abnormality of thyroid function noted, Unreliable test results secondary to acute illness Patient will be continued with her home dose of levothyroxine 1 1 2 mcg daily Repeat TSH in clinic in 2-3 weeks (8) S/P TIPS (transjugular intrahepatic portosystemic shunt): (9) Esophageal varices: No evidence of GI bleed Continue PPI, continue to monitor (10) Portal hypertension: CODE STATUS: Full code DVT prophylaxis: SCD and teds Avoid anticoagulation secondary to chronic liver disease, thrombocytopenia Patient is encouraged to ambulate Disposition: Possible discharge home tomorrow as patient appears to be clinically back to casi guy We will discuss with GI regarding: Medication for SBP prophylaxis: Patient does not have insurance coverage for rifaximin, would not be able to afford [id number] cost Subjective Awake and alert conversing, denies of any pain or discomfort Totally oriented no confusion or delirium Has been able to get out of bed ambulate to the bathroom without any gait disturbance No fever or chills No nausea vomiting No complaint of abdominal pain Physical Exam Constitutional: no acute distress and not ill appearing Eyes: + anicteric sclerae ENMT: external ear and nose normal, oropharynx normal Neck: trachea midline, no thyromegaly Respiratory: normal respiratory effort, lungs clear to auscultation Cardiovascular: RRR, no murmur, no edema Gastrointestinal (Abdomen): Inspection/Auscultation: + abdomen distended (Mild ascites) and normal bowel sounds Percussion/Palpation: abdomen soft; abdomen nontender Musculoskeletal: no cyanosis or clubbing, extremities motor strength 5/5 Skin: no rashes, warm and dry no jaundice Neurologic: PERRL, EOMI, accommodation nl, no face palsy, no dysarthria Motor/Sensory: + tremor (Mild asterixis noted) Psychiatric: A+Ox3, euthymic affect Results & Data Vital Signs (Past 12 Hours) Vital Signs Temp Pulse Resp BP Pulse Ox 03/27/19 07:07 36.4 C L 75 16 135/62 98 03/27/19 03:30 36.8 C 68 18 127/62 100 (1) Esophageal varices Esophageal varices bleeding: without bleeding Esophageal varices type: secondary Qualified Code(s): I85.10 - Secondary esophageal varices without bleeding (2) Hypertension Hypertension type: unspecified Qualified Code(s): I10 - Essential (primary) hypertension
[2019-03-27] MEDS: FUROSEMIDE 40 MG TAB PO SCH (20:53)
[2019-03-27] MEDS: SPIRONOLACTONE 25 MG TAB PO SCH (20:54)
[2019-03-28] MEDS: LACTULOSE SYRUP 10 GM/15 ML BTL 473 ML PO SCH ×3 (00:12→12:26)
[2019-03-28] MEDS: LEVOTHYROXINE SODIUM 112 MCG TABLET PO SCH (05:35)
[2019-03-28] MEDS: FUROSEMIDE 40 MG TAB PO SCH (08:56)
[2019-03-28] MEDS: CYANOCOBALAMIN 500 MCG TABLET (VITAMIN B-12) PO SCH (08:56)
[2019-03-28] MEDS: PANTOprazole 40 MG TAB PO SCH (08:56)
[2019-03-28] MEDS: FLINTSTONES COMPLETE CHEWABLE TAB PO SCH (08:56)
[2019-03-28] MEDS: SPIRONOLACTONE 25 MG TAB PO SCH (08:56)
[2019-03-28] MEDS: RIFAXIMIN 550 MG TABLET PO SCH (08:56)
[2019-03-28] MEDS: CALCIUM 600MG + VIT D 400 IU TAB PO SCH (08:56)
[2019-03-28] MEDS: METOPROLOL TARTRATE 25 MG TAB PO SCH (08:57)
[2019-03-28] MEDS: VENLAFAXINE HCL 37.5 MG TAB PO SCH (08:57)
[2019-03-28] MEDS: ZINC SULFATE 220 MG CAPSULE PO SCH (08:57)
[2019-03-28] MEDS: INSULIN ASPART 100 UNITS/ML 3 ML PEN SC SCH ×2 (09:00→13:23)
[2019-03-28] MEDS: INSULIN GLARGINE SOLOSTAR 100 UNITS/ML 3 ML PEN SC SCH (09:00)
--- NOTE | 2019-03-28 14:51 | Hospitalist Progress Note ---
Date of Service March 28, 2019 Assessment & Plan (1) Hepatic encephalopathy: Symptom has resolved after giving lactulose She is alert awake oriented x3 mental status back to baseline Presented with confusion and lethargy obtundation, secondary to hepatic encephalopathy Ammonia level was more than 100 Patient was not able to take lactulose p.o. past few days secondary to lethargy /hypersomnolence History of MARIA cirrhosis High risk for hepatic encephalopathy secondary to high ammonia level due to TIPS procedure Patient follows with [facility] Has not been on rifaximin,: As does not have insurance coverage, [id number] is very expensive $500/month Lactulose dose increased to 4 times daily, to have at least 35 loose bowel movement today [facility] consulted, appreciate input Discussed with GI team: Patient's insurance already started on preauthorization for rifaximin coverage Patient will be discharged home with adjustment of lactulose, Lasix and Aldactone dose reduced to prevent dehydration which can also precipitate encephalopathy Patient is asked not to take any bowel regimen to prevent too many episodes of loose bowel movement: Which can lead to dehydration, precipitate encephalopathy Patient is asked to contact [facility] GI clinic, if rifaximin still not covered by her insurance in a week for substitution of different antibiotic for SBP (spontaneous bacterial peritonitis) phylaxis (2) Hyperammonemia: As outlined above Presented with confusion and lethargy hepatic encephalopathy Patient resumed on higher dose of lactulose 40 g p.o. 4 times daily Patient is clinically improved with resolution of hepatic encephalopathy Patient will be discharged home with lactulose, Encouraged to keep up with fluids, diuretics dose reduced to prevent dehydration Will need to continue to work with GI team for insurance coverage for rifaximin (3) Thrombocytopenia: Secondary to chronic liver disease/Maria cirrhosis Avoid antiplatelets, anticoagulation No evidence of any bleeding (4) Liver cirrhosis secondary to MARIA: Follows with [facility] Status post Maria cirrhosis Presented with hepatic encephalopathy, hyper ammonemia Resolved after adjusting lactulose dose GI consulted, appreciate input She is stable to be discharged home: Lasix dose reduced to 20 mg daily, Aldactone dose reduced to 50 mg daily Asked to avoid other bowel regimen except for lactulose,-to prevent dehydration Clinic follow-up with [facility] as per schedule (5) Hypertension: BP stable Aldactone dose reduced to 50 mill grams daily(was on 50 mill grams twice daily) Lasix reduced to 20 mg daily(was on 40 mg twice daily)-to prevent dehydration (6) Diabetes mellitus, type II: Continue basal Lantus/insulin sliding scale (7) Hypothyroidism: Mild abnormality of thyroid function noted, Unreliable test results secondary to acute illness Patient will be continued with her home dose of levothyroxine 1 1 2 mcg daily Repeat TSH in clinic in 6-8 weeks (8) S/P TIPS (transjugular intrahepatic portosystemic shunt): (9) Esophageal varices: Due to Maria cirrhosis, no evidence of GI bleed Patient denies of any acid reflux, PPI discontinued due to side effect profile (10) Portal hypertension: CODE STATUS: Full code DVT prophylaxis: SCD and teds Avoid anticoagulation secondary to chronic liver disease, thrombocytopenia Patient is encouraged to ambulate Disposition: Stable to be discharged home today Subjective Awake and alert, no confusion, no fever chills Sitting up, ambulating independently No complaint of abdominal pain no nausea vomiting tolerating diet present at bedside, confirmed patient is back to her baseline Stable to be discharged home today with family Physical Exam Constitutional: no acute distress and not ill appearing Eyes: + anicteric sclerae ENMT: external ear and nose normal, oropharynx normal Neck: trachea midline, no thyromegaly Respiratory: normal respiratory effort, lungs clear to auscultation Cardiovascular: RRR, no murmur, no edema Gastrointestinal (Abdomen): Inspection/Auscultation: + abdomen distended (Mild ascites) and normal bowel sounds Percussion/Palpation: abdomen soft; abdomen nontender Musculoskeletal: no cyanosis or clubbing, extremities motor strength 5/5 Skin: no rashes, warm and dry no jaundice Neurologic: PERRL, EOMI, accommodation nl, no face palsy, no dysarthria Motor/Sensory: + tremor (Mild asterixis noted) Psychiatric: A+Ox3, euthymic affect Orientation: alert Results & Data Vital Signs (Past 12 Hours) Vital Signs Temp Pulse Resp BP Pulse Ox 03/28/19 12:45 36.8 C 72 16 130/74 98 03/28/19 07:50 36.8 C 75 17 148/70 H 95 (1) Hypertension Hypertension type: unspecified Qualified Code(s): I10 - Essential (primary) hypertension (2) Esophageal varices Esophageal varices type: secondary Esophageal varices bleeding: without bleeding Qualified Code(s): I85.10 - Secondary esophageal varices without bleeding
--- NOTE | 2019-03-28 14:53 | Discharge Summary ---
Date of Service March 28, 2019 Principal Diagnosis HEPATIC ENCEPHALOPATHY/HYPERAMMONEMIA/CHRONIC LIVER DISEASE/ANDREWS CIRRHOSIS Discharge Exam Constitutional no acute distress and not ill appearing Eyes + anicteric sclerae ENMT external ear and nose normal, oropharynx normal Neck trachea midline, no thyromegaly Respiratory normal respiratory effort, lungs clear to auscultation Cardiovascular RRR, no murmur, no edema Gastrointestinal (Abdomen) Inspection/Auscultation: + abdomen distended (Mild ascites) and normal bowel sounds Percussion/Palpation: abdomen soft; abdomen nontender Musculoskeletal no cyanosis or clubbing, extremities motor strength 5/5 Skin no rashes, warm and dry no jaundice Neurologic PERRL, EOMI, accommodation nl, no face palsy, no dysarthria Motor/Sensory: + tremor (Mild asterixis noted) Psychiatric A+Ox3, euthymic affect Orientation: alert Discharge Data Allergies Allergy/AdvReac Type Severity Reaction Status Date / Time adhesive Allergy Mild RASH AND Verified 03/24/19 19:14 BRUISING Estrogens Allergy Mild SORE AND Verified 03/24/19 19:14 ITCHY repaglinide Allergy Mild RASH Verified 03/24/19 19:14 Sulfa (Sulfonamide Allergy Mild RED RASH Verified 03/24/19 19:14 Antibiotics) NSAIDS (Non-Steroidal AdvReac Unknown not Verified 03/24/19 19:14 Anti-Inflamma allowed to take Consultations 03/24/19 20:39 ED Decision to Admit Stat 03/24/19 22:23 Consult Case Management - Discharge Planning Routine 03/25/19 08:00 Consult Gastroenterology Routine Hospital Course (1) Hepatic encephalopathy: Symptom has resolved after giving lactulose She is alert awake oriented x3 mental status back to baseline Presented with confusion and lethargy obtundation, secondary to hepatic encephalopathy Ammonia level was more than 100 Patient was not able to take lactulose p.o. past few days secondary to lethargy /hypersomnolence History of ANDREWS cirrhosis High risk for hepatic encephalopathy secondary to high ammonia level due to TIPS procedure Patient follows with [facility] Has not been on rifaximin,: As does not have insurance coverage, [id number] is very expensive $500/month Lactulose dose increased to 4 times daily, to have at least 35 loose bowel movement today [facility] consulted, appreciate input Discussed with GI team: Patient's insurance already started on preauthorization for rifaximin coverage Patient will be discharged home with adjustment of lactulose, Lasix and Aldactone dose reduced to prevent dehydration which can also precipitate encephalopathy Patient is asked not to take any bowel regimen to prevent too many episodes of loose bowel movement: Which can lead to dehydration, precipitate encephalopathy Patient is asked to contact [facility] GI clinic, if rifaximin still not covered by her insurance in a week for substitution of different antibiotic for SBP (spontaneous bacterial peritonitis) phylaxis (2) Hyperammonemia: As outlined above Presented with confusion and lethargy hepatic encephalopathy Patient resumed on higher dose of lactulose 40 g p.o. 4 times daily Patient is clinically improved with resolution of hepatic encephalopathy Patient will be discharged home with lactulose, Encouraged to keep up with fluids, diuretics dose reduced to prevent dehydration Will need to continue to work with GI team for insurance coverage for rifaximin (3) Thrombocytopenia: Secondary to chronic liver disease/Andrews cirrhosis Avoid antiplatelets, anticoagulation No evidence of any bleeding (4) Liver cirrhosis secondary to ANDREWS: Follows with [facility] Status post Andrews cirrhosis Presented with hepatic encephalopathy, hyper ammonemia Resolved after adjusting lactulose dose GI consulted, appreciate input She is stable to be discharged home: Lasix dose reduced to 20 mg daily, Aldactone dose reduced to 50 mg daily Asked to avoid other bowel regimen except for lactulose,-to prevent dehydration Clinic follow-up with [facility] as per schedule (5) Hypertension: BP stable Aldactone dose reduced to 50 mill grams daily(was on 50 mill grams twice daily) Lasix reduced to 20 mg daily(was on 40 mg twice daily)-to prevent dehydration (6) Diabetes mellitus, type II: Continue basal Lantus/insulin sliding scale (7) Hypothyroidism: Mild abnormality of thyroid function noted, Unreliable test results secondary to acute illness Patient will be continued with her home dose of levothyroxine 1 1 2 mcg daily Repeat TSH in clinic in 6-8 weeks (8) S/P TIPS (transjugular intrahepatic portosystemic shunt): (9) Esophageal varices: Due to Andrews cirrhosis, no evidence of GI bleed Patient denies of any acid reflux, PPI discontinued due to side effect profile (10) Portal hypertension: CODE STATUS: Full code DVT prophylaxis: SCD and teds Avoid anticoagulation secondary to chronic liver disease, thrombocytopenia Patient is encouraged to ambulate Disposition: Stable to be discharged home today Total Time Total Time Spent Total Time Spent (In Minutes): Approximately 40 minutes Total Time Includes: Examination of the Patient, Discharge Planning, Medication Reconciliation and Communication With Other Providers Discharge Plan Discharge Items Patient Disposition: Home - Self-Care Reason For Visit: AMS Discharge Diagnosis: HEPATIC ENCEPHALOPATHY/HYPERAMMONEMIA/CHRONIC LIVER DISEASE/ANDREWS CIRRHOSIS Discharge Goals: Decrease discomfort and Therapeutic intervention Activity: Resume your previous activity Non-emergency contact: Primary Care Provider Call non-emergency contact if: you have any medication questions Follow-up/Referrals: Nataliia Roberts MD [Physician] - 03/31/19 11:05 am (Hospital follow-up with Dr. Nataliia Roberst on 03/31 at 11:05 AM) Tracy Burgess [Nurse Practitioner] - 04/26/19 Diet: Low Sodium (2gm) Addtl Provider Instructions: Hospital follow-up with Dr. Nataliia Roberts on , 03/31/2019 at 11:05 AM (Dr. Crockett's schedule is full) LAB WORK: Repeat thyroid function test (TSH, free T4): 4-6 weeks GI follow-up as per schedule You need to be on rifaximin (550 mg) 1 tablet twice daily-to prevent- decompensation of liver disease Per GI record : Your Pharmacy has started on Pre Authorization for the Rifaximine coverage Please contact the GI clinic at [facility] -IF YOU DO NOT HEAR BACK FROM INSURANCE COMPANY OF THE COVERAGE FOR RIFAXIMIN IN A WEEK CHANGE IN MEDICATIONS: 1. Lasix 20 mg daily (reduced from prior 40 mg twice daily dose) 2. Aldactone/Spironolactone 50 mg daily(reduced from prior 50 mg twice daily) 3 . increase lactulose to 4 times daily-goal to have at least 3-5 soft bowel movement a day DO NOT TAKE: MiraLAX, Dulcolax, magnesium oxide -will cause too many episodes of loose stools when you are taking lactulose leading you to dehydration Do not take Protonix: Increased risk of C. difficile with chronic use Prescriptions: New furosemide 20 mg Tablet 20 mg PO DAILY 30 Days Qty: 30 RF: 0 lactulose 10 gram/15 mL (15 mL) Solution 60 ml PO QID 30 Days Qty: 600 RF: 3 Continued venlafaxine 75 mg Tablet 75 mg PO BIDM RF: 0 calcium carbonate-vitamin D3 [Calcium 600 + D(3)] 600 mg(1,500mg) -200 unit Tablet 2 tab PO BID RF: 0 zinc sulfate [Zinc-220] 220 (50) mg Capsule 220 mg PO BID RF: 0 Flintstones with Iron 18 mg iron Tablet,Chewable 1 tab PO BID RF: 0 Januvia 100 mg Tablet 100 mg PO QAM RF: 0 acetaminophen 500 mg Tablet 500 mg PO Q4 PRN (Reason: Pain) RF: 0 Lantus Solostar U-100 Insulin 100 unit/mL (3 mL) insulin pen 35 unit SC QAM RF: 0 metoprolol tartrate 25 mg tablet 12.5 mg PO BID RF: 0 furosemide 40 mg Tablet 40 mg PO UD RF: 0 levothyroxine 112 mcg 112 mcg PO DAILY RF: 0 Systane Ultra 0.4-0.3 % Drops 4 drp OPB DAILY PRN (Reason: Dry Eye(S)) RF: 0 vitamin M21-nmgia acid 500-400 mcg Tablet 1 tab PO QAM RF: 0 Changed potassium chloride 10 mEq Tablet Extended Release 10 meq PO DAILY Qty: 0 RF: 0 spironolactone 50 mg tablet 50 mg PO DAILY Qty: 0 RF: 0 Discontinued pantoprazole 40 mg Tablet,Delayed Release (Dr/Ec) 40 mg PO QAM RF: 0 polyethylene glycol 3350 [Miralax] 17 gram Powder In Packet 17 g PO QAM RF: 0 furosemide 40 mg tablet 40 mg PO BID RF: 0 bisacodyl [Dulcolax (bisacodyl)] 5 mg Tablet,Delayed Release (Dr/Ec) 5 mg PO QAM PRN (Reason: Constipation) RF: 0 magnesium oxide 400 mg magnesium Tablet 400 mg PO QAM RF: 0 Stand-Alone Forms: [facility] Discharge Orders: Discharge Order (Routine); Ordered 03/28/19 Ordered By: Tamela Ponce Admission Data Admit Date/Time: 03/24/19 21:22 Attending Provider: Tamela Ponce Admit Provider: Jered Dobbs Primary Care Provider: Jong Crockett Other Providers: Jered Dobbs ; Greg Baeza Service: Medical
[2019-03-29] MEDS ORDERED: FUROSEMIDE 20 MG TAB PO SCH (09:00)
[2019-03-29] MEDS ORDERED: SPIRONOLACTONE 25 MG TAB PO SCH (09:00)
== END 2019-03-28 16:23 | disposition home or self-care (01) | DRG 442 ==
LOC: ED 17:58 → 2S 21:22 → 2W 03-25 18:00 → 3N 03-27 04:15

== ENCOUNTER 2020-03-28 20:24 | Inpatient (IN) ==
--- NOTE | 2020-03-28 21:44 | Emergency Department Note ---
History of Present Illness General Chief complaint: Weakness Stated complaint: WEAKNESS, SOB Time Seen by Provider: 03/28/20 21:29 History of Present Illness Maximum Pain Intensity: 0 This is a 64-year-old female presenting to the emergency department for evaluation of weakness over the past 4 to 5 days. The patient has a history of diabetes, liver disease, and A. fib that was cardioverted 22 days ago. The patient states that immediately after cardioversion she felt well, and had more energy than normal. She states the past several days she has felt worse, and went to her primary care physician 2 days ago where she was back in A. fib. She is on Coumadin. The patient feels like she is not with appetite, and has been drinking only about 16 to 20 ounces of fluid each of the past 2 days. She is on Lasix, and reportedly has had a 5 pound weight loss in the past 2 days. She d oes not report distinct fever or chills. No chest pain, but she is with some vague shortness of breath when moving. She does not have any medication changes recently and rates her current discomfort a 7/10. Home Medications Home Medications Medication Instructions Recorded Confirmed Type calcium carbonate-vitamin D3 2 tab PO BID 07/11/18 03/28/20 History [Calcium 600 + D(3)] venlafaxine 75 mg PO BID 07/11/18 03/28/20 History Flintstones with Iron 1 tab PO BID 11/02/18 03/28/20 History Januvia 100 mg PO QAM 12/25/18 03/28/20 History Lantus Solostar U-100 Insulin 31 unit SC QAM 01/11/19 03/28/20 History acetaminophen 500 mg PO Q4 PRN 01/11/19 03/28/20 History diphenhydramine HCl [Benadryl] 25 mg PO Q6H PRN 03/02/20 03/28/20 History furosemide 60 mg PO AMPM 03/02/20 03/28/20 History gabapentin 100 mg PO BID 03/02/20 03/28/20 History lactulose 60 ml PO 5XD 03/02/20 03/28/20 History levothyroxine 75 mcg PO QAM 03/02/20 03/28/20 History pantoprazole 40 mg PO QAM 03/02/20 03/28/20 History vitamin A acetate 20,000 unit PO QAM 03/02/20 03/28/20 History insulin lispro [Humalog KwikPen See Rx Instructions .ROUTE .COMPLEX 03/06/20 03/28/20 History Insulin] metoprolol tartrate 75 mg PO BID 03/06/20 03/28/20 History pen needle, diabetic [Novofine 32] 03/06/20 03/06/20 History spironolactone 50 mg PO BID 03/06/20 03/28/20 History warfarin 2 mg PO QPM 03/28/20 03/28/20 History zinc sulfate 220 mg PO BID 03/28/20 03/28/20 History Allergies Allergy/AdvReac Type Severity Reaction Status Date / Time adhesive Allergy Mild RASH AND Verified 03/28/20 23:44 BRUISING Estrogens Allergy Mild SORE AND Verified 03/28/20 23:44 ITCHY repaglinide Allergy Mild RASH Verified 03/28/20 23:44 Sulfa (Sulfonamide Allergy Mild RED RASH Verified 03/28/20 23:44 Antibiotics) NSAIDS (Non-Steroidal AdvReac Unknown not Verified 03/28/20 23:44 Anti-Inflamma allowed to take Past Med/Surg History Medical History Anemia Atrial fibrillation reason for procedure on 03/06/20 > coumadin Depression Diabetes mellitus, type II Diabetic neuropathy Esophageal varices no issues at present Factor V Leiden Fibromyalgia GERD (gastroesophageal reflux disease) Hepatic encephalopathy Hypertension Hypothyroidism Liver cirrhosis secondary to MARIA Migraine hx Nausea and vomiting after administration of anesthetic agent SAMANTHA (obstructive sleep apnea) cpap Osteoporosis Portal hypertension Thrombocytopenia Surgical History H/O oophorectomy History of appendectomy History of cardiac cath 9 yrs ago> no stents History of colonoscopy History of dilatation and curettage History of esophagogastroduodenoscopy (EGD) History of hysterectomy History of tooth extraction History of total right knee replacement Hx laparoscopic cholecystectomy S/P gastric bypass with hiatal hernia repair S/P left knee arthroscopy S/P repair of paraesophageal hernia S/P TIPS (transjugular intrahepatic portosystemic shunt) placed Jun 2018 > Valerio Family History Mother Family history of diabetes mellitus Father Family history of diabetes mellitus Brother Family history of diabetes mellitus 2 Social History Smoking Status: Never smoker Second Hand Exposure: No; Hx Alcohol Use: No Hx Substance Use: No Preferred Language: Slovak Communication Ability: Effective Advisory Services Associate Required: No Beliefs That Will Affect Care: None marital status: Current Living Situation: Spouse current occupational status: retired Feels Safe at Home: Yes Review of Systems A total of 10 systems reviewed and were otherwise negative Physical Exam Vital Signs Vital Signs - 24 hr 03/28/20 20:31 03/28/20 22:04 03/28/20 22:06 Temperature 37.0 C Temperature Source Oral Pulse Rate 86 90 Pulse Rate [Apical] Pulse Rate from SpO2 Sensor Respiratory Rate 20 13 Respiratory Effort / Characteristics Non-Labored Spontaneous Respiratory Depth Normal Blood Pressure 118/80 117/73 Blood Pressure [Right Arm] Blood Pressure Mean 92 77 Blood Pressure Mean [Right Arm] Pulse Oximetry 100 Oxygen Delivery Method Room Air Room Air Sepsis Recent Fever Within 48 Hours No Sepsis New/Unexplained Change in Mental Status No Sepsis Action Taken by Nursing No Action Required 03/28/20 22:07 03/28/20 22:09 03/28/20 22:10 Temperature Temperature Source Pulse Rate 90 95 H Pulse Rate [Apical] 93 H Pulse Rate from SpO2 Sensor Respiratory Rate 18 15 14 Respiratory Effort / Characteristics Non-Labored Respiratory Depth Normal Blood Pressure Blood Pressure [Right Arm] 117/73 Blood Pressure Mean Blood Pressure Mean [Right Arm] 87 Pulse Oximetry 96 Oxygen Delivery Method Room Air Sepsis Recent Fever Within 48 Hours Sepsis New/Unexplained Change in Mental Status Sepsis Action Taken by Nursing 03/28/20 22:20 03/28/20 22:30 03/28/20 22:40 Temperature Temperature Source Pulse Rate 95 H 99 H 105 H Pulse Rate [Apical] Pulse Rate from SpO2 Sensor Respiratory Rate 14 17 15 Respiratory Effort / Characteristics Respiratory Depth Blood Pressure Blood Pressure [Right Arm] Blood Pressure Mean Blood Pressure Mean [Right Arm] Pulse Oximetry Oxygen Delivery Method Sepsis Recent Fever Within 48 Hours Sepsis New/Unexplained Change in Mental Status Sepsis Action Taken by Nursing 03/28/20 22:50 03/28/20 23:00 03/28/20 23:10 Temperature Temperature Source Pulse Rate 104 H 93 H 104 H Pulse Rate [Apical] Pulse Rate from SpO2 Sensor Respiratory Rate 13 15 15 Respiratory Effort / Characteristics Respiratory Depth Blood Pressure Blood Pressure [Right Arm] Blood Pressure Mean Blood Pressure Mean [Right Arm] Pulse Oximetry Oxygen Delivery Method Sepsis Recent Fever Within 48 Hours Sepsis New/Unexplained Change in Mental Status Sepsis Action Taken by Nursing 03/28/20 23:20 03/28/20 23:24 03/28/20 23:30 Temperature Temperature Source Pulse Rate 95 H 105 H 99 H Pulse Rate [Apical] Pulse Rate from SpO2 Sensor 86 Respiratory Rate 15 14 13 Respiratory Effort / Characteristics Respiratory Depth Blood Pressure 121/82 Blood Pressure [Right Arm] Blood Pressure Mean 96 Blood Pressure Mean [Right Arm] Pulse Oximetry 100 Oxygen Delivery Method Sepsis Recent Fever Within 48 Hours Sepsis New/Unexplained Change in Mental Status Sepsis Action Taken by Nursing 03/28/20 23:40 03/28/20 23:50 03/29/20 00:00 Temperature Temperature Source Pulse Rate 102 H 97 H 94 H Pulse Rate [Apical] Pulse Rate from SpO2 Sensor 98 H 95 H 82 Respiratory Rate 16 14 16 Respiratory Effort / Characteristics Respiratory Depth Blood Pressure 132/77 Blood Pressure [Right Arm] Blood Pressure Mean 96 Blood Pressure Mean [Right Arm] Pulse Oximetry 100 98 97 Oxygen Delivery Method Sepsis Recent Fever Within 48 Hours Sepsis New/Unexplained Change in Mental Status Sepsis Action Taken by Nursing 03/29/20 00:10 03/29/20 00:20 03/29/20 00:38 Temperature Temperature Source Pulse Rate 95 H 91 H 90 Pulse Rate [Apical] Pulse Rate from SpO2 Sensor 95 H 85 91 H Respiratory Rate 14 14 14 Respiratory Effort / Characteristics Respiratory Depth Blood Pressure Blood Pressure [Right Arm] Blood Pressure Mean Blood Pressure Mean [Right Arm] Pulse Oximetry 100 100 93 Oxygen Delivery Method Sepsis Recent Fever Within 48 Hours Sepsis New/Unexplained Change in Mental Status Sepsis Action Taken by Nursing 03/29/20 00:40 03/29/20 00:50 03/29/20 01:00 Temperature Temperature Source Pulse Rate 112 H 96 H 89 Pulse Rate [Apical] Pulse Rate from SpO2 Sensor 70 80 85 Respiratory Rate 16 14 19 Respiratory Effort / Characteristics Respiratory Depth Blood Pressure 135/91 Blood Pressure [Right Arm] Blood Pressure Mean 98 Blood Pressure Mean [Right Arm] Pulse Oximetry 98 100 100 Oxygen Delivery Method Sepsis Recent Fever Within 48 Hours Sepsis New/Unexplained Change in Mental Status Sepsis Action Taken by Nursing 03/29/20 01:10 03/29/20 01:20 03/29/20 01:30 Temperature Temperature Source Pulse Rate 98 H 87 93 H Pulse Rate [Apical] Pulse Rate from SpO2 Sensor 78 84 79 Respiratory Rate 18 17 24 Respiratory Effort / Characteristics Respiratory Depth Blood Pressure Blood Pressure [Right Arm] Blood Pressure Mean Blood Pressure Mean [Right Arm] Pulse Oximetry 100 100 100 Oxygen Delivery Method Sepsis Recent Fever Within 48 Hours Sepsis New/Unexplained Change in Mental Status Sepsis Action Taken by Nursing 03/29/20 01:40 03/29/20 01:50 03/29/20 02:00 Temperature Temperature Source Pulse Rate 96 H 85 99 H Pulse Rate [Apical] Pulse Rate from SpO2 Sensor 96 H 83 88 Respiratory Rate 15 14 16 Respiratory Effort / Characteristics Respiratory Depth Blood Pressure 137/90 139/82 Blood Pressure [Right Arm] Blood Pressure Mean 105 104 Blood Pressure Mean [Right Arm] Pulse Oximetry 100 100 100 Oxygen Delivery Method Sepsis Recent Fever Within 48 Hours Sepsis New/Unexplained Change in Mental Status Sepsis Action Taken by Nursing 03/29/20 02:10 03/29/20 02:20 03/29/20 02:30 Temperature Temperature Source Pulse Rate 104 H 91 H 97 H Pulse Rate [Apical] Pulse Rate from SpO2 Sensor 87 78 92 H Respiratory Rate 15 12 15 Respiratory Effort / Characteristics Respiratory Depth Blood Pressure Blood Pressure [Right Arm] Blood Pressure Mean Blood Pressure Mean [Right Arm] Pulse Oximetry 94 99 100 Oxygen Delivery Method Sepsis Recent Fever Within 48 Hours Sepsis New/Unexplained Change in Mental Status Sepsis Action Taken by Nursing 03/29/20 02:40 03/29/20 02:50 03/29/20 03:00 Temperature Temperature Source Pulse Rate 102 H 101 H 113 H Pulse Rate [Apical] Pulse Rate from SpO2 Sensor 94 H 72 80 Respiratory Rate 17 13 13 Respiratory Effort / Characteristics Respiratory Depth Blood Pressure 133/81 Blood Pressure [Right Arm] Blood Pressure Mean 91 Blood Pressure Mean [Right Arm] Pulse Oximetry 99 99 100 Oxygen Delivery Method Sepsis Recent Fever Within 48 Hours Sepsis New/Unexplained Change in Mental Status Sepsis Action Taken by Nursing 03/29/20 03:10 Temperature Temperature Source Pulse Rate 127 H Pulse Rate [Apical] Pulse Rate from SpO2 Sensor 93 H Respiratory Rate 15 Respiratory Effort / Characteristics Respiratory Depth Blood Pressure Blood Pressure [Right Arm] Blood Pressure Mean Blood Pressure Mean [Right Arm] Pulse Oximetry 97 Oxygen Delivery Method Sepsis Recent Fever Within 48 Hours Sepsis New/Unexplained Change in Mental Status Sepsis Action Taken by Nursing VITALS: Vitals are noted on the nurse's note and reviewed by myself. Vital signs stable. GENERAL: Elderly white female who appears in no acute distress. She is comfortable and cooperative with the examination. HEAD: Normocephalic atraumatic. NECK: Supple without nuchal rigidity. No lymphadenopathy. No thyromegaly. Cervical spine is nontender. HEART: Irregularly irregular LUNGS: Clear to auscultation bilaterally without wheezes, rales or rhonchi. No retractions or accessory muscle use. ABDOMEN: Positive normal bowel sounds x 4. Soft, nontender, without masses or organomegaly. No guarding or rebound tenderness. MUSCULOSKELETAL: No muscle atrophy, erythema, or edema noted. Full range of motion in all extremities. NEURO: Patient was alert and oriented to person place and time. CN II through XII grossly intact. GCS 15 SKIN: The skin was without rashes, erythema, edema, or bruising. Capillary refill less than 2 seconds. Course Administered Medications Potassium Chloride/Sodium Chloride (Normal Saline W/20 Meq Kcl) 20 meq in 1,000 mls @ 150 mls/hr IV .Q6H40M ONE Stop: 03/29/20 09:57 Last Admin: 03/29/20 03:53 Dose: Not Given Documented by: [id number] Magnesium Sulfate/Dextrose (Magnesium Sulfate / D5w) 1 gm in 100 mls @ 50 mls/hr IV Q2H STA Stop: 03/29/20 05:17 Last Admin: 03/29/20 03:53 Dose: 50 mls/hr Documented by: [id number] Discontinued Medications Sodium Chloride (Nss 1000ml) 1,000 mls @ 999 mls/hr IV .Q1H1M JOEY Stop: 03/28/20 22:45 Last Infusion: 03/29/20 00:32 Dose: 0 mls/hr Documented by: [id number] Admin: 03/28/20 22:40 Dose: 999 mls/hr Documented by: [id number] Metoprolol Tartrate (Metoprolol Tartrate 50 Mg Tab) 50 mg PO NOW STA Stop: 03/29/20 03:21 Last Admin: 03/29/20 03:52 Dose: 50 mg Documented by: [id number] Metoprolol Tartrate (Metoprolol Tartrate 1 Mg/Ml Vial) 2.5 mg IV NOW STA Stop: 03/29/20 03:31 Last Admin: 03/29/20 03:53 Dose: 2.5 mg Documented by: [id number] Potassium Chloride (Potassium Chloride 20 Meq Tabcr) 40 meq PO NOW STA Stop: 03/29/20 03:32 Last Admin: 03/29/20 03:53 Dose: 40 meq Documented by: [id number] Potassium Chloride/Sodium Chloride (Nss+Kcl 20 Meq 1000ml) Confirm Administered Dose 20 meq .ROUTE .STK-MED ONE Stop: 03/29/20 02:34 Last Admin: 03/29/20 03:17 Dose: 20 meq Documented by: [id number] Medical Decision Making Differential Diagnosis Differential includes acute coronary syndrome, myocardial infarction, CVA, TIA, anemia, infection, pneumonia, UTI, pyelonephritis, poor nutrition, dehydration, electrolyte disturbance,hypoglycemia. Laboratory Data Result diagrams: 03/28/20 23:12 03/28/20 23:12 Lab Results 03/28/20 03/28/20 03/28/20 Range/Units 22:45 23:12 23:12 WBC 11.25 H (4.8-10.8) K/uL RBC 4.72 (4.2-5.4) M/uL Hgb 13.8 (12.0-16.0) g/dL Hct 39.9 (37-47) % MCV 84.5 (80-100) fL MCH 29.2 (25-34) pg MCHC 34.6 (32-36) g/dL RDW Std Deviation 51.6 H (36.4-46.3) fL RDW Coeff of Loco 17.1 H (11.5-14.5) % Plt Count 133 (130-400) K/uL MPV 13.1 H (7.4-10.4) fL Immature Gran % (Auto) 0.7 % Neut % (Auto) 66.5 % Lymph % (Auto) 19.3 % Woodruff % (Auto) 12.2 % Eos % (Auto) 1.0 % Baso % (Auto) 0.3 % Neut # (Auto) 7.49 H (1.4-6.5) K/uL Lymph # (Auto) 2.17 (1.2-3.4) K/uL Woodruff # (Auto) 1.37 H (0.11-0.59) K/uL Eos # (Auto) 0.11 (0-0.5) K/uL Baso # (Auto) 0.03 (0-0.2) K/uL Immature Gran # (Auto) 0.08 H (0.00-0.02) K/uL Platelet Estimate Decreased L (Normal) Polychromasia 1+ Pappenheimer Bodies 1+ Echinocytes 1+ PT (9.0-12.0) Seconds INR (0.9-1.1) APTT (21.0-31.0) Seconds PTT Ratio Sodium 135 L (136-145) mmol/L Potassium 3.6 (3.5-5.1) mmol/L Chloride 108 H (98-107) mmol/L Carbon Dioxide 18 L (21-32) mmol/L Anion Gap 9.0 (3-11) BUN 26 H (7-18) mg/dl Creatinine 2.47 H (0.6-1.2) mg/dl Est Cr Clr Drug Dosing Not Reportable Est GFR ( Amer) 22.8 Est GFR (Non-Af Amer) 19.7 BUN/Creatinine Ratio 10.4 (10-20) Glucose 139 H (70-99) mg/dl POC Glucose 135 H (70-99) mg/dl Calcium 9.5 (8.5-10.1) mg/dl Magnesium 1.4 L (1.8-2.4) mg/dl Total Bilirubin 1.5 H (0.2-1) mg/dl AST 49 H (15-37) U/L ALT 52 (12-78) U/L Alkaline Phosphatase 240 H (45-117) U/L Ammonia (11-32) umol/L Troponin I < 0.015 (0-0.045) ng/ml NT-Pro-B Natriuret Pep 1621 H (0-900) pg/ml Total Protein 6.5 (6.4-8.2) gm/dl Albumin 2.3 L (3.4-5.0) gm/dl Globulin 4.2 H (2.5-4.0) gm/dl Albumin/Globulin Ratio 0.5 L (0.9-2) Lipase 788 H (73-393) U/L TSH 9.580 H (0.300-4.500) uIu/ml Free T4 1.07 (0.8-1.6) ng/dl Urine Color Urine Appearance (Clear) Urine pH (4.5-7.5) Ur Specific Reeves (1.000-1.030) Urine Protein (Negative) Urine Glucose (UA) (Negative) Urine Ketones (Negative) Urine Blood (Negative) Urine Nitrite (Negative) Urine Bilirubin (Negative) Urine Urobilinogen (Negative) Ur Leukocyte Esterase (Negative) Urine WBC (Auto) (0-5) /hpf Urine RBC (Auto) (0-4) /hpf U Hyaline Cast (Auto) (0-5) /lpf U Epithel Cells (Auto) (0-5) /lpf Urine Bacteria (Auto) (Negative) COVID-19 PCR (Negative) 03/28/20 03/28/20 03/29/20 Range/Units 23:12 23:23 00:37 WBC (4.8-10.8) K/uL RBC (4.2-5.4) M/uL Hgb (12.0-16.0) g/dL Hct (37-47) % MCV (80-100) fL MCH (25-34) pg MCHC (32-36) g/dL RDW Std Deviation (36.4-46.3) fL RDW Coeff of Loco (11.5-14.5) % Plt Count (130-400) K/uL MPV (7.4-10.4) fL Immature Gran % (Auto) % Neut % (Auto) % Lymph % (Auto) % Woodruff % (Auto) % Eos % (Auto) % Baso % (Auto) % Neut # (Auto) (1.4-6.5) K/uL Lymph # (Auto) (1.2-3.4) K/uL Woodruff # (Auto) (0.11-0.59) K/uL Eos # (Auto) (0-0.5) K/uL Baso # (Auto) (0-0.2) K/uL Immature Gran # (Auto) (0.00-0.02) K/uL Platelet Estimate (Normal) Polychromasia Pappenheimer Bodies Echinocytes PT 35.1 H (9.0-12.0) Seconds INR 3.6 H (0.9-1.1) APTT 40.4 H (21.0-31.0) Seconds PTT Ratio 1.4 Sodium (136-145) mmol/L Potassium (3.5-5.1) mmol/L Chloride (98-107) mmol/L Carbon Dioxide (21-32) mmol/L Anion Gap (3-11) BUN (7-18) mg/dl Creatinine (0.6-1.2) mg/dl Est Cr Clr Drug Dosing Est GFR ( Amer) Est GFR (Non-Af Amer) BUN/Creatinine Ratio (10-20) Glucose (70-99) mg/dl POC Glucose (70-99) mg/dl Calcium (8.5-10.1) mg/dl Magnesium (1.8-2.4) mg/dl Total Bilirubin (0.2-1) mg/dl AST (15-37) U/L ALT (12-78) U/L Alkaline Phosphatase (45-117) U/L Ammonia 43.0 H (11-32) umol/L Troponin I (0-0.045) ng/ml NT-Pro-B Natriuret Pep (0-900) pg/ml Total Protein (6.4-8.2) gm/dl Albumin (3.4-5.0) gm/dl Globulin (2.5-4.0) gm/dl Albumin/Globulin Ratio (0.9-2) Lipase (73-393) U/L TSH (0.300-4.500) uIu/ml Free T4 (0.8-1.6) ng/dl Urine Color Yellow Urine Appearance Clear (Clear) Urine pH 5.0 (4.5-7.5) Ur Specific Reeves 1.010 (1.000-1.030) Urine Protein Negative (Negative) Urine Glucose (UA) Negative (Negative) Urine Ketones Negative (Negative) Urine Blood Negative (Negative) Urine Nitrite Negative (Negative) Urine Bilirubin Negative (Negative) Urine Urobilinogen Negative (Negative) Ur Leukocyte Esterase Trace H (Negative) Urine WBC (Auto) 5-10 H (0-5) /hpf Urine RBC (Auto) 0-4 (0-4) /hpf U Hyaline Cast (Auto) 1-5 (0-5) /lpf U Epithel Cells (Auto) >30 H (0-5) /lpf Urine Bacteria (Auto) 4+ H (Negative) COVID-19 PCR (Negative) 03/29/20 Range/Units 02:15 WBC (4.8-10.8) K/uL RBC (4.2-5.4) M/uL Hgb (12.0-16.0) g/dL Hct (37-47) % MCV (80-100) fL MCH (25-34) pg MCHC (32-36) g/dL RDW Std Deviation (36.4-46.3) fL RDW Coeff of Loco (11.5-14.5) % Plt Count (130-400) K/uL MPV (7.4-10.4) fL Immature Gran % (Auto) % Neut % (Auto) % Lymph % (Auto) % Woodruff % (Auto) % Eos % (Auto) % Baso % (Auto) % Neut # (Auto) (1.4-6.5) K/uL Lymph # (Auto) (1.2-3.4) K/uL Woodruff # (Auto) (0.11-0.59) K/uL Eos # (Auto) (0-0.5) K/uL Baso # (Auto) (0-0.2) K/uL Immature Gran # (Auto) (0.00-0.02) K/uL Platelet Estimate (Normal) Polychromasia Pappenheimer Bodies Echinocytes PT (9.0-12.0) Seconds INR (0.9-1.1) APTT (21.0-31.0) Seconds PTT Ratio Sodium (136-145) mmol/L Potassium (3.5-5.1) mmol/L Chloride (98-107) mmol/L Carbon Dioxide (21-32) mmol/L Anion Gap (3-11) BUN (7-18) mg/dl Creatinine (0.6-1.2) mg/dl Est Cr Clr Drug Dosing Est GFR ( Amer) Est GFR (Non-Af Amer) BUN/Creatinine Ratio (10-20) Glucose (70-99) mg/dl POC Glucose (70-99) mg/dl Calcium (8.5-10.1) mg/dl Magnesium (1.8-2.4) mg/dl Total Bilirubin (0.2-1) mg/dl AST (15-37) U/L ALT (12-78) U/L Alkaline Phosphatase (45-117) U/L Ammonia (11-32) umol/L Troponin I (0-0.045) ng/ml NT-Pro-B Natriuret Pep (0-900) pg/ml Total Protein (6.4-8.2) gm/dl Albumin (3.4-5.0) gm/dl Globulin (2.5-4.0) gm/dl Albumin/Globulin Ratio (0.9-2) Lipase (73-393) U/L TSH (0.300-4.500) uIu/ml Free T4 (0.8-1.6) ng/dl Urine Color Urine Appearance (Clear) Urine pH (4.5-7.5) Ur Specific Reeves (1.000-1.030) Urine Protein (Negative) Urine Glucose (UA) (Negative) Urine Ketones (Negative) Urine Blood (Negative) Urine Nitrite (Negative) Urine Bilirubin (Negative) Urine Urobilinogen (Negative) Ur Leukocyte Esterase (Negative) Urine WBC (Auto) (0-5) /hpf Urine RBC (Auto) (0-4) /hpf U Hyaline Cast (Auto) (0-5) /lpf U Epithel Cells (Auto) (0-5) /lpf Urine Bacteria (Auto) (Negative) COVID-19 PCR NEGATIVE (Negative) ECG Data Attestation: I personally reviewed and interpreted this ECG as follows: Indication: + weakness Additional Comments: Atrial fibrillation @96 bpm Rightward axis When compared with ECG of 06-MAR-2020 07:42, Atrial fibrillation has replaced Sinus rhythm MDM Narrative Physical exam and history were performed. Nursing notes, EMR, and Medication List were personally reviewed. Patient appears to have reports of generalized weakness over the past few days. She has not been eating or drinking well. IV access was established and labs were obtained. She was hydrated with normal saline. EKG is as above without acute ST elevation. She is back in atrial fibrillation despite having cardioversion 3 weeks ago. The case was seen and evaluated with my attending physician, who also evaluated the patient. An order was placed for continuous cardiac monitoring. The monitor shows a rate of 86 with atrial fib rhythm. The patient's blood work is as above and was reviewed. She does have a mildly elevated white blood cell count of 11.25. She does not have a significant anemia. INR is 3.6. Creatinine is elevated at 2.47, which is much higher than her baseline which is roughly 0.9 based on labs over the past year. Glucose is 139. Mag is slightly low at 1.4. LFTs are slightly elevated, however these appear chronic. Ammonia is 43. Troponin x1 is negative. BNP is 1600. TSH is slightly elevated at 9.5 with a normal T4. Urine is with trace esterase and bacteria, however she is not having UTI symptoms and culture is pending. Overall the patient does not appear well for discharge home. The patient appears to have acute dehydration as well as generalized weakness. She has multiple comorbidities and will likely need further evaluation of her symptoms. I did discuss the case with the on-call hospitalist, who agreed to evaluate her in the ER. Please see their dictation for further patient course, plan, disposition. The chart was completed utilizing [employer] Speech Voice Recognition Software. Grammatical errors, random word insertions, pronoun errors, and incomplete sentences are an occasional consequence of this system due to software limitations, ambient noise, and hardware issues. Any formal questions or concerns about the content, text, or information contained within the body of this dictation should be directly addressed to the provider for clarification. . Impression & Plan Weakness, COTY (acute kidney injury), Acute dehydration Discharge Plan Visit Data Chief Complaint: Weakness Stated Complaint: WEAKNESS, SOB ED Provider: Chon Wallace ED Midlevel Provider: Pancho Baron Discharge Problem: Weakness, COTY (acute kidney injury), Acute dehydration Forms Stand Alone Forms: My [facility] [employer] Prescriptions Prescriptions: No Action venlafaxine 75 mg Tablet 75 mg PO BID RF: 0 calcium carbonate-vitamin D3 [Calcium 600 + D(3)] 600 mg(1,500mg) -200 unit Tablet 2 tab PO BID RF: 0 Flintstones with Iron 18 mg iron Tablet,Chewable 1 tab PO BID RF: 0 Januvia 100 mg Tablet 100 mg PO QAM RF: 0 acetaminophen 500 mg Tablet 500 mg PO Q4 PRN (Reason: Pain) RF: 0 Lantus Solostar U-100 Insulin 100 unit/mL (3 mL) insulin pen 31 unit SC QAM RF: 0 furosemide 40 mg Tablet 60 mg PO AMPM RF: 0 levothyroxine 75 mcg Tablet 75 mcg PO QAM RF: 0 pantoprazole 40 mg Tablet,Delayed Release (Dr/Ec) 40 mg PO QAM RF: 0 diphenhydramine HCl [Benadryl] 25 mg Capsule 25 mg PO Q6H PRN (Reason: Itching) RF: 0 gabapentin 100 mg Capsule 100 mg PO BID RF: 0 lactulose 10 gram/15 mL Solution 60 ml PO 5XD RF: 0 vitamin A acetate 10,000 unit Tablet, Sublingual 20,000 unit PO QAM RF: 0 metoprolol tartrate 50 mg Tablet 75 mg PO BID RF: 0 spironolactone 50 mg Tablet 50 mg PO BID RF: 0 insulin lispro [Humalog KwikPen Insulin] 100 unit/mL Insulin Pen See Rx Instructions .ROUTE .COMPLEX RF: 0 (DME) pen needle, diabetic [Novofine 32] 32 gauge x 1/4" Needle MISCELLANEOUS RF: 0 warfarin 2 mg tablet 2 mg PO QPM RF: 0 zinc sulfate 220 (50) mg capsule 220 mg PO BID RF: 0 Referrals Referrals: Jong Crockett DO [Primary Care Provider] -
[2020-03-28] MEDS ORDERED: SODIUM CHLORIDE 0.9% 1000ML 1,000 ML IV SCH (21:45)
[2020-03-28 23:40] LABS: Alanine Aminotransferase 52 U/L (12-78); Albumin Level 2.3 gm/dl (3.4-5.0); Aspartate Aminotransferase 49 U/L (15-37); BUN Creatinine Ratio 10.4 (10-20); Blood Urea Nitrogen 26 mg/dl (7-18); Calcium 9.5 mg/dl (8.5-10.1); Carbon Dioxide 18 mmol/L (21-32); Chloride 108 mmol/L (98-107); Est GFR (African American) 22.8; Est GFR (Non-African American) 19.7; Glucose 139 mg/dl (70-99); Lipase 788 U/L (73-393); Magnesium 1.4 mg/dl (1.8-2.4); Potassium 3.6 mmol/L (3.5-5.1); Sodium 135 mmol/L (136-145)
[2020-03-28 23:48] LABS: Albumin Globulin Ratio 0.5 (0.9-2); Alkaline Phosphatase 240 U/L (45-117); Bilirubin,Total 1.5 mg/dl (0.2-1); Globulin 4.2 gm/dl (2.5-4.0); NT Pro B Type Natriuretic Pept 1621 pg/ml (0-900); Total Protein 6.5 gm/dl (6.4-8.2); Troponin I < 0.015 ng/ml (0-0.045)
[2020-03-28 23:55] LABS: INR 3.6 (0.9-1.1); Partial Thromboplastin Ratio 1.4; Partial Thromboplastin Time 40.4 Seconds (21.0-31.0); Prothrombin Time 35.1 Seconds (9.0-12.0)
[2020-03-29 00:23] LABS: Hematocrit (blood only) 39.9 % (37-47); Hemoglobin 13.8 g/dL (12.0-16.0); Mean Corpuscular Hemoglobin 29.2 pg (25-34); Mean Corpuscular Hgb Conc 34.6 g/dL (32-36); Mean Corpuscular Volume 84.5 fL (80-100); Mean Platelet Volume 13.1 fL (7.4-10.4); Platelet Count 133 K/uL (130-400); RDW Coefficient of Variation 17.1 % (11.5-14.5); RDW Standard Deviation 51.6 fL (36.4-46.3); Red Blood Count 4.72 M/uL (4.2-5.4); White Blood Count 11.25 K/uL (4.8-10.8)
[2020-03-29 00:24] LABS: Basophils # (auto) 0.03 K/uL (0-0.2); Basophils % (auto) 0.3 %; Echinocytes 1+; Eosinophils # (auto) 0.11 K/uL (0-0.5); Immature Granulocytes # (auto) 0.08 K/uL (0.00-0.02); Immature Granulocytes % (auto) 0.7 %; Lymphocytes # (auto) 2.17 K/uL (1.2-3.4); Lymphocytes % (auto) 19.3 %; Monocytes # (auto) 1.37 K/uL (0.11-0.59); Monocytes % (auto) 12.2 %; Neutrophils # (auto) 7.49 K/uL (1.4-6.5); Neutrophils % (auto) 66.5 %; Pappenheimer Bodies 1+; Platelet Estimate Decreased (Normal); Polychromasia 1+
[2020-03-29 00:51] LABS: Appearance Urine Clear (Clear); Bacteria Urine Automated 4+ (Negative); Bilirubin Urine Negative (Negative); Blood Urine Negative (Negative); Color Urine Yellow; Epithelial Cell Urine Auto >30 /lpf (0-5); Glucose Urine UA Negative (Negative); Ketones Urine Negative (Negative); Leukocyte Esterase Urine Trace (Negative); Nitrite Urine Negative (Negative); Protein Urine Negative (Negative); RBC Urine Automated 0-4 /hpf (0-4); Urobilinogen Urine Negative (Negative)
[2020-03-29 00:52] LABS: T4 Free Thyroxine 1.07 ng/dl (0.8-1.6)
--- NOTE | 2020-03-29 01:26 | Emergency Department Note ---
ED Visit Note The patient was seen and examined with Pancho Baron PA-C. I agree with the history, physical and findings. Please see the note for disposition and details. .
--- NOTE | 2020-03-29 01:27 | History & Physical Report ---
Date of Service March 29, 2020 Assessment & Plan (1) Rapid atrial fibrillation: Recurrent A. fib, hx cardioversion INR supratherapeutic Multifactorial : ARF on CRI 2 to poss overdiuresis, hx CHF, NAFLD cirrhosis status post TIPS on diuretic Rx Viral infection rule out occult bacterial infection chronic diastolic heart failure (EF 55%, TTE 2019), patient on the dry side hypertension, stable hyperlipidemia on statin Rx DM2 insulin requiring, well-controlled as of recent outpatient hemoglobin A1c of 08 Dec 2019 chronic pancytopenia secondary to cirrhosis SAMANTHA on CPAP hx fibromyalgia hypothyroidism, TSH noted to be elevated today and from last outpatient draw from a few days ago past tobacco abuse PCU Facilitate beta-jack, may need dose titration IVF, monitor creatinine response to IVF Continue to hold diuretic Rx Supplement electrolytes N.p.o. until patient seen by cardiology RE possible procedure CS, check lactic acid, check procalcitonin Basal insulin adjusted for n.p.o. status for now, ISS BG goal [id number] DVT prophylaxis. Coumadin INR goal between 2 and 3 Full code Text document was generated using [employer] voice recognition software. It may contain grammatical or spelling errors. Kindly contact undersigned for clarification of any documentation item in question. History of Present Illness Chief Complaint: Shortness of breath, weakness Primary Care Provider: Jong Crockett DO History obtained from patient, family, and records. Medical history significant for chronic diastolic heart failure (EF 55%, TTE 2019), PAF status post cardioversion on Coumadin, hypertension, hyperlipidemia, NAFLD cirrhosis status post TIPS, DM2 insulin requiring, CRI (baseline creatinine 1.3-1.4), chronic pancytopenia (baseline hemoglobin of 10), SAMANTHA on CPAP, hx peptic ulcer disease, history of irritable bowel syndrome, fibromyalgia, hypothyroidism, past tobacco abuse Last confinement March 2019 for hepatic encephalopathy. 3 weeks ago, patient underwent successful DC cardioversion for A. fib by [facility] cardiology outpatient. 2 weeks ago, patient noted shortness of breath with exertion, increased fatigue, minimal abdominal discomfort with lack of appetite and weight loss. No headache. No black/bloody stools. Patient compliant with home meds. No OTC NSAID intake. Patient seen at pmp's office 3 days ago on follow-up. Patient noted to be in recurrent A. fib. Consideration for outpx EP consultation. Outpatient blood work ordered. Serum creatinine noted to be 2.4. Serum TSH noted to be 6.38. Cardiology provider recommended holding diuretics initially for 2 days and lower dosing subsequently. Repeat blood work ordered yesterday. Patient brought to the ER for evaluation. MEDICAL HISTORY: As above. SURGICAL HISTORY: Hysterectomy. Knee surgeries. Gastric bypass, cholecystectomy, nevi removal, paraesophageal hernia repair, bilateral oophorectomy FAMILY HISTORY: Diabetes and heart disease. PERSONAL AND SOCIAL HISTORY: Remote smoking history. No chronic alcohol intake. lives w . Disabled Allergies Allergy/AdvReac Type Severity Reaction Status Date / Time adhesive Allergy Mild RASH AND Verified 03/28/20 23:44 BRUISING Estrogens Allergy Mild SORE AND Verified 03/28/20 23:44 ITCHY repaglinide Allergy Mild RASH Verified 03/28/20 23:44 Sulfa (Sulfonamide Allergy Mild RED RASH Verified 03/28/20 23:44 Antibiotics) NSAIDS (Non-Steroidal AdvReac Unknown not Verified 03/28/20 23:44 Anti-Inflamma allowed to take Home Medications Home Medications Medication Instructions Recorded Confirmed Type calcium carbonate-vitamin D3 2 tab PO BID 07/11/18 03/28/20 History [Calcium 600 + D(3)] venlafaxine 75 mg PO BID 07/11/18 03/28/20 History Flintstones with Iron 1 tab PO BID 11/02/18 03/28/20 History Januvia 100 mg PO QAM 12/25/18 03/28/20 History Lantus Solostar U-100 Insulin 31 unit SC QAM 01/11/19 03/28/20 History acetaminophen 500 mg PO Q4 PRN 01/11/19 03/28/20 History diphenhydramine HCl [Benadryl] 25 mg PO Q6H PRN 03/02/20 03/28/20 History furosemide 60 mg PO AMPM 03/02/20 03/28/20 History gabapentin 100 mg PO BID 03/02/20 03/28/20 History lactulose 60 ml PO 5XD 03/02/20 03/28/20 History levothyroxine 75 mcg PO QAM 03/02/20 03/28/20 History pantoprazole 40 mg PO QAM 03/02/20 03/28/20 History vitamin A acetate 20,000 unit PO QAM 03/02/20 03/28/20 History insulin lispro [Humalog KwikPen See Rx Instructions .ROUTE .COMPLEX 03/06/20 03/28/20 History Insulin] metoprolol tartrate 75 mg PO BID 03/06/20 03/28/20 History pen needle, diabetic [Novofine 32] 03/06/20 03/06/20 History spironolactone 50 mg PO BID 03/06/20 03/28/20 History warfarin 2 mg PO QPM 03/28/20 03/28/20 History zinc sulfate 220 mg PO BID 03/28/20 03/28/20 History Past Med/Surg History Medical History Anemia Atrial fibrillation reason for procedure on 03/06/20 > coumadin Depression Diabetes mellitus, type II Diabetic neuropathy Esophageal varices no issues at present Factor V Leiden Fibromyalgia GERD (gastroesophageal reflux disease) Hepatic encephalopathy Hypertension Hypothyroidism Liver cirrhosis secondary to MARIA Migraine hx Nausea and vomiting after administration of anesthetic agent SAMANTHA (obstructive sleep apnea) cpap Osteoporosis Portal hypertension Thrombocytopenia Surgical History H/O oophorectomy History of appendectomy History of cardiac cath 9 yrs ago> no stents History of colonoscopy History of dilatation and curettage History of esophagogastroduodenoscopy (EGD) History of hysterectomy History of tooth extraction History of total right knee replacement Hx laparoscopic cholecystectomy S/P gastric bypass with hiatal hernia repair S/P left knee arthroscopy S/P repair of paraesophageal hernia S/P TIPS (transjugular intrahepatic portosystemic shunt) placed Jun 2018 > [place] Family History Mother Family history of diabetes mellitus Father Family history of diabetes mellitus Brother Family history of diabetes mellitus 2 Social History Smoking Status: Former smoker Second Hand Exposure: No; Hx Alcohol Use: No Hx Substance Use: No Preferred Language: Faroese Communication Ability: Effective Custom Clothier Required: No Beliefs That Will Affect Care: None marital status: Current Living Situation: Spouse current occupational status: retired Other Information That Helps Us Care for You: No Feels Safe at Home: Yes Safety Concerns: Feels Safe At This Time Review of Systems Review of Systems: As per HPI, all 10 systems reviewed, all other ROS negative Physical Exam Physical Exam: GENERAL: Comfortable, no respiratory distress SKIN: Pallor , warm HEENT: pale palpebral conjunctivae, no ptosis, dry buccal mucosa NECK : Supple, no tenderness CHEST : CTA, no tenderness HEART : Irregular, tachycardic , no obvious murmurs ABDOMEN: Some distention, nontender EXTREMITIES : No LE swelling/tenderness, no other conspicuous deformities noted NEUROLOGIC : Coherent, no facial asymmetry, no other gross focality Results & Data Results & Data ([place]) Vital Signs (Past 12 Hours) Vital Signs Temp Pulse Pulse Resp BP BP Pulse Ox 03/29/20 00:38 90 14 93 03/29/20 00:20 91 H 14 100 03/29/20 00:10 95 H 14 100 03/29/20 00:00 94 H 16 132/77 97 03/28/20 23:50 97 H 14 98 03/28/20 23:40 102 H 16 100 03/28/20 23:30 99 H 13 100 03/28/20 23:24 105 H 14 121/82 03/28/20 23:20 95 H 15 03/28/20 23:10 104 H 15 03/28/20 23:00 93 H 15 03/28/20 22:50 104 H 13 03/28/20 22:40 105 H 15 03/28/20 22:30 99 H 17 03/28/20 22:20 95 H 14 03/28/20 22:10 95 H 14 03/28/20 22:09 90 15 03/28/20 22:07 93 H 18 117/73 96 03/28/20 22:06 90 13 117/73 03/28/20 20:31 37.0 C 86 20 118/80 100 Laboratory Results Laboratory Results WBC 11.25 K/uL (4.8-10.8) H 03/28/20 23:12 RBC 4.72 M/uL (4.2-5.4) 03/28/20 23:12 Hgb 13.8 g/dL (12.0-16.0) 03/28/20 23:12 Hct 39.9 % (37-47) 03/28/20 23:12 MCV 84.5 fL (80-100) 03/28/20 23:12 MCH 29.2 pg (25-34) 03/28/20 23:12 MCHC 34.6 g/dL (32-36) 03/28/20 23:12 RDW Std Deviation 51.6 fL (36.4-46.3) H 03/28/20 23:12 RDW Coeff of Loco 17.1 % (11.5-14.5) H 03/28/20 23:12 Plt Count 133 K/uL (130-400) 03/28/20 23:12 MPV 13.1 fL (7.4-10.4) H 03/28/20 23:12 Immature Gran % (Auto) 0.7 % 03/28/20 23:12 Neut % (Auto) 66.5 % 03/28/20 23:12 Lymph % (Auto) 19.3 % 03/28/20 23:12 [place] % (Auto) 12.2 % 03/28/20 23:12 Eos % (Auto) 1.0 % 03/28/20 23:12 Baso % (Auto) 0.3 % 03/28/20 23:12 Neut # (Auto) 7.49 K/uL (1.4-6.5) H 03/28/20 23:12 Lymph # (Auto) 2.17 K/uL (1.2-3.4) 03/28/20 23:12 [place] # (Auto) 1.37 K/uL (0.11-0.59) H 03/28/20 23:12 Eos # (Auto) 0.11 K/uL (0-0.5) 03/28/20 23:12 Baso # (Auto) 0.03 K/uL (0-0.2) 03/28/20 23:12 Immature Gran # (Auto) 0.08 K/uL (0.00-0.02) H 03/28/20 23:12 Platelet Estimate Decreased (Normal) L 03/28/20 23:12 Polychromasia 1+ 03/28/20 23:12 Pappenheimer Bodies 1+ 03/28/20 23:12 Echinocytes 1+ 03/28/20 23:12 PT 35.1 Seconds (9.0-12.0) H 03/28/20 23:23 INR 3.6 (0.9-1.1) H 03/28/20 23:23 APTT 40.4 Seconds (21.0-31.0) H 03/28/20 23:23 PTT Ratio 1.4 03/28/20 23:23 Sodium 135 mmol/L (136-145) L 03/28/20 23:12 Potassium 3.6 mmol/L (3.5-5.1) 03/28/20 23:12 Chloride 108 mmol/L (98-107) H 03/28/20 23:12 Carbon Dioxide 18 mmol/L (21-32) L 03/28/20 23:12 Anion Gap 9.0 (3-11) 03/28/20 23:12 BUN 26 mg/dl (7-18) H 03/28/20 23:12 Creatinine 2.47 mg/dl (0.6-1.2) H 03/28/20 23:12 Est Cr Clr Drug Dosing Not Reportable 03/28/20 23:12 Est GFR ( Amer) 22.8 03/28/20 23:12 Est GFR (Non-Af Amer) 19.7 03/28/20 23:12 BUN/Creatinine Ratio 10.4 (10-20) 03/28/20 23:12 Glucose 139 mg/dl (70-99) H 03/28/20 23:12 POC Glucose 135 mg/dl (70-99) H 03/28/20 22:45 Calcium 9.5 mg/dl (8.5-10.1) 03/28/20 23:12 Magnesium 1.4 mg/dl (1.8-2.4) L 03/28/20 23:12 Total Bilirubin 1.5 mg/dl (0.2-1) H 03/28/20 23:12 AST 49 U/L (15-37) H 03/28/20 23:12 ALT 52 U/L (12-78) 03/28/20 23:12 Alkaline Phosphatase 240 U/L (45-117) H 03/28/20 23:12 Ammonia 43.0 umol/L (11-32) H 03/28/20 23:12 Troponin I < 0.015 ng/ml (0-0.045) 03/28/20 23:12 NT-Pro-B Natriuret Pep 1621 pg/ml (0-900) H 03/28/20 23:12 Total Protein 6.5 gm/dl (6.4-8.2) 03/28/20 23:12 Albumin 2.3 gm/dl (3.4-5.0) L 03/28/20 23:12 Globulin 4.2 gm/dl (2.5-4.0) H 03/28/20 23:12 Albumin/Globulin Ratio 0.5 (0.9-2) L 03/28/20 23:12 Lipase 788 U/L (73-393) H 03/28/20 23:12 TSH 9.580 uIu/ml (0.300-4.500) H 03/28/20 23:12 Free T4 1.07 ng/dl (0.8-1.6) 03/28/20 23:12 Urine Color Yellow 03/29/20 00:37 Urine Appearance Clear (Clear) 03/29/20 00:37 Urine pH 5.0 (4.5-7.5) 03/29/20 00:37 Ur Specific [place] 1.010 (1.000-1.030) 03/29/20 00:37 Urine Protein Negative (Negative) 03/29/20 00:37 Urine Glucose (UA) Negative (Negative) 03/29/20 00:37 Urine Ketones Negative (Negative) 03/29/20 00:37 Urine Blood Negative (Negative) 03/29/20 00:37 Urine Nitrite Negative (Negative) 03/29/20 00:37 Urine Bilirubin Negative (Negative) 03/29/20 00:37 Urine Urobilinogen Negative (Negative) 03/29/20 00:37 Ur Leukocyte Esterase Trace (Negative) H 03/29/20 00:37 Urine WBC (Auto) 5-10 /hpf (0-5) H 03/29/20 00:37 Urine RBC (Auto) 0-4 /hpf (0-4) 03/29/20 00:37 U Hyaline Cast (Auto) 1-5 /lpf (0-5) 03/29/20 00:37 U Epithel Cells (Auto) >30 /lpf (0-5) H 03/29/20 00:37 Urine Bacteria (Auto) 4+ (Negative) H 03/29/20 00:37 Diagnostic Findings Chest x-ray as per my interpretation no infiltrate CT abdomen pelvis initial read: Small amount of air urinary bladder correlate with bladder instrumentation. No appendicitis. Cirrhotic liver. TIPS shunt seen in situ. Gastric bypass surgery, cholecystectomy. Cecum located right upper abdomen. EKG as per my interpretation : Rate 95, A. fib, RAD, T wave abnormality septal leads
[2020-03-29] MEDS ORDERED: NSS+KCL 20 MEQ 1000ML ONE (02:33)
[2020-03-29] MEDS ORDERED: NSS + 20MEQ KCL 20 MEQ/1,000 ML BAG IV ONE (03:18)
[2020-03-29] MEDS ORDERED: MAGNESIUM SULFATE / D5W 1 GM/100 ML BAG IV STA (03:18)
[2020-03-29] MEDS ORDERED: METOPROLOL TARTRATE 50 MG TAB PO STA (03:20)
[2020-03-29] MEDS ORDERED: POTASSIUM CHLORIDE 20 MEQ TABCR PO STA ×2 (03:30→03:31)
[2020-03-29] MEDS ORDERED: METOPROLOL TARTRATE 1 MG/ML VIAL IV STA (03:30)
[2020-03-29] MEDS ORDERED: METOPROLOL TARTRATE 25 MG TAB PO STA (04:40)
[2020-03-29] MEDS ORDERED: CARBOHYDRATES FOR HYPOGLYCEMIA PO PRN (05:12)
[2020-03-29] MEDS ORDERED: GLUCOSE 10 TABS/TUBE PO PRN (05:12)
[2020-03-29] MEDS ORDERED: GLUCOSE 40% GEL 15 GM TUBE PO PRN (05:12)
[2020-03-29] MEDS ORDERED: GLUCAGON FOR INJ 1 MG VIAL SQ PRN (05:12)
[2020-03-29] MEDS ORDERED: PROMETHAZINE HCL 12.5 MG in SODIUM CHLORIDE 0.9% 50 ML IV PRN (05:12)
[2020-03-29] MEDS ORDERED: ACETAMINOPHEN 325 MG TAB PO PRN (05:12)
[2020-03-29] MEDS ORDERED: DEXTROSE 50% 50 ML SYRINGE IV PRN (05:12)
[2020-03-29] MEDS ORDERED: TRAMADOL HCL 50 MG TABLET PO PRN (05:12)
[2020-03-29] MEDS ORDERED: guaiFENesin SUGAR FREE 200 MG/10 ML UDC PO PRN (05:12)
[2020-03-29] MEDS ORDERED: NITROGLYCERIN SL 0.4 MG/TAB TAB SL PRN (05:12)
[2020-03-29] MEDS: LEVOTHYROXINE SODIUM 75 MCG TABLET PO SCH (06:11)
[2020-03-29] MEDS: INSULIN ASPART 100 UNITS/ML 3 ML PEN SC SCH ×5 (06:12→21:03)
[2020-03-29] MEDS: MAGNESIUM SULFATE / D5W 1 GM/100 ML BAG IV SCH ×2 (06:22→08:22)
--- NOTE | 2020-03-29 07:16 | XRay Report ---
XR chest 1V portable CLINICAL HISTORY: weakness COMPARISON STUDY: 03/24/2019 FINDINGS: The cardiac and mediastinal contours are normal. There is no evidence of focal pulmonary co nsolidation. There is no evidence of failure. No pleural effusions are visualized.[A right upper quad rant hepatic vein stent is visualized. IMPRESSION: No active disease in the chest. ACT 112: Negative or not required by law. Electronically signed by: [place] M.D. 03/29/2020 7:15 AM
[2020-03-29 07:19] LABS: Mean Corpuscular Hgb Conc 35.2 g/dL (32-36)
[2020-03-29 07:34] LABS: Hematocrit (blood only) 40.3 % (37-47); Hemoglobin 14.2 g/dL (12.0-16.0); Mean Corpuscular Hemoglobin 29.5 pg (25-34); Mean Corpuscular Volume 83.8 fL (80-100); RDW Coefficient of Variation 17.2 % (11.5-14.5); RDW Standard Deviation 52.2 fL (36.4-46.3); Red Blood Count 4.81 M/uL (4.2-5.4); White Blood Count 10.65 K/uL (4.8-10.8)
[2020-03-29 07:45] LABS: Albumin Level 2.1 gm/dl (3.4-5.0); BUN Creatinine Ratio 11.9 (10-20); Creatinine Clr Calc Pharmacy 25.5 ml/min; Est GFR (African American) 27.9; Est GFR (Non-African American) 24.1; Potassium 3.7 mmol/L (3.5-5.1)
[2020-03-29 07:48] LABS: Albumin Globulin Ratio 0.5 (0.9-2); Bilirubin,Total 1.9 mg/dl (0.2-1); Globulin 3.9 gm/dl (2.5-4.0); INR 3.6 (0.9-1.1)
[2020-03-29 07:52] LABS: Basophils # (auto) 0.03 K/uL (0-0.2); Basophils % (auto) 0.3 %; Echinocytes 1+; Eosinophils # (auto) 0.16 K/uL (0-0.5); Eosinophils % (auto) 1.5 %; Immature Granulocytes # (auto) 0.05 K/uL (0.00-0.02); Immature Granulocytes % (auto) 0.5 %; Lymphocytes # (auto) 2.26 K/uL (1.2-3.4); Lymphocytes % (auto) 21.2 %; Mean Platelet Volume 12.3 fL (7.4-10.4); Monocytes # (auto) 1.02 K/uL (0.11-0.59); Monocytes % (auto) 9.6 %; Neutrophils # (auto) 7.13 K/uL (1.4-6.5); Neutrophils % (auto) 66.9 %; Platelet Count 124 K/uL (130-400); Platelet Estimate Decreased (Normal)
[2020-03-29] MEDS ORDERED: PNEUMOCOCCAL Polysaccharide Vaccine 25mcg/0.5mL vial/Syr IM ONE (08:00)
[2020-03-29] MEDS: LACTULOSE SYRUP 20 GM/30 ML UDC PO SCH ×6 (08:19→21:07)
[2020-03-29] MEDS: VENLAFAXINE HCL 37.5 MG TAB PO SCH ×2 (08:20→17:10)
[2020-03-29] MEDS: INSULIN GLARGINE SOLOSTAR 100 UNITS/ML 3 ML PEN SC SCH (08:21)
[2020-03-29] MEDS: GABAPENTIN 100 MG CAP PO SCH ×2 (08:21→21:04)
[2020-03-29] MEDS: PANTOprazole 40 MG TAB PO SCH (08:21)
[2020-03-29] MEDS: METOPROLOL TARTRATE 25 MG TAB PO SCH ×2 (08:21→21:04)
--- NOTE | 2020-03-29 08:25 | CT Scan Report ---
ABDOMEN AND PELVIS CT WITHOUT CONTRAST CT DOSE: 423.31 mGy.cm HISTORY: Generalized abdominal pain. TECHNIQUE: Multiaxial CT images of the abdomen and pelvis were performed without contrast. A dose lo wering technique was utilized adhering to the principles of ALARA. COMPARISON STUDY: Abdomen and pelvis CT 12/25/2018. FINDINGS: Calcified granuloma within the right middle lobe. The left lung base is clear. No suspiciou s lytic or blastic osseous lesions. Small hiatus hernia. Evidence for prior gastric bypass. There is also evidence for a prior TIPS. The stent appears in good position. Cirrhotic liver. The gallbladder appears surgically absent. Trace subcapsular splenic fluid collection has slightly decreased in size. This measures 4 mm in thickness. This is chronic. The adrenal glands and pancreas are unremarkable. No renal stones or hydronephrosis. Subcentimeter exophytic hypodense lesion within the left kidney is technically too small to characterize but statistically represents a cyst. No retroperitoneal lympha denopathy. Normal caliber abdominal aorta. Small amount of gas within the bladder. The uterus is surg ically absent. No pelvic free fluid. Suboptimal evaluation for bowel pathology due to the lack of int ravenous and oral contrast. However, there is no definite bowel wall thickening or obstruction. The a ppendix is not identified and reportedly surgically absent. IMPRESSION: 1. Postoperative changes as described above. 2. Cirrhotic liver with prior TIPS. 3. No definite bowel wall thickening or obstruction. 4. Gas within the bladder lumen. This could be due to prior catheterization. Clinical correlation rec ommended. 5. Chronic trace subcapsular splenic fluid collection. This has improved in the interval. ACT 112: Negative or not required by law. Electronically signed by: Andrew Mcnally M.D. 03/29/2020 8:23 AM
--- NOTE | 2020-03-29 08:40 | Electrocardiogram Report ---
Test Reason : Blood Pressure : / mmHG Vent. Rate : 096 BPM Atrial Rate : 089 BPM P-R Int : 000 ms QRS Dur : 098 ms QT Int : 346 ms P-R-T Axes : 000 095 044 degrees QTc Int : 437 ms Poor data quality, interpretation may be adversely affected Atrial fibrillation Rightward axis Abnormal ECG When compared with ECG of 06-MAR-2020 07:42, Atrial fibrillation has replaced Sinus rhythm Vent. rate has increased BY 39 BPM Confirmed by Lamont Pepper ([id number]) on 03/29/2020 8:40:46 AM Referred By: REFERRED SELF Confirmed By:Lamont Pepper
[2020-03-29 09:21] LABS: T3 Total 0.35 ng/ml (0.60-1.81)
[2020-03-29 10:00] LABS: Act87 Hepatitis C IgG Screen Neg (Neg)
[2020-03-29] MEDS: POTASSIUM CHLORIDE 40 MEQ in SODIUM CHLORIDE 0.9% 1000ML 1,000 ML IV SCH (11:23)
[2020-03-29] MEDS ORDERED: Nursing to Pharmacy Communication SCH (12:00)
[2020-03-29] MEDS: dilTIAZem HCL 180 MG CAPCR PO SCH (16:01)
--- NOTE | 2020-03-29 16:16 | Cardiology Consultation ---
Date of Consultation March 29, 2020 Assessment & Plan (1) Rapid atrial fibrillation: (2) COTY (acute kidney injury): (3) Liver cirrhosis secondary to MARIA: Unfortunately, she is now failed her fourth cardioversion. I do not believe there will be any benefit of repeating at this time and ul timately she will will likely require pulmonary vein isolation. Given her ongoing symptoms we will undertake a rate control strategy at this time and I will start Cardizem CD 180 mg p.o. daily onto her regimen. Her blood pressures are borderline low so we will hold off on adjusting her metoprolol at this time. Her Coumadin will be continued uninterrupted Continue to monitor on telemetry anticipate discharge once heart rate and symptoms are controlled. History of Present Illness Reason for Consultation: symptomatic atrial fibrillation with rapid ventricular response Requesting Physician: Dr. Lan Attending Physician: Violet Lan, DO History of Present Illness Mrs. York is a very pleasant 64-year-old woman who is been followed very closely with her cardiology practice for her history of paroxysmal atrial fibrillation. She presented to [facility] with recurrence of her atrial fibrillation despite undergoing recent DC cardioversion. She states that she was feeling well for several weeks after most recent cardioversion, unfortunately, her symptoms returned a few weeks ago. She states that she has been very short of breath and very tired. These are normal symptoms. Unfortunately given her multiple medical comorbidities including cirrhosis and chronic kidney disease antiarrhythmic options are limited. Electrophysiology consultation for possible PVI has already been scheduled. Past medical history as per most recent outpatient cardiology visit: 1. Persistent atrial fibrillation, symptomatic. S/P Cardioversion on 03/06 with return to NSR, now with recurrent afib. -[id number] -Vac = 3 (DM, Female, age >65) -ongoing symptoms with dyspnea with exertion -continue coumadin for goal INR 2-3. 2. History of diastolic HF exacerbation secondary to afib RVR. -appears euvolemic on current diuretics. 3. Dyspnea, decline in functional capacity - likely due to afib. Negative nuclear stress test 4. Chronic borderline resting hypotension related to cirrhosis - stable. Tolerating metoprolol 5. MARIA cirrhosis S/P TIPS complicated by ascites, encephalopathy, and esophageal varices. NIA not recommended. 6. Hypothyroidism -dose of Synthroid reduced due to low TSH - repeat TSH stable 7. DM-2: controlled 8. Fatigue/lethargy reported by patient/ with decline in appetite. Concerning for hepatic encephalopathy? Allergies Allergy/AdvReac Type Severity Reaction Status Date / Time adhesive Allergy Mild RASH AND Verified 03/28/20 23:44 BRUISING Estrogens Allergy Mild SORE AND Verified 03/28/20 23:44 ITCHY repaglinide Allergy Mild RASH Verified 03/28/20 23:44 Sulfa (Sulfonamide Allergy Mild RED RASH Verified 03/28/20 23:44 Antibiotics) NSAIDS (Non-Steroidal AdvReac Unknown not Verified 03/28/20 23:44 Anti-Inflamma allowed to take Home Medications Home Medications Medication Instructions Recorded Confirmed Type calcium carbonate-vitamin D3 2 tab PO BID 07/11/18 03/28/20 History [Calcium 600 + D(3)] venlafaxine 75 mg PO BID 07/11/18 03/28/20 History Flintstones with Iron 1 tab PO BID 11/02/18 03/28/20 History Januvia 100 mg PO QAM 12/25/18 03/28/20 History Lantus Solostar U-100 Insulin 31 unit SC QAM 01/11/19 03/28/20 History acetaminophen 500 mg PO Q4 PRN 01/11/19 03/28/20 History diphenhydramine HCl [Benadryl] 25 mg PO Q6H PRN 03/02/20 03/28/20 History furosemide 60 mg PO AMPM 03/02/20 03/28/20 History gabapentin 100 mg PO BID 03/02/20 03/28/20 History lactulose 60 ml PO 5XD 03/02/20 03/28/20 History levothyroxine 75 mcg PO QAM 03/02/20 03/28/20 History pantoprazole 40 mg PO QAM 03/02/20 03/28/20 History vitamin A acetate 20,000 unit PO QAM 03/02/20 03/28/20 History insulin lispro [Humalog KwikPen See Rx Instructions .ROUTE .COMPLEX 03/06/20 03/28/20 History Insulin] metoprolol tartrate 75 mg PO BID 03/06/20 03/28/20 History pen needle, diabetic [Novofine 32] 03/06/20 03/06/20 History spironolactone 50 mg PO BID 03/06/20 03/28/20 History warfarin 2 mg PO QPM 03/28/20 03/28/20 History zinc sulfate 220 mg PO BID 03/28/20 03/28/20 History Patient History Medical History Anemia Atrial fibrillation reason for procedure on 03/06/20 > coumadin Depression Diabetes mellitus, type II Diabetic neuropathy Esophageal varices no issues at present Factor V Leiden Fibromyalgia GERD (gastroesophageal reflux disease) Hepatic encephalopathy Hypertension Hypothyroidism Liver cirrhosis secondary to MARIA Migraine hx Nausea and vomiting after administration of anesthetic agent SAMANTHA (obstructive sleep apnea) cpap Osteoporosis Portal hypertension Thrombocytopenia Surgical History H/O oophorectomy History of appendectomy History of cardiac cath 9 yrs ago> no stents History of colonoscopy History of dilatation and curettage History of esophagogastroduodenoscopy (EGD) History of hysterectomy History of tooth extraction History of total right knee replacement Hx laparoscopic cholecystectomy S/P gastric bypass with hiatal hernia repair S/P left knee arthroscopy S/P repair of paraesophageal hernia S/P TIPS (transjugular intrahepatic portosystemic shunt) placed Jun 2018 > [place] Family History Mother Family history of diabetes mellitus Father Family history of diabetes mellitus Brother Family history of diabetes mellitus 2 Social History Smoking Status: Former smoker Second Hand Exposure: No; Hx Alcohol Use: No Hx Substance Use: No Preferred Language: New Zealander Communication Ability: Effective Newspaper Vendor Required: No Beliefs That Will Affect Care: None marital status: Current Living Situation: Spouse current occupational status: retired Other Information That Helps Us Care for You: No Feels Safe at Home: Yes Safety Concerns: Feels Safe At This Time Review of Systems Review of Systems: All systems reviewed & are unremarkable except as noted in HPI & below Physical Exam Physical Exam: General: Awake, alert and oriented x 3. No acute distress. HEENT: Normocephalic, atraumatic. Pupils equal, round and reactive to light and accommodation. Extraocular muscles are intact. Anicteric sclera. Moist mucous membranes. Neck: No JVD. No bruit. Cardiovascular: irregularly irregular, unable to appreciate murmur, rub or gallop. Pulmonary: Clear to auscultation bilaterally. No rales, rhonchi, or wheezing. Abdomen: Bowel sounds x 4, soft. No rebound, guarding or tenderness. No organomegaly. Extremities: No clubbing, cyanosis or edema. +2 pedal pulses bilaterally. Skin: Warm and dry. Results & Data ([facility]) Vital Signs (Past 12 Hours) Vital Signs Temp Pulse Pulse Resp BP BP BP 03/29/20 11:09 36.5 C 90 18 117/78 03/29/20 07:50 36.7 C 95 H 18 118/86 03/29/20 04:58 36.4 C L 74 18 134/92 03/29/20 04:30 94 H 22 140/80 03/29/20 04:20 104 H 21 03/29/20 04:10 96 H 15 03/29/20 04:01 95 H 18 139/86 03/29/20 04:00 98 H 14 03/29/20 03:52 106 H 26 H 117/70 03/29/20 03:50 101 H 19 03/29/20 03:40 107 H 16 03/29/20 03:30 109 H 15 03/29/20 03:20 99 H 15 03/29/20 03:10 127 H 15 03/29/20 03:00 113 H 13 133/81 03/29/20 02:50 101 H 13 03/29/20 02:40 102 H 17 03/29/20 02:30 97 H 15 Pulse Ox 03/29/20 11:09 100 03/29/20 07:50 100 03/29/20 04:58 100 03/29/20 04:30 100 03/29/20 04:20 99 03/29/20 04:10 100 03/29/20 04:01 100 03/29/20 04:00 97 03/29/20 03:52 100 03/29/20 03:50 97 03/29/20 03:40 99 03/29/20 03:30 96 03/29/20 03:20 99 03/29/20 03:10 97 03/29/20 03:00 100 03/29/20 02:50 99 03/29/20 02:40 99 03/29/20 02:30 100
--- NOTE | 2020-03-29 16:44 | Hospitalist Progress Note ---
Date of Service March 29, 2020 Assessment & Plan (1) Rapid atrial fibrillation: DCCV earlier this week which failed. INR is therapeutic. She is being referred to [facility] for consideration of further treatments. Cardiology is going for rate control strategy and is adding Cardizem to Metoprolol. (2) Acute renal failure: Multifactorial secondary to poor p.o. intake in last couple of weeks as well as concurrent diuretic compliance in setting of cirrhosis. Held diuretics and continue IV fluids as creatinine is improving (3) Acute dehydration: Lactated Ringer's to be given overnight. (4) Hepatic encephalopathy: She does appear encephalopathic. Continue lactulose dosing for goal 2-3 bowel movements daily. Continue supportive care as needed. (5) Diabetes mellitus, type II: Basal bolus insulin while admitted. (6) Depression: Continue venlafaxine per home regimen. (7) S/P TIPS (transjugular intrahepatic portosystemic shunt): In setting of cirrhosis. (8) Liver cirrhosis secondary to MARIA: Continue current plan as above including holding diuretics for now. (9) Esophageal varices: No overt bleeding. (10) SAMANTHA (obstructive sleep apnea): CPAP qHS (11) UTI (urinary tract infection): Asymptomatic however lower legs are weak. Will await for preliminary culture results for empiric abx therapy. (12) Thrombocytopenia: chronic 2/2 cirrhosis (13) DVT prophylaxis: Warfarin Full Code Dispo-plan for home when medically stable, however, with leg weakness will wait for PT and OT recommendations. Violet Lan DO [facility] Hospitalist Admission and Anticipated Discharge Date Admission Date: March 29, 2020 Subjective Pt is feeling better She understands that she has failed multiple DCCV and has an upcoming appointment for EP assessment next month She denies any SOB, CP or palpitations. She is slow to articulate her thoughts and therefore appears encephalopathic. She reports not eating or drinking much over the past 1-2 weeks, and has been compliant with diuretics. She is s/p TIPS in the past for h/o cirrhosis. She denies any fevers, abdominal pain or weight gain. She instead reports weight loss because of the lack of PO intake. Review of Systems Review of Systems: All systems reviewed & are unremarkable except as noted in Subjective Physical Exam Physical Exam: CONSTITUTIONAL: WNWD, vitals as above, generally well- appearing but is slower to respond to questions. EYES: normal conjunctivae, no scleral icterus ENT: external ear and nose normal, oropharynx clear NECK: trachea midline RESPIRATORY: clear to auscultation bilaterally, no crackles, rales or wheezes, normal respiratory effort CARDIOVASCULAR: regular rate and rhythm, S1 and 2 heard without murmurs, gallops or rubs, no JVD, no peripheral edema GASTROINTESTINAL: soft, nontender, no hepatomegaly, no guarding, no fluid wave present. MUSCULOSKELETAL: moves all extremities equally, head is normocephalic and atraumatic SKIN: warm and dry, no jaundice NEUROLOGIC: No facial palsy, no dysarthria. CN 2-12 grossly intact, no sensory deficit, normal cognition, normal speech, no tremor PSYCHIATRIC: alert cooperative and oriented to person, place and time. Results & Data Results & Data ([facility]) Vital Signs (Past 12 Hours) Vital Signs Temp Pulse Resp BP BP Pulse Ox 03/29/20 15:17 36.6 C 96 H 16 118/79 100 03/29/20 11:09 36.5 C 90 18 117/78 100 03/29/20 07:50 36.7 C 95 H 18 118/86 100 03/29/20 04:58 36.4 C L 74 18 134/92 100 Laboratory Results Short CBC 03/28/20 03/29/20 Range/Units 23:12 06:45 WBC 11.25 H 10.65 (4.8-10.8) K/uL Hgb 13.8 14.2 (12.0-16.0) g/dL Hct 39.9 40.3 (37-47) % Plt Count 133 124 L (130-400) K/uL BMP 03/28/20 03/29/20 23:12 06:45 Sodium 135 L 138 Potassium 3.6 3.7 Chloride 108 H 111 H Carbon Dioxide 18 L 19 L BUN 26 H 25 H Creatinine 2.47 H 2.09 H D Glucose 139 H 107 H Calcium 9.5 9.0 Cardiac Enzymes 03/28/20 Range/Units 23:12 Troponin I < 0.015 (0-0.045) ng/ml Liver Function 03/28/20 03/29/20 Range/Units 23:12 06:45 Total Bilirubin 1.5 H 1.9 H (0.2-1) mg/dl AST 49 H 41 H (15-37) U/L ALT 52 48 (12-78) U/L Alkaline Phosphatase 240 H 229 H (45-117) U/L Albumin 2.3 L 2.1 L (3.4-5.0) gm/dl Urine 03/29/20 Range/Units 00:37 Urine Color Yellow Urine Appearance Clear (Clear) Urine pH 5.0 (4.5-7.5) Ur Specific [place] 1.010 (1.000-1.030) Urine Protein Negative (Negative) Urine Glucose (UA) Negative (Negative) Medications Administered Current Inpatient Medications Acetaminophen (Acetaminophen 325 Mg Tab) 325 mg PO Q6H PRN PRN Reason: Mild Pain Stop: 04/28/20 05:11 Dextrose (Dextrose 50% 50 Ml Syringe) 25 - 50 ml IV UD PRN; Protocol PRN Reason: Hypoglycemia Protocol Stop: 04/28/20 05:11 Diltiazem HCl (Diltiazem Hcl 180 Mg Capcr) 180 mg PO QAM [facility] Stop: 04/28/20 14:29 Last Admin: 03/29/20 16:01 Dose: 180 mg Documented by: Gabapentin (Gabapentin 100 Mg Cap) 100 mg PO BID JOEY Stop: 04/28/20 08:59 Last Admin: 03/29/20 08:21 Dose: 100 mg Documented by: Glucagon (Glucagon For Inj 1 Mg Vial) 1 mg SQ UD PRN; Protocol PRN Reason: Hypoglycemia Protocol Stop: 04/28/20 05:11 Glucose (Glucose 10 Tabs/Tube) 4 - 8 tabs PO UD PRN; Protocol PRN Reason: Hypoglycemia Protocol Stop: 04/28/20 05:11 Glucose (Glucose 40% Gel 15 Gm Tube) 15 - 30 gm PO UD PRN; Protocol PRN Reason: Hypoglycemia Protocol Stop: 04/28/20 05:11 Guaifenesin (Guaifenesin Sugar Free 200 Mg/10 Ml Udc) 200 mg PO Q6H PRN PRN Reason: Cough Stop: 04/28/20 05:11 Promethazine HCl 12.5 mg/ (Sodium Chloride) 50.5 mls @ 202 mls/hr IV Q6H PRN PRN Reason: Nausea And Vomiting Stop: 04/28/20 05:11 Potassium Chloride 40 meq/ (Sodium Chloride) 1,020 mls @ 60 mls/hr IV .Q17H JOEY Stop: 04/28/20 09:59 Last Admin: 03/29/20 11:23 Dose: 60 mls/hr Documented by: Insulin Aspart (Insulin Aspart 100 Units/Ml 3 Ml Pen) 0 units SC ACHS JOEY Stop: 04/28/20 12:04 Last Admin: 03/29/20 12:16 Dose: Not Given Documented by: Insulin Glargine (Insulin Glargine Solostar 100 Units/Ml 3 Ml Pen) 5 units SC DAILY JOEY Stop: 04/28/20 08:59 Last Admin: 03/29/20 08:21 Dose: 5 units Documented by: Lactulose (Lactulose Syrup 20 Gm/30 Ml Udc) 40 gm PO 5XDQ4H [facility] Stop: 04/28/20 06:59 Last Admin: 03/29/20 16:01 Dose: 40 gm Documented by: Levothyroxine Sodium (Levothyroxine Sodium 75 Mcg Tablet) 75 mcg PO DAILYBB [facility] Stop: 04/28/20 06:29 Last Admin: 03/29/20 06:11 Dose: 75 mcg Documented by: Metoprolol Tartrate (Metoprolol Tartrate 25 Mg Tab) 75 mg PO BID [facility] Stop: 04/28/20 08:59 Last Admin: 03/29/20 08:21 Dose: 75 mg Documented by: Miscellaneous (Carbohydrates For Hypoglycemia ) 15 - 30 gm PO UD PRN PRN Reason: Hypoglycemia Protocol Stop: 04/28/20 05:11 Nitroglycerin (Nitroglycerin Sl 0.4 Mg/Tab Tab) 0.4 mg SL UD PRN PRN Reason: Chest Pain Stop: 04/28/20 05:11 Pantoprazole Sodium (Pantoprazole 40 Mg Tab) 40 mg PO QAM [facility] Stop: 04/28/20 08:59 Last Admin: 03/29/20 08:21 Dose: 40 mg Documented by: Tramadol HCl (Tramadol Hcl 50 Mg Tablet) 25 - 50 mg PO Q4H PRN PRN Reason: Pain Stop: 04/28/20 05:11 Venlafaxine HCl (Venlafaxine Hcl 37.5 Mg Tab) 75 mg PO BIDM [facility] Stop: 04/28/20 07:59 Last Admin: 03/29/20 08:20 Dose: 75 mg Documented by: (1) Esophageal varices Esophageal varices bleeding: without bleeding Esophageal varices type: secondary Qualified Code(s): I85.10 - Secondary esophageal varices without bleeding
[2020-03-30] MEDS: POTASSIUM CHLORIDE 40 MEQ in SODIUM CHLORIDE 0.9% 1000ML 1,000 ML IV SCH (02:41)
[2020-03-30] MEDS: LEVOTHYROXINE SODIUM 75 MCG TABLET PO SCH (05:51)
[2020-03-30 06:20] LABS: Mean Corpuscular Hgb Conc 34.6 g/dL (32-36)
[2020-03-30 06:25] LABS: INR 2.6 (0.9-1.1); Prothrombin Time 26.1 Seconds (9.0-12.0)
[2020-03-30 06:40] LABS: Basophils # (auto) 0.04 K/uL (0-0.2); Basophils % (auto) 0.3 %; Eosinophils # (auto) 0.16 K/uL (0-0.5); Eosinophils % (auto) 1.3 %; Hematocrit (blood only) 38.4 % (37-47); Hemoglobin 13.3 g/dL (12.0-16.0); Immature Granulocytes # (auto) 0.07 K/uL (0.00-0.02); Immature Granulocytes % (auto) 0.6 %; Lymphocytes # (auto) 2.27 K/uL (1.2-3.4); Lymphocytes % (auto) 18.3 %; Mean Corpuscular Hemoglobin 29.6 pg (25-34); Mean Corpuscular Volume 85.3 fL (80-100); Mean Platelet Volume 12.2 fL (7.4-10.4); Monocytes # (auto) 1.37 K/uL (0.11-0.59); Neutrophils # (auto) 8.49 K/uL (1.4-6.5); Neutrophils % (auto) 68.5 %; Platelet Count 126 K/uL (130-400); Platelet Estimate Decreased (Normal); RDW Coefficient of Variation 17.6 % (11.5-14.5); RDW Standard Deviation 53.6 fL (36.4-46.3)
[2020-03-30 07:01] LABS: BUN Creatinine Ratio 13.9 (10-20); Calcium 8.6 mg/dl (8.5-10.1); Creatinine Clr Calc Pharmacy 32.6 ml/min; Est GFR (African American) 37.1; Magnesium 2.3 mg/dl (1.8-2.4); Potassium 3.9 mmol/L (3.5-5.1)
[2020-03-30] MEDS: INSULIN ASPART 100 UNITS/ML 3 ML PEN SC SCH ×4 (08:08→21:06)
[2020-03-30] MEDS: INSULIN GLARGINE SOLOSTAR 100 UNITS/ML 3 ML PEN SC SCH (08:10)
[2020-03-30] MEDS: GABAPENTIN 100 MG CAP PO SCH ×3 (08:11→21:13)
[2020-03-30] MEDS: dilTIAZem HCL 180 MG CAPCR PO SCH (08:11)
[2020-03-30] MEDS: VENLAFAXINE HCL 37.5 MG TAB PO SCH ×2 (08:11→16:56)
[2020-03-30] MEDS: METOPROLOL TARTRATE 25 MG TAB PO SCH (08:12)
[2020-03-30] MEDS: PANTOprazole 40 MG TAB PO SCH (08:13)
[2020-03-30] MEDS ORDERED: cefTRIAXone SODIUM 1,000 MG in DEXTROSE 5% 50 ML IV SCH (10:30)
[2020-03-30] MEDS: cefTRIAXone SODIUM 1,000 MG in DEXTROSE 5% 50 ML IV SCH (11:02)
[2020-03-30] MEDS: LACTULOSE SYRUP 20 GM/30 ML UDC PO SCH ×4 (11:02→22:35)
[2020-03-30] MEDS ORDERED: SODIUM CHLORIDE 0.9% 500 ML IV SCH (12:15)
[2020-03-30] MEDS ORDERED: SODIUM CHLORIDE 0.9% 500 ML IV STA (12:22)
[2020-03-30] MEDS: SODIUM CHLORIDE 0.9% 1000ML 1,000 ML IV SCH ×2 (13:14→21:04)
[2020-03-30] MEDS ORDERED: CALCIUM GLUCONATE 10% 2,000 MG in SODIUM CHLORIDE 0.9% 50 ML IV ONE (13:15)
[2020-03-30] MEDS ORDERED: ATROPINE SULFATE 0.1 MG/ML 10ML SYR IV ONE ×2 (13:30→13:33)
--- NOTE | 2020-03-30 14:10 | Electrocardiogram Report ---
Test Reason : Blood Pressure : / mmHG Vent. Rate : 040 BPM Atrial Rate : 326 BPM P-R Int : 000 ms QRS Dur : 088 ms QT Int : 514 ms P-R-T Axes : 000 103 101 degrees QTc Int : 418 ms Atrial fibrillation with slow ventricular response Rightward axis Abnormal ECG When compared with ECG of 28-MAR-2020 22:04, Vent. rate has decreased BY 56 BPM Otherwise no significant change Confirmed by Lamont Pepper ([id number]) on 03/30/2020 2:09:51 PM Referred By: REFERRED SELF Confirmed By:Lamont Pepper
--- NOTE | 2020-03-30 16:27 | Cardiology Progress Note ---
Date of Service March 30, 2020 Assessment & Plan (1) Rapid atrial fibrillation: (2) COTY (acute kidney injury): (3) Liver cirrhosis secondary to MARIA: Unfortunately, she is now failed her fourth cardioversion. I do not believe there will be any benefit of repeating at this time and luis bill she will will likely require pulmonary vein isolation. Given her ongoing symptoms we will undertake a rate control strategy at this time and I will start Cardizem CD 180 mg p.o. daily onto her regimen. Unfortunately her heart rate now dropped considerably with the addition of the Cardizem. At this point I will give her IV fluids, atropine and calcium gluconate after discussion with our pharmacy team. Obviously, her evening metoprolol will be held. After receiving the above treatment her heart rates are improving to the 60s and she is feeling somewhat better. Continue to monitor on telemetry overnight. At this point, my hope is that this does not represent tachybradycardia syndrome rather an exaggerated response to medication and believe she will benefit from follow-up with EP as an outpatient that is already scheduled. Continue Coumadin Admission and Anticipated Discharge Date Admission Date: March 29, 2020 Subjective Patient seen and examined, chart reviewed. States that she is feeling weak and tired today but otherwise okay. No palpitations or shortness of breath at rest. Telemetry reviewed: Atrial fibrillation with rates decreasing from the 130s to 50s overnight. Review of Systems Review of Systems: All systems reviewed & are unremarkable except as noted in HPI & below Physical Exam Physical Exam: General: Awake, alert and oriented x 3. No acute distress. HEENT: Normocephalic, atraumatic. Pupils equal, round and reactive to light and accommodation. Extraocular muscles are intact. Anicteric sclera. Moist mucous membranes. Neck: No JVD. No bruit. Cardiovascular: irregularly irregular, unable to appreciate murmur, rub or gallop. Pulmonary: Clear to auscultation bilaterally. No rales, rhonchi, or wheezing. Abdomen: Bowel sounds x 4, soft. No rebound, guarding or tenderness. No organomegaly. Extremities: No clubbing, cyanosis or edema. +2 pedal pulses bilaterally. Skin: Warm and dry. Results & Data ([facility]) Vital Signs (Past 12 Hours) Vital Signs Temp Pulse Pulse Resp BP BP Pulse Ox 03/30/20 15:22 36.4 C L 50 L 16 106/61 99 03/30/20 14:00 42 L 105/68 03/30/20 11:52 36.3 C L 41 L 17 90/53 L 100 03/30/20 08:00 54 L 03/30/20 07:19 36.3 C L 60 16 119/75 95
[2020-03-30] MEDS ORDERED: SUCRALFATE 1 GM/10 ML UDC PO ONE (18:51)
[2020-03-30] MEDS ORDERED: ACETAMINOPHEN 500 MG TAB PO ONE (18:52)
--- NOTE | 2020-03-30 18:53 | Hospitalist Progress Note ---
Date of Service March 30, 2020 Assessment & Plan (1) Rapid atrial fibrillation: DCCV earlier this week which failed. INR is therapeutic. She is being referred to [facility] for consideration of further treatments. Cardiology is going for rate control strategy and added Cardizem to Metoprolol. HR dropped into 40s, however, and calcium was given to reverse the diltiazem. HR improved into the 60s. Cardizem redosed to 120 daily in addition to Metoprolol 75 BID per home regimen. (2) Acute renal failure: Multifactorial secondary to poor p.o. intake in last couple of weeks as well as concurrent diuretic compliance in setting of cirrhosis. Held diuretics and continue IV fluids as creatinine is improving. (3) Acute dehydration: Improved renal function overnight. (4) Hepatic encephalopathy: She does appear encephalopathic. Continue lactulose dosing for goal 2-3 bowel movements daily. Continue supportive care as needed. (5) Diabetes mellitus, type II: Basal bolus insulin while admitted. (6) Depression: Continue venlafaxine per home regimen. (7) S/P TIPS (transjugular intrahepatic portosystemic shunt): In setting of cirrhosis. (8) Liver cirrhosis secondary to MARIA: Continue current plan as above including holding diuretics for now with persistent renal failure and while on fluids. (9) Esophageal varices: No overt bleeding. (10) SAMANTHA (obstructive sleep apnea): CPAP qHS (11) UTI (urinary tract infection): No urinary symptoms however, she has bilateral leg weakness. GNB + on UCx. Started Rocephin empirically pending clinical improvement and culture results. (12) Thrombocytopenia: chronic 2/2 cirrhosis (13) DVT prophylaxis: Warfarin Full Code Dispo-plan for home when medically stable, however, with leg weakness will wait for PT and OT recommendations. Violet Lan DO [facility] Hospitalist Admission and Anticipated Discharge Date Admission Date: March 29, 2020 Subjective 64 yo pt with Hepatic encephalopathy and dehydration-recently lost her son one week ago. Was sent in for afib that had reoccurred despite recent DCCV. 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 She was given Calcium supplementation but still reports severe abdominal pain. She reports having 3 BMs so far today with lactulose. She is otherwise feeling well and denies other symptoms. Denies lightheadedness or nausea. Review of Systems Review of Systems: All systems reviewed & are unremarkable except as noted in Subjective Physical Exam Physical Exam: CONSTITUTIONAL: WNWD, vitals as above, generally well- appearing but is still slow to respond to questions. EYES: normal conjunctivae, no scleral icterus ENT: external ear and nose normal, MMM NECK: trachea midline RESPIRATORY: clear to auscultation bilaterally, no crackles, rales or wheezes, normal respiratory effort CARDIOVASCULAR: regular rate and rhythm, S1 and 2 heard without murmurs, gallops or rubs, no JVD, no peripheral edema GASTROINTESTINAL: soft, nontender, no hepatomegaly, no guarding, no fluid wave present. MUSCULOSKELETAL: moves all extremities equally, head is normocephalic and atraumatic SKIN: warm and dry, no jaundice NEUROLOGIC: No facial palsy, no dysarthria. CN 2-12 grossly intact, no sensory deficit, normal cognition, normal speech, no tremor PSYCHIATRIC: alert cooperative and oriented to person, place and time. Results & Data Results & Data ([facility]) Vital Signs (Past 12 Hours) Vital Signs Temp Pulse Pulse Resp BP BP Pulse Ox 03/30/20 16:00 48 L 03/30/20 15:22 36.4 C L 50 L 16 106/61 99 03/30/20 14:00 42 L 105/68 03/30/20 11:52 36.3 C L 41 L 17 90/53 L 100 03/30/20 08:00 54 L 03/30/20 07:19 36.3 C L 60 16 119/75 95 Laboratory Results Short CBC 03/30/20 Range/Units 05:56 WBC 12.40 H (4.8-10.8) K/uL Hgb 13.3 (12.0-16.0) g/dL Hct 38.4 (37-47) % Plt Count 126 L (130-400) K/uL BMP 03/30/20 05:56 Sodium 138 Potassium 3.9 Chloride 115 H Carbon Dioxide 15 L BUN 23 H Creatinine 1.65 H D Glucose 131 H Calcium 8.6 Medications Administered Current Inpatient Medications Acetaminophen (Acetaminophen 325 Mg Tab) 325 mg PO Q6H PRN PRN Reason: Mild Pain Stop: 04/28/20 05:11 Last Admin: 03/30/20 08:07 Dose: 325 mg Documented by: Acetaminophen (Acetaminophen 500 Mg Tab) 500 mg PO ONE ONE Stop: 03/30/20 18:53 Dextrose (Dextrose 50% 50 Ml Syringe) 25 - 50 ml IV UD PRN; Protocol PRN Reason: Hypoglycemia Protocol Stop: 04/28/20 05:11 Diltiazem HCl (Diltiazem Hcl 120 Mg Capcr) 120 mg PO QAM JOEY Stop: 04/30/20 08:59 Gabapentin (Gabapentin 100 Mg Cap) 100 mg PO BID JOEY Stop: 04/28/20 08:59 Last Admin: 03/30/20 08:11 Dose: 100 mg Documented by: Glucagon (Glucagon For Inj 1 Mg Vial) 1 mg SQ UD PRN; Protocol PRN Reason: Hypoglycemia Protocol Stop: 04/28/20 05:11 Glucose (Glucose 10 Tabs/Tube) 4 - 8 tabs PO UD PRN; Protocol PRN Reason: Hypoglycemia Protocol Stop: 04/28/20 05:11 Glucose (Glucose 40% Gel 15 Gm Tube) 15 - 30 gm PO UD PRN; Protocol PRN Reason: Hypoglycemia Protocol Stop: 04/28/20 05:11 Guaifenesin (Guaifenesin Sugar Free 200 Mg/10 Ml Udc) 200 mg PO Q6H PRN PRN Reason: Cough Stop: 04/28/20 05:11 Promethazine HCl 12.5 mg/ (Sodium Chloride) 50.5 mls @ 202 mls/hr IV Q6H PRN PRN Reason: Nausea And Vomiting Stop: 04/28/20 05:11 Ceftriaxone Sodium 1,000 mg/ (Dextrose) 60 mls @ 100 mls/hr IV DAILY JOEY; Protocol Stop: 04/04/20 10:29 Last Infusion: 03/30/20 11:35 Dose: Infused Documented by: Sodium Chloride (Nss 1000ml) 1,000 mls @ 125 mls/hr IV .Q8H [facility] Stop: 04/29/20 13:14 Last Admin: 03/30/20 13:14 Dose: 125 mls/hr Documented by: Insulin Aspart (Insulin Aspart 100 Units/Ml 3 Ml Pen) 0 units SC ACHS JOEY Stop: 04/28/20 12:04 Last Admin: 03/30/20 16:54 Dose: 7 units Documented by: Insulin Glargine (Insulin Glargine Solostar 100 Units/Ml 3 Ml Pen) 5 units SC DAILY [facility] Stop: 04/28/20 08:59 Last Admin: 03/30/20 08:10 Dose: 5 units Documented by: Lactulose (Lactulose Syrup 20 Gm/30 Ml Udc) 40 gm PO 5XDQ4H [facility] Stop: 04/28/20 06:59 Last Admin: 03/30/20 16:17 Dose: 40 gm Documented by: Levothyroxine Sodium (Levothyroxine Sodium 75 Mcg Tablet) 75 mcg PO DAILYBB [facility] Stop: 04/28/20 06:29 Last Admin: 03/30/20 05:51 Dose: 75 mcg Documented by: Metoprolol Tartrate (Metoprolol Tartrate 25 Mg Tab) 75 mg PO BID [facility] Stop: 04/28/20 08:59 Last Admin: 03/30/20 08:12 Dose: 75 mg Documented by: Miscellaneous (Carbohydrates For Hypoglycemia ) 15 - 30 gm PO UD PRN PRN Reason: Hypoglycemia Protocol Stop: 04/28/20 05:11 Miscellaneous Information (Nursing To Pharmacy Communication) 1 ea N/A TODAY [facility] Stop: 04/29/20 18:59 Nitroglycerin (Nitroglycerin Sl 0.4 Mg/Tab Tab) 0.4 mg SL UD PRN PRN Reason: Chest Pain Stop: 04/28/20 05:11 Pantoprazole Sodium (Pantoprazole 40 Mg Tab) 40 mg PO QAM [facility] Stop: 04/28/20 08:59 Last Admin: 03/30/20 08:13 Dose: 40 mg Documented by: Sucralfate (Sucralfate 1 Gm/10 Ml Udc) 1 gm PO ONE ONE Stop: 03/30/20 18:52 Tramadol HCl (Tramadol Hcl 50 Mg Tablet) 25 - 50 mg PO Q4H PRN PRN Reason: Pain Stop: 04/28/20 05:11 Venlafaxine HCl (Venlafaxine Hcl 37.5 Mg Tab) 75 mg PO BIDM [facility] Stop: 04/28/20 07:59 Last Admin: 03/30/20 16:56 Dose: 75 mg Documented by: (1) Esophageal varices Esophageal varices bleeding: without bleeding Esophageal varices type: secondary Qualified Code(s): I85.10 - Secondary esophageal varices without bleeding
[2020-03-30] MEDS ORDERED: Nursing to Pharmacy Communication SCH (19:00)
[2020-03-31] MEDS: SODIUM CHLORIDE 0.9% 1000ML 1,000 ML IV SCH (04:00)
--- NOTE | 2020-03-31 05:32 | Communication Note ---
Date of Service: March 31, 2020 Notified by RN around 5 AM of abdominal discomfort worse on bladder scanning, weight gain of 6 pounds. No unusual diarrhea symptoms as per RN. CT abdomen pelvis initial read: Small ascites, TIPS stent, cirrhotic liver. Moderate colonic distention possible ileus. Urinary bladder air correlate with bladder instrumentation. AP Abdominal pain, possible colonic ileus on initial CT read Weight gain of 6 pounds, possible fluid overload, hx cirrhosis Clear liquids for now Follow official CT read Hold IVF, may need diuretic Rx pending a.m. chem results Will relay to AM provider.
[2020-03-31 06:11] LABS: INR 3.1 (0.9-1.1); Prothrombin Time 30.5 Seconds (9.0-12.0)
[2020-03-31] MEDS: LEVOTHYROXINE SODIUM 75 MCG TABLET PO SCH (06:28)
[2020-03-31] MEDS: LACTULOSE SYRUP 20 GM/30 ML UDC PO SCH ×2 (06:29→11:46)
[2020-03-31 06:30] LABS: Albumin Level 2.2 gm/dl (3.4-5.0); BUN Creatinine Ratio 10.9 (10-20); Bilirubin Direct 1.1 mg/dl (0-0.2); Bilirubin,Total 2.3 mg/dl (0.2-1); Calcium 8.7 mg/dl (8.5-10.1); Creatinine Clr Calc Pharmacy 22.4 ml/min; Est GFR (African American) 22.8; Est GFR (Non-African American) 19.7; Magnesium 2.2 mg/dl (1.8-2.4); Potassium 4.9 mmol/L (3.5-5.1); Total Protein 6.3 gm/dl (6.4-8.2)
[2020-03-31 06:36] LABS: Basophils # (auto) 0.01 K/uL (0-0.2); Echinocytes 1+; Hematocrit (blood only) 41.9 % (37-47); Immature Granulocytes # (auto) 0.31 K/uL (0.00-0.02); Immature Granulocytes % (auto) 1.1 %; Lymphocytes # (auto) 1.62 K/uL (1.2-3.4); Lymphocytes % (auto) 5.5 %; Mean Corpuscular Hemoglobin 29.7 pg (25-34); Mean Corpuscular Hgb Conc 33.4 g/dL (32-36); Mean Platelet Volume 12.8 fL (7.4-10.4); Monocytes # (auto) 1.03 K/uL (0.11-0.59); Monocytes % (auto) 3.5 %; Neutrophils # (auto) 26.34 K/uL (1.4-6.5); Neutrophils % (auto) 89.9 %; Nucleated RBC # (auto) 0.02 K/uL (0-0); Nucleated RBC % (auto) 0.1 %; Platelet Count 145 K/uL (130-400); RDW Coefficient of Variation 17.8 % (11.5-14.5); RDW Standard Deviation 57.3 fL (36.4-46.3); Red Blood Count 4.71 M/uL (4.2-5.4); White Blood Count 29.31 K/uL (4.8-10.8)
--- NOTE | 2020-03-31 07:11 | CT Scan Report ---
CT SCAN OF THE ABDOMEN AND PELVIS WITHOUT IV CONTRAST CLINICAL HISTORY: Generalized abdominal pain. COMPARISON STUDY: Abdominal CT dated 03/29/2020. TECHNIQUE: CT scan of the abdomen and pelvis is performed from the lung bases to the proximal femora. Images are reviewed in the axial, sagittal, and coronal planes. IV contrast was not administered for this examination. A dose lowering technique was utilized adhering to the principles of ALARA. FINDINGS: Lung bases: The heart is normal in size and without pericardial effusion. The lung bases are clear. Liver: The unenhanced liver is cirrhotic in morphology and heterogeneous in attenuation. There is nod ularity of the hepatic surface contour. A TIPS catheter is noted in the right lobe. There is no intra hepatic biliary ductal dilatation. Gallbladder: Surgically absent noting clips in the gallbladder fossa. Spleen: Spleen is normal in size and attenuation. Trace subcapsular splenic fluid/blood has not signi ficantly changed. This measures up to 6 mm in thickness. Pancreas: The unenhanced pancreas is moderately atrophic and grossly unremarkable. Adrenal glands: Unremarkable. Kidneys: The unenhanced kidneys are atrophic and without hydronephrosis. There are no renal calculi i dentified. There is no evidence of contour deforming renal mass lesion. Abdominal vasculature: The abdominal aorta is normal in course and caliber noting moderate atheroscle rotic calcification. Stomach and bowel: There is a small hiatal hernia. 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 The small bowel loops in the pelvis are mildly distended and fluid -filled. The colon is distended and fluid-filled noting air-fluid levels. There is no significant col onic wall thickening. Minimal pericolonic infiltration is suggested. The right colon and transverse c olon measure up to 8 cm in diameter. No transition point is identified to suggest obstruction. The ap pendix is well-visualized and normal. Peritoneum: There is trace perihepatic ascites which has modestly increased from 03/29/2020. No intrap eritoneal free air is seen. Lymphadenopathy: None. Pelvic viscera: Foci of intraluminal gas are noted in the bladder. The bladder is otherwise normal as visualized. The uterus is surgically absent. No adnexal lesion is seen. Skeletal structures: The skeletal structures are osteopenic. There is mild lumbosacral spondylosis. N o lytic or blastic lesions are seen. IMPRESSION: 1. Findings suggest a nonspecific enterocolitis with distention of the right colon. Clinical correlat ion will be required. 2. There is no evidence of high-grade bowel obstruction. Correlate clinically for evidence of ileus. 3. Cirrhotic liver morphology status post TIPS. 4. There is a small volume of perihepatic ascites which has increased from 03/29/2020. 5. A small subcapsular fluid collection of the spleen is unchanged from previous. 6. Foci of gas within the bladder lumen are nonspecific and may be related to instrumentation. Correl ation with clinical findings and urinalysis will be required. 7. Additional findings as above. ACT 112: Negative or not required by law. Electronically signed by: Chino Sauer M.D. 03/31/2020 7:10 AM
[2020-03-31] MEDS: cefTRIAXone SODIUM 1,000 MG in DEXTROSE 5% 50 ML IV SCH (07:35)
[2020-03-31] MEDS: PANTOprazole 40 MG TAB PO SCH (07:35)
[2020-03-31] MEDS: VENLAFAXINE HCL 37.5 MG TAB PO SCH (07:36)
[2020-03-31] MEDS: GABAPENTIN 100 MG CAP PO SCH (07:36)
[2020-03-31] MEDS: INSULIN GLARGINE SOLOSTAR 100 UNITS/ML 3 ML PEN SC SCH (07:36)
[2020-03-31] MEDS: INSULIN ASPART 100 UNITS/ML 3 ML PEN SC SCH ×2 (07:45→11:49)
[2020-03-31] MEDS ORDERED: dilTIAZem HCL 120 MG CAPCR PO SCH (09:00)
--- NOTE | 2020-03-31 11:12 | Cardiology Progress Note ---
Date of Service March 31, 2020 Assessment & Plan (1) Rapid atrial fibrillation: (2) COTY (acute kidney injury): (3) Liver cirrhosis secondary to MARIA: The patient has persistent atrial fibrillation. She has failed multiple cardioversions and due to her cirrhosis she is not a good candidate for most antiarrhythmic medications. The best option is for rate control. She currently is on diltiazem 120 mg daily only. Heart rates are in the 50s to 60 range on this medication. The metoprolol is on hold. The patient had abdominal pain through the night and had a CT, the results are still pending. From a cardiac standpoint she is stable. Admission and Anticipated Discharge Date Admission Date: March 29, 2020 Subjective Patient is resting and arousable. Review of Systems Review of Systems: All systems reviewed & are unremarkable except as noted in HPI & below Nothing additional to add Physical Exam Physical Exam: General: no acute distress and stated age Head: normocephalic, no masses, lesions, tenderness or abnormalities Eyes: conjunctiva are pink and non-injected, sclera clear Neck: supple, no adenopathy, no bruits, normal jugular venous pulse, no hepatojugular reflux Chest: normal shape and normal respiratory effort Lungs: clear to auscultation and percussion Cardiac Exam: - regular rate & rhythm, no murmurs gallops or rubs - normal S1, normal S2 Pulses: 2(+) throughout Abdomen: abdomen soft, non-tender, no abnormal masses and no hepatosplenomegaly Musculoskeletal: no gait disturbance, no joint inflammation, no deforming arthritis Extremities: no edema and no cyanosis Neuro: grossly normal exam Results & Data ([facility]) Vital Signs (Past 12 Hours) Vital Signs Temp Pulse Pulse Resp BP Pulse Ox 03/31/20 08:16 36.5 C 74 18 132/69 97 03/31/20 04:00 36.6 C 77 16 126/81 97 03/31/20 03:17 48 L 20 96 03/31/20 00:00 36.4 C L 49 L 57 L 20 116/67 100 Laboratory Results Laboratory Results - last 24 hr 03/30/20 03/30/20 03/30/20 11:41 16:32 20:31 WBC RBC Hgb Hct MCV MCH MCHC RDW Std Deviation RDW Coeff of Loco Plt Count MPV Immature Gran % (Auto) Neut % (Auto) Lymph % (Auto) Evangeline % (Auto) Eos % (Auto) Baso % (Auto) Neut # (Auto) Lymph # (Auto) Evangeline # (Auto) Eos # (Auto) Baso # (Auto) Immature Gran # (Auto) Absolute Nucleated RBC Nucleated RBC % (auto) Echinocytes PT INR Sodium Potassium Chloride Carbon Dioxide Anion Gap BUN Creatinine Est Cr Clr Drug Dosing Est GFR ( Amer) Est GFR (Non-Af Amer) BUN/Creatinine Ratio Glucose POC Glucose 269 H 268 H 298 H Calcium Magnesium Total Bilirubin Direct Bilirubin AST ALT Alkaline Phosphatase Total Protein Albumin Lipase 03/31/20 03/31/20 03/31/20 05:37 05:37 05:37 WBC 29.31 H D RBC 4.71 Hgb 14.0 Hct 41.9 MCV 89.0 MCH 29.7 MCHC 33.4 RDW Std Deviation 57.3 H RDW Coeff of Loco 17.8 H Plt Count 145 MPV 12.8 H Immature Gran % (Auto) 1.1 Neut % (Auto) 89.9 Lymph % (Auto) 5.5 Evangeline % (Auto) 3.5 Eos % (Auto) 0.0 Baso % (Auto) 0.0 Neut # (Auto) 26.34 H Lymph # (Auto) 1.62 Evangeline # (Auto) 1.03 H Eos # (Auto) 0.00 Baso # (Auto) 0.01 Immature Gran # (Auto) 0.31 H Absolute Nucleated RBC 0.02 H Nucleated RBC % (auto) 0.1 Echinocytes 1+ PT 30.5 H INR 3.1 H Sodium 136 Potassium 4.9 D Chloride 114 H Carbon Dioxide 11 L Anion Gap 11.0 BUN 27 H Creatinine 2.47 H D Est Cr Clr Drug Dosing 22.4 Est GFR ( Amer) 22.8 Est GFR (Non-Af Amer) 19.7 BUN/Creatinine Ratio 10.9 Glucose 295 H POC Glucose Calcium 8.7 Magnesium 2.2 Total Bilirubin 2.3 H Direct Bilirubin 1.1 H AST 55 H ALT 61 Alkaline Phosphatase 246 H Total Protein 6.3 L Albumin 2.2 L Lipase 1033 H 03/31/20 07:38 WBC RBC Hgb Hct MCV MCH MCHC RDW Std Deviation RDW Coeff of Loco Plt Count MPV Immature Gran % (Auto) Neut % (Auto) Lymph % (Auto) Evangeline % (Auto) Eos % (Auto) Baso % (Auto) Neut # (Auto) Lymph # (Auto) Evangeline # (Auto) Eos # (Auto) Baso # (Auto) Immature Gran # (Auto) Absolute Nucleated RBC Nucleated RBC % (auto) Echinocytes PT INR Sodium Potassium Chloride Carbon Dioxide Anion Gap BUN Creatinine Est Cr Clr Drug Dosing Est GFR ( Amer) Est GFR (Non-Af Amer) BUN/Creatinine Ratio Glucose POC Glucose 264 H Calcium Magnesium Total Bilirubin Direct Bilirubin AST ALT Alkaline Phosphatase Total Protein Albumin Lipase Medications Administered Current Inpatient Medications Acetaminophen (Acetaminophen 325 Mg Tab) 325 mg PO Q6H PRN PRN Reason: Mild Pain Stop: 04/28/20 05:11 Last Admin: 03/30/20 08:07 Dose: 325 mg Documented by: Dextrose (Dextrose 50% 50 Ml Syringe) 25 - 50 ml IV UD PRN; Protocol PRN Reason: Hypoglycemia Protocol Stop: 04/28/20 05:11 Diltiazem HCl (Diltiazem Hcl 120 Mg Capcr) 120 mg PO QAM [facility] Stop: 04/30/20 08:59 Last Admin: 03/31/20 07:35 Dose: 120 mg Documented by: Gabapentin (Gabapentin 100 Mg Cap) 100 mg PO BID JOEY Stop: 04/28/20 08:59 Last Admin: 03/31/20 07:36 Dose: 100 mg Documented by: Glucagon (Glucagon For Inj 1 Mg Vial) 1 mg SQ UD PRN; Protocol PRN Reason: Hypoglycemia Protocol Stop: 04/28/20 05:11 Glucose (Glucose 10 Tabs/Tube) 4 - 8 tabs PO UD PRN; Protocol PRN Reason: Hypoglycemia Protocol Stop: 04/28/20 05:11 Glucose (Glucose 40% Gel 15 Gm Tube) 15 - 30 gm PO UD PRN; Protocol PRN Reason: Hypoglycemia Protocol Stop: 04/28/20 05:11 Guaifenesin (Guaifenesin Sugar Free 200 Mg/10 Ml Udc) 200 mg PO Q6H PRN PRN Reason: Cough Stop: 04/28/20 05:11 Promethazine HCl 12.5 mg/ (Sodium Chloride) 50.5 mls @ 202 mls/hr IV Q6H PRN PRN Reason: Nausea And Vomiting Stop: 04/28/20 05:11 Ceftriaxone Sodium 1,000 mg/ (Dextrose) 60 mls @ 100 mls/hr IV DAILY [facility]; Protocol Stop: 04/04/20 10:29 Last Admin: 03/31/20 07:35 Dose: 100 mls/hr Documented by: Sodium Chloride (Nss 1000ml) 1,000 mls @ 125 mls/hr IV .Q8H [facility] Stop: 04/29/20 13:14 Last Infusion: 03/31/20 05:11 Dose: 0 mls/hr Documented by: Insulin Aspart (Insulin Aspart 100 Units/Ml 3 Ml Pen) 0 units SC ACHS [facility] Stop: 04/28/20 12:04 Last Admin: 03/31/20 07:45 Dose: 4 units Documented by: Insulin Glargine (Insulin Glargine Solostar 100 Units/Ml 3 Ml Pen) 5 units SC DAILY [facility] Stop: 04/28/20 08:59 Last Admin: 03/31/20 07:36 Dose: 5 units Documented by: Lactulose (Lactulose Syrup 20 Gm/30 Ml Udc) 40 gm PO [id number] [facility] Stop: 04/28/20 06:59 Last Admin: 03/31/20 06:29 Dose: 40 gm Documented by: Levothyroxine Sodium (Levothyroxine Sodium 75 Mcg Tablet) 75 mcg PO DAILYBB [facility] Stop: 04/28/20 06:29 Last Admin: 03/31/20 06:28 Dose: 75 mcg Documented by: Metoprolol Tartrate (Metoprolol Tartrate 25 Mg Tab) 75 mg PO BID [facility] Stop: 04/28/20 08:59 Last Admin: 03/30/20 08:12 Dose: 75 mg Documented by: Miscellaneous (Carbohydrates For Hypoglycemia ) 15 - 30 gm PO UD PRN PRN Reason: Hypoglycemia Protocol Stop: 04/28/20 05:11 Nitroglycerin (Nitroglycerin Sl 0.4 Mg/Tab Tab) 0.4 mg SL UD PRN PRN Reason: Chest Pain Stop: 04/28/20 05:11 Pantoprazole Sodium (Pantoprazole 40 Mg Tab) 40 mg PO QAM [facility] Stop: 04/28/20 08:59 Last Admin: 03/31/20 07:35 Dose: 40 mg Documented by: Tramadol HCl (Tramadol Hcl 50 Mg Tablet) 25 - 50 mg PO Q4H PRN PRN Reason: Pain Stop: 04/28/20 05:11 Venlafaxine HCl (Venlafaxine Hcl 37.5 Mg Tab) 75 mg PO BIDM [facility] Stop: 04/28/20 07:59 Last Admin: 03/31/20 07:36 Dose: 75 mg Documented by:
[2020-03-31] MEDS ORDERED: HYDROmorphone INJ 0.5 MG/0.5 ML SYR IV STA (12:32)
[2020-03-31 13:30] LABS: Mean Corpuscular Hgb Conc 34.1 g/dL (32-36)
[2020-03-31 13:52] LABS: Hematocrit (blood only) 41.1 % (37-47); Mean Corpuscular Hemoglobin 29.7 pg (25-34); Mean Corpuscular Volume 87.3 fL (80-100); RDW Coefficient of Variation 17.8 % (11.5-14.5); RDW Standard Deviation 56.9 fL (36.4-46.3); Red Blood Count 4.71 M/uL (4.2-5.4); White Blood Count 29.56 K/uL (4.8-10.8)
[2020-03-31 13:55] LABS: Basophils # (auto) 0.01 K/uL (0-0.2); Echinocytes 2+; Immature Granulocytes # (auto) 0.34 K/uL (0.00-0.02); Immature Granulocytes % (auto) 1.2 %; Lymphocytes # (auto) 0.84 K/uL (1.2-3.4); Lymphocytes % (auto) 2.8 %; Monocytes # (auto) 1.67 K/uL (0.11-0.59); Monocytes % (auto) 5.6 %; Neutrophils % (auto) 90.4 %; Platelet Count 129 K/uL (130-400); Platelet Estimate Normal (Normal); Polychromasia 1+
[2020-03-31] MEDS ORDERED: PHARMACY GLYCEMIC MGMT CONSULT PRN (13:56)
[2020-03-31 14:08] LABS: BUN Creatinine Ratio 10.4 (10-20); Calcium 8.8 mg/dl (8.5-10.1); Creatinine Clr Calc Pharmacy 21.1 ml/min; Est GFR (African American) 21.1; Est GFR (Non-African American) 18.2; Potassium 4.7 mmol/L (3.5-5.1)
[2020-03-31] MEDS ORDERED: INSULIN GLARGINE SOLOSTAR 100 UNITS/ML 3 ML PEN SC ONE (14:15)
--- NOTE | 2020-03-31 14:17 | Pharmacy Report ---
Glycemic Control Consultation - Date of Service March 31, 2020 - Scope Scope: Glycemic Pharmacist consulted for glycemic control and to write orders per [facility] inpatient glycemic control protocol. - Objective Weight: 76.6 kg Accuchecks BSG (last 24hrs): 03/30/20 03/30/20 03/31/20 16:32 20:31 05:37 Glucose 295 H POC Glucose 268 H 298 H 03/31/20 03/31/20 03/31/20 07:38 11:16 11:17 Glucose POC Glucose 264 H 380 H* 335 H* 03/31/20 03/31/20 11:32 13:17 Glucose 298 H POC Glucose 273 H Laboratory Data (last 24hrs): 03/31/20 03/31/20 05:37 13:17 Potassium 4.9 D 4.7 Carbon Dioxide 11 L 9 L* Anion Gap 11.0 11.0 Creatinine 2.47 H D 2.63 H Est Cr Clr Drug Dosing 22.4 21.1 HbA1c: 6.8% on 03/25/19 (outdated ) - Recent Pertinent Medications Outpatient Anti-diabetic Regimen: * Lantus 31 units SQ AM * Humalog 2 units with BF + 3 units with Dinner * Januvia 100mg PO QAM The patient is currently receiving: * Basal insulin: Lantus 5 units every 24 hours given in the AM * Correctional Insulin: Novolog Correction per scale ACHS Goal Range: Low 140 mg/dL - High 180 mg/dL Correction Factor: 25 mg/dL/unit * Prandial insulin: Per carb ratio of 1 unit per 15 grams CHO consumed Risk Factors for Insulin Resistance: * Infection - Assessment & Plan Assessment & Plan: ASSESSMENT: * 64yo T2DM female with unknown degree of outpatient control. A1c is outdated. Will re-order per protocol but will interpret carefully as likely this result will be skewed by cirrhosis and ARF * Pt has been NPO/clear liquid diet only - significantly decreased outpatient regimen SQ basal bolus insulin regimen ordered for admission. * BSGs trending upwards - now at severe hyperglycemia likely d/t insufficient basal insulin dosing while NPO. * Will increase basal to 50% of outpatient dosing and adjust NovoLog scale to ~ wt and stress of 2. Titrate based on BSG trends and diet/PO intake PLAN FOR INPATIENT GLYCEMIC CONTROL: * A1c with AM labs * Holding outpatient oral diabetes medications * Basal insulin * Lantus 15 units SQ daily in AM * Bolus insulin * NovoLog per scale ACHS or Q6hrs while NPO * Goal Range: Low 110 mg/dL - High 140 mg/dL * Correction Factor: 25 mg/dL/unit * Nutritional / Prandial insulin per carb ratio of 1 unit per 10 grams CHO consumed * Please note that the plan above was derived based on current level of insulin resistance and hospital stress. These recommendations are appropriate for inpatient admission only. Plan of care upon discharge will need to be reassessed to avoid potential outpatient hypo/hyperglycemia. Thank you.
--- NOTE | 2020-03-31 14:50 | Surgery Consultation ---
Date of Consultation March 31, 2020 Assessment & Plan (1) Acute renal failure: pt is a 64 year-old female who was admitted to hospital for rapid A-fib, and abdominal pain, IMP: acute abdominal pain, could not R/O ischemic bowel, or primary peritonitis base on pt has significant co-morbidity, INR 3.1, recommend to transfer higher level medical center, [facility] or [facility], D/W benefits, risks and alternatives of the transfer, pt agrees with the transfer, D/W hospitalist, DR. Lan. Present on Admission?: Yes (2) Atrial fibrillation: (3) Acute abdominal pain: History of Present Illness Attending Physician: Violet Lan DO History of Present Illness Chief Complaint: Shortness of breath, weakness Primary Care Provider: Jong story DO History obtained from patient, family, and records. Medical history significant for chronic diastolic heart failure (EF 55%, TTE 2019), PAF status post cardioversion on Coumadin, hypertension, hyperlipidemia, NAFLD cirrhosis status post TIPS, DM2 insulin requiring, CRI (baseline creatinine 1.3-1.4), chronic pancytopenia (baseline hemoglobin of 10), SAMANTHA on CPAP, hx peptic ulcer disease, history of irritable bowel syndrome, fibromyalgia, hypothyroidism, past tobacco abuse Last confinement March 2019 for hepatic encephalopathy. 3 weeks ago, patient underwent successful DC cardioversion for A. fib by [facility] cardiology outpatient. 2 weeks ago, patient noted shortness of breath with exertion, increased fatigue, minimal abdominal discomfort with lack of appetite and weight loss. No headache. No black/bloody stools. Patient compliant with home meds. No OTC NSAID intake. Patient seen at feed miller's office 3 days ago on follow-up. Patient noted to be in recurrent A. fib. Consideration for outpx EP consultation. Outpatient blood work ordered. Serum creatinine noted to be 2.4. Serum TSH noted to be 6.38. Cardiology provider recommended holding diuretics initially for 2 days and lower dosing subsequently. Repeat blood work ordered yesterday. Patient brought to the ER for evaluation. I ( Kelly Rowe MD ) got a call (2:23PM)for consult abdominal pain, I reviewed pt's H/P, labs, CT scan with pt, MEDICAL HISTORY: As above. SURGICAL HISTORY: Hysterectomy. Knee surgeries. Gastric bypass, cholecystectomy, nevi removal, paraesophageal hernia repair, bilateral oophorectomy FAMILY HISTORY: Diabetes and heart disease. PERSONAL AND SOCIAL HISTORY: Remote smoking history. No chronic alcohol intake. lives w . Disabled Allergies Allergy/AdvReac Type Severity Reaction Status Date / Time adhesive Allergy Mild RASH AND Verified 03/28/20 23:44 BRUISING Estrogens Allergy Mild SORE AND Verified 03/28/20 23:44 ITCHY repaglinide Allergy Mild RASH Verified 03/28/20 23:44 Sulfa (Sulfonamide Allergy Mild RED RASH Verified 03/28/20 23:44 Antibiotics) NSAIDS (Non-Steroidal AdvReac Unknown not Verified 03/28/20 23:44 Anti-Inflamma allowed to take Home Medications Home Medications Medication Instructions Recorded Confirmed Type calcium carbonate-vitamin D3 2 tab PO BID 07/11/18 03/28/20 History [Calcium 600 + D(3)] venlafaxine 75 mg PO BID 07/11/18 03/28/20 History Flintstones with Iron 1 tab PO BID 11/02/18 03/28/20 History Januvia 100 mg PO QAM 12/25/18 03/28/20 History Lantus Solostar U-100 Insulin 31 unit SC QAM 01/11/19 03/28/20 History acetaminophen 500 mg PO Q4 PRN 01/11/19 03/28/20 History diphenhydramine HCl [Benadryl] 25 mg PO Q6H PRN 03/02/20 03/28/20 History furosemide 60 mg PO AMPM 03/02/20 03/28/20 History gabapentin 100 mg PO BID 03/02/20 03/28/20 History lactulose 60 ml PO 5XD 03/02/20 03/28/20 History levothyroxine 75 mcg PO QAM 03/02/20 03/28/20 History pantoprazole 40 mg PO QAM 03/02/20 03/28/20 History vitamin A acetate 20,000 unit PO QAM 03/02/20 03/28/20 History insulin lispro [Humalog KwikPen See Rx Instructions .ROUTE .COMPLEX 03/06/20 03/28/20 History Insulin] metoprolol tartrate 75 mg PO BID 03/06/20 03/28/20 History pen needle, diabetic [Novofine 32] 03/06/20 03/06/20 History spironolactone 50 mg PO BID 03/06/20 03/28/20 History warfarin 2 mg PO QPM 03/28/20 03/28/20 History zinc sulfate 220 mg PO BID 03/28/20 03/28/20 History Past Med/Surg History Medical History Anemia Atrial fibrillation reason for procedure on 03/06/20 > coumadin Depression Diabetes mellitus, type II Diabetic neuropathy Esophageal varices no issues at present Factor V Leiden Fibromyalgia GERD (gastroesophageal reflux disease) Hepatic encephalopathy Hypertension Hypothyroidism Liver cirrhosis secondary to MARIA Migraine hx Nausea and vomiting after administration of anesthetic agent SAMANTHA (obstructive sleep apnea) cpap Osteoporosis Portal hypertension Thrombocytopenia Surgical History H/O oophorectomy History of appendectomy History of cardiac cath 9 yrs ago> no stents History of colonoscopy History of dilatation and curettage History of esophagogastroduodenoscopy (EGD) History of hysterectomy History of tooth extraction History of total right knee replacement Hx laparoscopic cholecystectomy S/P gastric bypass with hiatal hernia repair S/P left knee arthroscopy S/P repair of paraesophageal hernia S/P TIPS (transjugular intrahepatic portosystemic shunt) placed Jun 2018 > Valerio Family History Mother Family history of diabetes mellitus Father Family history of diabetes mellitus Brother Family history of diabetes mellitus 2 Social History Smoking Status: Former smoker Second Hand Exposure: No; Hx Alcohol Use: No Hx Substance Use: No Preferred Language: Faroese Communication Ability: Effective Installation Tech Required: No Beliefs That Will Affect Care: None marital status: Current Living Situation: Spouse current occupational status: retired Other Information That Helps Us Care for You: No Feels Safe at Home: Yes Safety Concerns: Feels Safe At This Time Review of Systems Review of Systems: As per HPI, all 10 systems reviewed, all other ROS negative Allergies Allergy/AdvReac Type Severity Reaction Status Date / Time adhesive Allergy Mild RASH AND Verified 03/28/20 23:44 BRUISING Estrogens Allergy Mild SORE AND Verified 03/28/20 23:44 ITCHY repaglinide Allergy Mild RASH Verified 03/28/20 23:44 Sulfa (Sulfonamide Allergy Mild RED RASH Verified 03/28/20 23:44 Antibiotics) NSAIDS (Non-Steroidal AdvReac Unknown not Verified 03/28/20 23:44 Anti-Inflamma allowed to take Home Medications Home Medications Medication Instructions Recorded Confirmed Type calcium carbonate-vitamin D3 2 tab PO BID 07/11/18 03/28/20 History [Calcium 600 + D(3)] venlafaxine 75 mg PO BID 07/11/18 03/28/20 History Flintstones with Iron 1 tab PO BID 11/02/18 03/28/20 History Januvia 100 mg PO QAM 12/25/18 03/28/20 History Lantus Solostar U-100 Insulin 31 unit SC QAM 01/11/19 03/28/20 History acetaminophen 500 mg PO Q4 PRN 01/11/19 03/28/20 History diphenhydramine HCl [Benadryl] 25 mg PO Q6H PRN 03/02/20 03/28/20 History furosemide 60 mg PO AMPM 03/02/20 03/28/20 History gabapentin 100 mg PO BID 03/02/20 03/28/20 History lactulose 60 ml PO 5XD 03/02/20 03/28/20 History levothyroxine 75 mcg PO QAM 03/02/20 03/28/20 History pantoprazole 40 mg PO QAM 03/02/20 03/28/20 History vitamin A acetate 20,000 unit PO QAM 03/02/20 03/28/20 History insulin lispro [Humalog KwikPen See Rx Instructions .ROUTE .COMPLEX 03/06/20 03/28/20 History Insulin] metoprolol tartrate 75 mg PO BID 03/06/20 03/28/20 History pen needle, diabetic [Novofine 32] 03/06/20 03/06/20 History spironolactone 50 mg PO BID 03/06/20 03/28/20 History warfarin 2 mg PO QPM 03/28/20 03/28/20 History zinc sulfate 220 mg PO BID 03/28/20 03/28/20 History Patient History Medical History Anemia Atrial fibrillation reason for procedure on 03/06/20 > coumadin Depression Diabetes mellitus, type II Diabetic neuropathy Esophageal varices no issues at present Factor V Leiden Fibromyalgia GERD (gastroesophageal reflux disease) Hepatic encephalopathy Hypertension Hypothyroidism Liver cirrhosis secondary to MARIA Migraine hx Nausea and vomiting after administration of anesthetic agent SAMANTHA (obstructive sleep apnea) cpap Osteoporosis Portal hypertension Thrombocytopenia Surgical History H/O oophorectomy History of appendectomy History of cardiac cath 9 yrs ago> no stents History of colonoscopy History of dilatation and curettage History of esophagogastroduodenoscopy (EGD) History of hysterectomy History of tooth extraction History of total right knee replacement Hx laparoscopic cholecystectomy S/P gastric bypass with hiatal hernia repair S/P left knee arthroscopy S/P repair of paraesophageal hernia S/P TIPS (transjugular intrahepatic portosystemic shunt) placed Jun 2018 > Valerio Family History Mother Family history of diabetes mellitus Father Family history of diabetes mellitus Brother Family history of diabetes mellitus 2 Social History Smoking Status: Former smoker Second Hand Exposure: No; Hx Alcohol Use: No Hx Substance Use: No Preferred Language: Faroese Communication Ability: Effective Installation Tech Required: No Beliefs That Will Affect Care: None marital status: Current Living Situation: Spouse current occupational status: retired Other Information That Helps Us Care for You: No Feels Safe at Home: Yes Safety Concerns: Feels Safe At This Time Review of Systems Review of Systems: All systems reviewed & are unremarkable except as noted in HPI & below Constitutional: as per Subjective / HPI Eyes: as per Subjective / HPI Ear, Nose, Mouth, Throat: as per Subjective / HPI Respiratory: as per Subjective / HPI SAMANTHA Cardiovascular: as per Subjective / HPI Additional Comments: HTN, A-fib Gastrointestinal: as per Subjective / HPI S/P gastric bypass, S/P cholecystectomy, appendectomy, portal HTN, S/P TIPS(05/2018 at [facility]), liver cirrhosis, repair hiatal hernia Genitourinary: as per Subjective / HPI Musculoskeletal: as per Subjective / HPI right knee replacement Integumentary: as per Subjective / HPI Neurologic: as per Subjective / HPI hepatic encephalopathy Psychiatric: as per Subjective / HPI depression Endocrine: as per Subjective / HPI DM, hypothyroidism Hematologic / Lymphatic: as per Subjective / HPI Allergy / Immunological: as per Subjective / HPI Physical Exam Constitutional: WD/WN, vitals as above + ill appearing Eyes: PERRL, conjunctivae normal, anicteric sclerae ENMT: external ear and nose normal, oropharynx normal Neck: trachea midline, no thyromegaly Respiratory: normal respiratory effort, lungs clear to auscultation Cardiovascular: Rate/Rhythm: + irregularly irregular Gastrointestinal (Abdomen): Percussion/Palpation: abdomen soft diffuse tenderness, with rebound pain, no distend, BS+ Musculoskeletal: Extremities: extremities normal to inspection Skin: no rashes, warm and dry Neurologic: awake Psychiatric: Orientation: alert and oriented to place Results & Data ([facility]) Vital Signs (Past 12 Hours) Vital Signs Temp Pulse Pulse Resp BP Pulse Ox 03/31/20 12:01 36.9 C 60 16 115/73 98 03/31/20 08:16 36.5 C 74 18 132/69 97 03/31/20 04:00 36.6 C 77 16 126/81 97 03/31/20 03:17 48 L 20 96 Laboratory Results Abnormal lab results 03/30/20 03/30/20 03/31/20 Range/Units 16:32 20:31 05:37 WBC 29.31 H D (4.8-10.8) K/uL RDW Std Deviation 57.3 H (36.4-46.3) fL RDW Coeff of Loco 17.8 H (11.5-14.5) % Plt Count (130-400) K/uL MPV 12.8 H (7.4-10.4) fL Neut # (Auto) 26.34 H (1.4-6.5) K/uL Lymph # (Auto) (1.2-3.4) K/uL [place] # (Auto) 1.03 H (0.11-0.59) K/uL Immature Gran # (Auto) 0.31 H (0.00-0.02) K/uL Absolute Nucleated RBC 0.02 H (0-0) K/uL PT (9.0-12.0) Seconds INR (0.9-1.1) Sodium (136-145) mmol/L Chloride (98-107) mmol/L Carbon Dioxide (21-32) mmol/L BUN (7-18) mg/dl Creatinine (0.6-1.2) mg/dl Glucose (70-99) mg/dl POC Glucose 268 H 298 H (70-99) mg/dl Lactate (0.4-2.0) mmol/L Total Bilirubin (0.2-1) mg/dl Direct Bilirubin (0-0.2) mg/dl AST (15-37) U/L Alkaline Phosphatase (45-117) U/L Ammonia (11-32) umol/L Total Protein (6.4-8.2) gm/dl Albumin (3.4-5.0) gm/dl Lipase (73-393) U/L 03/31/20 03/31/20 03/31/20 Range/Units 05:37 05:37 07:38 WBC (4.8-10.8) K/uL RDW Std Deviation (36.4-46.3) fL RDW Coeff of Loco (11.5-14.5) % Plt Count (130-400) K/uL MPV (7.4-10.4) fL Neut # (Auto) (1.4-6.5) K/uL Lymph # (Auto) (1.2-3.4) K/uL Lagrange # (Auto) (0.11-0.59) K/uL Immature Gran # (Auto) (0.00-0.02) K/uL Absolute Nucleated RBC (0-0) K/uL PT 30.5 H (9.0-12.0) Seconds INR 3.1 H (0.9-1.1) Sodium (136-145) mmol/L Chloride 114 H (98-107) mmol/L Carbon Dioxide 11 L (21-32) mmol/L BUN 27 H (7-18) mg/dl Creatinine 2.47 H D (0.6-1.2) mg/dl Glucose 295 H (70-99) mg/dl POC Glucose 264 H (70-99) mg/dl Lactate (0.4-2.0) mmol/L Total Bilirubin 2.3 H (0.2-1) mg/dl Direct Bilirubin 1.1 H (0-0.2) mg/dl AST 55 H (15-37) U/L Alkaline Phosphatase 246 H (45-117) U/L Ammonia (11-32) umol/L Total Protein 6.3 L (6.4-8.2) gm/dl Albumin 2.2 L (3.4-5.0) gm/dl Lipase 1033 H (73-393) U/L 03/31/20 03/31/20 03/31/20 Range/Units 11:16 11:17 11:32 WBC (4.8-10.8) K/uL RDW Std Deviation (36.4-46.3) fL RDW Coeff of Loco (11.5-14.5) % Plt Count (130-400) K/uL MPV (7.4-10.4) fL Neut # (Auto) (1.4-6.5) K/uL Lymph # (Auto) (1.2-3.4) K/uL [place]range # (Auto) (0.11-0.59) K/uL Immature Gran # (Auto) (0.00-0.02) K/uL Absolute Nucleated RBC (0-0) K/uL PT (9.0-12.0) Seconds INR (0.9-1.1) Sodium (136-145) mmol/L Chloride (98-107) mmol/L Carbon Dioxide (21-32) mmol/L BUN (7-18) mg/dl Creatinine (0.6-1.2) mg/dl Glucose (70-99) mg/dl POC Glucose 380 H* 335 H* 273 H (70-99) mg/dl Lactate (0.4-2.0) mmol/L Total Bilirubin (0.2-1) mg/dl Direct Bilirubin (0-0.2) mg/dl AST (15-37) U/L Alkaline Phosphatase (45-117) U/L Ammonia (11-32) umol/L Total Protein (6.4-8.2) gm/dl Albumin (3.4-5.0) gm/dl Lipase (73-393) U/L 03/31/20 03/31/20 03/31/20 Range/Units 13:17 13:17 13:17 WBC 29.56 H (4.8-10.8) K/uL RDW Std Deviation 56.9 H (36.4-46.3) fL RDW Coeff of Loco 17.8 H (11.5-14.5) % Plt Count 129 L (130-400) K/uL MPV (7.4-10.4) fL Neut # (Auto) 26.70 H (1.4-6.5) K/uL Lymph # (Auto) 0.84 L (1.2-3.4) K/uL Lagrange # (Auto) 1.67 H (0.11-0.59) K/uL Immature Gran # (Auto) 0.34 H (0.00-0.02) K/uL Absolute Nucleated RBC (0-0) K/uL PT (9.0-12.0) Seconds INR (0.9-1.1) Sodium 135 L (136-145) mmol/L Chloride 114 H (98-107) mmol/L Carbon Dioxide 9 L* (21-32) mmol/L BUN 27 H (7-18) mg/dl Creatinine 2.63 H (0.6-1.2) mg/dl Glucose 298 H (70-99) mg/dl POC Glucose (70-99) mg/dl Lactate 5.4 H* (0.4-2.0) mmol/L Total Bilirubin (0.2-1) mg/dl Direct Bilirubin (0-0.2) mg/dl AST (15-37) U/L Alkaline Phosphatase (45-117) U/L Ammonia (11-32) umol/L Total Protein (6.4-8.2) gm/dl Albumin (3.4-5.0) gm/dl Lipase 937 H (73-393) U/L 03/31/20 Range/Units 13:17 WBC (4.8-10.8) K/uL RDW Std Deviation (36.4-46.3) fL RDW Coeff of Loco (11.5-14.5) % Plt Count (130-400) K/uL MPV (7.4-10.4) fL Neut # (Auto) (1.4-6.5) K/uL Lymph # (Auto) (1.2-3.4) K/uL Lagrange # (Auto) (0.11-0.59) K/uL Immature Gran # (Auto) (0.00-0.02) K/uL Absolute Nucleated RBC (0-0) K/uL PT (9.0-12.0) Seconds INR (0.9-1.1) Sodium (136-145) mmol/L Chloride (98-107) mmol/L Carbon Dioxide (21-32) mmol/L BUN (7-18) mg/dl Creatinine (0.6-1.2) mg/dl Glucose (70-99) mg/dl POC Glucose (70-99) mg/dl Lactate (0.4-2.0) mmol/L Total Bilirubin (0.2-1) mg/dl Direct Bilirubin (0-0.2) mg/dl AST (15-37) U/L Alkaline Phosphatase (45-117) U/L Ammonia 71.2 H (11-32) umol/L Total Protein (6.4-8.2) gm/dl Albumin (3.4-5.0) gm/dl Lipase (73-393) U/L Diagnostic Findings CT SCAN OF THE ABDOMEN AND PELVIS WITHOUT IV CONTRAST CLINICAL HISTORY: Generalized abdominal pain. COMPARISON STUDY: Abdominal CT dated 03/29/2020. TECHNIQUE: CT scan of the abdomen and pelvis is performed from the lung bases to the proximal femora. Images are reviewed in the axial, sagittal, and coronal planes. IV contrast was not administered for this examination. A dose lowering technique was utilized adhering to the principles of ALARA. FINDINGS: Lung bases: The heart is normal in size and without pericardial effusion. The lung bases are clear. Liver: The unenhanced liver is cirrhotic in morphology and heterogeneous in attenuation. There is nodularity of the hepatic surface contour. A TIPS catheter is noted in the right lobe. There is no intrahepatic biliary ductal dilatation. Gallbladder: Surgically absent noting clips in the gallbladder fossa. Spleen: Spleen is normal in size and attenuation. Trace subcapsular splenic fluid/blood has not significantly changed. This measures up to 6 mm in thickness. Pancreas: The unenhanced pancreas is moderately atrophic and grossly unremarkable. Adrenal glands: Unremarkable. Kidneys: The unenhanced kidneys are atrophic and without hydronephrosis. There are no renal calculi identified. There is no evidence of contour deforming renal mass lesion. Abdominal vasculature: The abdominal aorta is normal in course and caliber noting moderate atherosclerotic calcification. Stomach and bowel: There is a small hiatal hernia. 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 The small bowel loops in the pelvis are mildly distended and fluid-filled. The colon is distended and fluid-filled noting air-fluid levels. There is no significant colonic wall thickening. Minimal pericolonic infiltration is suggested. The right colon and transverse colon measure up to 8 cm in diameter. No transition point is identified to suggest obstruction. The appendix is well-visualized and normal. Peritoneum: There is trace perihepatic ascites which has modestly increased from 03/29/2020. No intraperitoneal free air is seen. Lymphadenopathy: None. Pelvic viscera: Foci of intraluminal gas are noted in the bladder. The bladder is otherwise normal as visualized. The uterus is surgically absent. No adnexal lesion is seen. Skeletal structures: The skeletal structures are osteopenic. There is mild lumbosacral spondylosis. No lytic or blastic lesions are seen. IMPRESSION: 1. Findings suggest a nonspecific enterocolitis with distention of the right colon. Clinical correlation will be required. 2. There is no evidence of high-grade bowel obstruction. Correlate clinically for evidence of ileus. 3. Cirrhotic liver morphology status post TIPS. 4. There is a small volume of perihepatic ascites which has increased from 03/29/2020. 5. A small subcapsular fluid collection of the spleen is unchanged from previous. 6. Foci of gas within the bladder lumen are nonspecific and may be related to instrumentation. Correlation with clinical findings and urinalysis will be required. 7. Additional findings as above. HISTORY: Generalized abdominal pain. TECHNIQUE: Multiaxial CT images of the abdomen and pelvis were performed without contrast. A dose lowering technique was utilized adhering to the principles of ALARA. COMPARISON STUDY: Abdomen and pelvis CT 12/25/2018. FINDINGS: Calcified granuloma within the right middle lobe. The left lung base is clear. No suspicious lytic or blastic osseous lesions. Small hiatus hernia. Evidence for prior gastric bypass. There is also evidence for a prior TIPS. The stent appears in good position. Cirrhotic liver. The gallbladder appears surgically absent. Trace subcapsular splenic fluid collection has slightly decreased in size. This measures 4 mm in thickness. This is chronic. The adrenal glands and pancreas are unremarkable. No renal stones or hydronephrosis. Subcentimeter exophytic hypodense lesion within the left kidney is technically too small to characterize but statistically represents a cyst. No retroperitoneal lymphadenopathy. Normal caliber abdominal aorta. Small amount of gas within the bladder. The uterus is surgically absent. No pelvic free fluid. Suboptimal evaluation for bowel pathology due to the lack of intravenous and oral contrast. However, there is no definite bowel wall thickening or obstruction. The appendix is not identified and reportedly surgically absent. IMPRESSION: 1. Postoperative changes as described above. 2. Cirrhotic liver with prior TIPS. 3. No definite bowel wall thickening or obstruction. 4. Gas within the bladder lumen. This could be due to prior catheterization. Clinical correlation recommended. 5. Chronic trace subcapsular splenic fluid collection. This has improved in the interval.
[2020-03-31] MEDS ORDERED: PIPERACILL/TAZOBAC CONSULT ACTIVE PRN (14:52)
--- NOTE | 2020-03-31 15:07 | Communication Note ---
Date of Service: March 31, 2020 TRANSFER NOTE: 64-year-old female with cirrhosis and atrial fibrillation refractive to DC cardioversion presented with rapid ventricular response. Cardiology was consulted and recommended rate control strategy adding diltiazem 180 mg daily to her typical regimen of metoprolol 75 p.o. twice daily. She was continued on Coumadin and therapeutic with her INR. She was also slightly confused with an elevated ammonia level consistent with hepatic encephalopathy. She is status post TIPS placement in the past and has a known history of esophageal varices with no overt bleeding at this time. She also was started on Rocephin secondary to a urinary tract infection with lower leg weakness. On 03/30 her heart rate dropped into the low 40s and she subsequently developed some abdominal pain. She was treated for symptomatic bradycardia with calcium and was given atropine. Her heart rate improved into the 60s transiently, then went back into the 40s/5 0s and was up into the 70s as of 4:00 in the morning on 03/31. Her abdominal discomfort worsened overnight and she did develop some shortness of breath. The fluids that were going were held and lab work and imaging were pursued with an abdomen pelvis CT without contrast revealing a nonspecific enterocolitis with distention of the right colon, no evidence of high-grade bowel obstruction however clinical correlation was recommended for evidence of ileus. A cirrhotic liver status post TIPS was noted as well as a small volume of perihepatic ascites which had increased from 03/29/2020. A small subcapsular fluid collection of the spleen was unchanged from prior imaging. Lab work revealed an increase in white count from 12 K to 30 K overnight, renal function decreased with a creatinine 1.65 going to 2.5. H&H stayed stable at 14/42, INR was 3.1, sodium 135, potassium 4.7, chloride 114, carbon dioxide 9 a normal anion gap, BUN 27, creatinine 2.63. A repeat ammonia was 71 and a lactate revealed 5.4. Based on her elevated lactate as well as her clinical picture with distended abdomen and exquisite tenderness to palpation, very different from yesterday's exam, there was a concern for bowel ischemia. General surgery came to evaluate the patient and agreed with this concern recommending she moved to a tertiary care facility for further evaluation and treatment. Ceftriaxone was switched to Zosyn for empiric coverage with elevated white count and possible translocation of bacteria related to possible bowel ischemia. Of note she was afebrile and hemodynamically stable the day of discharge. She was oxygenating well on room air and did not appear septic. and patient were updated and she was transferred by air to [facility]. Accepting physician was Dr. Lamonte Castro-Herrera [facility] Surgeon. Current Inpatient Medications Acetaminophen (Acetaminophen 325 Mg Tab) 325 mg PO Q6H PRN PRN Reason: Mild Pain Stop: 04/28/20 05:11 Last Admin: 03/30/20 08:07 Dose: 325 mg Documented by: Dextrose (Dextrose 50% 50 Ml Syringe) 25 - 50 ml IV UD PRN; Protocol PRN Reason: Hypoglycemia Protocol Stop: 04/28/20 05:11 Diltiazem HCl (Diltiazem Hcl 120 Mg Capcr) 120 mg PO QAM JOEY Stop: 04/30/20 08:59 Last Admin: 03/31/20 07:35 Dose: 120 mg Documented by: Gabapentin (Gabapentin 100 Mg Cap) 100 mg PO BID JOEY Stop: 04/28/20 08:59 Last Admin: 03/31/20 07:36 Dose: 100 mg Documented by: Glucagon (Glucagon For Inj 1 Mg Vial) 1 mg SQ UD PRN; Protocol PRN Reason: Hypoglycemia Protocol Stop: 04/28/20 05:11 Glucose (Glucose 10 Tabs/Tube) 4 - 8 tabs PO UD PRN; Protocol PRN Reason: Hypoglycemia Protocol Stop: 04/28/20 05:11 Glucose (Glucose 40% Gel 15 Gm Tube) 15 - 30 gm PO UD PRN; Protocol PRN Reason: Hypoglycemia Protocol Stop: 04/28/20 05:11 Guaifenesin (Guaifenesin Sugar Free 200 Mg/10 Ml Udc) 200 mg PO Q6H PRN PRN Reason: Cough Stop: 04/28/20 05:11 Promethazine HCl 12.5 mg/ (Sodium Chloride) 50.5 mls @ 202 mls/hr IV Q6H PRN PRN Reason: Nausea And Vomiting Stop: 04/28/20 05:11 Sodium Chloride (Nss 1000ml) 1,000 mls @ 125 mls/hr IV .Q8H JOEY Stop: 04/29/20 13:14 Last Infusion: 03/31/20 05:11 Dose: 0 mls/hr Documented by: Piperacillin Sod/Tazobactam (Sod 3.375 gm/ Dextrose) 115 mls @ 230 mls/hr IV 1530 ONE; Protocol Stop: 03/31/20 15:59 Piperacillin Sod/Tazobactam (Sod 3.375 gm/ Dextrose) 115 mls @ 28.75 mls/hr IV Q8H [facility]; Protocol Stop: 04/02/20 21:59 Sodium Chloride (Nss 1000ml) 1,000 mls @ 125 mls/hr IV .Q8H [facility] Stop: 04/30/20 15:14 Insulin Aspart (Insulin Aspart 100 Units/Ml 3 Ml Pen) 0 units SC ACHS JOEY Stop: 04/28/20 12:04 Last Admin: 03/31/20 11:49 Dose: 5 units Documented by: Insulin Glargine (Insulin Glargine Solostar 100 Units/Ml 3 Ml Pen) 5 units SC DAILY [facility] Stop: 04/28/20 08:59 Last Admin: 03/31/20 07:36 Dose: 5 units Documented by: Lactulose (Lactulose Syrup 20 Gm/30 Ml Udc) 40 gm PO [id number] [facility] Stop: 04/28/20 06:59 Last Admin: 03/31/20 11:46 Dose: 40 gm Documented by: Levothyroxine Sodium (Levothyroxine Sodium 75 Mcg Tablet) 75 mcg PO DAILYBB [facility] Stop: 04/28/20 06:29 Last Admin: 03/31/20 06:28 Dose: 75 mcg Documented by: Metoprolol Tartrate (Metoprolol Tartrate 25 Mg Tab) 75 mg PO BID [facility] Stop: 04/28/20 08:59 Last Admin: 03/30/20 08:12 Dose: 75 mg Documented by: Miscellaneous (Carbohydrates For Hypoglycemia ) 15 - 30 gm PO UD PRN PRN Reason: Hypoglycemia Protocol Stop: 04/28/20 05:11 Miscellaneous Information (Pharmacy Glycemic Mgmt Consult) 1 ea N/A UD PRN PRN Reason: Consult Stop: 04/30/20 13:55 Miscellaneous Information (Piperacill/Tazobac Consult Active) 1 ea N/A UD PRN PRN Reason: Consult Stop: 04/30/20 14:51 Nitroglycerin (Nitroglycerin Sl 0.4 Mg/Tab Tab) 0.4 mg SL UD PRN PRN Reason: Chest Pain Stop: 04/28/20 05:11 Pantoprazole Sodium (Pantoprazole 40 Mg Tab) 40 mg PO QAM JOEY Stop: 04/28/20 08:59 Last Admin: 03/31/20 07:35 Dose: 40 mg Documented by: Tramadol HCl (Tramadol Hcl 50 Mg Tablet) 25 - 50 mg PO Q4H PRN PRN Reason: Pain Stop: 04/28/20 05:11 Venlafaxine HCl (Venlafaxine Hcl 37.5 Mg Tab) 75 mg PO BIDM [facility] Stop: 04/28/20 07:59 Last Admin: 03/31/20 07:36 Dose: 75 mg Documented by:
[2020-03-31] MEDS ORDERED: SODIUM CHLORIDE 0.9% 1000ML 1,000 ML IV SCH (15:15)
[2020-03-31] MEDS ORDERED: PIPERACILLIN/TAZOBACTAM 3.375 GM in DEXTROSE 5% 100 ML IV ONE (15:30)
--- NOTE | 2020-03-31 15:46 | Discharge Summary ---
Date of Service March 31, 2020 Admission HPI Per Admitting Provider History obtained from patient, family, and records. Medical history significant for chronic diastolic heart failure (EF 55%, TTE 2019), PAF status post cardioversion on Coumadin, hypertension, hyperlipidemia, NAFLD cirrhosis status post TIPS, DM2 insulin requiring, CRI (baseline creatinine 1.3-1.4), chronic pancytopenia (baseline hemoglobin of 10), SAMANTHA on CPAP, hx peptic ulcer disease, history of irritable bowel syndrome, fibromyalgia, hypothyroidism, past tobacco abuse Last confinement March 2019 for hepatic encephalopathy. 3 weeks ago, patient underwent successful DC cardioversion for A. fib by [facility] cardiology outpatient. 2 weeks ago, patient noted shortness of breath with exertion, increased fatigue, minimal abdominal discomfort with lack of appetite and weight loss. No headache. No black/bloody stools. Patient compliant with home meds. No OTC NSAID intake. Patient seen at payroll and benefits assistant's office 3 days ago on follow-up. Patient noted to be in recurrent A. fib. Consideration for outpx EP consultation. Outpatient blood work ordered. Serum creatinine noted to be 2.4. Serum TSH noted to be 6.38. Cardiology provider recommended holding diuretics initially for 2 days and lower dosing subsequently. Repeat blood work ordered yesterday. Patient brought to the ER for evaluation. MEDICAL HISTORY: As above. SURGICAL HISTORY: Hysterectomy. Knee surgeries. Gastric bypass, cholecystectomy, nevi removal, paraesophageal hernia repair, bilateral oophorectomy FAMILY HISTORY: Diabetes and heart disease. PERSONAL AND SOCIAL HISTORY: Remote smoking history. No chronic alcohol intake. lives w . Disabled Admission Exam Per Admitting Provider GENERAL: Comfortable, no respiratory distress SKIN: Pallor , warm HEENT: pale palpebral conjunctivae, no ptosis, dry buccal mucosa NECK : Supple, no tenderness CHEST : CTA, no tenderness HEART : Irregular, tachycardic , no obvious murmurs ABDOMEN: Some distention, nontender EXTREMITIES : No LE swelling/tenderness, no other conspicuous deformities noted NEUROLOGIC : Coherent, no facial asymmetry, no other gross focality Principal Diagnosis Atrial fibrillation on coumadin Cirrhosis with hepatic encephalopathy Symptomatic bradycardia Abdominal pain consistent with possible acute bowel ischemia Discharge Exam CONSTITUTIONAL: WNWD, vitals as above, generally well-appearing but is still slow to respond to questions. EYES: normal conjunctivae, no scleral icterus ENT: external ear and nose normal, MMM NECK: trachea midline RESPIRATORY: clear to auscultation bilaterally, no crackles, rales or wheezes, normal respiratory effort CARDIOVASCULAR: regular rate and rhythm, S1 and 2 heard without murmurs, gallops or rubs, no JVD, no peripheral edema GASTROINTESTINAL: soft, slightly tense, exquisite tenderness to palpation, +guarding. MUSCULOSKELETAL: moves all extremities equally, head is normocephalic and atraumatic SKIN: warm and dry, no jaundice NEUROLOGIC: No facial palsy, encephalopathic and slow to answer questions, worse than yesterday. CN 2-12 grossly intact, slow cognition PSYCHIATRIC: somnolent Discharge Data Allergies Allergy/AdvReac Type Severity Reaction Status Date / Time adhesive Allergy Mild RASH AND Verified 03/28/20 23:44 BRUISING Estrogens Allergy Mild SORE AND Verified 03/28/20 23:44 ITCHY repaglinide Allergy Mild RASH Verified 03/28/20 23:44 Sulfa (Sulfonamide Allergy Mild RED RASH Verified 03/28/20 23:44 Antibiotics) NSAIDS (Non-Steroidal AdvReac Unknown not Verified 03/28/20 23:44 Anti-Inflamma allowed to take Consultations 03/29/20 01:32 ED Decision to Admit Stat 03/29/20 05:16 Consult Cardiology Routine 03/31/20 08:52 Consult Gastroenterology Routine 03/31/20 12:29 Consult General Surgery Routine 03/31/20 12:51 Consult Nephrology Routine 03/31/20 15:04 Burn CD for patient Stat Ordered Studies 03/29/20 03:34 CT abd pelvis wo con Urgent 03/31/20 05:08 CT abd pelvis wo con Urgent Hospital Course (1) Rapid atrial fibrillation: (2) Acute renal failure: (3) Acute dehydration: (4) Hepatic encephalopathy: (5) Diabetes mellitus, type II: (6) Depression: (7) S/P TIPS (transjugular intrahepatic portosystemic shunt): (8) Liver cirrhosis secondary to MARIA: (9) Esophageal varices: (10) SAMANTHA (obstructive sleep apnea): on CPAP (11) UTI (urinary tract infection): (12) Thrombocytopenia: 64-year-old female with cirrhosis and atrial fibrillation refractive to DC cardioversion presented with rapid ventricular response. Cardiology was consulted and recommended rate control strategy adding diltiazem 180 mg daily to her typical regimen of metoprolol 75 p.o. twice daily. She was continued on Coumadin and therapeutic with her INR. She was also slightly confused with an elevated ammonia level consistent with hepatic encephalopathy. She is status post TIPS placement in the past and has a known history of esophageal varices with no overt bleeding at this time. She also was started on Rocephin secondary to a urinary tract infection with lower leg weakness. On 03/30 her heart rate dropped into the low 40s and she subsequently developed some abdominal pain. She was treated for symptomatic bradycardia with calcium and was given atropine. Her heart rate improved into the 60s transiently, then went back into the 40s/50s and was up into the 70s as of 4:00 in the morning on 03/31. Her abdominal discomfort worsened overnight and she did develop some shortness of breath. The fluids that were going were held and lab work and imaging were pursued with an abdomen pelvis CT without contrast revealing a nonspecific enterocolitis with distention of the right colon, no evidence of high-grade bowel obstruction however clinical correlation was recommended for evidence of ileus. A cirrhotic liver status post TIPS was noted as well as a small volume of perihepatic ascites which had increased from 03/29/2020. A small subcapsular fluid collection of the spleen was unchanged from prior imaging. Lab work revealed an increase in white count from 12 K to 30 K overnight, renal function decreased with a creatinine 1.65 going to 2.5. H&H stayed stable at 14/42, INR was 3.1, sodium 135, potassium 4.7, chloride 114, carbon dioxide 9 a normal anion gap, BUN 27, creatinine 2.63. A repeat ammonia was 71 and a lactate revealed 5.4. Based on her elevated lactate as well as her clinical picture with distended abdomen and exquisite tenderness to palpation, very different from yesterday's exam, there was a concern for bowel ischemia. General surgery came to evaluate the patient and agreed with this concern recommending she moved to a tertiary care facility for further evaluation and treatment. Ceftriaxone was switched to Zosyn for empiric coverage with elevated white count and possible translocation of bacteria related to possible bowel ischemia. Of note she was afebrile and hemodynamically stable the day of discharge. She was oxygenating well on room air and did not appear septic. and patient were updated and she was transferred by air to [facility]. Accepting physician was Dr. Lamonte Castro-General Surgeon. Total Time Total Time Spent Total Time Spent (In Minutes): 60 Total Time Includes: Examination of the Patient, Discharge Planning, Medication Reconciliation, Communication With Other Providers and Other (coordinate with family an dspecialists. ) Discharge Plan Discharge Items Patient Disposition: Transfer Acute Care Hospital Reason For Visit: RAPID AF, ARF, DC ISOL, COVID NEG PER LAB Discharge Diagnosis: Possible acute bowel ischemia Condition on Discharge: Serious Activity: Resume your previous activity Non-emergency contact: Primary Care Provider Call non-emergency contact if: you have any medication questions, your symptoms worsen, your pain is not controlled, your pain is worsening, your pain is unusual for you, your pain is concerning for you and you have a fever Follow-up/Referrals: Jong Crockett DO [Primary Care Provider] - Diet: Other - See Diet Comment Diet Comment: NPO Addtl Attending Provider Instructions: You are being transferred to [facility] for evaluation of abdominal pain It is recommended that you followup with your primary care physician on discharge from the receiving facility. It was a pleasure taking care of you! Please call if you have any questions or problems. You can reach a [facility] hospitalist on duty at [facility] 24 hours a day by calling [phone]. Take care of yourself. Violet Lan DO [facility] Pending Studies at Discharge: No Stand-Alone Forms: My [facility] Skilled Items Patient informed of condition?: Yes DNR: No Discharge Level of Care: Other Communicable Disease: No Discharge Prognosis: Deteriorating Lines: Peripheral IV Urinary Catheter: No Medications and DC Order Prescriptions: Continued venlafaxine 75 mg Tablet 75 mg PO BID RF: 0 calcium carbonate-vitamin D3 [Calcium 600 + D(3)] 600 mg(1,500mg) -200 unit Tablet 2 tab PO BID RF: 0 Flintstones with Iron 18 mg iron Tablet,Chewable 1 tab PO BID RF: 0 Januvia 100 mg Tablet 100 mg PO QAM RF: 0 acetaminophen 500 mg Tablet 500 mg PO Q4 PRN (Reason: Pain) RF: 0 Lantus Solostar U-100 Insulin 100 unit/mL (3 mL) insulin pen 31 unit SC QAM RF: 0 furosemide 40 mg Tablet 60 mg PO AMPM RF: 0 levothyroxine 75 mcg Tablet 75 mcg PO QAM RF: 0 pantoprazole 40 mg Tablet,Delayed Release (Dr/Ec) 40 mg PO QAM RF: 0 diphenhydramine HCl [Benadryl] 25 mg Capsule 25 mg PO Q6H PRN (Reason: Itching) RF: 0 gabapentin 100 mg Capsule 100 mg PO BID RF: 0 lactulose 10 gram/15 mL Solution 60 ml PO 5XD RF: 0 vitamin A acetate 10,000 unit Tablet, Sublingual 20,000 unit PO QAM RF: 0 metoprolol tartrate 50 mg Tablet 75 mg PO BID RF: 0 spironolactone 50 mg Tablet 50 mg PO BID RF: 0 insulin lispro [Humalog KwikPen Insulin] 100 unit/mL Insulin Pen See Rx Instructions .ROUTE .COMPLEX RF: 0 (DME) pen needle, diabetic [Novofine 32] 32 gauge x 1/4" Needle MISCELLANEOUS RF: 0 warfarin 2 mg tablet 2 mg PO QPM RF: 0 zinc sulfate 220 (50) mg capsule 220 mg PO BID RF: 0 Discharge Orders: Discharge Order (Routine); Ordered 03/31/20 Ordered By: Violet Lan Admission Data Admit Date/Time: 03/29/20 03:37 Attending Provider: Violet Lan Admit Provider: David Henry Primary Care Provider: Jong Crocektt Other Providers: Jay Rodríguez ; Pancho Garner ; Chong Mclain ; Oscar Silva ; Evans Gabriel ; William Stuart ; Brittani Jacobs ; Virgen Paige ; Junior Tomas ; David Henry ; Dillan Moss ; Kelly Rowe ; Mary Sheppard
[2020-03-31] MEDS ORDERED: PIPERACILLIN/TAZOBACTAM 3.375 GM in DEXTROSE 5% 100 ML IV SCH (22:00)
--- NOTE | 2020-03-31 22:45 | Consultation Report ---
DATE OF CONSULTATION: 03/31/2020 GASTROENTEROLOGY CONSULT REASON FOR CONSULTATION: I was asked to consult on this woman by Dr. Lan for evaluation of abdominal pain. HISTORY OF PRESENT ILLNESS: The patient is a 64-year-old with a history of both cardiac disease as well as MARIA cirrhosis. She was admitted on the with recurrent rapid AFib and a supratherapeutic INR. She has a history of chronic diastolic heart failure. She also is followed by Gastroenterology as an outpatient for MARIA cirrhosis and has had several admissions for encephalopathy. While being treated for her persistent AFib, medications for rate control caused bradycardia. After bouts of bradycardia, she developed abdominal pain that was quite severe. The patient describes severe generalized abdominal pain, some mild nausea, but no vomiting and she has not had any bowel movement. Part of her workup including blood test for this acute change in symptoms showed a significant jump in her white blood cell count to almost 30,000. Repeat imaging of her abdomen without contrast showed mildly distended small bowel loops and large bowel that was also mildly distended with air fluid levels, there was some suggestion of nonspecific enterocolitis. MEDICATIONS: Currently her outpatient medications include venlafaxine, Januvia, Lantus, furosemide, gabapentin, lactulose, levothyroxine, pantoprazole, metoprolol, spironolactone, Coumadin which is currently on hold and vitamins. ALLERGIES: SHE IS ALLERGIC TO ADHESIVES, ESTROGEN, SULFA, NONSTEROIDALS, REPAGLINIDE. SOCIAL HISTORY: Not significant for active smoking or drinking. FAMILY HISTORY: Negative for gastrointestinal disease. REVIEW OF SYSTEMS: As above, otherwise she has had no recent change in vision or hearing. She denies any recent hair loss. She has had no joint swelling. She has had no easy bruising. She denies any new chest pain. She does have chronic palpitations from her AFib. She denies any recent seizures. She denies any recent heat or cold intolerance. She denies any recent dysuria or polyuria. She denies any recent CHEMIST PHYSICAL bleeding. She denies any recent change in mood or depression. PHYSICAL EXAMINATION: GENERAL: Reveals a woman lying in bed that is arousable, though quite fatigued and ill appearing. VITAL SIGNS: Most recent blood pressure is 115/73, pulse is 60, temperature is 36.9. SKIN: Anicteric. EYES: Show anicteric sclerae. MOUTH: Dry with no lesions. NECK: Supple. CHEST: Clear. HEART: bradycardic and irregular ABDOMEN: Has decreased bowel sounds and is tender throughout with some evidence of rebound tenderness. There are no obvious masses or fluid wave. No organomegaly. EXTREMITIES: Warm with thready distal pulses. NEUROLOGIC: She is alert and oriented, though fatigued. LABORATORY STUDIES: Described as above as well as a recent lipase of 1000 and INR of 3.1 and elevated lactate of 5.4. IMPRESSION AND PLAN: A 64-year-old woman with history of non-alcoholic steatohepatitis cirrhosis as well as cardiac disease with rapid atrial fibrillation, who underwent rate control with medications for her rapid atrial fibrillation resulting in bradycardia, who developed severe abdominal pain. Given the elevated white count, lactate, lipase, exam, and imaging, I am concerned about visceral/intestinal ischemia. I agree with getting Surgery involved. I would continue aggressive hydration and broad-spectrum antibiotics and consider transfer to a higher level institution if further concerns of visceral ischemia is being entertained. A CT angiogram without oral contrast or an MRA may be helpful as well, but I would recommend awaiting guidance from Surgery. I will discuss this with the hospitalist team as well. ROSI
== END 2020-03-31 16:20 | disposition short-term general hospital (02) | DRG 309 ==
LOC: ED 20:24 → 2S 03-29 03:37